=== PATIENT | male | born 1940 | race Caucasian/White ===

== ENCOUNTER → 2016-10-12 | Outpatient (REF) | payer MEDICARE | LOC: M LAB REF 12:15 | PROVIDERS: ATTEND Nurse Practitioner Family | DX: R50.9 Fever, unspecified (principal); B34.9 Viral infection, unspecified ==

== ENCOUNTER → 2016-10-19 | Outpatient (CLI) | payer MEDICARE ==
[~2016-10-19] MED LIST: METHACHOLINE KIT (J7674) INH ONE
--- NOTE | 2016-10-19 08:28 | PFTRPT ---
METHACHOLINE CHALLENGE REPORT: ORDERING PROVIDER: Ty Shearer D.O. DATE OF SERVICE: 10/19/16 INTERPRETATION: The study was of excellent technical quality. Under protocol, methacholine was administered. Even after a maximal dose of 25 mg (188.875 CDUs) of methacholine , no provocation dose was ever achieved. IMPRESSION: Negative methacholine challenge study. MTDD
== END ==
LOC: M CARPUL 07:30
PROVIDERS: ATTEND Internal Medicine Pulmonary Disease
DX: R06.02 Shortness of breath (principal)
CPT/HCPCS: 94070; 95070; J7674

== ENCOUNTER → 2017-08-17 | Outpatient (REF) | payer MEDICARE ==
[2017-08-17 19:56] LABS: INFLUENZA A AMPLIFICATION NEGATIVE (NEGATIVE); INFLUENZA B AMPLIFICATION NEGATIVE (NEGATIVE)
== END ==
LOC: M LAB REF 16:42
DX: B34.9 Viral infection, unspecified (principal)
CPT/HCPCS: 87502

== ENCOUNTER → 2017-10-02 | Outpatient (CLI) | payer MEDICARE | LOC: M RAD 08:15 | DX: J47.9 Bronchiectasis, uncomplicated (principal) | CPT/HCPCS: G0297 ==

== ENCOUNTER 2017-11-15 10:59 | Day surgery (SDC) | payer MEDICARE ==
[2017-11-15] MEDS: NS 1,000 ML IV (11:15)
[2017-11-15] MEDS ORDERED: PROPOFOL 200 MG/20 ML VIAL As Ordered (12:34)
== END 2017-11-15 13:47 | disposition home or self-care (01) ==
LOC: M OPP 10:59
DX: Z12.11 Encounter for screening for malignant neoplasm of colon (principal); Z86.010 Personal history of colon polyps; K64.0 First degree hemorrhoids; I10 Essential (primary) hypertension; E78.5 Hyperlipidemia, unspecified; E03.9 Hypothyroidism, unspecified; J44.9 Chronic obstructive pulmonary disease, unspecified; F17.210 Nicotine dependence, cigarettes, uncomplicated; Z91.041 Radiographic dye allergy status; Z79.82 Long term (current) use of aspirin; Z79.899 Other long term (current) drug therapy
CPT/HCPCS: G0105

== ENCOUNTER 2017-11-28 09:41 | Emergency (ER) | payer MEDICARE ==
[2017-11-28] MEDS: ALBUTEROL SULFATE 2.5 MG/0.5 ML INH NEB SOLN INH (09:56)
[2017-11-28] MEDS: IPRATROPIUM 0.5MG/ALBUTEROL 2.5MG INH SOL UD 3ML (DUONEB)(J7620) NEB (09:56)
[2017-11-28] MEDS: methylPREDNISolone INJ 125 MG/2 ML VIAL (J2930) IV (10:00)
[2017-11-28 10:15] LABS: BASO # 0.2 10^3/uL (0.0-0.2); EOS # 0.4 10^3/uL (0.0-0.50); HEMATOCRIT 40.8 % (42.0-52.0); HEMOGLOBIN 14.5 g/dl (13.5-17.5); IMMATURE GRANULOCYTE % 0.2 % (0-3.0); LYMPH # 1.3 10^3/uL (1.5-4.5); LYMPH % 21.6 % (24.0-44.0); MEAN CORPUSCULAR HEMOGLOBIN 32.9 pg (27.0-33.0); MEAN CORPUSCULAR HGB CONC 35.5 g/dl (32.0-36.5); MEAN CORPUSCULAR VOLUME 92.5 fl (80.0-96.0); MONO # 0.5 10^3/uL (0.0-0.8); MONO % 8.8 % (0.0-5.0); NEUTROPHILS # 3.7 10^3/uL (1.8-7.7); NEUTROPHILS % 59.3 % (36.0-66.0); PLATELET COUNT, AUTOMATED 223 10^3/uL (150-450); RED BLOOD COUNT 4.41 10^6/uL (4.30-6.10); RED CELL DISTRIBUTION WIDTH 12.6 % (11.5-14.5); WHITE BLOOD COUNT 6.2 10^3/uL (4.0-10.0)
[2017-11-28] MEDS: ASPIRIN 81 MG CHEW TABLET PO (10:18)
[2017-11-28 10:30] LABS: BASO % 3.1 % (0.0-1.0); POSITIVE DIFF POS FLAG
[2017-11-28 10:32] LABS: ALBUMIN/GLOBULIN RATIO 1.03 (1.00-1.93); ALKALINE PHOSPHATASE 65 U/L (45-117); ALT/SGPT 24 U/L (12-78); ANION GAP 9 MEQ/L (8-16); AST/SGOT 22 U/L (7-37); BILIRUBIN,DIRECT < 0.1 MG/DL (0.0-0.2); BILIRUBIN,TOTAL 0.4 MG/DL (0.2-1.0); BLOOD UREA NITROGEN 14 MG/DL (7-18); CALCIUM LEVEL 8.9 MG/DL (8.8-10.2); CARBON DIOXIDE LEVEL 24 MEQ/L (21-32); CHLORIDE LEVEL 107 MEQ/L (98-107); CPK CREATINE PHOSPHOKINASE 137 U/L (39-308); CREATININE FOR GFR 1.13 MG/DL (0.70-1.30); FREE T4 0.94 NG/DL (0.76-1.46); GLOMERULAR FILTRATION RATE > 60.0 (>42); GLUCOSE, FASTING 102 MG/DL (70-100); POTASSIUM SERUM 3.5 MEQ/L (3.5-5.1); SODIUM LEVEL 140 MEQ/L (136-145); TOTAL PROTEIN 7.9 GM/DL (6.4-8.2); TROPONIN I < 0.02 NG/ML (< 0.10)
[2017-11-28 10:37] LABS: CK-MB VALUE MASS 2.5 NG/ML (<3.6); MB/CK RELATIVE INDEX 1.82 (< OR =4); NT-PRO BNP 94 PG/ML (<450)
[2017-11-28 15:27] LABS: CK-MB VALUE MASS 1.9 NG/ML (<3.6); CPK CREATINE PHOSPHOKINASE 111 U/L (39-308); MB/CK RELATIVE INDEX 1.71 (< OR =4); TROPONIN I < 0.02 NG/ML (< 0.10)
== END 2017-11-28 16:57 | disposition home or self-care (01) ==
LOC: M ED 09:41
DX: J44.1 Chronic obstructive pulmonary disease with (acute) exacerbation (principal); R94.31 Abnormal electrocardiogram [ECG] [EKG]; I10 Essential (primary) hypertension; E78.5 Hyperlipidemia, unspecified; N40.0 Benign prostatic hyperplasia without lower urinary tract symptoms; Z98.890 Other specified postprocedural states; Z91.041 Radiographic dye allergy status; Z79.82 Long term (current) use of aspirin; Z79.899 Other long term (current) drug therapy; Z79.890 Hormone replacement therapy
CPT/HCPCS: J2930

== ENCOUNTER → 2018-02-27 | Outpatient (REF) | payer MEDICARE ==
[2018-02-27 16:08] LABS: PLATELET COUNT, AUTOMATED 236 10^3/uL (150-450)
[2018-02-27 16:33] LABS: INR 1.09; PARTIAL THROMBOPLASTIN TIME 27.4 SECONDS (25.4-37.6); PROTHROMBIN TIME 14.2 SECONDS (12.1-14.4)
== END ==
LOC: M LABDRAW1 15:53
DX: M47.897 Other spondylosis, lumbosacral region (principal); Z79.01 Long term (current) use of anticoagulants
CPT/HCPCS: 85049

== ENCOUNTER → 2018-08-26 | Outpatient (REF) | payer MEDICARE ==
[~2018-08-26] MED LIST changes: +ALBU83IN INH; +ASPI1TAB PO; +DOXA1TAB41 PO; +LEVO25TA5 PO; +LEVO500T3 PO; -METHACHOLINE KIT (J7674) INH ONE; +PRAV20TA2 PO; +PRED20TA PO; +VENTAER IN; +VITA100067 PO; +VITA500T3 PO
[2018-08-26 14:08] LABS: INFLUENZA A AMPLIFICATION NEGATIVE (NEGATIVE); INFLUENZA B AMPLIFICATION NEGATIVE (NEGATIVE)
== END ==
LOC: M LAB REF 13:21
PROVIDERS: ATTEND Physician Assistant
DX: J11.1 Influenza due to unidentified influenza virus with other respiratory manifestations (principal)

== ENCOUNTER 2018-09-22 08:55 | Emergency (ER) | payer MEDICARE ==
[~2018-09-22] VITALS: Ht 160 cm; Wt 60.5 kg
[2018-09-22] MEDS ORDERED: TREL1AER PO (09:01)
[2018-09-22] MEDS ORDERED: methylPREDNISolone INJ 125 MG/2 ML VIAL (J2930) IV ONE (09:30)
[2018-09-22] MEDS: IPRATROPIUM 0.5MG/ALBUTEROL 2.5MG INH SOL UD 3ML (DUONEB)(J7620) NEB PRN ×2 (09:40→09:50)
[2018-09-22 10:11] LABS: BASO # 0.1 10^3/uL (0.0-0.2); BASO % 1.3 % (0.0-1.0); EOS # 0.2 10^3/uL (0.0-0.50); EOS % 1.6 % (0.0-3.0); HEMATOCRIT 41.8 % (42.0-52.0); HEMOGLOBIN 14.3 g/dl (13.5-17.5); LYMPH # 0.7 10^3/uL (1.5-4.5); LYMPH % 7.7 % (24.0-44.0); MEAN CORPUSCULAR HEMOGLOBIN 32.8 pg (27.0-33.0); MEAN CORPUSCULAR HGB CONC 34.2 g/dl (32.0-36.5); MEAN CORPUSCULAR VOLUME 95.9 fl (80.0-96.0); MONO # 0.6 10^3/uL (0.0-0.8); NEUTROPHILS # 7.9 10^3/uL (1.8-7.7); NEUTROPHILS % 82.9 % (36.0-66.0); PLATELET COUNT, AUTOMATED 213 10^3/uL (150-450); RED BLOOD COUNT 4.36 10^6/uL (4.30-6.10); WHITE BLOOD COUNT 9.5 10^3/uL (4.0-10.0)
--- NOTE | 2018-09-22 10:14 | REP ---
PA and lateral chest: Comparison is 08/31/2018. The lung mccullough are clear. The cardiac size is normal. The jeanie, mediastinum, and skeletal structures are unremarkable. Impression: Negative PA and lateral chest. Electronically Signed by Jose Carlos Bailey MD 09/22/2018 10:06 A
[2018-09-22 10:48] LABS: INFLUENZA A AMPLIFICATION NEGATIVE (NEGATIVE); INFLUENZA B AMPLIFICATION NEGATIVE (NEGATIVE)
[2018-09-22 10:54] LABS: BLOOD UREA NITROGEN 18 MG/DL (7-18); CARBON DIOXIDE LEVEL 25 MEQ/L (21-32); CHLORIDE LEVEL 107 MEQ/L (98-107); CPK CREATINE PHOSPHOKINASE 101 U/L (39-308); CREATININE FOR GFR 1.16 MG/DL (0.70-1.30); GLOMERULAR FILTRATION RATE > 60.0 (>42); GLUCOSE, FASTING 109 MG/DL (70-100); MB/CK RELATIVE INDEX 1.88 (< OR =4); NT-PRO BNP 65 PG/ML (<450); POTASSIUM SERUM 3.7 MEQ/L (3.5-5.1); SODIUM LEVEL 142 MEQ/L (136-145); THYROID STIMULATING HORMONE 0.977 uIU/ML (0.358-3.740); TROPONIN I < 0.02 NG/ML (< 0.10)
[2018-09-22 12:06] VITALS: O2SAT 96
[2018-09-22 13:07] VITALS: BP 130/62
--- NOTE | 2018-09-23 20:49 | ECGEPIP ---
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
== END 2018-09-22 13:13 | disposition home or self-care (01) ==
LOC: M ED 08:55
DX: R06.00 Dyspnea, unspecified (principal); J44.9 Chronic obstructive pulmonary disease, unspecified; I10 Essential (primary) hypertension; Z79.52 Long term (current) use of systemic steroids; Z79.82 Long term (current) use of aspirin; Z79.899 Other long term (current) drug therapy; Z79.51 Long term (current) use of inhaled steroids; Z79.890 Hormone replacement therapy; Z87.891 Personal history of nicotine dependence; Z91.041 Radiographic dye allergy status
CPT/HCPCS: 71046; 80048; 82550; 82553; 83880; 84443; 84484; 85025; 85379; 87502; 93005; 93041; 94640; 94760; 96374; 99285; J2930

== ENCOUNTER → 2019-02-07 | Outpatient (REF) | payer OTHER ==
[~2019-02-07] MED LIST changes: -ASPI1TAB PO; +ASPI81TA26 PO; +CYAN500T8 PO; +TREL1AER PO; -VITA500T3 PO
[2019-02-07 13:33] LABS: INR 1.09; PROTHROMBIN TIME 13.8 SECONDS (11.8-14.0)
[2019-02-07 13:34] LABS: PARTIAL THROMBOPLASTIN TIME 27.3 SECONDS (25.0-38.4)
== END ==
LOC: M LABDRAW1 09:09
PROVIDERS: ATTEND Physical Medicine & Rehabilitation
DX: Z01.818 Encounter for other preprocedural examination (principal)

== ENCOUNTER → 2019-05-19 | Outpatient (REF) | payer MEDICARE, OTHER ==
[2019-05-19 14:35] LABS: INFLUENZA A AMPLIFICATION NEGATIVE (NEGATIVE); INFLUENZA B AMPLIFICATION NEGATIVE (NEGATIVE)
== END ==
LOC: M LAB REF 13:48
PROVIDERS: ATTEND Nurse Practitioner Family
DX: R50.9 Fever, unspecified (principal)

== ENCOUNTER 2019-10-28 13:36 | Emergency (ER) | payer MEDICARE ==
[~2019-10-28] VITALS: Ht 160 cm; Wt 61.6 kg
[2019-10-28 14:33] LABS: BASO # 0.1 10^3/uL (0.0-0.2); BASO % 1.5 % (0.0-1.0); EOS # 0.1 10^3/uL (0.0-0.5); EOS % 0.8 % (0.0-3.0); HEMATOCRIT 41.4 % (42.0-52.0); HEMOGLOBIN 14.2 g/dl (13.5-17.5); LYMPH # 0.5 10^3/uL (1.5-5.0); LYMPH % 6.7 % (24.0-44.0); MEAN CORPUSCULAR HGB CONC 34.3 g/dl (32.0-36.5); MEAN CORPUSCULAR VOLUME 96.3 fl (80.0-96.0); MONO # 0.3 10^3/uL (0.0-0.8); MONO % 4.2 % (0.0-5.0); NEUTROPHILS # 6.5 10^3/uL (1.5-8.5); NEUTROPHILS % 86.4 % (36.0-66.0); PLATELET COUNT, AUTOMATED 256 10^3/uL (150-450); WHITE BLOOD COUNT 7.6 10^3/uL (4.0-10.0)
--- NOTE | 2019-10-28 14:42 | REP ---
REASON: Cough and dyspnea. FINDINGS: The technique utilized in obtaining the radiograph has magnified the cardiac silhouette and accentuated the interstitial markings. The superior mediastinal structures are midline. The cardiac silhouette is unremarkable in size, shape, and position. The diaphragmatic surfaces of the lungs are regular, and the costophrenic angles are clear. The pulmonary mccullough are clear. The imaged osseous structures are intact. IMPRESSION: There is no acute cardiopulmonary disease. Electronically Signed by Samy Olvera DO 10/28/2019 03:00 P
[2019-10-28 14:58] LABS: ALBUMIN 3.7 GM/DL (3.2-5.2); ALT/SGPT 33 U/L (12-78); BILIRUBIN,DIRECT 0.1 MG/DL (0.0-0.2); BILIRUBIN,TOTAL 0.3 MG/DL (0.2-1.0); BLOOD UREA NITROGEN 22 MG/DL (7-18); CALCIUM LEVEL 9.1 MG/DL (8.8-10.2); CARBON DIOXIDE LEVEL 25 MEQ/L (21-32); CHLORIDE LEVEL 106 MEQ/L (98-107); CREATININE FOR GFR 1.22 MG/DL (0.70-1.30); GLOMERULAR FILTRATION RATE > 60.0 (>42); GLUCOSE, FASTING 198 MG/DL (70-100); POTASSIUM SERUM 3.8 MEQ/L (3.5-5.1); SODIUM LEVEL 138 MEQ/L (136-145); TOTAL PROTEIN 7.5 GM/DL (6.4-8.2)
[2019-10-28] MEDS ORDERED: NS 500 ML IV ONE (15:30)
[2019-10-28 16:52] VITALS: O2SAT 95
[2019-10-28 17:40] VITALS: BP 186/88
--- NOTE | 2019-10-29 09:11 | ECGEPIP ---
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
== END 2019-10-28 17:44 | disposition home or self-care (01) ==
LOC: M ED 13:36
DX: J44.1 Chronic obstructive pulmonary disease with (acute) exacerbation (principal); Z87.891 Personal history of nicotine dependence; Z79.82 Long term (current) use of aspirin; Z79.899 Other long term (current) drug therapy; Z91.041 Radiographic dye allergy status

== ENCOUNTER → 2019-12-11 | Outpatient (REF) | payer MEDICARE, OTHER | LOC: M LAB REF 12:10 | PROVIDERS: ATTEND Nurse Practitioner Adult Health | DX: R35.0 Frequency of micturition (principal) ==

== ENCOUNTER → 2020-01-15 | Outpatient (CLI) | payer OTHER ==
[2020-01-15 09:35] LABS: PLATELET COUNT, AUTOMATED 208 10^3/uL (150-450)
[2020-01-15 09:46] LABS: INR 1.04; PROTHROMBIN TIME 13.3 SECONDS (11.8-14.0)
[2020-01-15 09:47] LABS: PARTIAL THROMBOPLASTIN TIME 26.9 SECONDS (25.0-38.4)
== END ==
LOC: M LAB 08:49
PROVIDERS: ATTEND Physical Medicine & Rehabilitation
DX: M47.27 Other spondylosis with radiculopathy, lumbosacral region (principal)

== ENCOUNTER → 2020-04-02 | Outpatient (REF) | payer MEDICARE, OTHER | LOC: M LAB REF 16:23 | PROVIDERS: ATTEND Physician Assistant Medical | DX: D51.9 Vitamin B12 deficiency anemia, unspecified (principal) ==

== ENCOUNTER 2020-05-30 10:27 | Emergency (ER) | payer MEDICARE, OTHER ==
[~2020-05-30] VITALS: Ht 160 cm; Wt 61.4 kg
[2020-05-30 11:35] LABS: BASO # 0.2 10^3/uL (0.0-0.2); BASO % 2.2 % (0.0-1.0); EOS # 0.4 10^3/uL (0.0-0.5); HEMOGLOBIN 14.1 g/dl (13.5-17.5); LYMPH # 0.9 10^3/uL (1.5-5.0); MEAN CORPUSCULAR HGB CONC 33.6 g/dl (32.0-36.5); MEAN CORPUSCULAR VOLUME 95.5 fl (80.0-96.0); MONO # 0.5 10^3/uL (0.0-0.8); MONO % 6.8 % (0.0-5.0); NEUTROPHILS # 5.7 10^3/uL (1.5-8.5); NEUTROPHILS % 73.7 % (36.0-66.0); PLATELET COUNT, AUTOMATED 220 10^3/uL (150-450); WHITE BLOOD COUNT 7.8 10^3/uL (4.0-10.0)
[2020-05-30 12:05] LABS: ALBUMIN 3.6 GM/DL (3.2-5.2); ALT/SGPT 20 U/L (12-78); BILIRUBIN,DIRECT 0.1 MG/DL (0.0-0.2); BILIRUBIN,TOTAL 0.7 MG/DL (0.2-1.0); BLOOD UREA NITROGEN 20 MG/DL (7-18); CALCIUM LEVEL 8.9 MG/DL (8.8-10.2); CARBON DIOXIDE LEVEL 23 MEQ/L (21-32); CHLORIDE LEVEL 108 MEQ/L (98-107); CK-MB VALUE MASS 1.9 NG/ML (<3.6); CPK CREATINE PHOSPHOKINASE 77 U/L (39-308); CREATININE FOR GFR 1.18 MG/DL (0.70-1.30); GLOMERULAR FILTRATION RATE > 60.0 (>35); GLUCOSE, FASTING 160 MG/DL (70-100); MB/CK RELATIVE INDEX 2.47 (< OR =4); NT-PRO BNP 67 PG/ML (<450); POTASSIUM SERUM 3.6 MEQ/L (3.5-5.1); SODIUM LEVEL 140 MEQ/L (136-145); TOTAL PROTEIN 6.8 GM/DL (6.4-8.2); TROPONIN I < 0.02 NG/ML (< 0.10)
--- NOTE | 2020-05-30 12:24 | REP ---
INDICATION: DYSPNEA/COUGH. COMPARISON: 10/28/2019 FINDINGS: The technique utilized in obtaining the radiograph has magnified the cardiac silhouette and accentuated the interstitial markings. The superior mediastinal structures are midline. The cardiac silhouette is unremarkable in size, shape, and position. The diaphragmatic surfaces of the lungs are regular, and the costophrenic angles are clear. The pulmonary mccullough are clear. The imaged osseous structures are intact. IMPRESSION: There is no acute cardiopulmonary disease. <Electronically signed by Samy Olvera > 05/30/20 2318
[2020-05-30] MEDS ORDERED: NS 1,000 ML IV ONE (12:30)
[2020-05-30 15:13] VITALS: BP 150/82
[2020-05-31] MEDS ORDERED: XANA0.25 PO ×2 (13:43→13:46)
--- NOTE | 2020-06-01 09:57 | ECGEPIP ---
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
== END 2020-05-30 15:22 | disposition home or self-care (01) ==
LOC: M ED 10:27
DX: R06.00 Dyspnea, unspecified (principal); I10 Essential (primary) hypertension; J44.9 Chronic obstructive pulmonary disease, unspecified; Z79.82 Long term (current) use of aspirin; Z79.899 Other long term (current) drug therapy; Z91.041 Radiographic dye allergy status

== ENCOUNTER 2020-05-31 09:46 | Emergency (ER) | payer MEDICARE ==
[~2020-05-31] VITALS: Ht 160 cm; Wt 60.2 kg
[2020-05-31] MEDS ORDERED: ALPRAZolam 0.25 MG TAB PO ONE (10:30)
--- NOTE | 2020-05-31 11:20 | REP ---
INDICATION: sob. COMPARISON: Yesterday TECHNIQUE: . The technique utilized in obtaining the radiograph has magnified the cardiac silhouette and attenuated the interstitial markings. FINDINGS: The superior mediastinal structures are midline. The heart is not enlarged. The diaphragmatic surfaces of the lungs are regular and the costophrenic angles are clear. The pulmonary mccullough are clear. The visualized osseous structures are intact. IMPRESSION: There is no acute cardiopulmonary disease. <Electronically signed by Samy Olvera > 05/31/20 1118
[2020-05-31 13:29] VITALS: O2SAT 95
[2020-05-31 13:30] VITALS: BP 169/83
[2020-05-31] MEDS ORDERED: XANA0.25 PO ×2 (13:43→13:46)
--- NOTE | 2020-06-01 10:13 | ECGEPIP ---
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
== END 2020-05-31 14:12 | disposition home or self-care (01) ==
LOC: M ED 09:46
DX: F41.1 Generalized anxiety disorder (principal); J44.9 Chronic obstructive pulmonary disease, unspecified; I10 Essential (primary) hypertension; Z87.891 Personal history of nicotine dependence; Z79.82 Long term (current) use of aspirin; Z79.899 Other long term (current) drug therapy; Z91.041 Radiographic dye allergy status

== ENCOUNTER 2020-06-03 04:08 | Inpatient (IN) | payer MEDICARE ==
[~2020-06-03] VITALS: Ht 160 cm; Wt 54.5 kg
[2020-06-03] VITALS (31 sets, daily range): BP systolic 75–114; BP diastolic 43–59; O2SAT 97
[~2020-06-03 04:08] MED LIST changes: +CYAN500T14 PO; -CYAN500T8 PO; +XANA0.25 PO
[2020-06-03] MEDS ORDERED: ONDANSETRON 4MG/2ML VIAL IV ONE (04:30)
[2020-06-03] MEDS ORDERED: NS 1,000 ML IV ONE ×2 (04:30→06:15)
[2020-06-03 04:35] LABS: BASO # 0.2 10^3/uL (0.0-0.2); BASO % 1.7 % (0.0-1.0); EOS # 0.4 10^3/uL (0.0-0.5); EOS % 4.9 % (0.0-3.0); HEMATOCRIT 46.7 % (42.0-52.0); HEMOGLOBIN 15.5 g/dl (13.5-17.5); LYMPH # 0.9 10^3/uL (1.5-5.0); LYMPH % 10.1 % (24.0-44.0); MEAN CORPUSCULAR HEMOGLOBIN 31.3 pg (27.0-33.0); MEAN CORPUSCULAR HGB CONC 33.2 g/dl (32.0-36.5); MEAN CORPUSCULAR VOLUME 94.2 fl (80.0-96.0); MONO # 0.3 10^3/uL (0.0-0.8); MONO % 2.8 % (0.0-5.0); NEUTROPHILS # 7.2 10^3/uL (1.5-8.5); NEUTROPHILS % 79.8 % (36.0-66.0); PLATELET COUNT, AUTOMATED 231 10^3/uL (150-450); RED BLOOD COUNT 4.96 10^6/uL (4.30-6.10)
--- NOTE | 2020-06-03 04:58 | REPVR ---
PROCEDURE INFORMATION: Exam: XR Complete Acute Abdomen Series Exam date and time: 06/03/2020 4:51 AM Age: 80 years old Clinical indication: Abdominal pain TECHNIQUE: Imaging protocol: XR complete acute abdomen series, including 2 or more views of the abdomen and a single view chest. COMPARISON: CR Chest, 1 view 05/31/2020 10:37 AM FINDINGS: Lungs: Normal. No consolidation. Pleural space: Normal. No pneumothorax. Heart/Mediastinum: Normal. No cardiomegaly. Gastrointestinal tract: There is moderate gaseous distention of the transverse colon. There is suggestion of large colonic stool burden in the sigmoid colon. On the lateral decubitus views there are air-fluid levels with stepladder appearance. Intraperitoneal space: Normal. No free air. 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 No acute fracture. Soft tissues: Normal. IMPRESSION: 1. No obvious dilated small bowel loops on the frontal view however dilated loops with air-fluid level seen on the lateral decubitus view suggestive of either ileus or small-bowel obstruction. Additionally noted is significant gaseous distention of the transverse colon and large colonic stool burden in the sigmoid colon. If clinically indicated CT of the abdomen and pelvis may be obtained for further evaluation. 2. No focal lung consolidation seen Electronically signed by: Carl Sethi On 06/03/2020 04:58:55 AM
[2020-06-03 05:12] LABS: ALBUMIN 3.8 GM/DL (3.2-5.2); ALT/SGPT 23 U/L (12-78); BILIRUBIN,DIRECT 0.2 MG/DL (0.0-0.2); BILIRUBIN,TOTAL 0.7 MG/DL (0.2-1.0); BLOOD UREA NITROGEN 21 MG/DL (7-18); CARBON DIOXIDE LEVEL 25 MEQ/L (21-32); CHLORIDE LEVEL 108 MEQ/L (98-107); CREATININE FOR GFR 1.21 MG/DL (0.70-1.30); GLOMERULAR FILTRATION RATE > 60.0 (>35); GLUCOSE, FASTING 155 MG/DL (70-100); LIPASE 128 U/L (73-393); POTASSIUM SERUM 3.7 MEQ/L (3.5-5.1); SODIUM LEVEL 141 MEQ/L (136-145); TOTAL PROTEIN 7.2 GM/DL (6.4-8.2)
--- NOTE | 2020-06-03 06:05 | REPVR ---
PROCEDURE INFORMATION: Exam: CT Abdomen And Pelvis Without Contrast Exam date and time: 06/03/2020 5:17 AM Age: 80 years old Clinical indication: Abdominal pain; Generalized; Additional info: Rule out bowel obstruction TECHNIQUE: Imaging protocol: Computed tomography of the abdomen and pelvis without contrast. Radiation optimization: All CT scans at this facility use at least one of these dose optimization techniques: automated exposure control; mA and/or kV adjustment per patient size (includes targeted exams where dose is matched to clinical indication); or iterative reconstruction. COMPARISON: CT ABD PELVIS W/O CONTRAST 09/16/2014 12:29 AM FINDINGS: Lungs: There are bibasilar chronic lung changes. There is a partially imaged bleb or bullae with thick wall and eccentric nodule measuring 1.3 centimetres. There are nonspecific mild increased peripheral interstitial markings in the lower lung zones. Liver: Normal. No mass. Gallbladder and bile ducts: Normal. No calcified stones. No ductal dilation. Pancreas: Normal. No ductal dilation. Spleen: Normal. No splenomegaly. Adrenal glands: Normal. No mass. Kidneys and ureters: There is a 6.1 cm and 3.5 cm left renal simple appearing cysts. There are 2 small right renal cysts 1 measuring 1.3 cm in the 2nd 1.5 centimetres. There is no renal or ureteral stones nor hydronephrosis. Stomach and bowel: There is thickening of the descending and rectosigmoid colon with surrounding edema. There is a large focal area of stool like material measuring 8.9 x 8.4 cm abutting and inseparable from the sigmoid colon significant surrounding inflammation. There are some mildly dilated small bowel loops in the central abdomen measuring up to 3 cm with some wall thickening. Appendix: No evidence of appendicitis. Intraperitoneal space: Edema is seen in the pelvis with small amount of free pelvic fluid. There is small amount of perihepatic ascites. Vasculature: There is moderate to severe aortic and mild iliac mural calcifications. Lymph nodes: Unremarkable. No enlarged lymph nodes. Urinary bladder: Unremarkable as visualized. Reproductive: The prostate gland is significantly enlarged measuring 5.2 x 5.2 cm indenting the posterior wall of the urinary bladder. Bones/joints: There is diffuse bony osteopenia. Soft tissues: There is small left inguinal fat containing hernia. IMPRESSION: 1. Focal perforation of the sigmoid colon associated with a largely contained 8.9 x 8.4 cm stool collection inseparable from the sigmoid with significant surrounding inflammation and reactive fluid. Some extraluminal foci of air seen adjacent to the rectosigmoid colon. 2. Descending and sigmoid colon colitis with moderate fluid distention of the colon proximally. Findings could be secondary to some form of colonic ileus or partial colonic obstruction. 3. Mid abdominal distended small bowel loops with thickening and surrounding edema could be due to reactive ileus. 4. Simple appearing bilateral renal cysts. 5. Enlarged prostate gland . Correlate with clinical history, physical exam and PSA level. 6. Small left inguinal fat containing hernia. 7. Partially imaged 2.3 cm left lower lobe bullae with thickened wall and eccentric 1.3 cm nodule. Findings could be secondary to super infection however underlying neoplastic process cannot be excluded.For both low risk and high risk patients, consider CT Chest at 3 months, PET/CT, or biopsy. (Reference: Jonny) COMMENTS: Consistent with the [employer]'s Incidental Findings Committee white paper (J Am Armond Radiol 2018): Any incidental renal lesion less than 1 cm or classified as too small to characterize, or any incidental cystic renal lesion characterized as simple-appearing, is likely benign. No follow-up imaging is recommended for these lesions per consensus recommendations based on imaging criteria. REFERENCES: Jonny Veras, et al. Guidelines for Management of Incidental Pulmonary Nodules Detected on CT Images: From the Fleischner Society 2017. Radiology. 2017;284(1):228-243. Electronically signed by: Carl Sethi On 06/03/2020 06:04:52 AM
[2020-06-03] MEDS ORDERED: PIPERACILLIN/TAZOBACTAM SOD 4.5 GM in D5W MINI-BAG PLUS 50 ML IV ONE (06:15)
[2020-06-03] MEDS ORDERED: MORPHINE 4 MG/ML 1ML VIAL/SYRINGE (J2270) IV ONE (06:15)
[2020-06-03] MEDS ORDERED: D31000TA2 PO (06:54)
[2020-06-03] MEDS ORDERED: ACET-897 PO (06:54)
[2020-06-03] MEDS ORDERED: VENTAER INH (06:54)
[2020-06-03] MEDS ORDERED: ALPR0.25 PO (06:54)
[2020-06-03] MEDS ORDERED: ALBU83IN INH (06:54)
[2020-06-03] MEDS ORDERED: PATIENT COMMENT (06:56)
[2020-06-03] MEDS ORDERED: NS 1,000 ML IV SCH ×2 (08:15→11:43)
[2020-06-03] MEDS: NOREPINEPHRINE BITARTRATE 8 MG in D5W 492 ML IV SCH ×3 (09:15→15:08)
[2020-06-03] MEDS ORDERED: GLUCAGON INJ 1MG VIAL As Ordered ONE (09:28)
[2020-06-03] MEDS ORDERED: BUPIVACAINE HCL 0.25% 30ML VIAL As Ordered ONE (09:56)
[2020-06-03] MEDS ORDERED: LIDOCAINE W/EPINEPHRINE 1% 20ML VIAL As Ordered ONE (09:57)
[2020-06-03] MEDS ORDERED: SUGAMMADEX SODIUM 500 MG/5 ML VIAL (BRIDION) As Ordered ONE (10:58)
[2020-06-03] MEDS ORDERED: propofoL 200 MG/20 ML VIAL As Ordered ONE (10:58)
[2020-06-03] MEDS ORDERED: ROCURONIUM BROMIDE 50 MG/5 ML VIAL As Ordered ONE (10:58)
[2020-06-03] MEDS ORDERED: ACETAMINOPHEN 1000MG 100ML IV BTL (OFIRMEV) (J0131 PER 10MG) As Ordered ONE (10:58)
[2020-06-03] MEDS ORDERED: PHENYLEPHRINE 10MG/ML 1ML VIAL (J2370 PER 1) As Ordered ONE (10:58)
[2020-06-03] MEDS ORDERED: SUCCINYLCHOLINE 100 MG/5 ML SYRINGE (J0330) As Ordered ONE (10:58)
[2020-06-03] MEDS ORDERED: ONDANSETRON 4MG/2ML VIAL As Ordered ONE (10:58)
[2020-06-03] MEDS ORDERED: HYDROmorphone HCL 2 MG/ML 1ML VIAL (J1170) As Ordered ONE (10:58)
[2020-06-03] MEDS ORDERED: LIDOCAINE 2% 100MG/5ML SDV (FOR ANES.) As Ordered ONE (10:58)
[2020-06-03] MEDS ORDERED: fentaNYL 100 MCG/2 ML INJECTION (J3010) As Ordered ONE (10:58)
[2020-06-03] MEDS ORDERED: ETOMIDATE INJ 20MG/10ML VIAL As Ordered ONE (10:59)
--- NOTE | 2020-06-03 11:31 | HPE ---
DATE OF ADMISSION: 06/03/2020 BRIEF HISTORY OF PRESENT ILLNESS: The patient is an 80-year-old male who presents with abdominal distention, abdominal pain, nausea, vomiting and essentially developed abdominal pain significant enough with abdominal distention that he was brought to the Emergency Room and evaluated. Initial x- rays revealed no evidence of free perforation, but distended bowel. CT scan was performed and revealed a contained perforation in the sigmoid colon and I was asked to see the patient for further recommendations. PAST MEDICAL AND SURGICAL HISTORY: Significant for: 1. History of COPD. 2. History of right inguinal hernia. 3. History of right knee arthroscopy. 4. History of bilateral carpal tunnel surgery. 5. History of anxiety. 6. History of hypothyroidism. 7. History of hypercholesterolemia. 8. History of osteoporosis. MEDICATIONS: Include: * Aspirin. * Vitamin B12. * Doxazosin. * Mesylate. * Synthroid. * Pravastatin. * Calciferol. * Alprazolam. * Albuterol. * Tylenol. PHYSICAL EXAMINATION: Exam reveals a frail appearing 80-year-old male who looks stated age. HEENT: Unremarkable. Neck: Supple without adenopathy. Lungs: Diminished bilaterally. Heart: Regular, but tachycardic. Abdomen: Distended, tympanitic with guarding in the lower abdomen with localized peritoneal signs. Extremities: Cool, but adequately perfused at this time. IMPRESSION AND PLAN: Patient has evidence of probable large bowel obstruction with a perforation at the sigmoid colon and it may just be a fecal impaction that caused this perforation. It looks like it is perforated into the mesentery, we do not see a free perforation; however, it is a significant amount and I am not convinced that it is held in by much at this point and I anticipate it may turn into a free perforation relatively soon. At this point my recommendation is that we proceed with an exploratory laparotomy with a diverting colostomy. Risks as well as benefits have been discussed with the patient and I contacted the son and informed him of the need for operative intervention and colostomy. He agrees to proceed with operative intervention as soon as possible. Otherwise at this point I have asked, on my first visit to the ER to have an NG-tube placed, I.V. fluids run and we will see if that gets started as soon as possible. GORGE
[2020-06-03] MEDS ORDERED: IPRATROPIUM 0.5MG/ALBUTEROL 2.5MG INH SOL UD 3ML (DUONEB) NEB PRN (11:45)
[2020-06-03] MEDS ORDERED: CIPROFLOXACIN 400 MG in IV 1 EA IV SCH (11:45)
[2020-06-03] MEDS ORDERED: MORPHINE 2 MG/ML 1ML VIAL (J2270) IV PRN ×2 (11:45)
[2020-06-03 12:21] LABS: ABG BASE EXCESS -9.6 (-2.0-2.0); ABG HCO3 18.7 MEQ/L (22.0-26.0); ABG O2 SATURATION 93.1 % (95.0-99.0); ABG PARTIAL PRESSURE CO2 50.6 mmHg (35.0-45.0); ABG PARTIAL PRESSURE O2 78.7 mmHg (75.0-100.0); ABG STANDARD HCO3 16.8 MEQ/L (22.0-26.0); ABG TOTAL CO2 20.3 MEQ/L (23.0-31.0)
[2020-06-03 12:26] LABS: ABG pH (ARTERIAL) 7.186 UNITS (7.350-7.450)
[2020-06-03 12:27] LABS: BASO % 1.1 % (0.0-1.0); EOS % 2.3 % (0.0-3.0); HEMATOCRIT 38.5 % (42.0-52.0); HEMOGLOBIN 12.5 g/dl (13.5-17.5); LYMPH # 0.2 10^3/uL (1.5-5.0); MEAN CORPUSCULAR HEMOGLOBIN 31.4 pg (27.0-33.0); MEAN CORPUSCULAR HGB CONC 32.5 g/dl (32.0-36.5); MEAN CORPUSCULAR VOLUME 96.7 fl (80.0-96.0); MONO # 0.1 10^3/uL (0.0-0.8); MONO % 12.6 % (0.0-5.0); PLATELET COUNT, AUTOMATED 179 10^3/uL (150-450); RED BLOOD COUNT 3.98 10^6/uL (4.30-6.10)
[2020-06-03] MEDS ORDERED: SODIUM BICARBONATE 8.4% INJ 50 ML SYRINGE IV STA ×2 (12:28→12:33)
[2020-06-03] MEDS ORDERED: ONDANSETRON 4MG/2ML VIAL IV PRN (12:30)
[2020-06-03] MEDS ORDERED: fentaNYL 100 MCG/2 ML INJECTION (J3010) IV PRN (12:30)
[2020-06-03] MEDS ORDERED: HYDROMORPHONE HCL 0.5 MG/ 0.5 ML SYRINGE (J1170 PER 1) IV PRN (12:30)
[2020-06-03] MEDS ORDERED: oxyCODONE 5MG TAB PO PRN (12:30)
[2020-06-03] MEDS ORDERED: LR 1,000 ML IV SCH (12:30)
[2020-06-03 12:35] LABS: NEUTROPHILS # 0.5 10^3/uL (1.5-8.5); WHITE BLOOD COUNT 0.9 10^3/uL (4.0-10.0)
[2020-06-03] MEDS ORDERED: SODIUM BICARBONATE 8.4% INJ 50 ML SYRINGE As Ordered ONE (12:48)
[2020-06-03 13:05] LABS: ALBUMIN 1.9 GM/DL (3.2-5.2); BILIRUBIN,TOTAL 0.8 MG/DL (0.2-1.0); CALCIUM LEVEL 7.2 MG/DL (8.8-10.2); CREATININE FOR GFR 1.31 MG/DL (0.70-1.30); POTASSIUM SERUM 3.9 MEQ/L (3.5-5.1); TOTAL PROTEIN 3.6 GM/DL (6.4-8.2)
[2020-06-03] MEDS: IPRATROPIUM 0.5MG/ALBUTEROL 2.5MG INH SOL UD 3ML (DUONEB) NEB SCH ×2 (14:00→19:18)
[2020-06-03 14:35] LABS: ABG BASE EXCESS -5.1 (-2.0-2.0); ABG HCO3 19.8 MEQ/L (22.0-26.0); ABG O2 SATURATION 98.6 % (95.0-99.0); ABG PARTIAL PRESSURE CO2 36.8 mmHg (35.0-45.0); ABG PARTIAL PRESSURE O2 137.4 mmHg (75.0-100.0); ABG STANDARD HCO3 20.3 MEQ/L (22.0-26.0); ABG TOTAL CO2 20.9 MEQ/L (23.0-31.0); ABG pH (ARTERIAL) 7.349 UNITS (7.350-7.450)
[2020-06-03] MEDS ORDERED: NOREPINEPHRINE BITARTRATE 8 MG in D5W 492 ML IV SCH ×2 (15:00)
[2020-06-03] MEDS: D5W/LR 1,000 ML IV SCH (15:08)
[2020-06-03] MEDS: PIPERACILLIN/TAZOBACTAM SOD 3.375 GM in D5W MINI-BAG PLUS 50 ML IV SCH ×2 (15:08→18:02)
[2020-06-03] MEDS ORDERED: NOREPINEPHRINE 4 MG/4 ML AMP ONE (15:19)
[2020-06-03] MEDS: metroNIDAZOLE 500 MG in IV 1 EA IV SCH (16:06)
[2020-06-03] MEDS ORDERED: NS 500 ML IV ONE (16:30)
[2020-06-03 16:32] LABS: HEMATOCRIT 39.8 % (42.0-52.0); HEMOGLOBIN 12.7 g/dl (13.5-17.5); MEAN CORPUSCULAR HEMOGLOBIN 31.3 pg (27.0-33.0); MEAN CORPUSCULAR HGB CONC 31.9 g/dl (32.0-36.5); PLATELET COUNT, AUTOMATED 195 10^3/uL (150-450); RED BLOOD COUNT 4.06 10^6/uL (4.30-6.10); WHITE BLOOD COUNT 1.3 10^3/uL (4.0-10.0)
[2020-06-03 16:56] LABS: CREATININE FOR GFR 1.73 MG/DL (0.70-1.30); GLOMERULAR FILTRATION RATE 40.7 (>35); POTASSIUM SERUM 3.9 MEQ/L (3.5-5.1)
[2020-06-03] MEDS: MORPHINE 2 MG/ML 1ML VIAL (J2270) IV PRN (22:15)
[2020-06-04] VITALS (30 sets, daily range): BP systolic 91–130; BP diastolic 45–76; O2SAT 98
[2020-06-04] MEDS: metroNIDAZOLE 500 MG in IV 1 EA IV SCH ×4 (00:28→23:44)
[2020-06-04] MEDS: PIPERACILLIN/TAZOBACTAM SOD 3.375 GM in D5W MINI-BAG PLUS 50 ML IV SCH ×4 (01:33→18:44)
[2020-06-04] MEDS: IPRATROPIUM 0.5MG/ALBUTEROL 2.5MG INH SOL UD 3ML (DUONEB) NEB SCH ×4 (02:00→19:41)
[2020-06-04] MEDS: MORPHINE 2 MG/ML 1ML VIAL (J2270) IV PRN ×4 (02:44→18:44)
[2020-06-04] MEDS ORDERED: ALTEPLASE 2MG/2ML VIAL IV PRN (05:15)
[2020-06-04] MEDS: NOREPINEPHRINE BITARTRATE 8 MG in D5W 492 ML IV SCH ×3 (06:13→08:00)
[2020-06-04] MEDS: D5W/LR 1,000 ML IV SCH (08:02)
[2020-06-04] MEDS: LEVOTHYROXINE 100MCG (0.1MG) VIAL IV SCH (08:03)
[2020-06-04 08:05] LABS: HEMATOCRIT 36.2 % (42.0-52.0); HEMOGLOBIN 12.2 g/dl (13.5-17.5); MEAN CORPUSCULAR HEMOGLOBIN 32.4 pg (27.0-33.0); MEAN CORPUSCULAR HGB CONC 33.7 g/dl (32.0-36.5); PLATELET COUNT, AUTOMATED 145 10^3/uL (150-450); RED BLOOD COUNT 3.77 10^6/uL (4.30-6.10); WHITE BLOOD COUNT 4.3 10^3/uL (4.0-10.0)
[2020-06-04] MEDS ORDERED: CEPACOL LOZENGE PO PRN (08:30)
[2020-06-04 08:50] LABS: ALBUMIN 1.8 GM/DL (3.2-5.2); BILIRUBIN,TOTAL 0.7 MG/DL (0.2-1.0); CREATININE FOR GFR 1.76 MG/DL (0.70-1.30); GLOMERULAR FILTRATION RATE 39.9 (>35); POTASSIUM SERUM 3.9 MEQ/L (3.5-5.1); TOTAL PROTEIN 4.4 GM/DL (6.4-8.2)
--- NOTE | 2020-06-04 10:46 | REP ---
INDICATION: COPD, post op comparisson. COMPARISON: 06/03/2020. TECHNIQUE: SINGLE PORTABLE AP VIEW OF THE CHEST WAS PERFORMED. FINDINGS: There are new bibasilar infiltrates compared to the prior study. I also suspect small bilateral effusions. There is left ventricular prominence. There is calcification of the thoracic aorta. There is a nasogastric tube with side port in the stomach. IMPRESSION: New bibasilar infiltrates and small effusions. Nasogastric tube placed with side port in the stomach. <Electronically signed by Jose Carlos Shafer > 06/04/20 1040
[2020-06-04] MEDS ORDERED: NOREPINEPHRINE 4 MG/4 ML AMP ONE (10:51)
[2020-06-04] MEDS: D5W/0.45% SODIUM CHLORIDE 1,000 ML IV SCH (12:33)
[2020-06-04] MEDS ORDERED: ACETAMINOPHEN *IV* 650 MG in IV 1 EA IV ONE (13:00)
--- NOTE | 2020-06-04 14:04 | ECGEPIP ---
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
[2020-06-04 15:15] LABS: ALBUMIN 1.7 GM/DL (3.2-5.2); ALT/SGPT 27 U/L (12-78); BILIRUBIN,TOTAL 0.8 MG/DL (0.2-1.0); BLOOD UREA NITROGEN 35 MG/DL (7-18); CALCIUM LEVEL 6.9 MG/DL (8.8-10.2); CARBON DIOXIDE LEVEL 25 MEQ/L (21-32); CHLORIDE LEVEL 111 MEQ/L (98-107); CHOLESTEROL LEVEL < 50 MG/DL (< 200); CPK CREATINE PHOSPHOKINASE 583 U/L (39-308); CREATININE FOR GFR 1.65 MG/DL (0.70-1.30); GLOMERULAR FILTRATION RATE 42.9 (>35); GLUCOSE, FASTING 133 MG/DL (70-100); LDH LACTATE DEHYDROGENASE 189 U/L (87-241); PHOSPHORUS LEVEL 2.8 MG/DL (2.5-4.9); POTASSIUM SERUM 3.7 MEQ/L (3.5-5.1); SODIUM LEVEL 143 MEQ/L (136-145); TOTAL PROTEIN 4.4 GM/DL (6.4-8.2); TRIGLYCERIDES LEVEL 88 MG/DL (<150)
--- NOTE | 2020-06-04 15:47 | CR.PDOC ---
General Date of Consultation: Jun 04, 2020 Referring Provider: Caleb Jackson Jr Consultation REASON FOR CONSULTATION/CHIEF COMPLAINT: Management of medical comorbidities HISTORY OF PRESENT ILLNESS: The patient is an 80-year-old male who present ed to the ED on 06/03/20 with abdominal distention, abdominal pain, nausea, vomiting. Initial x-rays revealed no evidence of free perforation, but distended bowel. CT scan was performed and revealed a contained perforation in the sigmoid colon. Patient was admitted under Surgical service and underwent ex laparotomy with with resection of necrotic segment of colon and creation of diverting colostomy on 06/03/20. S/p Extubation he required BIPAP support. for several hours due to Acute hypercarbic respiratory failure from anaesthesia and pain meds. By evening last night he was off BIPAP. He also developed hypotension requiring levophed post operatively. He has been off levophed from this morning. Hospitalist has been consulted to manage the acute medical issues. Patient complains of appropriate sharp constant abdominal pain at the surgical site about 4/10 in intensity. Denies any SOB , denies any chest pain, no cough. Had a low grade fever this afternoon. Also complains of dull aching low back pain. No nausea or vomiting. Has NG tube in place. ALLERGIES: Please see below. HOME MEDICATIONS: Please see below. PAST MEDICAL HISTORY: Bronchiectasis COPD Anxiety Depression HTN Hypothyroid Vit d def Vit B12 def Adenomatous polyps BPH Vertigo. H/o vertebral compression fracture Chronic back pain PAST SURGICAL HISTORY: Bilateral Carpal Tunnel repair Inguinal hernia repair Right knee arthroscopy FAMILY HISTORY: Father: at 67 from cancer Mother: at 93 after CVA SOCIAL HISTORY: Former Smoker No drug or alcohol abuse. REVIEW OF SYSTEMS: All 11 point ROS are negative except those mentioned in HPI PHYSICAL EXAMINATION: VITAL SIGNS: Please see below. GENERAL APPEARANCE: Laying in bed in no acute distress. HEENT: NC/AT, moist mucous membranes, anicteric eyes. RESPIRATORY: CLear to auscultation, diminished at tammi bases. CARDIOVASCULAR: S1, S2 regular, mildly tachycardic, no rub/ murmur/ gallop ABDOMEN: soft, tender , surgical dressing in place, bowel sounds not appreciated. NG tube in place EXTREMITIES: No edema. LABORATORY DATA: Please see below. ASSESSMENT/PLAN: 80-year-old male who present ed to the ED on 06/03/20 with abdominal distention, abdominal pain, nausea, vomiting. Initial x-rays revealed no evidence of free perforation, but distended bowel. CT scan was performed and revealed a contained perforation in the sigmoid colon. Patient was admitted under Surgical service and underwent ex laparotomy with with resection of necrotic segment of colon and creation of diverting colostomy on 06/03/20. Acute respiratory failure with hypercarbia requiring BIPAP after extubation due to prolonged affect of anesthesia and pain meds Now resolved, Septic shock required levophed overnight . Now resolved and off levophed due to perforated, necrotic bowel. zosyn and metronidazole Metronidazole to be continued for 1 more day will continue IVF Necrotic and perforated sigmoid colon s/p Ex lap and diverting colostomy on 06/03/20 Pain control with morphine 1 mg as needed. Has NG tube in place. as per surgery. Lactic acidosis still persisting probably due to recent shock and and necrotic bowel with MAXWELL will continue with IVF and continue to monitor. MAXWELL prerenal, likely intravascular depletion with third spacing continue IVF, garcia I/O Hypothyroid synthroid DVT prophylaxis: TEDS/ SCD. Vital Signs/I&O Vital Signs Date Time Temp Pulse Resp B/P (MAP) Pulse Ox O2 Delivery O2 Flow Rate FiO2 06/04/20 10:00 100 22 102/58 (73) 94 Nasal Cannula 2.0 06/04/20 08:00 99.0 06/03/20 18:12 30 I&O- Last 24 Hours up to 6 AM 06/04/20 05:59 Intake Total 7731 ml Output Total 1955 ml Balance 5776 ml Laboratory Data Labs 24H Laboratory Tests 2 06/03/20 11:57: Blood Gas Bicarbonate Standard 16.8L, Arterial Blood pH 7.186*L, Arterial Blood Partial Pressure CO2 50.6H, Arterial Blood Partial Pressure O2 78.7, Arterial Blood Total CO2 20.3L, Arterial Blood HCO3 18.7L, Arterial Blood Base Excess - 9.6L, Arterial Blood Oxygen Saturation 93.1L 06/03/20 12:05: Immature Granulocyte % (Auto) 0.0, Neutrophils (%) (Auto) 61.0, Lymphocytes (%) (Auto) 23.0L, Monocytes (%) (Auto) 12.6H, Eosinophils (%) (Auto) 2.3, Basophils (%) (Auto) 1.1H, Neutrophils # (Auto) 0.5L, Lymphocytes # (Auto) 0.2L, Monocytes # (Auto) 0.1, Eosinophils # (Auto) 0.0, Basophils # (Auto) 0.0, Nucleated Red Blood Cells % (auto) 0.0, Anion Gap 8, Glomerular Filtration Rate 56.0, Lactic Acid Level 4.8*H, Calcium Level 7.2#L, Total Bilirubin 0.8, Aspartate Amino Transf (AST/SGOT) 18, Alanine Aminotransferase (ALT/SGPT) 12, Alkaline Phosphatase 56, Total Protein 3.6#L, Albumin 1.9#L, Albumin/Globulin Ratio 1.1 06/03/20 14:26: Blood Gas Bicarbonate Standard 20.3L, Arterial Blood pH 7.349L, Arterial Blood Partial Pressure CO2 36.8, Arterial Blood Partial Pressure O2 137.4H, Arterial Blood Total CO2 20.9L, Arterial Blood HCO3 19.8L, Arterial Blood Base Excess - 5.1L, Arterial Blood Oxygen Saturation 98.6 06/03/20 16:08: Nucleated Red Blood Cells % (auto) 0.0, Anion Gap 7L, Glomerular Filtration Rate 40.7, Calcium Level 7.0L 06/03/20 16:30: Lactic Acid Followup at 4 Hours 4.2*H 06/03/20 18:37: Bedside Glucose (Misc Panel) 145H 06/04/20 00:33: Bedside Glucose (Misc Panel) 136H 06/04/20 06:23: Bedside Glucose (Misc Panel) 118H 06/04/20 07:50: Nucleated Red Blood Cells % (auto) 0.0, Anion Gap 7L, Glomerular Filtration Rate 39.9, Calcium Level 7.0L, Total Bilirubin 0.7, Aspartate Amino Transf (AST/SGOT) 48H, Alanine Aminotransferase (ALT/SGPT) 28, Alkaline Phosphatase 58, Total Protein 4.4#L, Albumin 1.8L, Albumin/Globulin Ratio 0.7 06/04/20 08:24: Lactic Acid Level 4.1*H CBC/BMP Laboratory Tests 06/03/20 12:05 06/03/20 16:08 06/04/20 07:50 Allergies Coded Allergies: Contrast Media (Verified Allergy, Unknown, low BP red skin, 06/03/20) Home Medications Scheduled Aspirin (Aspirin EC) 81 Mg Tab, 81 MG PO DAILY, (Reported) Cholecalciferol (Vitamin D3) (Vitamin D3) 1,000 Unit Tablet, 1,000 UNITS PO DAILY, (Reported) Cyanocobalamin (Vitamin B-12) (Vitamin B-12) 500 Mcg Tab, 1,000 MCG PO DAILY, (Reported) Doxazosin Mesylate (Doxazosin Mesylate) 2 Mg Tab, 2 MG PO DAILY, (Reported) Levothyroxine Sodium (Levothyroxine Sodium) 25 Mcg Tab, 25 MCG PO DAILY, (Reported) Pravastatin Sodium (Pravastatin Sodium) 20 Mg Tab, 20 MG PO DAILY, (Reported) Scheduled PRN Acetaminophen (Tylenol Extra Strength) 500 Mg Tablet, 500 MG PO Q4H PRN for PAIN, (Reported) Albuterol Sulf (Albuterol Sulfate) 2.5 Mg/3 Ml Vial.neb, 2.5 MG INH QID PRN for SHORTNESS OF BREATH, (Reported) Albuterol Sulfate (Ventolin Hfa) 18 Gm Hfa.aer.ad, 2 PUFFS INH QID PRN for SHORTNESS OF BREATH, (Reported) Alprazolam (Alprazolam) 0.25 Mg Tablet, 0.25 MG PO BID PRN for ANXIETY, (Reported) Miscellaneous Medications [Patient Comment] , (Reported) PATIENT UNOBTAINABLE. MED REC COMPLETED VIA EXTERNAL MED HISTORY AND PHARMACY. HERMINIO BELTRAN MD Jun 04, 2020 11:41
[2020-06-05] VITALS (15 sets, daily range): BP systolic 131–158; BP diastolic 60–76
[2020-06-05] MEDS: PIPERACILLIN/TAZOBACTAM SOD 3.375 GM in D5W MINI-BAG PLUS 50 ML IV SCH ×5 (01:04→18:09)
[2020-06-05] MEDS: MORPHINE 2 MG/ML 1ML VIAL (J2270) IV PRN ×2 (01:09→21:52)
[2020-06-05] MEDS: IPRATROPIUM 0.5MG/ALBUTEROL 2.5MG INH SOL UD 3ML (DUONEB) NEB SCH ×4 (01:18→20:10)
[2020-06-05 05:01] LABS: HEMATOCRIT 31.6 % (42.0-52.0); MEAN CORPUSCULAR HEMOGLOBIN 32.8 pg (27.0-33.0); MEAN CORPUSCULAR HGB CONC 34.8 g/dl (32.0-36.5); MEAN CORPUSCULAR VOLUME 94.3 fl (80.0-96.0); PLATELET COUNT, AUTOMATED 129 10^3/uL (150-450); RED BLOOD COUNT 3.35 10^6/uL (4.30-6.10); WHITE BLOOD COUNT 6.6 10^3/uL (4.0-10.0)
[2020-06-05 05:27] LABS: ALBUMIN 1.7 GM/DL (3.2-5.2); BILIRUBIN,TOTAL 0.8 MG/DL (0.2-1.0); CALCIUM LEVEL 6.9 MG/DL (8.8-10.2); CREATININE FOR GFR 1.31 MG/DL (0.70-1.30); POTASSIUM SERUM 3.5 MEQ/L (3.5-5.1); TOTAL PROTEIN 4.1 GM/DL (6.4-8.2)
[2020-06-05] MEDS: D5W/0.45% SODIUM CHLORIDE 1,000 ML IV SCH (06:30)
--- NOTE | 2020-06-05 07:21 | CR ---
DATE OF CONSULTATION: 06/03/2020 HISTORY OF PRESENT ILLNESS: Mr. Singh is an 80-year-old male with a past medical history of chronic obstructive pulmonary disease (COPD), hypothyroidism, hyperlipidemia, and anxiety who presented with complaints of abdominal distention, abdominal pain, nausea, and vomiting. History is obtained from the chart and from other collateral information, as patient is somewhat drowsy postoperatively. Patient had reported worsening constipation as well as abdominal pain. He had been in the emergency department (ED) earlier in the week with complaints of anxiety as well as constipation. On one of his previous ED visits, he had also been reporting anxiety and some shortness of breath. He was given Xanax with improvement and did not have any further dyspnea with ambulation. On this current admission, patient was seen by surgery with complaints of abdominal distention and pain. He had a CT of the abdomen and pelvis with concern for possible bowel perforation. Patient was given intravenous (IV) fluids, what appears to be at least 3 liters fluid bolus, as well as a dose of Zosyn preoperatively. He had nasogastric (NG) tube placed as well to drainage, and he was taken to the operating room (OR), where he was noted to have large areas of necrotic, gangrenous sigmoid colon and mesentery, which was resected, and he had a colostomy placed. In the recovery area, patient is somnolent and drowsy postoperatively. He denies any pain currently and no dyspnea. He was requiring oxygen supplementation with a partial non-rebreather. Patient did have a left radial arterial line as well, which initially showed that he was normotensive. Preoperatively patient did have episode of hypotension and was started on Levophed, which was later weaned off and discontinued initially postoperatively. Patient was then noted to have lower blood pressures with his arterial line. His arterial blood gas (ABG) which was done postoperatively and after his extubation had shown metabolic and respiratory acidosis. He was given 1 amp of bicarbonate with some slight improvement in his blood pressure and was started on Levophed initially peripherally while we were placing his central line. Patient was also placed on bilevel positive airway pressure (BiPAP) as well with the settings titrated up to an inspiratory positive airway pressure (IPAP) of 14 and expiratory positive airway pressure (EPAP) of 6 with a respiratory rate of 18 and 60% FiO2. PAST MEDICAL AND SURGICAL HISTORY: 1. COPD. 2. Hypothyroidism. 3. Hyperlipidemia. 4. Anxiety. 5. Osteoporosis. 6. Right inguinal hernia surgery. 7. Right knee arthroscopy. 8. Bilateral carpal tunnel surgery. 9. Cataract surgery. 10. Lumbar disc disease with radiculopathy. 11. Vertigo. 12. Bronchiectasis. HOME MEDICATIONS: - albuterol nebulized as needed - pravastatin - Synthroid 25 mcg - vitamin B12 - vitamin D - doxazosin - Ventolin as needed - aspirin 81 mg - Trilogy - Zyrtec ALLERGIES: IV contrast. SOCIAL HISTORY: The patient is a former smoker with a 60 pack year. Quit in 2016. 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 FAMILY HISTORY: Father with a history of gastric malignancy. PHYSICAL EXAMINATION: VITAL SIGNS: Temperature 97.0, pulse 101, blood pressure 101/47, respiratory rate 18, oxygen saturation 96% on BiPAP. Input 5.8 liters, output 1.1 liters. GENERAL: Patient is an elderly male. Is lying in the bed and appears drowsy, although is arousable to voice and answers questions appropriately, although appears somewhat confused. HEENT: Normocephalic, atraumatic. There are slightly dry mucous membranes noted. NECK: Supple. Trachea is midline. No palpable cervical adenopathy. CARDIAC: Regular rate and rhythm. Tachycardic. Normal S1, S2. Unable to clearly appreciate any murmurs. PULMONARY: Diminished breath sounds bilaterally with a few coarse rhonchi noted and mild crackles at the bases. ABDOMEN: Appears mildly distended, although soft. There is a surgical dressing in place with Richard-Rocha (COMFORT) drain on the right side draining serosanguineous fluid. There is a left-sided colostomy as well. EXTREMITIES: There is no lower extremity edema bilaterally. There is some superficial varicosities noted. There is no clubbing. LABORATORY DATA: WBC repeat 0.9, hemoglobin 12.5, platelets are 179. Chemistry: Sodium is 144, potassium 3.9, chloride 114, bicarbonate 22, BUN 23, creatinine 1.31, glucose 130. Lactic acid initially 1.5, repeat 4.8 postoperatively. Calcium 7.2. Albumin 1.9. Lipase initially 128. ABG postoperatively: A pH 7.186, pCO2 of 50.6, pO2 of 78.7. IMAGING: CT abdomen and pelvis showed subpleural reticulation and fibrosis in the lower lobes as well as some linear atelectasis. There is an area of an eccentric nodule and bullae with a thick wall, measuring approximately 1.3 cm in the left lower lobe in the more superior segment. There is also a suggestion of some linear straining and nodules in the right middle lobe laterally. In the abdomen, there is a large stool collection separate from the sigmoid with significant surrounding inflammation and reactive fluid. There is also some extraluminal foci seen adjacent to the rectosigmoid colon with suggestion of a focal perforation of the sigmoid colon. There is evidence of descending and sigmoid colon colitis with areas of distention of the small bowel loops with thickening and edema. There are bilateral renal cysts. There is a large prostate gland. There is a small left inguinal fat-containing hernia. ASSESSMENT AND PLAN: Mr. Singh is an 80-year-old male with a past medical history of chronic obstructive pulmonary disease (COPD), bronchiectasis, hypothyroidism, hyperlipidemia, and anxiety, who presented with complaints of worsening abdominal pain and distention. Patient was admitted for a suspected bowel perforation in the sigmoid colon. He was noted to have worsening hypotension and suspicion of sepsis with possible septic shock. He was given Zosyn as well as started on Levophed peripherally and taken to the operating room (OR) for suspected bowel perforation. In the OR he was found to have significant area of necrotic and gangrenous sigmoid colon, which was resected, and he did have a colostomy placed. Patient was able to be extubated postoperatively and was off of Levophed initially postoperatively as well. In the recovery area, patient continued to be drowsy and somewhat lethargic, although was responsive to voice and answering some questions appropriately. He was noted to have worsening hypotension and was given an amp of bicarbonate as well as 500 normal saline fluid bolus before being started on peripheral Levophed while is central line was being placed. Patient was also placed on BiPAP, as his initial arterial blood gas (ABG) showed evidence of metabolic and respiratory acidosis. Sepsis with likely septic shock in the setting of intra-abdominal infection as well as possible perforation, status post sigmoid resection and colostomy. - Will continue patient with broad-spectrum antibiotics given his septic shock with IV Zosyn and continue Flagyl for now as well. - Patient had a femoral triple-lumen placed, and he was started on Levophed to maintain a mean arterial pressure (MAP) above 65. Patient has received aggressive fluid hydration but will continue to monitor and give fluid boluses as needed, as he does not appear to be clinically fluid overloaded currently, although he is requiring some oxygen supplementation now postoperatively. - Would follow blood cultures. - Will continue with maintenance fluids with D5 lactated Ringer's (LR), as patient is nothing by mouth with an orogastric (OG) tube to wall suction currently. - Patient has lactic acidosis in the setting of his sepsis with intra-abdominal infection and possible bowel perforation. Given the areas of necrosis, there is also possible ischemic bowel contributing. - Will continue to trend lactic acid. Metabolic and respiratory acidosis with acute kidney injury (MAXWELL), likely prerenal. - Patient has metabolic acidosis, likely lactic acidosis. He also has respiratory acidosis as well with poor respiratory compensation. He will be placed on BiPAP with current settings now of 14/6 with a respiratory of 1, and his FiO2 was weaned down to 50%. Will continue to wean down FiO2 as tolerated and will repeat an ABG after being on BiPAP for 1 hour. - Will be cautious of benzodiazepines and pain medications given his respiratory acidosis currently. He does not have any pain that he is complaining of as well. - Patient has a history of COPD and bronchiectasis. Has been following Dr. Shearer as an outpatient. Will continue with nebulized bronchodilators. Hypothyroidism - Will continue with Synthroid. Will give IV dose, as he is nothing by mouth for now. Deep venous thrombosis (DVT) prophylaxis. Heparin. CODE STATUS: Full code. Critical care time spent, not including procedures, approximately 1 hour and 40 minutes. MTDD
--- NOTE | 2020-06-05 07:24 | IPN ---
waDATE: 06/04/2020 ATTENDING: Dr. Hazel Marks SUBJECTIVE: Mr. Singh was seen and examined this morning. There have been no adverse events reported overnight. He has fairly stable, although requiring anywhere between 5-7 mcg of Levophed. He has remained afebrile overnight. The patient intermittently used bilevel which was felt to be secondary to receiving pain medications. He has otherwise remained fairly well. He currently complains of some pain, mainly in his abdomen along the right side. OBJECTIVE: VITAL SIGNS: Temperature 99.0, pulse 100, respiratory rate 30, blood pressure 112/56, pulse oximetry 96% on 1 liter nasal cannula. GENERAL: The patient is awake, alert, oriented. He does not appear in any acute distress. He is lying in bed. He appears to be in some pain. HEENT: Atraumatic, normocephalic. Eyes are anicteric. Trachea is midline. There is a nasogastric (NG) tube in place. CARDIOVASCULAR: Normal S1, S2. There is a regular rate and rhythm. No clicks, rubs, or murmurs. RESPIRATORY: There is some diminished breath sounds bilaterally, more so on the right base. There is some rhonchi bilaterally. There is no wheezing. There are no rales. There is symmetric chest expansion. ABDOMEN: Soft, nondistended. Patient has a colostomy bag in place. COMFORT drain in place. His stoma appears clear without any surrounding erythema. EXTREMITIES: Patient has full and equal pulse, bilateral lower extremities. There is no edema. He has a right femoral central venous catheter in place. The area appears clean. All ports are flushing properly. NEUROLOGIC: No focal neurologic deficits. PSYCHIATRIC: Mood and affect appear appropriate for situation. LABORATORY DATA: Hematology: White blood cells 4.3, hemoglobin 12.2, hematocrit 36.2, platelet count 145. Chemistries: Sodium 142, potassium 3.9, chloride 111, CO2 of 24, BUN 35, creatinine 1.76, glucose 137, calcium 7.0. Total bilirubin 0.7, AST 48, ALT 28, alkaline phosphatase 68. Lactic acid 4.1. Chest x-ray from 06/04/2020 demonstrating some bibasilar infiltrates and small effusions with a nasogastric tube in place in the stomach. ASSESSMENT AND PLAN: Mr. Singh is an 80-year-old male who had presented to the [facility] Emergency Department with a complaint of abdominal pain and distention. He had received imaging, which demonstrated a large bowel obstruction with possible perforation of the sigmoid colon. He was taken emergently to surgery, where he had received an exploratory laparotomy with diverting colostomy. The patient tolerated the surgery well and was transferred to the intensive care unit (ICU) for ongoing care. 1. Septic shock secondary to large bowel obstruction with perforation of the sigmoid colon. Patient is currently status post exploratory laparotomy with a diverting colostomy. He had received fluid resuscitation in the emergency room (ER), approximately 300 mL. The patient was taken to surgery. He did not have any hemodynamic compromise during surgery. After his surgery, he had received some morphine, which did lower his blood pressure. He had been started on Levophed. A femoral line was placed, and the patient was started on Levophed as of yesterday. This morning, he is currently requiring anywhere between 5-7 mcg/min. Plan is to continue to titrate him off. He is currently receiving both Zosyn and Flagyl for antibiotic coverage. 2. Large bowel obstruction with perforation of the sigmoid colon, status post exploratory laparotomy with diverting colostomy, postoperative day #1. Patient is currently postoperative day #1 for his exploratory laparotomy with diverting colostomy. He is being followed by surgery. No adverse events overnight, and patient still has a nasogastric tube in place. He remains nothing by mouth at this time. 3. Lactic acidosis. Patient has a persistent lactic acidosis. On presentation his lactic acid was 4.8. After volume resuscitation and surgery, he remains at 4.1. The lactic acidosis initially was in setting of septic shock and hypoperfusion, likely also has component of ischemic bowl. He had gotten lactated Ringer's as well as decreased renal function, which could have also contributed to iatrogenic lactic acidosis. At this time we will continue to monitor. Patient has received a good amount of fluids. We will try avoiding more fluids. Does not appear to have ongoing signs of hypoperfusion at this time. 4. Acute kidney injury. The patient has acute kidney injury. Baseline creatinine of 1.2, likely secondary to his septic shock from his large bowel obstruction. He has received intravenous (IV) fluid hydration. He is currently normotensive. We will continue to trend. We will avoid any nephrotoxic agents. 5. Leukopenia. Patient presented with a white blood cell count of 0.9. It is likely secondary to sepsis. His white blood cell count today is 4.3. We will continue his antibiotics and monitor. 6. History of chronic obstructive pulmonary disease (COPD). Patient has a documented history of COPD. He is currently stable. We will continue to monitor his DuoNebs every 6 hours and as needed. 7. Hypothyroidism. Patient is currently receiving Synthroid. Will continue. DISPOSITION: Patient clinically improving. Once off Levophed, will transition to hospitalist service for ongoing care. Total critical care time spent not including any procedures approx 35mins IHazel, conducted an independent history and examination of the patient and agree with the above plan as detailed by resident and discussed during rounds. GORGE
[2020-06-05] MEDS: LEVOTHYROXINE 100MCG (0.1MG) VIAL IV SCH (08:22)
[2020-06-05] MEDS: metroNIDAZOLE 500 MG in IV 1 EA IV SCH ×2 (08:22→15:08)
--- NOTE | 2020-06-05 11:01 | RO ---
DATE OF OPERATION: 06/03/2020 PREOPERATIVE DIAGNOSIS: Peritonitis with sigmoid colon perforation. POSTOPERATIVE DIAGNOSIS: Gangrenous sigmoid colon with feculent perforation. PROCEDURE: Open sigmoid colectomy with colostomy. SURGEON: Caleb Jackson MD SECURITY ASSURANCE SPECIALIST: Dr. Matthews (provided retraction exposure, assistance with abdominal wall closure and maturation of the ostomy). EBL: 100 mL. ANESTHESIA: General endotracheal anesthesia. DISPOSITION: The patient was taken to the recovery room extubated and hemodynamically stable but in critical condition. BRIEF OPERATIVE SUMMARY: The patient was taken to the operating room, was given general anesthesia. After adequate anesthesia and preoperative antibiotics were given, the patient was prepped and draped in usual sterile fashion. Midline incision was made with skin knife, blunt dissection was carried down to fascia and peritoneum was entered. There was bloody dark fluid throughout the abdomen although no free stool in this area. However, once the incision was created and opened widely enough, the Bookwalter was placed and the sigmoid colon evaluated and essentially the colon had perforated into the mesentery of the colon and given the gangrenous presentation of this colon it is hard to know whether this was initial ischemic presentation or the perforation causing blood compromise ending up with ischemic colon. In any case, the sigmoid colon, descending colon was mobilized along the white line of [place] in this area and then the proximal sigmoid colon was transected using JEANETTE stapler and once the mesentery of the sigmoid colon/rectum was incised with electrocautery, the vessels were taken with [place] 60 vascular load. This continued down to where there was still evidence of gangrenous changes in the mesentery and thus the peritoneal reflection was taken down and I felt that we were able to get past the area of necrosis. The concern at this point was the amount of necrotic tissue, etc; it looked very similar to someone with necrotizing fasciitis. In any case, once this colon was mobilized adequately and rectum mobilized nicely, the rectum was transected distally with JEANETTE stapler as well as the mesentery taken with the [place] 60 vascular loads. This area was packed away and then the abdomen was copiously irrigated. Once entering the mesentery of the colon the only thing that was holding the stool that was freely flowing into the mesentery itself was the peritoneum overlying this and thus free stool spillage occurred throughout the pelvis in this area and we cleaned it up as best we could going along but at this point we copiously irrigated the abdomen until clear. #19 Richard-Rocha was left in the bed of the dissection and the pelvis was reevaluated and indeed looked much service line bus cleaner at this time and the area of infection/inflammation seemed to be well controlled, excised. The descending colon was mobilized even further and I could feel a vessel coming off the sigmoid branch going proximally to the transected portion of the proximal sigmoid colon. This itself I felt should be preserved to allow for adequate blood supply; specifically the bowel in general had a little bit of mottled appearance, not truly ischemic but definitely consistent with his hypotension and sepsis appearance. In any case, a transabdominal incision was created for the ostomy placement through the lateral border of the rectus just lateral to the umbilicus. The ostomy was brought out through this defect. What was obvious was that creating a little bit more of a mobilized distal transected sigmoid colon compromised blood supply to the last centimeter or so and this needed to be resected when the ostomy was matured. In any case, the midline was closed with running looped #0 PDS and the skin loosely approximated with [place] after copiously irrigating the midline. The ostomy was fashioned using 3-0 Vicryl sutures to tack it to the fascia and then 3-0 Vicryl bringing the mucosa down to the skin level. The ostomy itself was nice and pink after transecting the portion of bowel that was necrotic appearing. Ostomy appliance was applied. The patient was awakened from his sedation and brought to the recovery room still sedated, still critical condition but his blood pressure was stable on Levophed and he was starting to make better urine output at this time. GORGE
--- NOTE | 2020-06-05 11:02 | RO ---
DATE OF OPERATION: 06/03/2020 PROCEDURE: Right femoral central line placement. INDICATION: Hypotension requiring vasopressors. LINE PROCEDURE: Dr. Irwin Wilde ATTENDING: Dr. Hazel Marks of pulmonary critical care medicine CONSENT: Consent was obtained prior to the procedure. Indications, risks, and benefits were explained. PROCEDURE SUMMARY: My hands were washed prior to starting the procedure. A time- out was performed. I wore a surgical cap, mask, sterile gown, and sterile gloves throughout the procedure. The right inguinal region was prepped using chlorhexidine scrub and draped in a sterile fashion using a full drape and sterile probe cover employed over the ultrasound. The femoral pulse was identified, and anesthesia was achieved using lidocaine. Palpating the femoral pulse throughout the procedure, the femoral vein was identified using ultrasound. An introducer needle was inserted medial to the femoral artery, inferior to the inguinal crease, and into the femoral vein. Venous blood was withdrawn. Syringe was removed, and a guidewire was advanced into the introducer needle. A small incision was made at the skin surface with a scalpel, and the introducer needle was exchanged for a dilator over the guidewire. After appropriate dilation was obtained, the dilator was exchanged over the wire for a central venous catheter. The wire was removed, and the catheter was sutured in place. A sterile Sorbaview shield was placed over the catheter at the insertion site. The patient tolerated the procedure well without any hemodynamic compromise. At the end of the procedure completion, all ports aspirated and flushed properly. I, Hazel Marks, was present and supervised the entirety of the procedure MTDD
--- NOTE | 2020-06-05 12:01 | IPNPDOC ---
Text Note Date of Service The patient was seen on 06/05/20. NOTE Subjective: No acute events overnight. Still has NG tube in place, complaining of some hiccoughs, No fever or chills, has colostomy bag , no output in it yet, has a abdominal drain Physical Exam: VITAL SIGNS: Please see below. GENERAL APPEARANCE: Laying in bed in no acute distress. HEENT: NC/AT, moist mucous membranes, anicteric eyes. RESPIRATORY: Clear to auscultation, diminished at the bases. CARDIOVASCULAR: S1, S2 regular, mildly tachycardic, no rub/ murmur/ gallop ABDOMEN: soft, tender , surgical dressing in place, bowel sounds not appreciated. NG tube in place, abdominal drain, colostomy EXTREMITIES: No edema. LABORATORY DATA: Please see below. ASSESSMENT/PLAN: 80-year-old male who present ed to the ED on 06/03/20 with abdominal distention, abdominal pain, nausea, vomiting. Initial x-rays revealed no evidence of free perforation, but distended bowel. CT scan was performed and revealed a contained perforation in the sigmoid colon. Patient was admitted under Surgical service and underwent ex laparotomy with with resection of necrotic segment of colon and creation of diverting colostomy on 06/03/20. Acute respiratory failure with hypercarbia requiring BIPAP after extubation due to prolonged affect of anesthesia and pain meds Now resolved, Septic shock due to perforated, necrotic bowel. Now resolved. zosyn and metronidazole will continue IVF Necrotic and perforated sigmoid colon s/p Ex lap and diverting colostomy on 06/03/20 Pain control with morphine 1 mg as needed. Has NG tube in place. as per surgery. Lactic acidosis still persisting probably due to recent shock and and necrotic bowel with MAXWELL, ringers lacte may have added to it. will continue with IVF and continue to monitor. Leucopenia due to severe sepsis and septic shock now improved. MAXWELL prerenal, likely intravascular depletion with third spacing continue IVF, garcia I/O Hypothyroid synthroid DVT prophylaxis: TEDS/ SCD. VS,Fishbone, I+O VS, Fishbone, I+O Laboratory Tests 06/04/20 14:25 06/05/20 04:50 Vital Signs Date Time Temp Pulse Resp B/P (MAP) Pulse Ox O2 Delivery O2 Flow Rate FiO2 06/05/20 10:45 1.0 06/05/20 10:38 99.2 117 22 150/62 (91) 92 Nasal Cannula 06/03/20 18:12 30 I&O- Last 24 Hours up to 6 AM 06/05/20 06:00 Intake Total 1450 ml Output Total 1965 ml Balance -515 ml HERMINIO BELTRAN MD Jun 05, 2020 12:01
[2020-06-05] MEDS ORDERED: ACETAMINOPHEN 650 MG SUPP PR PRN (15:00)
[2020-06-05 15:52] LABS: ABG BASE EXCESS -0.2 (-2.0-2.0); ABG HCO3 22.2 MEQ/L (22.0-26.0); ABG O2 SATURATION 96.7 % (95.0-99.0); ABG PARTIAL PRESSURE O2 82.6 mmHg (75.0-100.0); ABG STANDARD HCO3 24.3 MEQ/L (22.0-26.0); ABG pH (ARTERIAL) 7.501 UNITS (7.350-7.450)
[2020-06-06] VITALS: BP 141/79
[2020-06-06] MEDS: PIPERACILLIN/TAZOBACTAM SOD 3.375 GM in D5W MINI-BAG PLUS 50 ML IV SCH ×4 (00:38→18:22)
[2020-06-06] MEDS: IPRATROPIUM 0.5MG/ALBUTEROL 2.5MG INH SOL UD 3ML (DUONEB) NEB SCH ×4 (01:29→19:47)
[2020-06-06] MEDS ORDERED: POTASSIUM CHLORIDE 10 MEQ SR TABLET PO ONE (01:30)
[2020-06-06 02:30] LABS: BLOOD UREA NITROGEN 24 MG/DL (7-18); CALCIUM LEVEL 7.1 MG/DL (8.8-10.2); CARBON DIOXIDE LEVEL 25 MEQ/L (21-32); CHLORIDE LEVEL 110 MEQ/L (98-107); CREATININE FOR GFR 0.89 MG/DL (0.70-1.30); GLOMERULAR FILTRATION RATE > 60.0 (>35); GLUCOSE, FASTING 105 MG/DL (70-100); MAGNESIUM LEVEL 2.1 MG/DL (1.8-2.4); POTASSIUM SERUM 2.9 MEQ/L (3.5-5.1); SODIUM LEVEL 141 MEQ/L (136-145)
[2020-06-06] MEDS: KCL 10MEQ/100ML SWI (KRUN) 10 MEQ in IV 1 EA IV SCH ×4 (03:00→10:45)
[2020-06-06 04:00] VITALS: BP 159/85
[2020-06-06 05:46] LABS: HEMATOCRIT 30.9 % (42.0-52.0); HEMOGLOBIN 10.6 g/dl (13.5-17.5); MEAN CORPUSCULAR HEMOGLOBIN 31.4 pg (27.0-33.0); MEAN CORPUSCULAR HGB CONC 34.3 g/dl (32.0-36.5); MEAN CORPUSCULAR VOLUME 91.4 fl (80.0-96.0); PLATELET COUNT, AUTOMATED 134 10^3/uL (150-450); RED BLOOD COUNT 3.38 10^6/uL (4.30-6.10); WHITE BLOOD COUNT 9.8 10^3/uL (4.0-10.0)
[2020-06-06 06:20] LABS: ALBUMIN 1.8 GM/DL (3.2-5.2); ALT/SGPT 32 U/L (12-78); BILIRUBIN,TOTAL 1.1 MG/DL (0.2-1.0); BLOOD UREA NITROGEN 22 MG/DL (7-18); CALCIUM LEVEL 7.6 MG/DL (8.8-10.2); CARBON DIOXIDE LEVEL 26 MEQ/L (21-32); CHLORIDE LEVEL 110 MEQ/L (98-107); CREATININE FOR GFR 0.88 MG/DL (0.70-1.30); GLOMERULAR FILTRATION RATE > 60.0 (>35); GLUCOSE, FASTING 88 MG/DL (70-100); POTASSIUM SERUM 3.2 MEQ/L (3.5-5.1); SODIUM LEVEL 140 MEQ/L (136-145); TOTAL PROTEIN 5.5 GM/DL (6.4-8.2)
[2020-06-06 08:00] VITALS: BP 178/90
[2020-06-06] MEDS: KCL 40MEQ IN D5/0.45NS 1000ML 1,000 ML IV SCH (09:00)
[2020-06-06] MEDS: LEVOTHYROXINE 100MCG (0.1MG) VIAL IV SCH (09:05)
[2020-06-06 12:00] VITALS: BP 160/80
[2020-06-06 16:00] VITALS: BP 163/77
[2020-06-06] MEDS: MORPHINE 2 MG/ML 1ML VIAL (J2270) IV PRN (18:23)
--- NOTE | 2020-06-06 18:42 | IPNPDOC ---
Text Note Date of Service The patient was seen on 06/06/20. NOTE Subjective: No acute events overnight. Still has NG tube in place, complaining of some hiccoughs, No fever or chills, has colostomy bag , no output in it yet, has a abdominal drain Physical Exam: VITAL SIGNS: Please see below. GENERAL APPEARANCE: Laying in bed in no acute distress. HEENT: NC/AT, moist mucous membranes, anicteric eyes. RESPIRATORY: Clear to auscultation, diminished at the bases. CARDIOVASCULAR: S1, S2 regular, mildly tachycardic, no rub/ murmur/ gallop ABDOMEN: soft, tender , surgical dressing in place, bowel sounds not appreciated. NG tube in place, abdominal drain, colostomy EXTREMITIES: No edema. LABORATORY DATA: Please see below. ASSESSMENT/PLAN: 80-year-old male who present ed to the ED on 06/03/20 with abdominal distention, abdominal pain, nausea, vomiting. Initial x-rays revealed no evidence of free perforation, but distended bowel. CT scan was performed and revealed a contained perforation in the sigmoid colon. Patient was admitted under Surgical service and underwent ex laparotomy with with resection of necrotic segment of colon and creation of diverting colostomy on 06/03/20. Acute respiratory failure with hypercarbia requiring BIPAP after extubation due to prolonged affect of anesthesia and pain meds Now resolved, Septic shock due to perforated, necrotic bowel. Now resolved. zosyn and metronidazole will continue IVF Necrotic and perforated sigmoid colon s/p Ex lap and diverting colostomy on 06/03/20 Pain control with morphine 1 mg as needed. Has NG tube in place. as per surgery. Hypokalemia getting replacement. Lactic acidosis resolved now Leucopenia due to severe sepsis and septic shock now improved. MAXWELL prerenal, likely intravascular depletion with third spacing continue IVF, garcia I/O Hypothyroid synthroid DVT prophylaxis: TEDS/ SCD. VS,Fishbone, I+O VS, Fishbone, I+O Laboratory Tests 06/06/20 01:53 06/06/20 05:19 Vital Signs Date Time Temp Pulse Resp B/P (MAP) Pulse Ox O2 Delivery O2 Flow Rate FiO2 06/06/20 08:00 98.7 102 24 178/90 (119) 99 Nasal Cannula 1.0 06/03/20 18:12 30 I&O- Last 24 Hours up to 6 AM 06/06/20 06:00 Intake Total 1400 ml Output Total 3140 ml Balance -1740 ml HERMINIO BELTRAN MD Jun 06, 2020 11:25
[2020-06-06 20:00] VITALS: BP 145/70
[2020-06-07] VITALS: BP 152/86
[2020-06-07] MEDS: PIPERACILLIN/TAZOBACTAM SOD 3.375 GM in D5W MINI-BAG PLUS 50 ML IV SCH ×4 (00:47→19:54)
[2020-06-07] MEDS: KCL 40MEQ IN D5/0.45NS 1000ML 1,000 ML IV SCH (00:48)
[2020-06-07] MEDS: IPRATROPIUM 0.5MG/ALBUTEROL 2.5MG INH SOL UD 3ML (DUONEB) NEB SCH ×4 (01:32→20:36)
[2020-06-07 04:00] VITALS: BP 148/74
[2020-06-07] MEDS: ONDANSETRON 4MG/2ML VIAL IV PRN (04:17)
[2020-06-07] MEDS: MORPHINE 2 MG/ML 1ML VIAL (J2270) IV PRN ×2 (04:25→15:59)
[2020-06-07 05:39] LABS: HEMATOCRIT 31.5 % (42.0-52.0); HEMOGLOBIN 11.1 g/dl (13.5-17.5); MEAN CORPUSCULAR HEMOGLOBIN 32.4 pg (27.0-33.0); MEAN CORPUSCULAR HGB CONC 35.2 g/dl (32.0-36.5); MEAN CORPUSCULAR VOLUME 91.8 fl (80.0-96.0); PLATELET COUNT, AUTOMATED 169 10^3/uL (150-450); RED BLOOD COUNT 3.43 10^6/uL (4.30-6.10); WHITE BLOOD COUNT 12.5 10^3/uL (4.0-10.0)
[2020-06-07 06:04] LABS: ALBUMIN 1.8 GM/DL (3.2-5.2); ALT/SGPT 29 U/L (12-78); BASOPHILS 2 % (0-1); BILIRUBIN,TOTAL 1.1 MG/DL (0.2-1.0); BLOOD UREA NITROGEN 22 MG/DL (7-18); CALCIUM LEVEL 7.1 MG/DL (8.8-10.2); CARBON DIOXIDE LEVEL 24 MEQ/L (21-32); CHLORIDE LEVEL 109 MEQ/L (98-107); CREATININE FOR GFR 0.71 MG/DL (0.70-1.30); EOSINOPHILS 5 % (0-3); GLOMERULAR FILTRATION RATE > 60.0 (>35); GLUCOSE, FASTING 114 MG/DL (70-100); LYMPHOCYTES 11 % (16-44); MONOCYTES 4 % (0-5); NEUTROPHILS 78 % (28-66); POTASSIUM SERUM 3.2 MEQ/L (3.5-5.1); SODIUM LEVEL 140 MEQ/L (136-145); TOTAL PROTEIN 4.6 GM/DL (6.4-8.2)
[2020-06-07 06:05] LABS: PLATELET ESTIMATE NORMAL (NORMAL)
[2020-06-07 08:00] VITALS: BP 160/64
--- NOTE | 2020-06-07 08:35 | IPNPDOC ---
Text Note Date of Service The patient was seen on 06/07/20. NOTE Subjective: No acute events overnight. Still has NG tube in place, No output in the colostomy bag yet. No fever or chills, has a abdominal drain in place. Physical Exam: VITAL SIGNS: Please see below. GENERAL APPEARANCE: Laying in bed in no acute distress. HEENT: NC/AT, moist mucous membranes, anicteric eyes. RESPIRATORY: Clear to auscultation, diminished at the bases. Crackles at both bases. CARDIOVASCULAR: S1, S2 regular, mildly tachycardic, no rub/ murmur/ gallop ABDOMEN: soft, tender , surgical dressing in place, bowel sounds not appreciated. NG tube in place, abdominal drain, colostomy EXTREMITIES: No edema. LABORATORY DATA: Please see below. ASSESSMENT/PLAN: 80-year-old male who present ed to the ED on 06/03/20 with abdominal distention, abdominal pain, nausea, vomiting. Initial x-rays revealed no evidence of free perforation, but distended bowel. CT scan was performed and revealed a contained perforation in the sigmoid colon. Patient was admitted under Surgical service and underwent ex laparotomy with with resection of necrotic segment of colon and creation of diverting colostomy on 06/03/20. Necrotic and perforated sigmoid colon s/p Ex lap and diverting colostomy on 06/03/20 Pain control with morphine 1 mg as needed. Has NG tube in place. as per surgery. Acute respiratory failure with hypercarbia requiring BIPAP after extubation due to prolonged affect of anesthesia and pain meds Now resolved, Septic shock due to perforated, necrotic bowel. Now resolved. zosyn will continue IVF Hypokalemia getting replacement. Lactic acidosis resolved now Leucopenia due to severe sepsis and septic shock now improved. MAXWELL prerenal, likely intravascular depletion with third spacing continue IVF, garcia I/O Hypothyroid synthroid DVT prophylaxis: TEDS/ SCD. VS,Fishbone, I+O VS, Fishbone, I+O Laboratory Tests 06/07/20 05:18 Vital Signs Date Time Temp Pulse Resp B/P (MAP) Pulse Ox O2 Delivery O2 Flow Rate FiO2 06/07/20 08:00 97.8 87 22 160/64 (96) 100 Nasal Cannula 1.0 06/03/20 18:12 30 I&O- Last 24 Hours up to 6 AM 06/07/20 06:00 Intake Total 780 ml Output Total 2130 ml Balance -1350 ml HERMINIO BELTRAN MD Jun 07, 2020 08:35
[2020-06-07] MEDS: LEVOTHYROXINE 100MCG (0.1MG) VIAL IV SCH (09:08)
[2020-06-07] MEDS: KCL 10MEQ/100ML SWI (KRUN) 10 MEQ in IV 1 EA IV SCH ×2 (09:08→10:32)
--- NOTE | 2020-06-07 11:13 | REP ---
INDICATION: evaluate bowel gas. COMPARISON: None. TECHNIQUE: Supine view of the abdomen and pelvis. FINDINGS: Evidence for prior ostomy. Nasogastric tube extends into the left upper quadrant. Drainage tube overlies the lower abdomen. The bowel gas pattern is nonspecific. IMPRESSION: Bowel gas pattern is nonspecific. <Electronically signed by Efrem Bellamy > 06/07/20 1104
[2020-06-07 12:00] VITALS: BP 160/70
[2020-06-07 16:00] VITALS: BP 154/74
[2020-06-07 20:00] VITALS: BP 132/82
[2020-06-08] VITALS: BP 174/88
[2020-06-08] MEDS: IPRATROPIUM 0.5MG/ALBUTEROL 2.5MG INH SOL UD 3ML (DUONEB) NEB SCH ×4 (01:40→19:58)
[2020-06-08] MEDS: KCL 40MEQ IN D5/0.45NS 1000ML 1,000 ML IV SCH (01:59)
[2020-06-08] MEDS: PIPERACILLIN/TAZOBACTAM SOD 3.375 GM in D5W MINI-BAG PLUS 50 ML IV SCH ×4 (01:59→18:05)
[2020-06-08 02:05] VITALS: BP 167/77
[2020-06-08 04:00] VITALS: BP 182/90
[2020-06-08 05:24] LABS: HEMATOCRIT 34.4 % (42.0-52.0); HEMOGLOBIN 11.8 g/dl (13.5-17.5); MEAN CORPUSCULAR HEMOGLOBIN 32.2 pg (27.0-33.0); MEAN CORPUSCULAR HGB CONC 34.3 g/dl (32.0-36.5); MEAN CORPUSCULAR VOLUME 93.7 fl (80.0-96.0); PLATELET COUNT, AUTOMATED 232 10^3/uL (150-450); RED BLOOD COUNT 3.67 10^6/uL (4.30-6.10); WHITE BLOOD COUNT 15.6 10^3/uL (4.0-10.0)
[2020-06-08 05:51] LABS: ALBUMIN 1.8 GM/DL (3.2-5.2); ALT/SGPT 25 U/L (12-78); BILIRUBIN,TOTAL 0.8 MG/DL (0.2-1.0); BLOOD UREA NITROGEN 28 MG/DL (7-18); CALCIUM LEVEL 7.5 MG/DL (8.8-10.2); CARBON DIOXIDE LEVEL 24 MEQ/L (21-32); CHLORIDE LEVEL 110 MEQ/L (98-107); GLOMERULAR FILTRATION RATE > 60.0 (>35); GLUCOSE, FASTING 112 MG/DL (70-100); POTASSIUM SERUM 3.5 MEQ/L (3.5-5.1); SODIUM LEVEL 141 MEQ/L (136-145); TOTAL PROTEIN 5.2 GM/DL (6.4-8.2)
[2020-06-08 05:53] LABS: BASOPHILS 2 % (0-1); EOSINOPHILS 6 % (0-3); LYMPHOCYTES 18 % (16-44); MONOCYTES 7 % (0-5); NEUTROPHILS 67 % (28-66); PLATELET CLUMPS SMALL AMT; PLATELET ESTIMATE NORMAL (NORMAL)
[2020-06-08 08:00] VITALS: BP 142/78
[2020-06-08] MEDS: LEVOTHYROXINE 100MCG (0.1MG) VIAL IV SCH (09:39)
--- NOTE | 2020-06-08 09:52 | REP ---
INDICATION: increased wbc, prior bowel perf...IV CONTRAST ALLERGY COMPARISON: 06/03/2020. TECHNIQUE: CT Scan of the abdomen and pelvis was performed without intravenous contrast. Sagittal and coronal reconstruction images performed. FINDINGS: Lung bases: There are bibasilar effusions with adjacent patchy atelectasis/infiltrate, right greater than left. These findings are new compared to the prior study. A nasogastric tube is seen with distal portion in the stomach. Liver: Grossly unremarkable. Gallbladder: Moderately distended. Spleen: Grossly unremarkable.. Adrenals: Normal. Pancreas: Grossly unremarkable.. Kidneys: There are 2 small cysts in the lower pole the right kidney. There are 2 larger cysts in the upper left kidney, the largest 6.1 cm in diameter. There is no hydronephrosis bilaterally. Small and large bowel: Patient has had resection of sigmoid colon. Rectal stump is noted with suture line at its superior aspect. There is a small amount of adjacent extraluminal, non drainable air and fluid at the margin of the sutures, an expected postsurgical finding. Left colostomy is noted. Anterior midline open wound is present, an expected finding. Abdominal aorta: No aneurysm. Adenopathy: None. Appendix: Not inflamed. Osseous structures: There are degenerative changes of the spine. There is an old compression deformity of T9 vertebral body. Pelvis: No mass. No bladder calculus seen. Dawn catheter is seen in a collapsed urinary bladder. There is mild scattered postsurgical and inflammatory edema in the lower mesentery. IMPRESSION: Bibasilar effusions with adjacent patchy atelectasis/infiltrate, right greater than left. Postsurgical changes as above. Very small amount of extraluminal air and fluid near the rectal suture line, and expected postsurgical finding. No abscess is seen. <Electronically signed by Jose Carlos Shafer > 06/08/20 [id number]
--- NOTE | 2020-06-08 11:01 | IPN ---
DATE: 06/06/2020 SUBJECTIVE: This is postop day number three for Mr. Singh from an open sigmoid colectomy with end colostomy for a perforation. He has been moved to the Progressive Care Unit from the ICU previously. Vital signs show that he has been afebrile over the last 24 hours. His pulse remains slightly elevated in the low 100s to 1teens. His blood pressure is good or even slightly elevated this morning. Pulse oximetry is excellent on one liter of nasal cannula oxygen. Intake and output show that yesterday he had 1,400 in with 2,800 mL out. Most of that was urine output. He did have 500 mL of drainage from his NG yesterday and 30 mL from his abdominal drain. PHYSICAL EXAMINATION: GENERAL APPEARANCE: The patient is lying quietly in the hospital bed. He is alert and oriented. He appears comfortable. SKIN: Warm and dry. HEENT: Sclerae are anicteric. HEART: Regular rhythm. LUNGS: Good bilateral breath sounds. ABDOMEN: Colostomy in the left mid to lower abdomen which is pink and viable. There does not appear to be any stool in the ostomy bag. He has a midline incision which is closed with surgical salinas, and there is no significant drainage. There is a small drain in the left lower abdomen which has a minimal amount of bloody fluid in the container. His NG tube has a small amount of reddish brown fluid in the tubing and canister. GENITOURINARY: A Dawn catheter is in place and is draining clear, very light yellow urine. LABORATORY STUDIES: Today white count of 10, hemoglobin of 11, hematocrit of 31 and a platelet count of 134,000. Chemistry profile today shows a sodium of 140, potassium 3.2, chloride 110, CO2 of 26, BUN of 22, creatinine 0.88 and a glucose of 88. Total protein is 5.5 with an albumin of 1.8. IMPRESSION: The patient appears to be doing fairly well, now postop day three from his colectomy and colostomy for perforation. His NG tube remains in place as we are awaiting return of some bowel function with output from his colostomy. He had approximately 500 mL of fluid out in his NG yesterday and seems to be having less than that today. His urine output is fairly brisk. He remains on Piperacillin Tazobactam for antibiotic coverage. He has Morphine available for pain but has not been using this at all. PLAN: The patients NG tube will be continued for now. I will also continue his Dawn catheter. The drain has little output, but it will stay at least another day. I will continue his Zosyn for now. He does have a triple lumen in his groin and bilateral upper extremity IVs and I am sure he does not need all of these and I will have one or more of these removed if it seems that he will not need them any longer. GORGE
--- NOTE | 2020-06-08 11:03 | IPN ---
DATE: 06/07/2020 SUBJECTIVE: The patient is postop day number four from an emergency open sigmoid colectomy and colostomy for perforation with some necrosis of the sigmoid. He has been mobilizing a lot of third space fluid as urine over the last couple days. He is up in a chair today, looking fairly comfortable at rest. His NG tube remains in place. Vital signs show that he has been afebrile over the past 24 hours. His pulse is in the 80s and low 90s now which is down from the 100s over the last couple days. His blood pressure is improved and normal and his oxygen saturation is normal on a one liter nasal cannula flow of oxygen. Intake and output show that yesterday he had 830 in with 3,200 out. His NG tube was reported as having 400 with his drain having 25. This morning his drain had 2 mL and the NG is not recorded. PHYSICAL EXAMINATION: GENERAL APPEARANCE: The patient is alert and seems oriented. SKIN: Warm and dry. HEART: Regular rhythm. ABDOMEN: Flat. His incision is clean. The ostomy is pink and viable. He has some active bowel sounds. The drain has a minimal amount of old blood in the tubing and container. LABORATORY STUDIES: White count of 12, hemoglobin of 11, hematocrit 32, and a platelet count of 169,000. Differential shows 78% neutrophils, 11 lymphocytes and 4 monocytes. Chemistry profile shows a sodium of 140, potassium 3.2, chloride 109, CO2 of 24, BUN of 22, creatinine 0.7 and a glucose 114. His total protein is 4.6 with an albumin of 1.8. Liver function tests are normal. IMPRESSION: The patient seems to be doing fairly well now 4 days postop from his emergency colectomy and colostomy. His ostomy has only a minimal amount of watery light brown fluid in the bag. The ostomy itself looks pink and viable and the abdomen is soft with active bowel sounds. PLAN: I am going to try clamping his NG tube. I will obtain a KUB today as well to check his bowel gas pattern. I believe his Freeman drain can be removed today as well. We will see how he tolerates the NG clamping and discontinue this if he tolerates it well. He will remain on his antibiotics. GORGE
[2020-06-08 15:31] VITALS: BP 151/83
[2020-06-08 20:00] VITALS: BP 158/77
[2020-06-09] VITALS: BP 160/75
[2020-06-09] MEDS: IPRATROPIUM 0.5MG/ALBUTEROL 2.5MG INH SOL UD 3ML (DUONEB) NEB SCH ×4 (01:07→19:06)
[2020-06-09] MEDS: PIPERACILLIN/TAZOBACTAM SOD 3.375 GM in D5W MINI-BAG PLUS 50 ML IV SCH ×4 (01:55→18:06)
[2020-06-09 04:00] VITALS: BP 158/86
[2020-06-09 05:29] LABS: HEMOGLOBIN 11.1 g/dl (13.5-17.5); MEAN CORPUSCULAR HEMOGLOBIN 31.5 pg (27.0-33.0); MEAN CORPUSCULAR HGB CONC 33.6 g/dl (32.0-36.5); MEAN CORPUSCULAR VOLUME 93.8 fl (80.0-96.0); PLATELET COUNT, AUTOMATED 280 10^3/uL (150-450); RED BLOOD COUNT 3.52 10^6/uL (4.30-6.10); WHITE BLOOD COUNT 18.6 10^3/uL (4.0-10.0)
[2020-06-09] MEDS: MORPHINE 2 MG/ML 1ML VIAL (J2270) IV PRN ×3 (05:57→22:23)
[2020-06-09 06:00] LABS: ALBUMIN 1.8 GM/DL (3.2-5.2); ALT/SGPT 25 U/L (12-78); BILIRUBIN,TOTAL 0.6 MG/DL (0.2-1.0); BLOOD UREA NITROGEN 28 MG/DL (7-18); CALCIUM LEVEL 7.4 MG/DL (8.8-10.2); CARBON DIOXIDE LEVEL 24 MEQ/L (21-32); CHLORIDE LEVEL 111 MEQ/L (98-107); CREATININE FOR GFR 0.77 MG/DL (0.70-1.30); GLOMERULAR FILTRATION RATE > 60.0 (>35); GLUCOSE, FASTING 109 MG/DL (70-100); POTASSIUM SERUM 3.6 MEQ/L (3.5-5.1); SODIUM LEVEL 142 MEQ/L (136-145); TOTAL PROTEIN 5.3 GM/DL (6.4-8.2)
[2020-06-09 06:33] LABS: EOSINOPHILS 5 % (0-3); LYMPHOCYTES 7 % (16-44); MONOCYTES 6 % (0-5); NEUTROPHILS 78 % (28-66); PLATELET ESTIMATE NORMAL (NORMAL)
[2020-06-09 07:35] VITALS: BP 147/72
--- NOTE | 2020-06-09 07:41 | IPN ---
"DATE: 06/05/2020 SUBJECTIVE: Subjectively the patient seems much more awake. He is actually more comfortable than he was yesterday and fortunately, given his comfort, he has been able to move around a little bit more in bed. His respiratory status has improved as well and just is on a little bit of nasal cannula at this time. He has not needed any BIPAP. He is off of Levophed and is doing overall better at this time. The question yesterday was whether for a transfer out to the floor and discussed this with medicine and we kept him in overnight and he is doing much better, and we will see how he does and we will plan on discharge to the Floor today. But in any case, he has made some significant improvement. His ostomy is nice and pink. It has no air or drainage from this. However, his I.s and O.s still reveal that he has significant COMFORT drainage, 70 mL yesterday. It dropped down quite since the original drainage that he had. His urine output has picked up nicely and overall his hematocrit did drop although I do feel that may be partially dilutional given his platelet count, etc. and showing all a schmidt decrease of numbers. | PHYSICAL EXAMINATION: GENERAL APPEARANCE: In any case, at this point he is alert, awake. LUNGS: Clear anteriorly, diminished posteriorly bilaterally. HEART: Regular. ABDOMEN: Mildly distended. His dressing is clean and dry. His ostomy is pink. COMFORT drainage is serosanguinous. GENITOURINARY: Urine output looks good. IMPRESSION AND PLAN: The patient has made some good progress over the last 24- 48 hours, especially with the amount of infection present. I do feel that we will just see how he does with his NG tube in place, keep the COMFORT drain in place until it starts to dwindle down. He does have a significant risk for postoperative infection given the amount of stool present at the time of the operation as well as his sepsis. We will see how he does over the ensuing few days, but given his white count, seems to be responding nicely and coming back up appropriately after his sepsis. Otherwise supportive care is warranted with IV fluids, IV antibiotics, n.p.o. and we will transfer him out to the Floor, PCU. GORGE"
--- NOTE | 2020-06-09 07:43 | IPN ---
DATE: 06/08/2020 SUBJECTIVE: The patient overall has made some progress over the weekend. He has been more comfortable. He has been up out of bed. He still is doing well. He is off O2 and he is on room air. His blood pressure has been nice and stable. He has been afebrile although is white count has bumped up a little bit yesterday and even higher today. As I discussed earlier in my notes, the patient given his gangrenous sigmoid colon with stool spillage is at a high risk for intraabdominal abscess developed; and since he has had minimal ostomy output and still high NG output, I do feel that this is a high likelihood that he may actually have developed an abscess. Thus, I have ordered a CT scan of his abdomen and pelvis to rule out intraabdominal abscess, which may need percutaneous drainage if we see this. OBJECTIVE: From his standpoint otherwise, his lungs are clear anteriorly. Heart is regular. Abdomen is softly distended and it is nontender. He has a few salinas that are draining around the open areas and no adequately packed at this time. So, I have removed some salinas and packed the wound better and we will start some dressing changes for this. ASSESSMENT AND PLAN: In general, we will keep him n.p.o. with NG tube in place for right now, and we will see what the CT scan shows and where to progress from here. GORGE
[2020-06-09] MEDS: LEVOTHYROXINE 100MCG (0.1MG) VIAL IV SCH (09:14)
[2020-06-09] MEDS: KCL 40MEQ IN D5/0.45NS 1000ML 1,000 ML IV SCH ×2 (09:14→18:13)
[2020-06-09 12:00] VITALS: BP 162/72
--- NOTE | 2020-06-09 14:18 | IPN ---
DATE: 06/09/2020 Patient overall states that he is having a little bit of gas out of his bag. He still continues to be afebrile, and his blood pressure has been good; however, his white count did continue to bump. I did order a urinalysis this morning, and at this point I am not seeing any etiology for this. His midline salinas I removed to make sure that this was not an etiology for his possible infection. Otherwise, CT did not reveal any other significant abnormality. He continues to get his DuoNebs, and he states that his breathing is continuing to improve. He still feels very weak and unable to get out of bed without too much discomfort. He had some coughing and sneezing yesterday that caused some abdominal pain along his incision and states that this is slightly better than it was. His urine output still is great at this time. PHYSICAL EXAMINATION: His lungs are clear anteriorly. Abdomen is softly distended, nontender. His incision is clean. The packing that I put in yesterday was removed, and we will order some wet-to-dry today, but otherwise on cellulitis, no evidence of drainage. Ostomy is some pink. Some minimal air in the bag. IMPRESSION AND PLAN: Patient may be starting to resolve his ileus, but at this point, given his nasogastric (NG) tube output is still high, I would like to continue with his current nothing by mouth status, NG tube in place, and will see how he makes a difference over the next 24 hours. If he does not have some significant improvement by tomorrow, we will put a peripherally inserted central catheter (PICC) line in and possibly start him on some total parenteral nutrition (TPN) for the holiday weekend. GORGE
[2020-06-09 15:37] VITALS: BP 148/65
[2020-06-09 20:00] VITALS: BP 148/71
[2020-06-10] VITALS: BP 129/62
[2020-06-10] MEDS: IPRATROPIUM 0.5MG/ALBUTEROL 2.5MG INH SOL UD 3ML (DUONEB) NEB SCH ×4 (01:08→20:40)
[2020-06-10] MEDS: PIPERACILLIN/TAZOBACTAM SOD 3.375 GM in D5W MINI-BAG PLUS 50 ML IV SCH ×4 (02:38→18:33)
[2020-06-10 04:00] VITALS: BP 152/78
[2020-06-10 06:05] LABS: BASO # 0.1 10^3/uL (0.0-0.2); BASO % 0.7 % (0.0-1.0); EOS # 0.8 10^3/uL (0.0-0.5); EOS % 4.7 % (0.0-3.0); HEMATOCRIT 32.8 % (42.0-52.0); HEMOGLOBIN 10.8 g/dl (13.5-17.5); LYMPH # 1.3 10^3/uL (1.5-5.0); LYMPH % 7.4 % (24.0-44.0); MEAN CORPUSCULAR HEMOGLOBIN 32.1 pg (27.0-33.0); MEAN CORPUSCULAR HGB CONC 32.9 g/dl (32.0-36.5); MEAN CORPUSCULAR VOLUME 97.6 fl (80.0-96.0); MONO # 1.3 10^3/uL (0.0-0.8); MONO % 7.3 % (0.0-5.0); NEUTROPHILS % 78.4 % (36.0-66.0); PLATELET COUNT, AUTOMATED 362 10^3/uL (150-450); RED BLOOD COUNT 3.36 10^6/uL (4.30-6.10); WHITE BLOOD COUNT 17.8 10^3/uL (4.0-10.0)
[2020-06-10 06:28] LABS: ALBUMIN 1.8 GM/DL (3.2-5.2); ALT/SGPT 22 U/L (12-78); BILIRUBIN,TOTAL 0.7 MG/DL (0.2-1.0); BLOOD UREA NITROGEN 30 MG/DL (7-18); CALCIUM LEVEL 7.6 MG/DL (8.8-10.2); CARBON DIOXIDE LEVEL 24 MEQ/L (21-32); CHLORIDE LEVEL 111 MEQ/L (98-107); CREATININE FOR GFR 0.89 MG/DL (0.70-1.30); GLOMERULAR FILTRATION RATE > 60.0 (>35); GLUCOSE, FASTING 118 MG/DL (70-100); POTASSIUM SERUM 3.9 MEQ/L (3.5-5.1); SODIUM LEVEL 143 MEQ/L (136-145); TOTAL PROTEIN 5.5 GM/DL (6.4-8.2)
[2020-06-10 08:10] VITALS: BP 136/65
[2020-06-10] MEDS: LEVOTHYROXINE 100MCG (0.1MG) VIAL IV SCH (09:08)
[2020-06-10] MEDS: MORPHINE 2 MG/ML 1ML VIAL (J2270) IV PRN (10:47)
[2020-06-10 12:00] VITALS: BP 148/65
[2020-06-10] MEDS: KCL 40MEQ IN D5/0.45NS 1000ML 1,000 ML IV SCH (14:28)
[2020-06-10] MEDS ORDERED: MORPHINE 10 MG/ML 1ML VIAL (J2270) As Ordered ONE (16:28)
[2020-06-10] MEDS ORDERED: LIDOCAINE 1% MDV 20ML VIAL As Ordered ONE (16:41)
[2020-06-10] MEDS: MORPHINE 10 MG/ML 1ML VIAL (J2270) IV ONE ×2 (16:44→17:43)
[2020-06-10] MEDS ORDERED: FAT EMULSION IV 20% 500 ML IV SCH (18:00)
[2020-06-10] MEDS ORDERED: MULTIVITAMIN -ADULT INJECTION 10 ML, CR/CU/SE/MN/ZN INJ 1 ML in AMINO AC/ELECTROLYTE/DE... IV SCH (18:00)
[2020-06-10 18:30] VITALS: BP 141/66
[2020-06-10 20:00] VITALS: BP 156/67
[2020-06-10] MEDS: CIPROFLOXACIN 200 MG in IV 1 EA IV SCH (21:16)
[2020-06-10] MEDS: metroNIDAZOLE 500 MG in IV 1 EA IV SCH (22:52)
[2020-06-11] VITALS: BP 150/69
[2020-06-11] MEDS: MORPHINE 2 MG/ML 1ML VIAL (J2270) IV PRN ×4 (00:37→20:36)
[2020-06-11] MEDS: IPRATROPIUM 0.5MG/ALBUTEROL 2.5MG INH SOL UD 3ML (DUONEB) NEB SCH ×4 (01:52→19:38)
[2020-06-11 04:00] VITALS: BP 140/62
[2020-06-11 04:57] LABS: BASO # 0.1 10^3/uL (0.0-0.2); BASO % 0.5 % (0.0-1.0); EOS % 5.8 % (0.0-3.0); HEMATOCRIT 31.2 % (42.0-52.0); HEMOGLOBIN 10.1 g/dl (13.5-17.5); LYMPH # 0.9 10^3/uL (1.5-5.0); LYMPH % 5.6 % (24.0-44.0); MEAN CORPUSCULAR HEMOGLOBIN 31.4 pg (27.0-33.0); MEAN CORPUSCULAR HGB CONC 32.4 g/dl (32.0-36.5); MEAN CORPUSCULAR VOLUME 96.9 fl (80.0-96.0); MONO # 0.9 10^3/uL (0.0-0.8); MONO % 5.5 % (0.0-5.0); NEUTROPHILS # 13.6 10^3/uL (1.5-8.5); NEUTROPHILS % 81.3 % (36.0-66.0); PLATELET COUNT, AUTOMATED 437 10^3/uL (150-450); RED BLOOD COUNT 3.22 10^6/uL (4.30-6.10); WHITE BLOOD COUNT 16.7 10^3/uL (4.0-10.0)
[2020-06-11] MEDS: metroNIDAZOLE 500 MG in IV 1 EA IV SCH ×3 (05:40→21:56)
[2020-06-11] MEDS: SODIUM CHLORIDE 0.9% INJ 10 ML SYR IV SCH ×2 (05:40→17:40)
[2020-06-11 08:00] VITALS: BP 158/70
--- NOTE | 2020-06-11 08:36 | IPNPDOC ---
Text Note Date of Service The patient was seen on 06/11/20. NOTE Patient is now POD8 after Exploratory Laparotomy, Sigmoid Colectomy and [place] stomy for ischemic colitis/perforated colon Remaining issues include perisistent ileus, no significant output from colostomy has low grade temp yday 100.1 but normal afterwards, persistent leukocytosis malnutrition now on TPN day 2 antibiotics - cipro, flagyl, diflucan changed from zosyn On exam. looks comfortable, is having some on/off hiccups awake, alert, oriented has some whitish sputum. coarse cough no JVD lungs clear to auscultation bilaterally, no wheezing abdomen, round soft, relatively quiet, midline dressing clean, nontender on palpation, tympanitic to percussion, ostomy healthy, minimal air in the bag, no output no significant LE edema Plans: d/c garcia continue with PT continue with NGT continue with TPN, abx at some point this weekend ora if with rising wbc, intermittent fever, will need to redo CT abdomen and pelvis to look for abscess, r/o obstruction DVT prophylaxis VS,Fishbone, I+O VS, Fishbone, I+O Laboratory Tests 06/11/20 04:21 Vital Signs Date Time Temp Pulse Resp B/P (MAP) Pulse Ox O2 Delivery O2 Flow Rate FiO2 06/11/20 04:00 98.5 92 20 140/62 (88) 96 Room Air 06/07/20 12:00 I&O- Last 24 Hours up to 6 AM 06/11/20 06:00 Intake Total 1745 ml Output Total 3250 ml Balance -1505 ml GURINDER HSU MD Jun 11, 2020 08:11
[2020-06-11] MEDS: CIPROFLOXACIN 200 MG in IV 1 EA IV SCH ×2 (08:49→20:25)
[2020-06-11] MEDS: LEVOTHYROXINE 100MCG (0.1MG) VIAL IV SCH (08:50)
--- NOTE | 2020-06-11 10:51 | IPN ---
PROGRESS NOTE DATE: 06/10/2020 SUBJECTIVE: The patient overall seems to be making some slow, but progressive, improvement of his overall status. Although, he still is not putting out any significant ostomy output. He still has had a significant amount of NG tube output. He has been afebrile and his white count has still been elevated from an undetermined etiology as of yet. He has been on piperacillin/tazobactam, but at this point I feel that it is reasonable to discontinue that and change him over to some Cipro/Flagyl and possible Fluconazole. OBJECTIVE: Otherwise at this point, his abdomen is softly distended. His NG tube was not functioning well and had to adjust the NG tube and advance it, we adjusted the canister issues and once this was performed, approximately 200 mL of NG tube output was obtained. Otherwise, his dressing is clean, dry, intact, and his ostomy is pink. ASSESSMENT AND PLAN: The patient still has a postoperative ileus. His white count is still elevated. I do feel that we need to change him over to a different antibiotic at this time and keep him n.p.o. I will start a peripherally inserted central catheter (PICC) line and total parenteral nutrition (TPN) for him, and we will see how he does with the change in antibiotics overnight.
[2020-06-11 12:00] VITALS: BP 144/72
[2020-06-11] MEDS: ENOXAPARIN 40MG/0.4ML SYRINGE (J1650 PER 10MG) SC SCH (14:00)
--- NOTE | 2020-06-11 14:40 | IPNPDOC ---
Text Note Date of Service The patient was seen on 06/11/20. NOTE Subjective: No any acute events overnight. Yesterday evening patient had low grade fever Physical Exam: VITAL SIGNS: Please see below. GENERAL APPEARANCE: NAD HEENT: NC/AT, PERRLA, EOMI RESPIRATORY: Diminished lung sounds bilaterally CARDIOVASCULAR: S1, S2 ABDOMEN: soft, tender , surgical dressing in place, bowel sounds not appreciated. NG tube in place, abdominal drain, colostomy EXTREMITIES: No edema. ASSESSMENT/PLAN: 80-year-old male who present ed to the ED on 06/03/20 with abdominal distention, abdominal pain, nausea, vomiting. Initial x-rays revealed no evidence of free perforation, but distended bowel. CT scan was performed and revealed a contained perforation in the sigmoid colon. Patient was admitted under Surgical service and underwent ex laparotomy with with resection of necrotic segment of colon and creation of diverting colostomy on 06/03/20. Necrotic and perforated sigmoid colon s/p Ex lap and diverting colostomy on 06/03/[address] tube in place. as per surgery. Will check blood culture due to persistent leukocytosis and low-grade fever Continue antibiotic therapy Acute respiratory failure with hypercarbia requiring BIPAP after extubation due to prolonged affect of anesthesia and pain meds Now resolved Septic shock due to perforated, necrotic bowel. Now resolved. Hypokalemia getting replacement. Resolved Lactic acidosis resolved now Leucopenia due to severe sepsis and septic shock now improved. In fact he is now having leukocytosis Bilateral pleural effusion with infiltrates/ atelectasis No respiratory difficulty. Continue incentive spirometry MAXWELL Resolved prerenal, likely intravascular depletion with third spacing continue IVF, garcia I/O Hypothyroid synthroid VS,Fishbone, I+O VS, Fishbone, I+O Laboratory Tests 06/11/20 04:21 Vital Signs Date Time Temp Pulse Resp B/P (MAP) Pulse Ox O2 Delivery O2 Flow Rate FiO2 06/11/20 12:00 98.2 88 18 144/72 (96) 95 Room Air 06/07/20 12:00 I&O- Last 24 Hours up to 6 AM 06/11/20 06:00 Intake Total 1745 ml Output Total 3250 ml Balance -1505 ml MARY JAIN DO Jun 11, 2020 14:40
[2020-06-11 16:00] VITALS: BP 160/52
[2020-06-11] MEDS: HumaLOG INSULIN (NovoLOG) PER UNIT SC SCH (17:40)
[2020-06-11] MEDS ORDERED: AMINO AC/ELECTROLYTE/DEX/CALC 2,000 ML IV SCH (18:00)
[2020-06-11] MEDS ORDERED: FAT EMULSION IV 20% 500 ML IV SCH (18:00)
[2020-06-11 20:00] VITALS: BP 138/48
[2020-06-11] MEDS: FLUCONAZOLE 200 MG in IV 1 EA IV SCH ×3 (23:06)
[2020-06-12] VITALS: BP 142/82
[2020-06-12] MEDS: IPRATROPIUM 0.5MG/ALBUTEROL 2.5MG INH SOL UD 3ML (DUONEB) NEB SCH ×2 (01:46→07:36)
[2020-06-12 04:00] VITALS: BP 146/65
[2020-06-12] MEDS: metroNIDAZOLE 500 MG in IV 1 EA IV SCH ×3 (05:35→22:34)
[2020-06-12] MEDS: SODIUM CHLORIDE 0.9% INJ 10 ML SYR IV SCH ×2 (05:35→17:43)
[2020-06-12] MEDS: HumaLOG INSULIN (NovoLOG) PER UNIT SC SCH ×4 (05:36→18:00)
[2020-06-12 05:56] LABS: BASO # 0.1 10^3/uL (0.0-0.2); BASO % 0.5 % (0.0-1.0); EOS # 0.4 10^3/uL (0.0-0.5); EOS % 2.9 % (0.0-3.0); HEMATOCRIT 29.6 % (42.0-52.0); HEMOGLOBIN 9.8 g/dl (13.5-17.5); LYMPH # 0.9 10^3/uL (1.5-5.0); LYMPH % 6.5 % (24.0-44.0); MEAN CORPUSCULAR HEMOGLOBIN 32.1 pg (27.0-33.0); MEAN CORPUSCULAR HGB CONC 33.1 g/dl (32.0-36.5); MONO # 0.8 10^3/uL (0.0-0.8); MONO % 5.5 % (0.0-5.0); NEUTROPHILS # 11.4 10^3/uL (1.5-8.5); NEUTROPHILS % 83.6 % (36.0-66.0); PLATELET COUNT, AUTOMATED 479 10^3/uL (150-450); RED BLOOD COUNT 3.05 10^6/uL (4.30-6.10); WHITE BLOOD COUNT 13.6 10^3/uL (4.0-10.0)
[2020-06-12 06:14] LABS: BLOOD UREA NITROGEN 27 MG/DL (7-18); CALCIUM LEVEL 7.5 MG/DL (8.8-10.2); CARBON DIOXIDE LEVEL 23 MEQ/L (21-32); CHLORIDE LEVEL 110 MEQ/L (98-107); CREATININE FOR GFR 0.75 MG/DL (0.70-1.30); GLOMERULAR FILTRATION RATE > 60.0 (>35); GLUCOSE, FASTING 139 MG/DL (70-100); POTASSIUM SERUM 3.2 MEQ/L (3.5-5.1); SODIUM LEVEL 140 MEQ/L (136-145)
[2020-06-12 08:00] VITALS: BP 160/70
--- NOTE | 2020-06-12 08:31 | REP ---
INDICATION: ileus, high ngt drainage COMPARISON: 06/07/2020 TECHNIQUE: Supine view of the abdomen and pelvis. FINDINGS: Bowel gas pattern is nonspecific and without obstruction or perforation. Colostomy overlies the left lower abdomen. No organomegaly. No abnormal calcifications. Skeletal structures intact. IMPRESSION: Stable nonspecific bowel gas pattern. <Electronically signed by Efrem Bellamy > 06/12/20 0827
[2020-06-12] MEDS ORDERED: POTASSIUM CHLORIDE 10 MEQ SR TABLET PO SCH (09:00)
[2020-06-12] MEDS: LEVOTHYROXINE 100MCG (0.1MG) VIAL IV SCH (09:08)
[2020-06-12] MEDS: ENOXAPARIN 40MG/0.4ML SYRINGE (J1650 PER 10MG) SC SCH (09:08)
[2020-06-12] MEDS: CIPROFLOXACIN 200 MG in IV 1 EA IV SCH ×2 (09:08→21:16)
[2020-06-12 12:00] VITALS: BP 160/68
[2020-06-12] MEDS: MORPHINE 2 MG/ML 1ML VIAL (J2270) IV PRN ×2 (12:34→23:09)
[2020-06-12 16:00] VITALS: BP 142/55
[2020-06-12] MEDS ORDERED: FAT EMULSION IV 20% 500 ML IV SCH (18:00)
[2020-06-12] MEDS ORDERED: AMINO AC/ELECTROLYTE/DEX/CALC 2,000 ML IV SCH (18:00)
[2020-06-12 20:00] VITALS: BP 157/72
[2020-06-13] VITALS (7 sets, daily range): BP systolic 144–161; BP diastolic 50–72
[2020-06-13] MEDS: FLUCONAZOLE 200 MG in IV 1 EA IV SCH (00:01)
[2020-06-13 04:31] LABS: BASO # 0.1 10^3/uL (0.0-0.2); BASO % 0.6 % (0.0-1.0); EOS # 0.5 10^3/uL (0.0-0.5); EOS % 4.4 % (0.0-3.0); HEMATOCRIT 29.4 % (42.0-52.0); HEMOGLOBIN 9.7 g/dl (13.5-17.5); LYMPH % 8.7 % (24.0-44.0); MEAN CORPUSCULAR HEMOGLOBIN 31.9 pg (27.0-33.0); MEAN CORPUSCULAR VOLUME 96.7 fl (80.0-96.0); MONO # 1.1 10^3/uL (0.0-0.8); MONO % 9.5 % (0.0-5.0); NEUTROPHILS # 8.7 10^3/uL (1.5-8.5); NEUTROPHILS % 75.9 % (36.0-66.0); PLATELET COUNT, AUTOMATED 543 10^3/uL (150-450); RED BLOOD COUNT 3.04 10^6/uL (4.30-6.10); WHITE BLOOD COUNT 11.5 10^3/uL (4.0-10.0)
[2020-06-13 04:53] LABS: BLOOD UREA NITROGEN 30 MG/DL (7-18); CALCIUM LEVEL 7.3 MG/DL (8.8-10.2); CARBON DIOXIDE LEVEL 22 MEQ/L (21-32); CHLORIDE LEVEL 112 MEQ/L (98-107); CREATININE FOR GFR 0.65 MG/DL (0.70-1.30); GLOMERULAR FILTRATION RATE > 60.0 (>35); GLUCOSE, FASTING 110 MG/DL (70-100); POTASSIUM SERUM 3.5 MEQ/L (3.5-5.1); SODIUM LEVEL 142 MEQ/L (136-145)
[2020-06-13] MEDS: HumaLOG INSULIN (NovoLOG) PER UNIT SC SCH ×4 (06:00→18:00)
[2020-06-13] MEDS: MORPHINE 2 MG/ML 1ML VIAL (J2270) IV PRN (06:17)
[2020-06-13] MEDS: metroNIDAZOLE 500 MG in IV 1 EA IV SCH ×3 (06:40→23:10)
[2020-06-13] MEDS: SODIUM CHLORIDE 0.9% INJ 10 ML SYR IV SCH ×2 (06:40→18:16)
[2020-06-13] MEDS: ENOXAPARIN 40MG/0.4ML SYRINGE (J1650 PER 10MG) SC SCH (08:58)
[2020-06-13] MEDS: CIPROFLOXACIN 200 MG in IV 1 EA IV SCH ×2 (08:58→21:57)
[2020-06-13] MEDS: MIRALAX *UNIT DOSE* 17GM PACKET NG SCH (08:58)
[2020-06-13] MEDS: LEVOTHYROXINE 100MCG (0.1MG) VIAL IV SCH (08:58)
[2020-06-13] MEDS: POTASSIUM CHLORIDE 10% LIQ 20 MEQ/15 ML UDC NG SCH (08:59)
[2020-06-13] MEDS ORDERED: MIRALAX *UNIT DOSE* 17GM PACKET PO SCH (09:00)
[2020-06-13] MEDS ORDERED: BISACODYL 10 MG SUPP PR ONE (09:30)
--- NOTE | 2020-06-13 09:30 | IPNPDOC ---
Text Note Date of Service The patient was seen on 06/13/20. NOTE He did not tolerate temporarily clamping the NGT, still have high output from NGT and no output from Ostomy, hiccuping when awake. He denies any abdominal discomfort, voiding freely. He also has been passing a small amount of stool in his anus when he pees. VS stable afebrile On exam mildly uncomfortable from the hiccups, otherwise not in distress NGT in place working - broswnish drainage no JVD regular heart rate and rhythm relatively clear, no wheezes round, mild distended abdomen, soft, midline dressing dry. ostomy mildly swollen, no output no significant extremity edema Impression/Plan perforated sigmoid colon s/p ex lap sigmoid colectomy, colostomy POD10 persistent ileus/poss sbo with continued high ngt output, no output from colostomy Over all, his SIRS is improving, leukocytosis is improving but his bowel function has not returned. I checked a KUB yday and no real small bowel distention I could see. Most of the air is in the transverse colon. NGT seemed to be in the mid stomach and stomach not very distended. Unfortunately we are not able to move him forward with his high ngt output. Will try reglan which should help his hiccups and get his stomach to empty forward. continue tpn, abx. He is working with PT for strengthening. DVT prophylaxis with lovenox. I will increase the fluid in his tpn as his bun is creeping up and he has been fluid negative d/t the high ngt ouput. VS,Fishbone, I+O VS, Fishbone, I+O Laboratory Tests 06/13/20 04:21 Vital Signs Date Time Temp Pulse Resp B/P (MAP) Pulse Ox O2 Delivery O2 Flow Rate FiO2 06/13/20 07:36 98.2 93 18 144/67 (92) 96 Room Air 06/07/20 12:00 I&O- Last 24 Hours up to 6 AM 06/13/20 06:00 Intake Total 255 ml Output Total 2810 ml Balance -2555 ml GURINDER HSU MD Jun 13, 2020 09:30
[2020-06-13] MEDS: METOCLOPRAMIDE INJ 10MG/2ML VIAL (J2765 PER 1) IV SCH ×2 (09:42→18:17)
[2020-06-13 15:12] LABS: ALBUMIN 1.7 GM/DL (3.2-5.2); ALT/SGPT 25 U/L (12-78); BILIRUBIN,TOTAL 0.3 MG/DL (0.2-1.0); BLOOD UREA NITROGEN 34 MG/DL (7-18); CALCIUM LEVEL 7.3 MG/DL (8.8-10.2); CARBON DIOXIDE LEVEL 24 MEQ/L (21-32); CHLORIDE LEVEL 111 MEQ/L (98-107); CREATININE FOR GFR 0.77 MG/DL (0.70-1.30); GLOMERULAR FILTRATION RATE > 60.0 (>35); GLUCOSE, FASTING 90 MG/DL (70-100); POTASSIUM SERUM 3.3 MEQ/L (3.5-5.1); SODIUM LEVEL 141 MEQ/L (136-145); TOTAL PROTEIN 5.8 GM/DL (6.4-8.2)
[2020-06-13] MEDS ORDERED: FAT EMULSION IV 20% 500 ML IV SCH (18:00)
[2020-06-13] MEDS ORDERED: POTASSIUM CHLORIDE INJ 40 MEQ in AMINO AC/ELECTROLYTE/DEX/CALC 2,000 ML IV SCH (18:00)
[2020-06-13] MEDS ORDERED: ANALGESIC BALM CRM 120 GM TOP PRN (18:15)
[2020-06-13] MEDS: SODIUM CHLORIDE 0.9% INJ 10 ML SYR IV PRN (23:11)
[2020-06-14] MEDS: HumaLOG INSULIN (NovoLOG) PER UNIT SC SCH ×4 (00:34→17:53)
[2020-06-14] MEDS: SODIUM CHLORIDE 0.9% INJ 10 ML SYR IV PRN ×3 (00:34→02:13)
[2020-06-14] MEDS: FLUCONAZOLE 200 MG in IV 1 EA IV SCH (00:34)
[2020-06-14 02:00] VITALS: BP 157/68
[2020-06-14] MEDS: METOCLOPRAMIDE INJ 10MG/2ML VIAL (J2765 PER 1) IV SCH ×3 (02:13→17:51)
[2020-06-14] MEDS: metroNIDAZOLE 500 MG in IV 1 EA IV SCH ×3 (05:37→22:27)
[2020-06-14] MEDS: SODIUM CHLORIDE 0.9% INJ 10 ML SYR IV SCH ×2 (05:37→17:52)
[2020-06-14 06:00] VITALS: BP 156/68
[2020-06-14 06:25] LABS: BASO # 0.1 10^3/uL (0.0-0.2); BASO % 0.9 % (0.0-1.0); EOS # 0.4 10^3/uL (0.0-0.5); EOS % 3.5 % (0.0-3.0); HEMATOCRIT 29.7 % (42.0-52.0); HEMOGLOBIN 9.7 g/dl (13.5-17.5); LYMPH # 0.9 10^3/uL (1.5-5.0); LYMPH % 7.7 % (24.0-44.0); MEAN CORPUSCULAR HEMOGLOBIN 31.3 pg (27.0-33.0); MEAN CORPUSCULAR HGB CONC 32.7 g/dl (32.0-36.5); MEAN CORPUSCULAR VOLUME 95.8 fl (80.0-96.0); MONO # 1.2 10^3/uL (0.0-0.8); MONO % 10.2 % (0.0-5.0); NEUTROPHILS # 8.8 10^3/uL (1.5-8.5); NEUTROPHILS % 76.6 % (36.0-66.0); PLATELET COUNT, AUTOMATED 615 10^3/uL (150-450); WHITE BLOOD COUNT 11.4 10^3/uL (4.0-10.0)
[2020-06-14 06:54] LABS: BLOOD UREA NITROGEN 28 MG/DL (7-18); CALCIUM LEVEL 7.2 MG/DL (8.8-10.2); CARBON DIOXIDE LEVEL 23 MEQ/L (21-32); CHLORIDE LEVEL 112 MEQ/L (98-107); CREATININE FOR GFR 0.71 MG/DL (0.70-1.30); GLOMERULAR FILTRATION RATE > 60.0 (>35); GLUCOSE, FASTING 147 MG/DL (70-100); POTASSIUM SERUM 3.6 MEQ/L (3.5-5.1); SODIUM LEVEL 141 MEQ/L (136-145)
--- NOTE | 2020-06-14 08:45 | IPNPDOC ---
Text Note Date of Service The patient was seen on 06/14/20. NOTE POD 11 sigmoid colectomy, colostomy for perforation ischemic colitis/diverti culitis His hiccups have resolved with the reglan but still with significant ngt output and no ostomy output. He has been afebrile. He looks more hydrated now and he has increased his urine output. He is complaining of pain (pins and needles) at both anterolateral thigh areas helped with the bengay cream given by the hospitalists and is asking for more frequent application. VS stable Comfortable appearance lungs clear abdomen seems more protuberant the past two days, softly distended, ostomy healthy. I probed the ostomy to the fascial level, no stool came out, slight tortuous course, tight which may just be a reflection of the abdominal distention. Midline wound with packing, appears healthy Plan: will continue the reglan I am suspicious that this would be more bowel obstruction than a persistent ileus. would get a CT with IV contrast. He could not tolerate clamping of the NGT so will hold PO contrast. VS,Fishbone, I+O VS, Fishbone, I+O Laboratory Tests 06/13/20 14:25 06/14/20 06:13 Vital Signs Date Time Temp Pulse Resp B/P (MAP) Pulse Ox O2 Delivery O2 Flow Rate FiO2 06/14/20 06:00 98.2 97 18 156/68 (97) 95 Room Air I&O- Last 24 Hours up to 6 AM 06/14/20 06:00 Intake Total 670 ml Output Total 3050 ml Balance -2380 ml GURINDER HSU MD Jun 14, 2020 08:45
--- NOTE | 2020-06-14 09:27 | REP ---
INDICATION: r/o obstruction COMPARISON: 06/08/2020 TECHNIQUE: Axial noncontrast images from the lung bases to the pubic symphysis with coronal and sagittal reformations. This CT examination was performed using the following dose reduction techniques: Automated exposure control, adjustment of mA and/or kv according to the patient's size, and use of iterative reconstruction technique. FINDINGS: Lung bases demonstrate small right pleural effusion and bibasilar atelectasis slightly improved from prior examination. Liver, spleen, pancreas, gallbladder, and bilateral adrenal glands are normal. Kidneys demonstrate stable bilateral renal cysts (left greater than right) and minimal chronic perinephric stranding without hydronephrosis or nephroureterolithiasis. A nasogastric tube is identified within the stomach. The patient appears to be status post partial sigmoid resection with colostomy via the left anterior abdominal wall and oversewn Darby's pouch within the pelvis. Stranding in the deep pelvis and perirectal space similar to prior examination likely representing postsurgical changes and less likely infection. There is no evidence for bowel obstruction. Normal terminal ileum, cecum and appendix identified in the right lower quadrant. Open anterior midline surgical incision wound with surgical packing material noted and no associated abnormal fluid collection or fat stranding. Pelvis demonstrates normal bladder and enlarged prostate gland measuring 4.7 cm diameter No ascites. No free air. No significant adenopathy. Atherosclerotic changes to the aorta and vasculature noted without aneurysm. Osseous structures demonstrate age-related changes. IMPRESSION: 1. Postsurgical changes as described above. No evidence for bowel obstruction. No ascites or drainable collection/abscess. Stranding in the lower pelvis and perirectal fat likely postsurgical and less likely infectious. 2. Chronic nonacute findings including bilateral renal hypodensities suggesting cysts and prostatomegaly. 3. Small right pleural effusion and bibasilar atelectasis (right greater than left) minimally improved. <Electronically signed by Efrem Bellamy > 06/14/20 0970
[2020-06-14] MEDS: ENOXAPARIN 40MG/0.4ML SYRINGE (J1650 PER 10MG) SC SCH (10:05)
[2020-06-14] MEDS: LEVOTHYROXINE 100MCG (0.1MG) VIAL IV SCH (10:06)
[2020-06-14] MEDS: MIRALAX *UNIT DOSE* 17GM PACKET NG SCH (10:06)
[2020-06-14] MEDS: POTASSIUM CHLORIDE 10% LIQ 20 MEQ/15 ML UDC NG SCH (10:06)
[2020-06-14] MEDS: lisinopriL 20 MG TAB PO SCH (10:11)
[2020-06-14] MEDS: CIPROFLOXACIN 200 MG in IV 1 EA IV SCH ×2 (10:11→21:34)
[2020-06-14] MEDS ORDERED: BISACODYL 10 MG SUPP XX ONE (11:00)
[2020-06-14] MEDS: ANALGESIC BALM CRM 120 GM TOP PRN (13:52)
[2020-06-14 14:00] VITALS: BP 162/66
[2020-06-14 18:00] VITALS: BP 161/69
[2020-06-14] MEDS ORDERED: FAT EMULSION IV 20% 500 ML IV SCH (18:00)
[2020-06-14] MEDS ORDERED: POTASSIUM CHLORIDE INJ 20 MEQ in AMINO AC/ELECTROLYTE/DEX/CALC 2,000 ML IV SCH (18:00)
[2020-06-14] MEDS: ONDANSETRON 4MG/2ML VIAL IV PRN (21:34)
[2020-06-14 22:00] VITALS: BP 148/72
[2020-06-15] MEDS: FLUCONAZOLE 200 MG in IV 1 EA IV SCH ×2 (00:11→23:24)
[2020-06-15] MEDS ORDERED: GLUCAGON INJ 1MG VIAL SC PRN (01:00)
[2020-06-15] MEDS ORDERED: DEXTROSE 50% 50 ML SYRINGE IV PRN (01:00)
[2020-06-15] MEDS ORDERED: GLUCOSE 4GM CHEW TABLET PO PRN (01:00)
[2020-06-15 02:00] VITALS: BP 144/75
[2020-06-15] MEDS: METOCLOPRAMIDE INJ 10MG/2ML VIAL (J2765 PER 1) IV SCH ×3 (02:20→17:09)
[2020-06-15] MEDS: HumaLOG INSULIN (NovoLOG) PER UNIT SC SCH ×3 (05:40→12:00)
[2020-06-15] MEDS: metroNIDAZOLE 500 MG in IV 1 EA IV SCH ×3 (05:53→22:03)
[2020-06-15 06:00] VITALS: BP 151/77
[2020-06-15 06:37] LABS: BLOOD UREA NITROGEN 26 MG/DL (7-18); CALCIUM LEVEL 7.4 MG/DL (8.8-10.2); CARBON DIOXIDE LEVEL 25 MEQ/L (21-32); CHLORIDE LEVEL 109 MEQ/L (98-107); CREATININE FOR GFR 0.69 MG/DL (0.70-1.30); GLOMERULAR FILTRATION RATE > 60.0 (>35); GLUCOSE, FASTING 157 MG/DL (70-100); POTASSIUM SERUM 3.1 MEQ/L (3.5-5.1); SODIUM LEVEL 139 MEQ/L (136-145)
[2020-06-15] MEDS: SODIUM CHLORIDE 0.9% INJ 10 ML SYR IV SCH ×2 (07:11→17:09)
[2020-06-15 10:00] VITALS: BP 155/72
[2020-06-15] MEDS: ENOXAPARIN 40MG/0.4ML SYRINGE (J1650 PER 10MG) SC SCH (10:05)
[2020-06-15] MEDS: lisinopriL 20 MG TAB PO SCH (10:05)
[2020-06-15] MEDS: MIRALAX *UNIT DOSE* 17GM PACKET NG SCH (10:05)
[2020-06-15] MEDS: LEVOTHYROXINE 100MCG (0.1MG) VIAL IV SCH (10:06)
[2020-06-15] MEDS: POTASSIUM CHLORIDE 10% LIQ 20 MEQ/15 ML UDC NG SCH (10:06)
[2020-06-15] MEDS: CIPROFLOXACIN 200 MG in IV 1 EA IV SCH ×2 (10:07→20:21)
[2020-06-15] MEDS ORDERED: ISOVUE-300 61% 50ML VIAL As Ordered ONE ×2 (11:58→12:25)
[2020-06-15 14:00] VITALS: BP 158/69
[2020-06-15] MEDS ORDERED: MULTIVITAMIN -ADULT INJECTION 10 ML, CR/CU/SE/MN/ZN INJ 1 ML, POTASSIUM CHLORIDE INJ 44... IV SCH ×4 (18:00)
[2020-06-15] MEDS ORDERED: FAT EMULSION IV 20% 500 ML IV SCH (18:00)
[2020-06-15 22:00] VITALS: BP 157/76
[2020-06-16 02:00] VITALS: BP 157/67
[2020-06-16] MEDS: METOCLOPRAMIDE INJ 10MG/2ML VIAL (J2765 PER 1) IV SCH ×3 (02:19→18:12)
[2020-06-16] MEDS: SODIUM CHLORIDE 0.9% INJ 10 ML SYR IV PRN ×3 (02:20→16:01)
[2020-06-16] MEDS: metroNIDAZOLE 500 MG in IV 1 EA IV SCH ×3 (05:19→22:14)
[2020-06-16 06:00] VITALS: BP 155/65
[2020-06-16 06:27] LABS: BLOOD UREA NITROGEN 25 MG/DL (7-18); CALCIUM LEVEL 7.9 MG/DL (8.8-10.2); CARBON DIOXIDE LEVEL 26 MEQ/L (21-32); CHLORIDE LEVEL 109 MEQ/L (98-107); CREATININE FOR GFR 0.78 MG/DL (0.70-1.30); GLOMERULAR FILTRATION RATE > 60.0 (>35); GLUCOSE, FASTING 153 MG/DL (70-100); POTASSIUM SERUM 3.7 MEQ/L (3.5-5.1); SODIUM LEVEL 138 MEQ/L (136-145)
[2020-06-16] MEDS: SODIUM CHLORIDE 0.9% INJ 10 ML SYR IV SCH ×2 (06:38→18:12)
--- NOTE | 2020-06-16 08:12 | REP ---
INDICATION: ? proximal sbo. COMPARISON: None TECHNIQUE: This procedure was performed by Colleen Starks, [facility], under the direct supervision of Dr. Vega. Images were reviewed with Dr. Vega prior to dictation. This is a limited exam only to evaluate for obstruction and perforation. 200 mL of Isovue was given via NG tube in order to perform a water-soluble small bowel follow-through. FINDINGS: The bench manager film shows no organomegaly or pathological masses. The intestinal gas pattern is unremarkable. There are surgical salinas noted midline. There is a colostomy in the left quadrant. Isovue freely flows through the small intestine to the colon. There is no evidence of obstruction. No evidence of extravasation. Small bowel transit time was approximately 40 minutes. IMPRESSION: Free flow of isotope view the stomach into the colon. No evidence of obstruction or extravasation. 0 minutes of fluoroscopy time was utilized for this procedure, as all images were spot films. <Electronically signed by Colleen Starks > 06/15/20 1714 <Electronically signed by Jose Vega > 06/16/20 0842
[2020-06-16 10:00] VITALS: BP 153/67
[2020-06-16] MEDS: LEVOTHYROXINE 100MCG (0.1MG) VIAL IV SCH (10:04)
[2020-06-16] MEDS: ENOXAPARIN 40MG/0.4ML SYRINGE (J1650 PER 10MG) SC SCH (10:05)
[2020-06-16] MEDS: CIPROFLOXACIN 200 MG in IV 1 EA IV SCH ×2 (10:05→20:33)
[2020-06-16] MEDS: lisinopriL 20 MG TAB PO SCH (10:06)
[2020-06-16] MEDS: MIRALAX *UNIT DOSE* 17GM PACKET NG SCH (10:07)
[2020-06-16] MEDS: POTASSIUM CHLORIDE 10% LIQ 20 MEQ/15 ML UDC NG SCH (10:07)
[2020-06-16 14:00] VITALS: BP 145/73
[2020-06-16 18:00] VITALS: BP 145/71
[2020-06-16] MEDS ORDERED: FAT EMULSION IV 20% 500 ML IV SCH (18:00)
[2020-06-16] MEDS ORDERED: DEX IV SCH (18:00)
[2020-06-16] MEDS ORDERED: ELECTROLYTE IV SCH (18:00)
[2020-06-16] MEDS ORDERED: POTASSIUM CHLORIDE IV SCH (18:00)
[2020-06-16] MEDS ORDERED: CALC IV SCH (18:00)
[2020-06-16] MEDS ORDERED: AMINO AC IV SCH (18:00)
[2020-06-16 22:00] VITALS: BP 151/83
[2020-06-16] MEDS: ANALGESIC BALM CRM 120 GM TOP PRN (22:17)
[2020-06-16] MEDS: FLUCONAZOLE 200 MG in IV 1 EA IV SCH (23:39)
[2020-06-17] MEDS: METOCLOPRAMIDE INJ 10MG/2ML VIAL (J2765 PER 1) IV SCH ×3 (01:41→18:06)
[2020-06-17] MEDS: SODIUM CHLORIDE 0.9% INJ 10 ML SYR IV PRN ×2 (01:42→11:14)
[2020-06-17 02:00] VITALS: BP 165/82
[2020-06-17] MEDS: metroNIDAZOLE 500 MG in IV 1 EA IV SCH ×3 (05:52→21:52)
[2020-06-17] MEDS: SODIUM CHLORIDE 0.9% INJ 10 ML SYR IV SCH ×2 (05:52→18:07)
[2020-06-17 06:00] VITALS: BP 152/76
--- NOTE | 2020-06-17 06:35 | IPN ---
PROGRESS NOTE DATE: 06/16/2020 SUBJECTIVE: The patient had no evidence of obstruction of his small bowel and more importantly his ostomy is putting out some stool today. He still has a fair bit of NG-tube output. His abdomen is soft and nondistended. His Wound-Vac is in and well-placed at this time. IMPRESSION/PLAN: Patient is starting to resolve his ileus, we will see how things go over the ensuing few days, keep him NPO for right now, keep the TPN going and keep the Wound-Vac in place.
[2020-06-17] MEDS: CIPROFLOXACIN 200 MG in IV 1 EA IV SCH ×2 (09:37→20:35)
[2020-06-17] MEDS: LEVOTHYROXINE 100MCG (0.1MG) VIAL IV SCH (09:37)
[2020-06-17] MEDS: MIRALAX *UNIT DOSE* 17GM PACKET NG SCH (09:38)
[2020-06-17] MEDS: POTASSIUM CHLORIDE 10% LIQ 20 MEQ/15 ML UDC NG SCH (09:39)
[2020-06-17] MEDS: ENOXAPARIN 40MG/0.4ML SYRINGE (J1650 PER 10MG) SC SCH (09:39)
[2020-06-17] MEDS: lisinopriL 20 MG TAB PO SCH (09:40)
[2020-06-17 10:00] VITALS: BP 157/70
--- NOTE | 2020-06-17 14:32 | IPN ---
PROGRESS NOTE DATE: 06/15/2020 SUBJECTIVE: The patient overall had been doing well over the weekend. However he still has high NG output and really has not had anything out of his ostomy. He has had a white count that has been slowly coming down but otherwise he has been relatively stable. He has not had any fevers. No nausea, no vomiting. However when they clamp his tube, he gets a full feeling. He had a little bit of air out of his ostomy. PHYSICAL EXAMINATION: ABDOMEN: Soft, mildly distended. Ostomy is pink. I placed my finger through the ostomy and subfascial and there is nothing obstructing it. There is not a significant amount of edema either. His wound however is definitely spreading apart more and has some element of further dehiscence. IMPRESSION PLAN: 1. Ileus - The patient still is n.p.o. at this time with an NG tube. We will get a small bowel follow through to make sure we do not have any obstruction, although CAT scans do not reveal this. 2. Wound we will place a wound VAC to see if we cannot get this to close in a little bit quicker at this time. 3. We will continue him on TPN for now.
[2020-06-17 15:02] VITALS: BP_SYST 134; BP_SYST 170; BP_DIAS 75; BP_DIAS 82
[2020-06-17 17:53] VITALS: BP 130/80
[2020-06-17] MEDS ORDERED: FAT EMULSION IV 20% 500 ML IV SCH (18:00)
[2020-06-17] MEDS ORDERED: MULTIVITAMIN -ADULT INJECTION 10 ML, CR/CU/SE/MN/ZN INJ 1 ML, POTASSIUM CHLORIDE INJ 44... IV SCH ×4 (18:00)
--- NOTE | 2020-06-17 20:49 | IPN ---
PROGRESS NOTE DATE: 06/17/2020 SUBJECTIVE: Patient overall has been doing well overnight, still continues to make some ostomy output, but really not as much as he had previously. Yesterday he had a lot more output. He has not had any nausea. No vomiting, but he has had still a high NG tube output. He has been continued on his TPN and overall his abdomen is soft, nontender, non-distended. His ostomy is pink, functioning well and his midline wound VAC is intact and in place. IMPRESSION/PLAN: Patient is stable at this time and overall seems to be making some slow but progressive improvement. I discussed with the nurses to see if we can't clamp his NG tube for very short durations to see if we can't promote some mobilization of fluid into his small intestine and see if we do not have a progressive resolution of his ileus, but otherwise will have to keep his NG tube in place at this time. Continue with his TPN and continue with support care. Given his overall presentation that he is a relatively frail individual, I anticipate that even once we start advancing his diet and giving him a regular diet, once we get through this ileus issue, that he will probably need extended rehab, but this will probably be somewhere down the road before we even address this issue.
[2020-06-17 22:00] VITALS: BP 139/75
[2020-06-17] MEDS: FLUCONAZOLE 200 MG in IV 1 EA IV SCH (23:18)
[2020-06-18] MEDS: METOCLOPRAMIDE INJ 10MG/2ML VIAL (J2765 PER 1) IV SCH ×3 (02:12→18:10)
[2020-06-18] MEDS: metroNIDAZOLE 500 MG in IV 1 EA IV SCH ×3 (05:13→21:56)
[2020-06-18] MEDS: SODIUM CHLORIDE 0.9% INJ 10 ML SYR IV SCH ×2 (05:14→18:11)
[2020-06-18 06:00] VITALS: BP 141/68
[2020-06-18 06:29] LABS: HEMATOCRIT 28.2 % (42.0-52.0); MEAN CORPUSCULAR HEMOGLOBIN 30.6 pg (27.0-33.0); MEAN CORPUSCULAR HGB CONC 31.9 g/dl (32.0-36.5); MEAN CORPUSCULAR VOLUME 95.9 fl (80.0-96.0); PLATELET COUNT, AUTOMATED 632 10^3/uL (150-450); RED BLOOD COUNT 2.94 10^6/uL (4.30-6.10); WHITE BLOOD COUNT 14.4 10^3/uL (4.0-10.0)
[2020-06-18 06:52] LABS: BLOOD UREA NITROGEN 22 MG/DL (7-18); CALCIUM LEVEL 7.7 MG/DL (8.8-10.2); CARBON DIOXIDE LEVEL 23 MEQ/L (21-32); CHLORIDE LEVEL 104 MEQ/L (98-107); CREATININE FOR GFR 0.79 MG/DL (0.70-1.30); GLOMERULAR FILTRATION RATE > 60.0 (>35); GLUCOSE, FASTING 156 MG/DL (70-100); POTASSIUM SERUM 3.9 MEQ/L (3.5-5.1); SODIUM LEVEL 133 MEQ/L (136-145)
[2020-06-18] MEDS: CIPROFLOXACIN 200 MG in IV 1 EA IV SCH ×2 (09:15→20:44)
[2020-06-18] MEDS: POTASSIUM CHLORIDE 10% LIQ 20 MEQ/15 ML UDC NG SCH (09:15)
[2020-06-18] MEDS: MIRALAX *UNIT DOSE* 17GM PACKET NG SCH (09:15)
[2020-06-18] MEDS: LEVOTHYROXINE 100MCG (0.1MG) VIAL IV SCH (09:16)
[2020-06-18] MEDS: SODIUM CHLORIDE 0.9% INJ 10 ML SYR IV PRN (09:17)
[2020-06-18] MEDS: ENOXAPARIN 40MG/0.4ML SYRINGE (J1650 PER 10MG) SC SCH (09:18)
[2020-06-18] MEDS: lisinopriL 20 MG TAB PO SCH (09:19)
[2020-06-18 10:00] VITALS: BP 146/72
[2020-06-18 13:33] VITALS: BP 145/68
[2020-06-18 17:37] VITALS: BP 144/68
[2020-06-18] MEDS ORDERED: DEX IV SCH (18:00)
[2020-06-18] MEDS ORDERED: ELECTROLYTE IV SCH (18:00)
[2020-06-18] MEDS ORDERED: CALC IV SCH (18:00)
[2020-06-18] MEDS ORDERED: POTASSIUM CHLORIDE IV SCH (18:00)
[2020-06-18] MEDS ORDERED: FAT EMULSION IV 20% 500 ML IV SCH (18:00)
[2020-06-18] MEDS ORDERED: AMINO AC IV SCH (18:00)
--- NOTE | 2020-06-18 19:25 | IPN ---
PROGRESS NOTE DATE: 06/18/2020 SUBJECTIVE: Patient continues to have more colostomy output and overall, he states he is feeling slowly better. However, his white count did bump today and I am not sure of the etiology of this right now. His BUN has been relatively stable, and he does not look anymore dehydrated than he was previously. He has been afebrile, and he is not having any hypotensive episodes. He is not complaining of any increasing pain or discomforts. OBJECTIVE: On his physical exam, his lungs are clear anteriorly. Abdomen is softly distended and nontender. His midline incision has a wound VAC in place and it is clean, not erythematous, and no active bleeding is appreciated. No other significant abnormalities in this area. His ostomy is pink and functioning well with air, as well as a great deal of liquid stool in the ostomy bag. ASSESSMENT AND PLAN: The patient has starting resolution of his ileus. Still he has a high nasogastric (NG) output, so we are going to have to hold off on clamping or discontinuing his NG tube. He understands our current plan. We will continue with the total parenteral nutrition (TPN) and we will get some follow-up labs tomorrow. Obviously with this elevated white count, if it continues to go up, we may have to repeat his CT scan and also possible get an infectious disease (ID) consult if we are unsure of the etiology at this time.
[2020-06-18 22:00] VITALS: BP 145/67
[2020-06-18] MEDS: FLUCONAZOLE 200 MG in IV 1 EA IV SCH (23:13)
[2020-06-19] VITALS (28 sets, daily range): BP systolic 68–167; BP diastolic 42–95
[2020-06-19] MEDS: METOCLOPRAMIDE INJ 10MG/2ML VIAL (J2765 PER 1) IV SCH ×3 (01:18→17:24)
[2020-06-19 01:59] LABS: HEMATOCRIT 24.4 % (42.0-52.0); HEMOGLOBIN 7.8 g/dl (13.5-17.5)
[2020-06-19] MEDS ORDERED: NS 500 ML IV ONE (02:15)
[2020-06-19 02:26] LABS: BASO # 0.2 10^3/uL (0.0-0.2); BASO % 0.8 % (0.0-1.0); EOS # 0.7 10^3/uL (0.0-0.5); HEMATOCRIT 24.1 % (42.0-52.0); HEMOGLOBIN 7.6 g/dl (13.5-17.5); LYMPH # 2.2 10^3/uL (1.5-5.0); MEAN CORPUSCULAR HEMOGLOBIN 31.3 pg (27.0-33.0); MEAN CORPUSCULAR HGB CONC 31.5 g/dl (32.0-36.5); MEAN CORPUSCULAR VOLUME 99.2 fl (80.0-96.0); MONO # 2.1 10^3/uL (0.0-0.8); MONO % 9.5 % (0.0-5.0); NEUTROPHILS # 16.1 10^3/uL (1.5-8.5); NEUTROPHILS % 72.6 % (36.0-66.0); PLATELET COUNT, AUTOMATED 715 10^3/uL (150-450); RED BLOOD COUNT 2.43 10^6/uL (4.30-6.10); WHITE BLOOD COUNT 22.2 10^3/uL (4.0-10.0)
[2020-06-19] MEDS: PANTOPRAZOLE 40MG VIAL (C9113 PER 1) IV SCH ×2 (02:43→15:08)
[2020-06-19] MEDS: SUCRALFATE SUSP 1GM/10ML UD NG SCH ×4 (02:43→20:09)
[2020-06-19] MEDS: PIPERACILLIN/TAZOBACTAM SOD 3.375 GM in D5W MINI-BAG PLUS 50 ML IV SCH ×4 (02:43→20:09)
[2020-06-19 02:44] LABS: ALT/SGPT 11 U/L (12-78); BLOOD UREA NITROGEN 29 MG/DL (7-18); CALCIUM LEVEL 7.2 MG/DL (8.8-10.2); CARBON DIOXIDE LEVEL 21 MEQ/L (21-32); CHLORIDE LEVEL 107 MEQ/L (98-107); CK-MB VALUE MASS < 1.0 NG/ML (<3.6); CPK CREATINE PHOSPHOKINASE 61 U/L (39-308); CREATININE FOR GFR 0.97 MG/DL (0.70-1.30); GLOMERULAR FILTRATION RATE > 60.0 (>35); GLUCOSE, FASTING 170 MG/DL (70-100); MB/CK RELATIVE INDEX 1.64 (< OR =4); POTASSIUM SERUM 4.7 MEQ/L (3.5-5.1); SODIUM LEVEL 135 MEQ/L (136-145)
[2020-06-19] MEDS: NS 1,000 ML IV SCH ×3 (02:44→19:00)
[2020-06-19 02:45] LABS: ALBUMIN 1.4 GM/DL (3.2-5.2); BILIRUBIN,TOTAL 0.2 MG/DL (0.2-1.0); LIPASE 1456 U/L (73-393); TOTAL PROTEIN 5.1 GM/DL (6.4-8.2); TROPONIN I 0.02 NG/ML (< 0.10)
--- NOTE | 2020-06-19 02:54 | IPNPDOC ---
Date Seen The patient was seen on 06/19/20. Progress Note INTERIM PROGRESS NOTE: A rapid assessment was called on the patient around 0220. Nursing noted hypotension and patient had been complaining of dizziness and nausea. He vomited almost 20cc blood. Blood pressure at that time was noted as 80/50, HR in 120s. He was started on 1000cc NS bolus. Earlier in the evening, nursing noted blood clot in the NGT. At this time, NGT was able to be flushed without issue. On my assessment, the patient was awake, alert and oriented only complaining of some nausea and pain with palpation in the epigastrum and LLQ. He appears very pale and dry. No JVD or peripheral edema noted. He is tachycardic and lung sounds are clear. Abdomen is soft and tender to light palpation in aforementioned locations. Wound vac is in place in midline abdominal incision with no surrounding erythema. Ostomy is present in left lower quadrant draining liquid brownish stool. There are no neurologic deficits. H/H found to be 7.6/24.1 , down from 7.8/24.4 one hour prior. Earlier in the day, H/H 9.0/28.2 Lactic acid 2.7 Lipase >1400 BMP WNL, normal renal function Patient was promptly transferred to the ICU where his blood pressure was found to be 120/55 and HR was tachycardic in 120s. Dr. Jackson was called and given an update on the patient. He recommended CT chest, Abd/pelvis to rule out abscess/bleed in setting of rising WBC over the past few days. Antibiotic regimen was broadened to Vancomycin and Zosyn for empiric coverage. Dawn catheter was inserted. His maintenance fluids were increased to 150cc/hr and he will be transfused 2U pRBCs. The patient's daughter Selene Singh ([phone]) was called and updated. An attempt to call his son Brayden ([phone]) was made but no answer. VS, I&O, 24H, Fishbone Vital Signs/I&O Vital Signs Date Time Temp Pulse Resp B/P (MAP) Pulse Ox O2 Delivery O2 Flow Rate FiO2 06/18/20 22:00 97.6 104 18 145/67 (93) 95 06/18/20 17:37 Room Air I&O- Last 24 Hours up to 6 AM 06/19/20 06:00 Intake Total 650 ml Output Total 1965 ml Balance -1315 ml Laboratory Data 24H LABS Laboratory Tests 2 06/18/20 05:54: Nucleated Red Blood Cells % (auto) 0.0, Anion Gap 6L, Glomerular Filtration Rate > 60.0, Calcium Level 7.7L 06/19/20 01:59: Bedside Glucose (Misc Panel) 167H 06/19/20 02:13: Nucleated Red Blood Cells % (auto) 0.0, Immature Granulocyte % (Auto) 4.1H, Neutrophils (%) (Auto) 72.6H, Lymphocytes (%) (Auto) 10.0L, Monocytes (%) (Auto) 9.5H, Eosinophils (%) (Auto) 3.0, Basophils (%) (Auto) 0.8, Neutrophils # (Auto) 16.1H, Lymphocytes # (Auto) 2.2, Monocytes # (Auto) 2.1H, Eosinophils # (Auto) 0.7H, Basophils # (Auto) 0.2 CBC/BMP Laboratory Tests 06/18/20 05:54 06/19/20 01:53 06/19/20 02:13 Microbiology Microbiology 06/11/20 Blood Culture - Final, Complete NO GROWTH AFTER 5 DAYS 06/11/20 Blood Culture - Final, Complete NO GROWTH AFTER 5 DAYS GME ATTESTATION GME ATTESTATION My faculty preceptor for this patient encounter was physically present during the encounter and was fully available. All aspects of the patient interview, examination, medical decision making process, and medical care plan development were reviewed and approved by the faculty preceptor. The faculty preceptor is aware and concurs with the plan as stated in the body of this note and will attest to such by his/her cosignature. ATTENDING NOTE I, Bob Minor, have independently examined this patient and performed my own physical exam, as well as reviewed the documentation and edited where necessary. I have discussed in detail with the resident / student the findings and plan of treatment as documented by the resident / student and edited their note. I agree with their findings and treatment plan and have edited their documentation. I will continue to follow the patient during this hospital stay. LANIE SEVERINO MD Jun 19, 2020 02:54 BOB MINOR MD Jun 19, 2020 04:13
[2020-06-19] MEDS ORDERED: NS 1,000 ML IV ONE (03:00)
--- NOTE | 2020-06-19 03:32 | REPVR ---
PROCEDURE INFORMATION: Exam: XR Chest, 1 View Exam date and time: 06/19/20 (2:35am) Age: 80 years old Clinical indication: Chest and abdominal pain TECHNIQUE: Imaging protocol: Portable CXR Views: 1 view COMPARISON: Portable CXR of 06/04/20 FINDINGS: Comparison is made with a portable CXR done on 06/04/20. Stable heart size. Enteric tube in place, with its tip in the fundal region of the stomach. Elevation of the right hemidiaphragm again seen. No focal infiltrates. Minimal blunting at the right costophrenic angle -- a minimal right pleural effusion may be present. No pneumothorax. IMPRESSION: No definite acute pathology. Perhaps a minimal right pleural effusion. No focal infiltrates. Normal heart size. Enteric tube, with its tip in the gastric fundus. The distal side hole projects at the expected E-G junction level. Electronically signed by: Elham Shields On 06/19/2020 03:32:38 AM
--- NOTE | 2020-06-19 03:46 | REPVR ---
PROCEDURE INFORMATION: Exam: XR Abdomen, 1 View Exam date and time: 06/19/20 (2:30am) Age: 80 years old Clinical indication: Abdominal pain TECHNIQUE: Imaging protocol: XR of the abdomen. Views: Frontal supine view of the abdomen. 1 View. COMPARISON: CT ABDOMEN PELVIS of 06/14/20 FINDINGS: Two (2) portable views of the abdomen are provided. Residual bowel contrast in the colon, most notably in the ascending colon and left colon. An LLQ ostomy is seen. Rectal tube in place. The bowel gas pattern is nonspecific and non-obstructed. An enteric tube is present, with its tip in the proximal 1/3 of the stomach. No obvious free air. IMPRESSION: No acute pathology. Nonspecific and non-obstructed bowel gas pattern. Residual bowel contrast in the colon. LLQ ostomy is seen. Enteric tube and rectal tube in place Electronically signed by: Elham Shields On 06/19/2020 03:46:46 AM
[2020-06-19] MEDS ORDERED: VANCOMYCIN HCL 1,000 MG, VIAL MATE ADAPTER 1 EACH in D5W 250 ML IV ONE (04:00)
--- NOTE | 2020-06-19 04:06 | REPVR ---
PROCEDURE INFORMATION: Exam: CT Chest without Contrast; Diagnostic Exam date and time: 06/19/20 (3:13am) Age: 80 years old Clinical indication: Hypotension TECHNIQUE: Imaging protocol: Diagnostic computed tomography of the chest without contrast. Radiation optimization: All CT scans at this facility use at least one of these dose optimization techniques: automated exposure control; mA and/or kV adjustment per patient size (includes targeted exams where dose is matched to clinical indication); or iterative reconstruction. COMPARISON: Portable CXR of 06/19/20 FINDINGS: Lungs: No masses. Scattered bilateral streaky and patchy parenchymal changes, seen peripherally (posterolateral to the right hilum; posterior right lung base; posterior and inferior to the left hilum). Mild bronchiectasis. Probably some mucus in the right mainstem bronchus. Peripheral bulla posterior and inferior to the left hilum. Pleural space: No pneumothorax. Minimal right pleural effusion. Heart: Unremarkable. No cardiomegaly. No pericardial effusion. Aorta: Unremarka Liliana ble. No aortic aneurysm. Lymph nodes: Unremarkable. No enlarged lymph nodes. Bones/joints: Unremarkable. No acute fracture. Soft tissues: Unremarkable. Upper abdomen: Residual contrast in colonic loops. Enteric tube, with its tip in the proximal stomach. Distended stomach, filled with food debris. IMPRESSION: Scattered bilateral streaky and patchy parenchymal changes. No dense consolidation. Cannot exclude mild basilar pneumonitis, eg. Minimal right pleural effusion. Bronchiectatic changes are noted. Electronically signed by: Elham Shields On 06/19/2020 04:06:10 AM
--- NOTE | 2020-06-19 04:13 | REPVR ---
PROCEDURE INFORMATION: Exam: CT Abdomen and Pelvis without Contrast Exam date and time: 06/19/20 (3:13am) Age: 80 years old Clinical indication: Hypotension TECHNIQUE: Imaging protocol: Computed tomography of the abdomen and pelvis without contrast. Radiation optimization: All CT scans at this facility use at least one of these dose optimization techniques: automated exposure control; mA and/or kV adjustment per patient size (includes targeted exams where dose is matched to clinical indication); or iterative reconstruction. COMPARISON: CT ABDOMEN PELVIS of 06/14/20 FINDINGS: Comparison is made with a CT scan done on 06/14/20 (done 5 days ago). Streaky parenchymal changes remain posteriorly at each lung base. A posterior LLL bulla is seen. Minimal right pleural effusion (less pleural fluid at this time). Distended stomach, filled with food debris. Enteric tube in place, with its tip in the proximal 1/3 of the stomach. Possible mild gallbladder wall thickening. Mildly hazy pericholecystic fat (probably also present 5 days ago). No hydronephrosis. Renal cysts again seen. Nonspecific bilateral perinephric stranding. Anterior LLQ ostomy again seen. Previous distal colonic surgery. Enlarged prostate gland again seen. Dawn catheter in place. Partial resolution of hazy perirectal and lower pelvic fat changes. No abscess. No drainable collections. No free air. Atherosclerotic aortic calcifications. No acute aortic pathology noted. IMPRESSION: Partial resolution of right pleural effusion and hazy pelvic fat changes, compared to CT scan done 5 days ago. S/P distal colonic surgery. Enlarged prostate gland again seen. Enteric tube and Dawn catheter in place. LLQ ostomy again seen. Residual contrast in colonic loops. No bowel obstruction. No abscess. No free air. Cannot exclude gallbladder pathology. The gallbladder wall may be mildly thickened. Mild pericholecystic hazy fat changes also noted (probably present 5 days ago, also). If there is concern for possible gallbladder pathology, an ultrasound can be obtained for further evaluation, eg. Electronically signed by: Elham Shields On 06/19/2020 04:13:30 AM
[2020-06-19] MEDS: SODIUM CHLORIDE 0.9% INJ 10 ML SYR IV SCH ×2 (05:27→17:23)
[2020-06-19 06:29] LABS: HEMATOCRIT 23.2 % (42.0-52.0); HEMOGLOBIN 7.4 g/dl (13.5-17.5); MEAN CORPUSCULAR HEMOGLOBIN 31.8 pg (27.0-33.0); MEAN CORPUSCULAR HGB CONC 31.9 g/dl (32.0-36.5); MEAN CORPUSCULAR VOLUME 99.6 fl (80.0-96.0); PLATELET COUNT, AUTOMATED 657 10^3/uL (150-450); RED BLOOD COUNT 2.33 10^6/uL (4.30-6.10); WHITE BLOOD COUNT 22.2 10^3/uL (4.0-10.0)
[2020-06-19 06:54] LABS: BLOOD UREA NITROGEN 32 MG/DL (7-18); CALCIUM LEVEL 7.2 MG/DL (8.8-10.2); CARBON DIOXIDE LEVEL 17 MEQ/L (21-32); CHLORIDE LEVEL 110 MEQ/L (98-107); CREATININE FOR GFR 1.11 MG/DL (0.70-1.30); GLOMERULAR FILTRATION RATE > 60.0 (>35); GLUCOSE, FASTING 76 MG/DL (70-100); POTASSIUM SERUM 5.1 MEQ/L (3.5-5.1); SODIUM LEVEL 137 MEQ/L (136-145)
[2020-06-19] MEDS: lisinopriL 20 MG TAB PO SCH (09:00)
[2020-06-19] MEDS: MIRALAX *UNIT DOSE* 17GM PACKET NG SCH (09:00)
[2020-06-19] MEDS: LEVOTHYROXINE 100MCG (0.1MG) VIAL IV SCH (09:04)
[2020-06-19 12:03] LABS: HEMATOCRIT 31.1 % (42.0-52.0)
[2020-06-19 12:15] LABS: HEMOGLOBIN 10.4 g/dl (13.5-17.5)
--- NOTE | 2020-06-19 14:04 | REP ---
INDICATION: r/o gallbladder pathology. COMPARISON: 09/15/2014 FINDINGS: Multiple ultrasonographic images of the liver show a coarsened echotexture without evidence of ductal dilatation. The appearance of this has not changed significantly compared to the prior exam. Seen in the right lobe of the liver there is a 1 cm sized hyperechoic focus which is seen with increased through transmission. The common bile duct measures 4 mm. Multiple ultrasonographic images of the gallbladder show gallbladder wall thickening and pericholecystic edema. Tiny specular reflections are seen within the gallbladder lumen which do not cast acoustic shadows. The imaged portion of the pancreas is within normal limits. The imaged portion of the right kidney shows a 1.4 cm sized hypoechoic structure which represents a change from the prior exam. IMPRESSION: 1. The gallbladder wall is abnormal. It is thickened and there is evidence of pericholecystic edema. Finding suggests acute cholecystitis but this needs to be correlated clinically. 2. There is debris within the gallbladder lumen likely sludge, however, tiny developing gravel-like choleliths cannot be ruled out. 3. There is a hypoechoic lesion seen in the right kidney, as described above, and represents a change from the prior exam. All prior CT examinations of the abdomen and pelvis dating as far back as 09/16/2014 were performed without intravenous contrast which markedly limits evaluation of the kidneys. I cannot say with certainty that the finding seen today was indeed present on the prior CT scans due to that limitation. I would recommend a contrast-enhanced CT examination of the kidneys for further evaluation. 4. There is a small hepatic hemangioma as described above. Accredited by the [employer] in General Ultrasound. <Electronically signed by Samy Olvera > 06/19/20 [id number]
--- NOTE | 2020-06-19 14:08 | IPNPDOC ---
Text Note Date of Service The patient was seen on 06/19/20. NOTE Subjective: Overnight patient developed hypotension with tachycardia, NG tube had blood clots and patient vomited 20 mL of blood. Patient was transferred to the ICU. Patient received 2 units of blood Physical Exam: VITAL SIGNS: Please see below. GENERAL APPEARANCE: NAD HEENT: NC/AT, PERRLA, EOMI RESPIRATORY: Diminished lung sounds bilaterally CARDIOVASCULAR: S1, S2 ABDOMEN: soft, moderately tender , surgical dressing in place, bowel sounds appreciated. NG tube in place drainage with serosanguineous discharge, via rectal tube sanguinous discharge EXTREMITIES: No edema. ASSESSMENT/PLAN: 80-year-old male who present ed to the ED on 06/03/20 with abdominal distention, abdominal pain, nausea, vomiting. Initial x-rays revealed no evidence of free perforation, but distended bowel. CT scan was performed and revealed a contained perforation in the sigmoid colon. Patient was admitted under Surgical service and underwent ex laparotomy with with resection of necrotic segment of colon and creation of diverting colostomy on 06/03/20. Sepsis Patient developed leukocytosis with hypotension and tachycardia I talked to Dr Jackson, he thinks be source of infection could be rectum stump, rectal tube was placed Await blood culture, urine culture Started broad-spectrum antibiotics CT abdomen/pelvis showed Partial resolution of right pleural effusion and hazy pelvic fat changes, compared to CT scan done 5 days ago. S/P distal colonic surgery. No bowel obstruction. No abscess. No free air. Cannot exclude gallbladder pathology. The gallbladder wall may be mildly thickened. Mild pericholecystic hazy fat changes also noted (probably present 5 days ago, also). Will proceed with right upper quadrant ultrasound Appreciate/agree with ID consult Necrotic and perforated sigmoid colon s/p Ex lap and diverting colostomy on 06/03/[address] NG tube in place. as per surgery. Anemia Combined anemia of chronic diseases with acute blood loss anemia secondary to GI bleed Patient received 2 units of blood H&H every 6 hours Acute respiratory failure with hypercarbia requiring BIPAP after extubation due to prolonged affect of anesthesia and pain meds Now resolved Septic shock due to perforated, necrotic bowel. See above Hypokalemia getting replacement. Resolved Lactic acidosis resolved now Leucopenia Resolved Bilateral pleural effusion with infiltrates/ atelectasis No respiratory difficulty. Continue incentive spirometry MAXWELL Resolved prerenal, likely intravascular depletion with third spacing continue IVF, garcia I/O Hypothyroid synthroid VS,Fishbone, I+O VS, Fishbone, I+O Laboratory Tests 06/19/20 01:53 06/19/20 02:13 06/19/20 04:20 06/19/20 10:06 Vital Signs Date Time Temp Pulse Resp B/P (MAP) Pulse Ox O2 Delivery O2 Flow Rate FiO2 06/19/20 12:00 99.0 94 20 136/60 (85) 99 Room Air I&O- Last 24 Hours up to 6 AM 06/19/20 06:00 Intake Total 3890 ml Output Total 2110 ml Balance 1780 ml MARY JAIN DO Jun 19, 2020 14:08
[2020-06-19 14:37] LABS: HEMATOCRIT 30.6 % (42.0-52.0); HEMOGLOBIN 10.3 g/dl (13.5-17.5)
[2020-06-19] MEDS: ANALGESIC BALM CRM 120 GM TOP PRN (15:30)
[2020-06-19] MEDS: VANCOMYCIN HCL 750 MG, VIAL MATE ADAPTER 1 EACH in D5W 250 ML IV SCH (16:52)
[2020-06-19 16:53] LABS: C REACTIVE PROTEIN QUANTITATIV 8.08 MG/DL (0.00-0.30)
[2020-06-19] MEDS ORDERED: FAT EMULSION IV 20% 500 ML IV SCH (18:00)
[2020-06-19] MEDS ORDERED: MULTIVITAMIN -ADULT INJECTION 10 ML, CR/CU/SE/MN/ZN INJ 1 ML in AMINO AC/ELECTROLYTE/DE... IV SCH (18:00)
[2020-06-19 19:51] LABS: HEMATOCRIT 27.4 % (42.0-52.0); HEMOGLOBIN 9.1 g/dl (13.5-17.5)
[2020-06-19] MEDS: ONDANSETRON 4MG/2ML VIAL IV PRN (20:09)
[2020-06-19 23:15] LABS: CLOSTRIDIUM DIFFICILE PCR NEGATIVE (NEGATIVE)
[2020-06-20] VITALS (8 sets, daily range): BP systolic 40–167; BP diastolic 58–72
[2020-06-20] MEDS: METOCLOPRAMIDE INJ 10MG/2ML VIAL (J2765 PER 1) IV SCH ×3 (02:00→17:45)
[2020-06-20] MEDS: SUCRALFATE SUSP 1GM/10ML UD NG SCH ×4 (02:44→20:26)
[2020-06-20] MEDS: PIPERACILLIN/TAZOBACTAM SOD 3.375 GM in D5W MINI-BAG PLUS 50 ML IV SCH ×4 (02:45→22:22)
[2020-06-20] MEDS: NS 1,000 ML IV SCH (02:45)
[2020-06-20] MEDS: PANTOPRAZOLE 40MG VIAL (C9113 PER 1) IV SCH ×2 (02:45→15:03)
[2020-06-20] MEDS: VANCOMYCIN HCL 750 MG, VIAL MATE ADAPTER 1 EACH in D5W 250 ML IV SCH (04:11)
[2020-06-20 05:22] LABS: HEMATOCRIT 28.3 % (42.0-52.0); HEMOGLOBIN 9.1 g/dl (13.5-17.5); MEAN CORPUSCULAR HEMOGLOBIN 30.7 pg (27.0-33.0); MEAN CORPUSCULAR HGB CONC 32.2 g/dl (32.0-36.5); MEAN CORPUSCULAR VOLUME 95.6 fl (80.0-96.0); PLATELET COUNT, AUTOMATED 409 10^3/uL (150-450); RED BLOOD COUNT 2.96 10^6/uL (4.30-6.10); WHITE BLOOD COUNT 13.9 10^3/uL (4.0-10.0)
[2020-06-20 05:36] LABS: BLOOD UREA NITROGEN 26 MG/DL (7-18); CALCIUM LEVEL 6.8 MG/DL (8.8-10.2); CARBON DIOXIDE LEVEL 21 MEQ/L (21-32); CHLORIDE LEVEL 111 MEQ/L (98-107); CREATININE FOR GFR 0.83 MG/DL (0.70-1.30); GLOMERULAR FILTRATION RATE > 60.0 (>35); GLUCOSE, FASTING 157 MG/DL (70-100); POTASSIUM SERUM 3.6 MEQ/L (3.5-5.1); SODIUM LEVEL 138 MEQ/L (136-145); VANCOMYCIN LEVEL TROUGH 9.8 UG/ML (10.0-20.0)
[2020-06-20] MEDS: VANCOMYCIN HCL 1,000 MG, VIAL MATE ADAPTER 1 EACH in D5W 250 ML IV SCH ×2 (05:51→17:45)
[2020-06-20] MEDS: SODIUM CHLORIDE 0.9% INJ 10 ML SYR IV SCH ×2 (05:51→17:46)
[2020-06-20] MEDS: LEVOTHYROXINE 100MCG (0.1MG) VIAL IV SCH (08:54)
[2020-06-20] MEDS: lisinopriL 20 MG TAB PO SCH (08:55)
--- NOTE | 2020-06-20 08:56 | CR ---
CONSULTATION REASON FOR CONSULTATION: Asked to consult for evaluation of hypotension and recurrent fever in a patient who had a perforated sigmoid colon status post colectomy. HISTORY OF PRESENT ILLNESS: Mr. Singh is a pleasant, 80-year-old gentleman who was seen in the intensive care unit (ICU). Patient was admitted on 06/03/2020 under the care of Dr. Jackson for perforated sigmoid colon. The patient was taken to the operating room, had a sigmoid colectomy and colostomy done. He was initially in septic shock. He had a perforated bowel with a white count of 0.9. He was on Levophed from 06/03/2020 to 06/05/2020. He was on broad-spectrum antibiotics with IV Zosyn from 06/03/2020 to 06/10/2020 along with IV Flagyl. The patient was then switched on 06/10/2020 to IV fluconazole and ciprofloxacin which were discontinued until yesterday. Yesterday, the patient was hypotensive, he had an episode of upper gastrointestinal (GI) bleeding, bloody stool per rectum. He had a rectal tube placed by Dr. Jackson and a large amount of mucoid bloody drainage was drained. The patient now has a nasogastric (NG) tube with black secretions. He denies any abdominal pain. His last fever was on 06/17/2020 at 100.8. He had a femoral line initially that was removed. He currently has a peripherally inserted central catheter (PICC) line. On 06/11/2020, he had two sets of blood cultures that were negative. CT chest showed mild bibasilar atelectasis. CT abdomen and pelvis did not show any evidence of abscess. There is mild bibasilar atelectasis. Blood cultures from 06/27/2020 are pending. He received two units of packed red blood cells today in the ICU for hypotension. PAST MEDICAL HISTORY: Significant for chronic obstructive pulmonary disease (COPD), anxiety, hypothyroidism, hypercholesterolemia, osteoporosis. PAST SURGICAL HISTORY: Right inguinal hernia repair, bilateral carpal tunnel surgery, and sigmoid colectomy with colostomy done by Dr. Jackson on 06/03/2020. MEDICATIONS: - pantoprazole 40 mg IV every 12 hours - Zosyn 3.375 grams IV every 6 hours - Carafate 1 gram per NG every 6 hours - total parenteral nutrition (TPN) - lisinopril 20 mg by mouth daily - Bengay cream as needed - [id number] mg IV every 8 hours - MiraLax one packet NG daily - vancomycin 750 mg IV every 12 hours - levothyroxine 12.5 mg IV daily ALLERGIES: CONTRAST MEDIA. LABORATORY DATA: White count 22.2, hemoglobin 7.4, hematocrit 23.2, platelets 657, after two units of blood patient's hemoglobin was 9.1 and hematocrit 27.4. Sodium 137, potassium 5.1, chloride 110, bicarbonate 17, BUN 32, creatinine 1.11, glucose 76, lactic acid 1.4 down from 2.7 earlier today, calcium 7.2, CRP 8.08, down from 13.3. Blood cultures two sets done on 06/11/2020 were no growth after 5 days. Blood cultures from 06/19/2020 are pending. Urine culture is pending. Urinalysis had 5 white cells, [address] abdomen and pelvis done on 06/19/2020 shows mild bibasilar atelectasis, mild gallbladder wall thickening with partial resolution of right pleural effusion, status post colectomy, large prostate is seen, enteric tube and Dawn catheter in place, left lower quadrant ostomy, no bowel obstruction. Gallbladder ultrasound shows gallbladder is normal thickened and evidence of pericholecystic fluid, hypoechoic lesion in the right kidney, recommend contrast CT to evaluate the kidney. Small hepatic hemangioma. Chest CT showed bilateral patchy parenchymal changes with no dense consolidation. PHYSICAL EXAMINATION: He is a pleasant, elderly gentleman, no acute distress. Temperature is 99.1, pulse 99, respirations 18, blood pressure 162/95, oxygen saturation 98% on room air. Heart: Normal S1, S2, tachycardic, no murmurs appreciated. Lungs: Clear, no wheezes, rales, or rhonchi. Abdomen: Soft, mildly tender. He has a wound vacuum assisted closure (VAC) with two openings where there was dehiscence at the midline operative incision. There is two salinas in the middle of the wound and then two open lesions. According to his nurse, who changed the wound VAC twice today, the wound is clean with no purulence. He has a rectal tube with some bloody discharge. He has an NG tube with black tarry secretions. PICC line in his left upper arm with no redness or tenderness. Extremities: No clubbing, cyanosis, or edema. No calf tenderness. Thickened toenails. Oropharynx is clear with no lesions, no thrush. Neck is supple, no jugular venous distension (JVD), no bruit. IMPRESSION: This is an 80-year-old gentleman who was admitted with a perforated sigmoid status post sigmoid colectomy and colostomy, who had done well up until a couple of days ago, he had been on broad-spectrum antibiotics with a combination of Zosyn with Flagyl and switched to ciprofloxacin with fluconazole and currently on Zosyn and vancomycin. The patient has leukocytosis and hypotension that could be related to his gastrointestinal (GI) bleeding but also could be combination of infection, Clostridium (C) difficile as he had mucoid secretion from his rectal area plus a GI bleed. He has received 10 days of fluconazole so I doubt the patient has a fungal infection. His blood cultures are pending. If he has Candidemia, then micafungin would be a better twice, but my suspicion is very unlikely. I am concerned about C. difficile colitis more than anything else. PLAN: Discontinue IV fluconazole. Blood cultures are pending. Urine culture is pending. His urinalysis (UA) is benign, I would suggest removing his Dawn catheter. Send his stool for C. difficile and if positive use fidaxomicin first line, as he is elderly, high risk of recurrence, and still on broad-spectrum antibiotics. If he is C. difficile positive, I would suggest discontinuing all antibiotics. Otherwise, continue with broad-spectrum until results of cultures are available.
[2020-06-20] MEDS: MORPHINE 2 MG/ML 1ML VIAL (J2270) IV PRN (11:11)
[2020-06-20] MEDS ORDERED: ALBUTEROL 90 MCG/ACT 8GM HFA INHALER INH PRN (11:45)
[2020-06-20] MEDS ORDERED: ALBUTEROL SULFATE 2.5 MG/0.5 ML INH NEB SOLN INH PRN (11:45)
[2020-06-20] MEDS ORDERED: ALPRAZolam 0.25 MG TAB PO PRN (11:45)
--- NOTE | 2020-06-20 11:57 | IPNPDOC ---
Text Note Date of Service The patient was seen on 06/20/20. NOTE Subjective: No any acute events overnight. Patient alert, awake in the morning Physical Exam: VITAL SIGNS: Please see below. GENERAL APPEARANCE: NAD HEENT: NC/AT, PERRLA, EOMI RESPIRATORY: Diminished lung sounds bilaterally CARDIOVASCULAR: S1, S2 ABDOMEN: soft, moderately tender , surgical dressing in place, bowel sounds appreciated. NG tube in place drainage with serosanguineous discharge, via rectal tube sanguinous discharge EXTREMITIES: No edema. ASSESSMENT/PLAN: 80-year-old male who present ed to the ED on 06/03/20 with abdominal distention, abdominal pain, nausea, vomiting. Initial x-rays revealed no evidence of free perforation, but distended bowel. CT scan was performed and revealed a contained perforation in the sigmoid colon. Patient was admitted unde r Surgical service and underwent ex laparotomy with with resection of necrotic segment of colon and creation of diverting colostomy on 06/03/20. Sepsis Resolved Patient developed leukocytosis with hypotension and tachycardia on 06/19/[address] Jackson, he thinks be source of infection could be rectum stump, rectal tube was placed blood culture negative, urine culture pending Continue with broad-spectrum antibiotics C. difficile negative Dr. Patiño recommended to DC fluconazole and continue broad-spectrum antibiotics Acute cholecystitis right upper quadrant ultrasound showed: The gallbladder wall is abnormal. It is thickened and there is evidence of pericholecystic edema. Finding suggests acute cholecystitis . Patient is on appropriate antibiotics Necrotic and perforated sigmoid colon s/p Ex lap and diverting colostomy on 06/03/[address] tube in place. as per surgery. Anemia Combined anemia of chronic diseases with acute blood loss anemia secondary to GI bleed Department in stable Acute respiratory failure with hypercarbia requiring BIPAP after extubation due to prolonged affect of anesthesia and pain meds Now resolved Septic shock due to perforated, necrotic bowel. See above Hypokalemia getting replacement. Resolved Lactic acidosis resolved now Leucopenia Resolved Bilateral pleural effusion with infiltrates/ atelectasis No respiratory difficulty. Continue incentive spirometry MAXWELL Resolved prerenal, likely intravascular depletion with third spacing continue IVF, garcia I/O Hypothyroid synthroid VS,Fishbone, I+O VS, Fishbone, I+O Laboratory Tests 06/19/20 14:17 06/19/20 19:40 06/20/20 04:43 Vital Signs Date Time Temp Pulse Resp B/P (MAP) Pulse Ox O2 Delivery O2 Flow Rate FiO2 06/20/20 11:11 17 06/20/20 08:55 126/59 06/20/20 04:00 99.8 87 97 Room Air I&O- Last 24 Hours up to 6 AM 06/20/20 06:00 Intake Total 5655 ml Output Total 4145 ml Balance 1510 ml MARY JAIN DO Jun 20, 2020 11:57
[2020-06-20] MEDS: VITAMIN D 1,000 INTERNATIONAL UNITS TABLET PO SCH (15:03)
[2020-06-20] MEDS: ASPIRIN 81 MG ENTERIC TAB PO SCH (15:04)
[2020-06-20] MEDS: PRAVASTATIN 20 MG TAB PO SCH (15:04)
[2020-06-20] MEDS: DOXAZOSIN MESYLATE 1 MG TAB PO SCH (15:04)
[2020-06-20] MEDS: CYANOCOBALAMIN 500 MCG TAB PO SCH (15:04)
[2020-06-20 16:47] LABS: HEMATOCRIT 28.8 % (42.0-52.0); HEMOGLOBIN 9.5 g/dl (13.5-17.5)
[2020-06-20] MEDS ORDERED: AMINO AC/ELECTROLYTE/DEX/CALC 2,000 ML IV SCH (18:00)
[2020-06-20] MEDS ORDERED: FAT EMULSION IV 20% 500 ML IV SCH (18:00)
[2020-06-20] MEDS ORDERED: VANCOMYCIN HCL 750 MG, VIAL MATE ADAPTER 1 EACH in D5W 250 ML IV ONE (20:00)
[2020-06-20] MEDS: SODIUM CHLORIDE 0.9% INJ 10 ML SYR IV PRN (23:45)
[2020-06-21] VITALS: BP 158/72
[2020-06-21] MEDS: METOCLOPRAMIDE INJ 10MG/2ML VIAL (J2765 PER 1) IV SCH ×3 (01:27→17:04)
[2020-06-21] MEDS: SUCRALFATE SUSP 1GM/10ML UD NG SCH ×3 (01:28→16:00)
[2020-06-21] MEDS: PIPERACILLIN/TAZOBACTAM SOD 3.375 GM in D5W MINI-BAG PLUS 50 ML IV SCH ×4 (03:30→21:16)
[2020-06-21] MEDS: PANTOPRAZOLE 40MG VIAL (C9113 PER 1) IV SCH ×2 (03:30→16:00)
[2020-06-21 04:00] VITALS: BP 162/74
[2020-06-21] MEDS: LEVOTHYROXINE 25MCG TABLET (0.025MG) PO SCH (06:05)
[2020-06-21] MEDS: SODIUM CHLORIDE 0.9% INJ 10 ML SYR IV SCH ×2 (06:07→17:04)
[2020-06-21] MEDS: VANCOMYCIN HCL 1,000 MG, VIAL MATE ADAPTER 1 EACH in D5W 250 ML IV SCH ×2 (06:08→17:05)
[2020-06-21 06:16] LABS: HEMATOCRIT 27.4 % (42.0-52.0); HEMOGLOBIN 9.2 g/dl (13.5-17.5); MEAN CORPUSCULAR HEMOGLOBIN 31.5 pg (27.0-33.0); MEAN CORPUSCULAR HGB CONC 33.6 g/dl (32.0-36.5); MEAN CORPUSCULAR VOLUME 93.8 fl (80.0-96.0); PLATELET COUNT, AUTOMATED 457 10^3/uL (150-450); RED BLOOD COUNT 2.92 10^6/uL (4.30-6.10); WHITE BLOOD COUNT 14.1 10^3/uL (4.0-10.0)
[2020-06-21 06:29] LABS: BLOOD UREA NITROGEN 17 MG/DL (7-18); CALCIUM LEVEL 7.3 MG/DL (8.8-10.2); CARBON DIOXIDE LEVEL 23 MEQ/L (21-32); CHLORIDE LEVEL 109 MEQ/L (98-107); CREATININE FOR GFR 0.79 MG/DL (0.70-1.30); GLOMERULAR FILTRATION RATE > 60.0 (>35); GLUCOSE, FASTING 131 MG/DL (70-100); POTASSIUM SERUM 3.1 MEQ/L (3.5-5.1); SODIUM LEVEL 139 MEQ/L (136-145)
[2020-06-21 08:00] VITALS: BP 138/52
[2020-06-21] MEDS: ASPIRIN 81 MG ENTERIC TAB PO SCH (08:54)
[2020-06-21] MEDS: DOXAZOSIN MESYLATE 1 MG TAB PO SCH (08:54)
[2020-06-21] MEDS: VITAMIN D 1,000 INTERNATIONAL UNITS TABLET PO SCH (08:54)
[2020-06-21] MEDS: lisinopriL 20 MG TAB PO SCH (08:54)
[2020-06-21] MEDS: PRAVASTATIN 20 MG TAB PO SCH (08:54)
[2020-06-21] MEDS: CYANOCOBALAMIN 500 MCG TAB PO SCH (08:54)
[2020-06-21] MEDS ORDERED: KCL 10MEQ/100ML SWI (KRUN) 10 MEQ in IV 1 EA IV ONE ×2 (09:00→11:00)
--- NOTE | 2020-06-21 11:12 | IPNPDOC ---
Text Note Date of Service The patient was seen on 06/21/20. NOTE Subjective: Patient stated that his abdominal pain subsided. No any acute events overnight Physical Exam: VITAL SIGNS: Please see below. GENERAL APPEARANCE: NAD HEENT: NC/AT, PERRLA, EOMI RESPIRATORY: Diminished lung sounds bilaterally CARDIOVASCULAR: S1, S2 ABDOMEN: soft, moderately tender , surgical dressing in place, bowel sounds appreciated. NG tube in place drainage with serosanguineous discharge, via rectal tube serosanguineous discharge EXTREMITIES: No edema. ASSESSMENT/PLAN: 80-year-old male who present ed to the ED on 06/03/20 with abdominal distention, abdominal pain, nausea, vomiting. Initial x-rays revealed no evidence of free perforation, but distended bowel. CT scan was performed and revealed a contained perforation in the sigmoid colon. Patient was admitted under Surgical service and underwent ex laparotomy with with resection of necrotic segment of colon and creation of diverting colostomy on 06/03/20. Sepsis Resolved Patient developed leukocytosis with hypotension and tachycardia on 06/19/[address] Jackson, he thinks be source of infection could be rectum stump, rectal tube was placed blood culture negative, urine culture pending Continue with broad-spectrum antibiotics C. difficile negative Dr. Patiño recommended to DC fluconazole and continue broad-spectrum antibiotics Acute cholecystitis right upper quadrant ultrasound showed: The gallbladder wall is abnormal. It is thickened and there is evidence of pericholecystic edema. Finding suggests acute cholecystitis . Patient is on appropriate antibiotics Necrotic and perforated sigmoid colon s/p Ex lap and diverting colostomy on 06/03/[address] tube in place. as per surgery. Continuance TPN Anemia Combined anemia of chronic diseases with acute blood loss anemia secondary to GI bleed Department in stable Acute respiratory failure with hypercarbia requiring BIPAP after extubation due to prolonged affect of anesthesia and pain meds Now resolved Septic shock due to perforated, necrotic bowel. See above Hypokalemia getting replacement. Resolved Lactic acidosis resolved now Leucopenia Resolved Bilateral pleural effusion with infiltrates/ atelectasis No respiratory difficulty. Continue incentive spirometry MAXWELL Resolved prerenal, likely intravascular depletion with third spacing continue IVF, garcia I/O Hypothyroid synthroid VS,Fishbone, I+O VS, Fishbone, I+O Laboratory Tests 06/20/20 16:36 06/21/20 05:25 Vital Signs Date Time Temp Pulse Resp B/P (MAP) Pulse Ox O2 Delivery O2 Flow Rate FiO2 06/21/20 08:54 162/74 06/21/20 08:00 98.3 98 20 98 Room Air I&O- Last 24 Hours up to 6 AM 06/21/20 06:00 Intake Total 380 ml Output Total 2775 ml Balance -2395 ml MARY JAIN DO Jun 21, 2020 11:11
[2020-06-21 12:00] VITALS: BP 130/50
--- NOTE | 2020-06-21 14:01 | IPN ---
PROGRESS NOTE DATE: 06/19/2020 SUBJECTIVE: Events of the night have been noted. The patient had an episode of hypotension overnight. At that point Dr. Minor and I discussed his current issues and underwent imaging studies. Imaging studies revealed no significant abnormalities. The gallbladder wall was slightly thickened but he has not been complaining of any right upper quadrant pain. On his CAT scan however, when I look at the CAT scan and I review this, although it was not mentioned on the CAT scan itself, the rectum is full of fluid and he has had a few bowel movements, suggesting that this is not adequately draining and more importantly, I do feel that I see some air bubbles next to the tip of the rectal stump in the retroperitoneum, consistent with possibly some ongoing inflammatory or infectious process. Although I did feel that the rectum that I transected at the pelvic brim was viable. The mesentery in that area definitely had some stool within that area and may have contributed to a small pelvic abscess that we did not appreciate previously that may have drained into the rectum itself. After being transferred, he has gotten some fluids and blood and he is looking much better. He feels better, not complaining of any specific pain or discomfort and I discussed with him specifically that I have concerns that we need to better evacuate his rectum, thus we placed a large diameter Dawn catheter and drained some foul smelling stool out this area. It may be proctitis as another possibility, contributing to this issue. Otherwise his abdomen is soft. His wound VAC is in place. There is no evidence of cellulitis. His ostomy is pink, functioning well. IMPRESSION AND PLAN: The patient had an episode of hypotension and obviously the etiology is still yet to be determined. However with his elevating white count, the concern is infectious/sepsis and indeed I do feel that it is reasonable to see how he does with this rectal tube in place and see if that makes a difference with his white count over the ensuing day. We will irrigate this tube and see how he does. He may need a better rectal tube in place, although given that this is relatively small, I feel this is less traumatic at this time. Otherwise from the standpoint of the gallbladder, it is mildly thickened but has been that way for a little while, and I feel that is mostly consistent with all the inflammatory process within his abdomen, and seems less likely that it would be an acalculous cholecystitis or an infectious process at this time. Gallbladder ultrasound has been ordered by Medicine Service and ultrasound is pending.
[2020-06-21 16:00] VITALS: BP 130/68
[2020-06-21] MEDS ORDERED: AMINO AC/ELECTROLYTE/DEX/CALC 2,000 ML IV SCH (18:00)
[2020-06-21] MEDS ORDERED: FAT EMULSION IV 20% 500 ML IV SCH (18:00)
[2020-06-21] MEDS: ANALGESIC BALM CRM 120 GM TOP PRN (19:23)
[2020-06-21 20:00] VITALS: BP 138/63
[2020-06-21] MEDS: SUCRALFATE SUSP 1GM/10ML UD PO SCH (21:20)
[2020-06-22] VITALS: BP 156/70
[2020-06-22] MEDS: MORPHINE 2 MG/ML 1ML VIAL (J2270) IV PRN ×2 (00:35→14:52)
[2020-06-22] MEDS: METOCLOPRAMIDE INJ 10MG/2ML VIAL (J2765 PER 1) IV SCH ×3 (01:18→17:30)
[2020-06-22] MEDS: ACETAMINOPHEN 500 MG TAB PO PRN (01:19)
[2020-06-22] MEDS: PIPERACILLIN/TAZOBACTAM SOD 3.375 GM in D5W MINI-BAG PLUS 50 ML IV SCH ×4 (03:54→20:28)
[2020-06-22] MEDS: PANTOPRAZOLE 40MG VIAL (C9113 PER 1) IV SCH ×2 (03:54→15:56)
[2020-06-22 04:00] VITALS: BP 130/61
[2020-06-22 04:34] LABS: HEMATOCRIT 25.3 % (42.0-52.0); HEMOGLOBIN 8.2 g/dl (13.5-17.5); MEAN CORPUSCULAR HEMOGLOBIN 30.6 pg (27.0-33.0); MEAN CORPUSCULAR HGB CONC 32.4 g/dl (32.0-36.5); MEAN CORPUSCULAR VOLUME 94.4 fl (80.0-96.0); PLATELET COUNT, AUTOMATED 425 10^3/uL (150-450); RED BLOOD COUNT 2.68 10^6/uL (4.30-6.10)
[2020-06-22 04:54] LABS: BLOOD UREA NITROGEN 17 MG/DL (7-18); CARBON DIOXIDE LEVEL 26 MEQ/L (21-32); CHLORIDE LEVEL 111 MEQ/L (98-107); CREATININE FOR GFR 0.78 MG/DL (0.70-1.30); GLOMERULAR FILTRATION RATE > 60.0 (>35); GLUCOSE, FASTING 123 MG/DL (70-100); POTASSIUM SERUM 3.7 MEQ/L (3.5-5.1); SODIUM LEVEL 141 MEQ/L (136-145); VANCOMYCIN LEVEL TROUGH 16.9 UG/ML (10.0-20.0)
[2020-06-22] MEDS: VANCOMYCIN HCL 1,000 MG, VIAL MATE ADAPTER 1 EACH in D5W 250 ML IV SCH ×2 (06:15→17:30)
[2020-06-22] MEDS: LEVOTHYROXINE 25MCG TABLET (0.025MG) PO SCH (06:16)
[2020-06-22] MEDS: SODIUM CHLORIDE 0.9% INJ 10 ML SYR IV SCH ×2 (06:16→17:31)
[2020-06-22] MEDS: SUCRALFATE SUSP 1GM/10ML UD PO SCH ×4 (06:16→23:48)
[2020-06-22 07:54] VITALS: BP 145/68
[2020-06-22] MEDS: lisinopriL 20 MG TAB PO SCH (09:02)
[2020-06-22] MEDS: DOXAZOSIN MESYLATE 1 MG TAB PO SCH (09:03)
[2020-06-22] MEDS: PRAVASTATIN 20 MG TAB PO SCH (09:03)
[2020-06-22] MEDS: VITAMIN D 1,000 INTERNATIONAL UNITS TABLET PO SCH (09:03)
[2020-06-22] MEDS: ASPIRIN 81 MG ENTERIC TAB PO SCH (09:03)
[2020-06-22] MEDS: CYANOCOBALAMIN 500 MCG TAB PO SCH (09:03)
--- NOTE | 2020-06-22 09:54 | REP ---
PROCEDURE NAME: PICC LINE INSERTION W/SITERITE CLINICAL INFORMATION: TPN. COMPARISON: None. PROCEDURE DESCRIPTION: The procedure was performed by GAIL Olivia, under the direct supervision of Dr. Shafer. The risks and benefits of the procedure were explained to the patient and an informed consent was obtained both verbally and written. Directly prior to the start of the procedure a formal time-out was completed in the procedure room. The left basilic vein was localized using ultrasound guidance. The skin was prepped and draped in sterile fashion. One mL of 1% lidocaine 10 mg/mL was used as a local anesthetic. Using ultrasound guidance the left basilic vein was cannulated, and a 0.018 guidewire was inserted and advanced to the level of SVC using fluoroscopic guidance. The needle was removed and a 5.5 Trinidadian dilator and peel-away sheath was inserted over the guidewire. A 5.5 Trinidadian dual lumen catheter was cut to a length of 35 cm. The dilator was removed and the catheter was inserted over the guidewire with the tip ending at the level of the SVC. The peel-away sheath was removed and the catheter was flushed with heparinized saline as per hospital protocol. The catheter was affixed to the skin and a sterile dressing was applied. The patient tolerated the procedure well and there were no immediate complications. CONCLUSION: PICC line insertion into the left basilic vein. 1.2 minutes of fluoroscopy time was utilized for this procedure. Some fluoroscopic images are performed with last image hold technology. These images require no additional radiation. <Electronically signed by Colleen Starks > 06/10/20 1826 <Electronically signed by Jose Carlos Shafer > 06/22/20 0912
[2020-06-22 11:42] VITALS: BP 143/68
[2020-06-22] MEDS ORDERED: KCL 10MEQ/100ML SWI (KRUN) 10 MEQ in IV 1 EA IV ONE (14:00)
--- NOTE | 2020-06-22 14:05 | IPNPDOC ---
Text Note Date of Service The patient was seen on 06/22/20. NOTE Subjective: . No any acute events overnight. Patient denied fever, chills, n ausea, vomiting, chest pain or palpitations Physical Exam: VITAL SIGNS: Please see below. GENERAL APPEARANCE: NAD HEENT: NC/AT, PERRLA, EOMI RESPIRATORY: Diminished lung sounds bilaterally CARDIOVASCULAR: S1, S2 ABDOMEN: soft, moderately tender , surgical dressing in place, bowel sounds appreciated. NG tube in place drainage with serosanguineous discharge, via rectal tube serosanguineous discharge EXTREMITIES: No edema. ASSESSMENT/PLAN: 80-year-old male who present ed to the ED on 06/03/20 with abdominal distention, abdominal pain, nausea, vomiting. Initial x-rays revealed no evidence of free perforation, but distended bowel. CT scan was performed and revealed a contained perforation in the sigmoid colon. Patient was admitted under Surgical service and underwent ex laparotomy with with resection of necrotic segment of colon and creation of diverting colostomy on 06/03/20. Sepsis Resolved Patient developed leukocytosis with hypotension and tachycardia on 06/19/[address] Jackson, he thinks be source of infection could be rectum stump, rectal tube was placed blood culture negative, urine culture negative Patient received treatment with vancomycin and Zosyn I will discuss continuation of antibiotics with Dr. Patiño. Procalcitonin within normal limit Acute cholecystitis right upper quadrant ultrasound showed: The gallbladder wall is abnormal. It is thickened and there is evidence of pericholecystic edema. Finding suggests acute cholecystitis . Patient is on appropriate antibiotics Necrotic and perforated sigmoid colon s/p Ex lap and diverting colostomy on 06/03/20 [address] tube in place. as per surgery. Continuance TPN Anemia Combined anemia of chronic diseases with acute blood loss anemia secondary to GI bleed Hemoglobin stable Acute respiratory failure with hypercarbia requiring BIPAP after extubation due to prolonged affect of anesthesia and pain meds Now resolved Septic shock due to perforated, necrotic bowel. See above Hypokalemia getting replacement. Resolved Lactic acidosis resolved now Leucopenia Resolved Bilateral pleural effusion with infiltrates/ atelectasis No respiratory difficulty. Continue incentive spirometry MAXWELL Resolved prerenal, likely intravascular depletion with third spacing continue IVF, Dawn I/O Hypothyroid Synthroid VS,Fishbone, I+O VS, Fishbone, I+O Laboratory Tests 06/22/20 04:11 Vital Signs Date Time Temp Pulse Resp B/P (MAP) Pulse Ox O2 Delivery O2 Flow Rate FiO2 06/22/20 11:42 97.3 102 18 143/68 (93) 97 Room Air I&O- Last 24 Hours up to 6 AM 06/22/20 06:00 Intake Total 340 ml Output Total 3785 ml Balance -3445 ml MARY JAIN DO Jun 22, 2020 14:05
[2020-06-22 14:57] LABS: HEMATOCRIT 27.7 % (42.0-52.0)
[2020-06-22 16:00] VITALS: BP 149/67
[2020-06-22] MEDS ORDERED: FAT EMULSION IV 20% 500 ML IV SCH (18:00)
[2020-06-22] MEDS ORDERED: AMINO AC/ELECTROLYTE/DEX/CALC 2,000 ML IV SCH (18:00)
--- NOTE | 2020-06-22 18:03 | IPN ---
INFECTIOUS DISEASE PROGRESS NOTE DATE: 06/22/2020 SUBJECTIVE: Mr. Singh is feeling better. He denies any nausea, vomiting or diarrhea. He still has a rectal tube in place and has purulent drainage, about 10 mL in that tube. No fever or chills. No abdominal pain. He was going to try some clear liquid diet today. PHYSICAL EXAMINATION: VITAL SIGNS: Temperature is 98.2, pulse 103, respirations 20, blood pressure 149/67, O2 sat 97% on room air. HEART: Normal S1, S2. Mildly tachycardic, no murmurs. LUNGS: Clear. No rales, rhonchi or wheezes. Mildly diminished at the right base. ABDOMEN: Soft, mildly tender in the left lower quadrant. Wound VAC in place. EXTREMITIES: No clubbing, cyanosis, or edema. No calf tenderness. LABORATORY STUDIES: White count is 12, hemoglobin 8.2, hematocrit 25.3, platelet count 425. His white count is down from 22.2. Sodium 141, potassium 3.7, chloride 111, bicarbonate 26, BUN 17, creatinine 0.78, glucose 123, calcium 7, CRP is pending. D-diff is negative. Blood cultures two sets were negative on 06/20. Urine culture was negative. IMPRESSION: 1. Perirectal abscess at the area of the stump, status post drainage procedure with a rectal tube. Doing better with IV Vancomycin and Zosyn. C-diff was negative. White count improving. Rectal tube is still in place. The case was discussed with Dr. Jackson. 2. Ischemic bowel, status post resection and colostomy with good output. PLAN: 1. Discontinue Dawn catheter. 2. The patient will advance diet to clear liquids and hopefully tomorrow he will be eating. The patient remains on TPN. 3. Discontinue IV Vancomycin. 4. Continue Zosyn for another 5 days and monitor stool and clinical signs and symptoms.
[2020-06-22 19:34] LABS: C REACTIVE PROTEIN QUANTITATIV 5.82 MG/DL (0.00-0.30)
[2020-06-22 20:00] VITALS: BP 150/67
[2020-06-23] VITALS (17 sets, daily range): BP systolic 77–156; BP diastolic 46–80
[2020-06-23] MEDS: PIPERACILLIN/TAZOBACTAM SOD 3.375 GM in D5W MINI-BAG PLUS 50 ML IV SCH ×4 (03:33→21:24)
[2020-06-23] MEDS: PANTOPRAZOLE 40MG VIAL (C9113 PER 1) IV SCH ×2 (03:33→15:48)
[2020-06-23] MEDS: ANALGESIC BALM CRM 120 GM TOP PRN ×2 (03:34→15:48)
[2020-06-23] MEDS: METOCLOPRAMIDE INJ 10MG/2ML VIAL (J2765 PER 1) IV SCH ×3 (03:34→17:46)
[2020-06-23 06:00] LABS: HEMATOCRIT 26.2 % (42.0-52.0); HEMOGLOBIN 8.7 g/dl (13.5-17.5); MEAN CORPUSCULAR HEMOGLOBIN 31.9 pg (27.0-33.0); MEAN CORPUSCULAR HGB CONC 33.2 g/dl (32.0-36.5); PLATELET COUNT, AUTOMATED 427 10^3/uL (150-450); RED BLOOD COUNT 2.73 10^6/uL (4.30-6.10); WHITE BLOOD COUNT 11.6 10^3/uL (4.0-10.0)
[2020-06-23] MEDS: SODIUM CHLORIDE 0.9% INJ 10 ML SYR IV SCH ×2 (06:00→17:46)
[2020-06-23 06:20] LABS: BLOOD UREA NITROGEN 14 MG/DL (7-18); CALCIUM LEVEL 7.8 MG/DL (8.8-10.2); CARBON DIOXIDE LEVEL 25 MEQ/L (21-32); CHLORIDE LEVEL 109 MEQ/L (98-107); CREATININE FOR GFR 0.88 MG/DL (0.70-1.30); GLOMERULAR FILTRATION RATE > 60.0 (>35); GLUCOSE, FASTING 128 MG/DL (70-100); POTASSIUM SERUM 3.3 MEQ/L (3.5-5.1); SODIUM LEVEL 138 MEQ/L (136-145)
[2020-06-23] MEDS: VANCOMYCIN HCL 1,000 MG, VIAL MATE ADAPTER 1 EACH in D5W 250 ML IV SCH (07:03)
[2020-06-23] MEDS: SUCRALFATE SUSP 1GM/10ML UD PO SCH ×3 (07:04→17:46)
[2020-06-23] MEDS: LEVOTHYROXINE 25MCG TABLET (0.025MG) PO SCH (07:04)
[2020-06-23] MEDS ORDERED: POTASSIUM CHLORIDE 10 MEQ SR TABLET PO ONE (09:00)
[2020-06-23] MEDS: ASPIRIN 81 MG ENTERIC TAB PO SCH (09:38)
[2020-06-23] MEDS: lisinopriL 20 MG TAB PO SCH (09:39)
[2020-06-23] MEDS: CYANOCOBALAMIN 500 MCG TAB PO SCH (09:39)
[2020-06-23] MEDS: PRAVASTATIN 20 MG TAB PO SCH (09:39)
[2020-06-23] MEDS: VITAMIN D 1,000 INTERNATIONAL UNITS TABLET PO SCH (09:39)
[2020-06-23] MEDS: DOXAZOSIN MESYLATE 1 MG TAB PO SCH (09:40)
[2020-06-23] MEDS ORDERED: NS 1,000 ML IV ONE (13:30)
[2020-06-23 13:40] LABS: HEMATOCRIT 24.7 % (42.0-52.0); MEAN CORPUSCULAR HEMOGLOBIN 31.1 pg (27.0-33.0); MEAN CORPUSCULAR HGB CONC 32.4 g/dl (32.0-36.5); MEAN CORPUSCULAR VOLUME 96.1 fl (80.0-96.0); PLATELET COUNT, AUTOMATED 426 10^3/uL (150-450); RED BLOOD COUNT 2.57 10^6/uL (4.30-6.10); WHITE BLOOD COUNT 13.1 10^3/uL (4.0-10.0)
--- NOTE | 2020-06-23 13:49 | REP ---
INDICATION: abdominal pain. COMPARISON: June 19, 2020.. TECHNIQUE: Portable supine AP radiograph. FINDINGS: Left lower quadrant enterostomy is seen. There are skin salinas to the right of midline. There is evidence of a surgical drain over the right lower abdomen. Air and some stool is seen in the colon. There are 1 or 2 loops of air-filled nondilated small bowel in the central abdomen. The contrast visible in the colon on the 19 June 2020 has been passed. Psoas margins are symmetric and flank stripes are intact. No mass or organomegaly is seen. IMPRESSION: Bowel-gas pattern is unchanged. Previously noted colonic contrast has been past. No evidence of obstruction. Left lower quadrant enterostomy. <Electronically signed by Jose Vega > 06/23/20 0041
[2020-06-23 14:02] LABS: BLOOD UREA NITROGEN 19 MG/DL (7-18); CALCIUM LEVEL 7.6 MG/DL (8.8-10.2); CARBON DIOXIDE LEVEL 23 MEQ/L (21-32); CHLORIDE LEVEL 111 MEQ/L (98-107); CREATININE FOR GFR 0.81 MG/DL (0.70-1.30); GLOMERULAR FILTRATION RATE > 60.0 (>35); GLUCOSE, FASTING 143 MG/DL (70-100); POTASSIUM SERUM 3.8 MEQ/L (3.5-5.1); SODIUM LEVEL 140 MEQ/L (136-145)
[2020-06-23] MEDS ORDERED: AMINO AC IV SCH (18:00)
[2020-06-23] MEDS ORDERED: ELECTROLYTE IV SCH (18:00)
[2020-06-23] MEDS ORDERED: FAT EMULSION IV 20% 500 ML IV SCH (18:00)
[2020-06-23] MEDS ORDERED: POTASSIUM CHLORIDE IV SCH (18:00)
[2020-06-23] MEDS ORDERED: DEX IV SCH (18:00)
[2020-06-23] MEDS ORDERED: CALC IV SCH (18:00)
--- NOTE | 2020-06-23 18:45 | IPN ---
PROGRESS NOTE DATE: 06/23/2020 SUBJECTIVE: Mr. Singh is feeling okay. He had an episode of vomiting after he had Cheerios and milk for breakfast. He was changed back to a clear liquid diet and he tolerated his liquids at lunch. He will only have eggs and liquids for dinner. His rectal tube fall off when he went to the bathroom. He does complain of some distention, but no fever or chills. MEDICATIONS: 1. Zosyn 3.375 grams IV q. 6 hours. 2. He still is needing TPN. LABORATORY STUDIES: White count 17.1, hemoglobin 8, hematocrit 24.7, platelets 426. Sodium 140, potassium 3.8, chloride 111, bicarbonate 23, BUN 19, creatinine 0.81, glucose 143, lactic acid 1.6, calcium 7.6, CRP 5.82 and on 06/22 were 0.18. Blood cultures on 06/19 negative. Urine culture was negative. IMAGING: Abdominal x-ray done on 06/23 showed bowel gas pattern, unchanged from previously. Noted colonic contrast, no evidence of obstruction and left lower quadrant enterostomy. There is a surgical drain over the right lower abdomen and errant some stool is seen in the colon. PHYSICAL EXAMINATION: GENERAL APPEARANCE: A pleasant elderly gentleman in no acute distress. VITAL SIGNS: Temperature is 97.3, pulse 117, respirations 20, blood pressure 113/56, O2 sat 96% on room air. HEART: Normal S1, S2, tachycardic. No murmurs. LUNGS: Decreased breath sounds with crackles at both bases. ABDOMEN: Soft, mildly distended, mildly tender in the lower quadrant, left lower quadrant colostomy with large amount of bilious fluid with no formed stools. EXTREMITIES: No clubbing, cyanosis, or edema. No calf tenderness. IMPRESSION: 1. Perforated sigmoid colon with ischemic colitis. 2. Postoperative hypertension felt to be related to stump area perforation on IV Zosyn. Vancomycin was discontinued yesterday. Cultures have all remained negative. Patient on IV Zosyn. 3. Nausea and vomiting this morning - The patient will remain on a clear liquid diet. PLAN: 1. Continue with IV Zosyn. 2. Monitor CBC, CRP. 3. If the patient has recurrent vomiting, please repeat CT abdomen and pelvis with contrast especially if his white count continues to elevate. 4. We will continue to follow. MTDD
--- NOTE | 2020-06-23 21:55 | IPNPDOC ---
Date Seen The patient was seen on 06/23/20. Progress Note SUBJECTIVE: patient was seen and examined at bedside. Doing well this morning, no acute events overnight. VSS. Rectal tube in place (garcia cath), producing mucoid contents. Had episode of bloody vomiting ~50 CC, no repeat episodes since. Afebrile. Wound vac in place. OBJECTIVE PHYSICAL EXAMINATION: VITAL SIGNS: Please see below. GENERAL: not in acute distress, pleasant, comfortable in bed HEENT: PERRLA CARDIOVASCULAR: RRR normal, S1, S2 RESPIRATORY: decreased breath sounds at bases, crackles ABDOMINAL: soft, slight tenderness in LLQ. LLQ colostomy, liquid bilious stool EXTREMITIES: no cyanosis, no edema Neuro: no focal deficits, moving all 4 extremities LABORATORY DATA, IMAGING STUDIES, MICROBIOLOGY: Please see below. DVT prophylaxis ordered?: Y ASSESSMENT AND PLAN: 80 yo M, presented to ER on 06/03/20 with abdominal pain, distension, with nausea and vomiting. No free seen initially on xray imaging, but contained perforation see on CT abdo. Surgery was consulted and patient was taken to OR for ex lap and resection of necrotic tissue with a diverting colostomy on 06/03/20. PROBLEMS: #sepsis: now resolved. Source likely rectal stump. Blood cultures negative. Per Dr. Patiño, continue IV zosyn. Vanc DC #hematemesisL [address] Jackson possibly related to recent NGT placement. Antiemetic. If vomiting recurs, or leukocytosis worsens, repeat CT abo. #lactic acidosis: resolved #Acute cholecystitis: seen on US. Zosyn. #Bowel necrosis with perforation: s/p ex lap with bowel resection and diverting colostomy. NGT removed. Wound vac in place. Rectal output, rectal tube in place. Per Dr. Jackson, plan to remove on 06/24/20 #Anemia: hgb stable. 2/2 AOCD, acute blood loss anemia from recent surgery #Acute hypercarbic respiratory failureL resolved. require bipap after extubation. #Hypokalemia: replace. #MAXWELL: resolved. #Hypothyroidism: synthroid PLAN: 1. Continue with IV Zosyn. 2. Monitor CBC, CRP. 3. If the patient has recurrent vomiting, please repeat CT abdomen and pelvis with contrast especially if his white count continues to elevate. 4. We will continue to follow. VS, I&O, 24H, Fishbone Vital Signs/I&O Vital Signs Date Time Temp Pulse Resp B/P (MAP) Pulse Ox O2 Delivery O2 Flow Rate FiO2 06/23/20 16:00 97.3 117 20 113/56 (75) 96 06/23/20 11:42 Room Air I&O- Last 24 Hours up to 6 AM 06/23/20 06:00 Intake Total 120 ml Output Total 2820 ml Balance -2700 ml Laboratory Data 24H LABS Laboratory Tests 2 06/22/20 23:47: Bedside Glucose (Misc Panel) 114H 06/23/20 05:22: Nucleated Red Blood Cells % (auto) 0.0, Anion Gap 4L, Glomerular Filtration Rate > 60.0, Calcium Level 7.8L 06/23/20 13:20: Nucleated Red Blood Cells % (auto) 0.0, Anion Gap 6L, Glomerular Filtration Rate > 60.0, Calcium Level 7.6L, Lactic Acid Level 1.6 CBC/BMP Laboratory Tests 06/23/20 05:22 06/23/20 13:20 Microbiology Microbiology 06/19/20 Urine Culture - Final, Complete 06/19/20 Blood Culture - Preliminary, Resulted No Growth after 72 hours. All specime... 06/19/20 Blood Culture - Preliminary, Resulted No Growth after 72 hours. All specime... MANJULA WRAY MD Jun 23, 2020 21:54
[2020-06-24] VITALS (33 sets, daily range): BP systolic 99–158; BP diastolic 48–70
[2020-06-24] MEDS: SUCRALFATE SUSP 1GM/10ML UD PO SCH ×5 (00:11→23:31)
[2020-06-24] MEDS: METOCLOPRAMIDE INJ 10MG/2ML VIAL (J2765 PER 1) IV SCH ×3 (02:06→20:17)
[2020-06-24] MEDS: PANTOPRAZOLE 40MG VIAL (C9113 PER 1) IV SCH ×2 (03:17→20:17)
[2020-06-24] MEDS: PIPERACILLIN/TAZOBACTAM SOD 3.375 GM in D5W MINI-BAG PLUS 50 ML IV SCH ×4 (03:18→20:17)
[2020-06-24] MEDS: ANALGESIC BALM CRM 120 GM TOP PRN (03:56)
[2020-06-24] MEDS: LEVOTHYROXINE 25MCG TABLET (0.025MG) PO SCH (05:27)
[2020-06-24] MEDS: SODIUM CHLORIDE 0.9% INJ 10 ML SYR IV SCH ×2 (05:27→20:17)
[2020-06-24 05:42] LABS: MEAN CORPUSCULAR HEMOGLOBIN 31.8 pg (27.0-33.0); MEAN CORPUSCULAR VOLUME 99.4 fl (80.0-96.0); PLATELET COUNT, AUTOMATED 390 10^3/uL (150-450); RED BLOOD COUNT 1.79 10^6/uL (4.30-6.10); WHITE BLOOD COUNT 19.6 10^3/uL (4.0-10.0)
[2020-06-24 05:57] LABS: HEMATOCRIT 17.8 % (42.0-52.0); HEMOGLOBIN 5.7 g/dl (13.5-17.5)
[2020-06-24 06:19] LABS: CALCIUM LEVEL 7.2 MG/DL (8.8-10.2); CREATININE FOR GFR 1.31 MG/DL (0.70-1.30); POTASSIUM SERUM 3.9 MEQ/L (3.5-5.1)
--- NOTE | 2020-06-24 08:46 | REP ---
INDICATION: ACUTE BLOOD LOSS ANEMIA. COMPARISON: CT of the abdomen and pelvis without IV or bowel contrast dated 06/19/2020. TECHNIQUE: The study is performed without IV or bowel contrast. FINDINGS: There is dependent atelectasis in the posterior visualized lung mccullough. There is a small right pleural effusion, unchanged. There is a left lower lobe bulla, unchanged. The previous nasogastric tube has been removed. A large volume of ingested material was identified distending the stomach calf, similar to the prior study. The duodenum is not distended. There is no bowel distention. There are similar findings regarding the gallbladder. The gallbladder wall appears diffusely mildly thickened in the para cholecystic fat is again hazy. This is nonspecific but may represent acalculous cholecystitis. The gallbladder is not significantly distended. The pancreas and spleen are unremarkable and unchanged. The adrenals are unremarkable and unchanged. Bilateral renal cortical cysts are again identified. In the absence of IV contrast study is insensitive for evaluation of renal solid masses up. Of the abdominal aorta is unremarkable. There is no periaortic adenopathy or mass. There is a colon ostomy in the anterior abdominal wall on the left, unchanged. There is no bowel distention or obstruction. There is no free intraperitoneal fluid. There is no pneumoperitoneum. There are no inflammatory changes in the mesentery. Pelvis: There is no free fluid. Prostate is enlarged, unchanged. The previous Dawn catheter has been removed. There is a small air bubble anteriorly in the bladder. The there is no pelvic adenopathy. There are no lytic, blastic or destructive skeletal changes. The bladder is otherwise unremarkable. IMPRESSION: The endotracheal tube and Dawn catheter have been removed. There is a large volume of ingested material distending the stomach, unchanged. There is a small air bubble anteriorly in the bladder. There is an anterior abdominal colostomy on the left, unchanged. There is no bowel distention or obstruction. There is no free intraperitoneal fluid or pneumoperitoneum. Next number findings regarding the gallbladder, similar to the prior study, questionably representing a calculus cholecystitis. There are renal cysts, unchanged. The study is insensitive for renal solid masses in the absence of IV contrast. Abdominal aorta is unremarkable. There is no periaortic adenopathy, mass or hematoma. Prostate is enlarged, unchanged. Tiny right pleural effusion, not significantly changed. <Electronically signed by Jose Carlos Bailey > 06/24/20 [id number]
[2020-06-24] MEDS: PRAVASTATIN 20 MG TAB PO SCH (09:00)
[2020-06-24] MEDS: lisinopriL 20 MG TAB PO SCH (09:00)
[2020-06-24] MEDS: CYANOCOBALAMIN 500 MCG TAB PO SCH (09:00)
[2020-06-24] MEDS: VITAMIN D 1,000 INTERNATIONAL UNITS TABLET PO SCH (09:00)
[2020-06-24] MEDS: OCTREOTIDE ACETATE 100MCG/ML VIAL (J2354 PER 25MCG) IV SCH ×3 (09:00→21:43)
[2020-06-24] MEDS: ASPIRIN 81 MG ENTERIC TAB PO SCH (09:00)
[2020-06-24] MEDS: DOXAZOSIN MESYLATE 1 MG TAB PO SCH (09:00)
--- NOTE | 2020-06-24 11:27 | IPN ---
PROGRESS NOTE DATE: 06/22/2020 SUBJECTIVE: The patient is doing well over the weekend, his white count has bumped down this morning, however his hematocrit is a little bit lower. He is starting to diurese a little bit more and I am wondering if part of this is dilutional. He has had no nausea or vomiting and we have had no acute events overnight. I truly thought that over the weekend given his improvement and overall improvement of his sepsis that he probably had an infection that was draining out the rectal stump and since he had blood cultures were negative and urine cultures were negative, and his drainage from his rectal tube is much less, at this point most appropriately at this time I feel the likely etiology is either bacterial overgrowth, or proctitis, as the more likely etiology than cholecystitis. He is really no complaining of any right upper quadrant. Will recheck his H and H this afternoon and will get him started on a clear liquid diet and see how he does with this. Otherwise, will keep him on his current medications. PHYSICAL EXAMINATION: His ostomy is looking good. His Wound-Vac is in place. No evidence of cellulitis, no evidence of inflammatory changes. Otherwise, looking slowly but surely a little bit better.
--- NOTE | 2020-06-24 11:27 | IPN ---
PROGRESS NOTE DATE: 06/23/2020 SUBJECTIVE: The patient is slowly making some progress and his white count has come down a little bit more, hematocrit was up yesterday afternoon and I do feel this is partially dilutional. He overall states that he tolerated his clears quite well without nausea and without vomiting. His ostomy is picking up and putting out more fluids and his rectal tube, the stuff coming out now is mostly mucous and normal appearing rectal discharge. No stool is appreciated and overall is much better. PHYSICAL EXAMINATION: His abdomen is soft, nontender. His ostomy is functioning nicely, pink, and typical stool output. His midline wound dressing is in place. IMPRESSION/PLAN: Patient has slowly been making some progress. At this time, will get him on a regular diet. We will see how he does with this and will continue TPN just given that he really is not taking much for fluids in. I anticipate we will need to supplement him with some TPN for the next few days until he gets strong enough. He may need a transfusion if he continues to dwindle down, but at this point we will see how he is doing over the ensuing 12 to 24 hours.
--- NOTE | 2020-06-24 11:31 | IPN ---
PROGRESS NOTE DATE: 06/24/2020 SUBJECTIVE: The patient had some hematemesis this morning and his hematocrit dropped significantly overnight suggesting an upper GI bleed. The most likely etiology is obviously ulcers or gastritis from his NG-tube. Other possibilities could include Zoila-Darby tear from vomiting. Once again, he is not complaining of any abdominal pain. Currently, when I am talking to him he is not having any nausea. He had a CT scan this morning that showed no evidence of abscess although his white count did bump this morning. IMPRESSION/PLAN: The patient has a GI bleed. I feel that this is a separate issue, unlikely unrelated to the elevated white count issue. The elevated white count may be secondary to infectious etiology, could be demargination. I do feel that the most pressing issue at this time, however is the GI bleeding issue. We will start him on Octreotide. He has been started on increased PPIs and Carafate. Otherwise, we will keep him NPO for right now. Whether to proceed with endoscopy, I will discuss with GI and Dr. Perera is on the consult list for today.
[2020-06-24] MEDS ORDERED: ERYTHROMYCIN LACTOBIONATE INJ 250 MG in NS 250 ML IV ONE (14:00)
--- NOTE | 2020-06-24 14:44 | CR.PDOC ---
General Date of Consultation: Jun 24, 2020 Referring Provider: Caleb Jackson Jr Attending Physician: AUBREY FRANCOIS MD Consultation Referring Physician / PCP: Reason for consult: HPI: 80-year-old male patient with HTN, hypothyroidism, Anxiety/ depression, COPD, BPH, chronic back pain, presented to ED on 06/03/20 with abdominal distention, abdominal pain, nausea, and vomiting. Diagnosed with perforated sigmoid colon with peritonitis and septic shock, treated s/p sugery with abdominal drain and colostomy, and was started on advancing the diet yesterday after removing the OG/NG tube and he had couple episodes of hematemesis with bright red blood and coffee ground material over night. He had dark melanotic stools from the colostomy bag. Patient hemoglobin levels dropped in labs today. Patient upon examination at bedside, he is AAO x 3, denies any abdominal pain but reports having nausea. He denies taking NSAIDs at home except for ASA 81mg and no blood thinners in past. Examination of colostomy bag output showed melanotic stools. Pertinent Negative GI symptoms: Patient denies any abdominal pain, fever, chills. Review of systems: Head and neck: No swelling, lymph nodes. Chest: No shortness of breath, no chest pain, no palpitation. Abdomen: As above. Genitourinary: no burning micturition. COP BREAKER: No loss of consciousness, no focal weakness. Extremities: No leg swelling. Skin: No rash. PMH: as above. PSH: As above. Recent bowel surgery. Home medications: reviewed. On ASA 81mg Allergies: As below. Reviewed. Social h/o: Denies alcohol or IVDA. Prior h/o smoking. Prior Endoscopic work up: Reviewed. Patient reports having Colonoscopy in past- normal as per patient. Exam: Vitals: Reviewed. Afebrile. HEENT: NC/ AT, pupil equal and reactive, no cervical lymphadenopathy, Respiratory: bilateral air entry. CVS: Heart sounds heard, no Murmurs, No pedal edema. Abdomen: Soft, non-distended, Non-tender, no rigidity, no guarding, left lower quadrant Colostomy noted and lower midline wound vac noted. No abdominal masses, normal bowel sounds, No visible hernias. COP BREAKER; No focal neurological deficits, moving all extremities. Labs: Reviewed. Radiology tests: Reviewed. Impression: -- Acute onset hematemesis with melena, drop in hemoglobin levels Likely PUD vs AVM bleeding vs less likely lower GI bleeding. -- Gastric contents in Stomach on CT scan - could be blood clots / food ( patient reports having something to eat in morning. Recommendations: -- NPO for now. -- IV pantoprazole 40 mg twice daily -- Monitor hemoglobin, hematocrit and transfuse as needed to hemoglobin level of 8. -- Repeat the CBC prior to procedure. Obtain PTT/ INR. -- Will schedule for urgent EGD today. -- Please give IV erythromycin 250 mg prior 30 minutes prior to procedure EGD. -- Patient and his son are educated about the procedure, indications, risks (bleeding, infection, perforation, anesthesia risks, including ), benefits and all alternatives including conservative measures without any procedure. Patient verbalized understanding and consented for the procedure. -- Follow operative note for post procedure recommendations. Plan of care discussed with patient and primary team. Patient and his son both verbalized understanding and agreed with the plan or care. Vital Signs/I&O Vital Signs Date Time Temp Pulse Resp B/P (MAP) Pulse Ox O2 Delivery O2 Flow Rate FiO2 06/24/20 14:15 97.4 115 22 122/68 97 Room Air 06/24/20 10:58 0.0 I&O- Last 24 Hours up to 6 AM 06/24/20 06:00 Intake Total 540 ml Output Total 1825 ml Balance -1285 ml Laboratory Data Labs 24H Laboratory Tests 2 06/24/20 01:53: Bedside Glucose (Misc Panel) 155H 06/24/20 05:23: Nucleated Red Blood Cells % (auto) 0.0, Anion Gap 6L, Glomerular Filtration Rate 56.0, Calcium Level 7.2L, Magnesium Level 2.2 CBC/BMP Laboratory Tests 06/24/20 05:23 Microbiology Microbiology 06/19/20 Urine Culture - Final, Complete 06/19/20 Blood Culture - Final, Complete NO GROWTH AFTER 5 DAYS 06/19/20 Blood Culture - Final, Complete NO GROWTH AFTER 5 DAYS Allergies Coded Allergies: Contrast Media (Verified Allergy, Unknown, low BP red skin, 06/03/20) Home Medications Scheduled Aspirin (Aspirin EC) 81 Mg Tab, 81 MG PO DAILY, (Reported) Cholecalciferol (Vitamin D3) (Vitamin D3) 1,000 Unit Tablet, 1,000 UNITS PO DAILY, (Reported) Cyanocobalamin (Vitamin B-12) (Vitamin B-12) 500 Mcg Tab, 1,000 MCG PO DAILY, (Reported) Doxazosin Mesylate (Doxazosin Mesylate) 2 Mg Tab, 2 MG PO DAILY, (Reported) Levothyroxine Sodium (Levothyroxine Sodium) 25 Mcg Tab, 25 MCG PO DAILY, (Reported) Pravastatin Sodium (Pravastatin Sodium) 20 Mg Tab, 20 MG PO DAILY, (Reported) Scheduled PRN Acetaminophen (Tylenol Extra Strength) 500 Mg Tablet, 500 MG PO Q4H PRN for PAIN, (Reported) Albuterol Sulf (Albuterol Sulfate) 2.5 Mg/3 Ml Vial.neb, 2.5 MG INH QID PRN for SHORTNESS OF BREATH, (Reported) Albuterol Sulfate (Ventolin Hfa) 18 Gm Hfa.aer.ad, 2 PUFFS INH QID PRN for SHORTNESS OF BREATH, (Reported) Alprazolam (Alprazolam) 0.25 Mg Tablet, 0.25 MG PO BID PRN for ANXIETY, (Reported) Miscellaneous Medications [Patient Comment] , (Reported) PATIENT UNOBTAINABLE. MED REC COMPLETED VIA EXTERNAL MED HISTORY AND PHARMACY. AUBREY FRANCOIS MD Jun 24, 2020 14:44
[2020-06-24] MEDS: ONDANSETRON 4MG/2ML VIAL IV PRN (15:26)
[2020-06-24 15:35] LABS: BASO # 0.2 10^3/uL (0.0-0.2); BASO % 0.9 % (0.0-1.0); EOS # 0.3 10^3/uL (0.0-0.5); EOS % 1.8 % (0.0-3.0); HEMATOCRIT 22.9 % (42.0-52.0); HEMOGLOBIN 7.3 g/dl (13.5-17.5); LYMPH # 1.6 10^3/uL (1.5-5.0); LYMPH % 8.5 % (24.0-44.0); MEAN CORPUSCULAR HEMOGLOBIN 29.6 pg (27.0-33.0); MEAN CORPUSCULAR HGB CONC 31.9 g/dl (32.0-36.5); MEAN CORPUSCULAR VOLUME 92.7 fl (80.0-96.0); MONO # 1.5 10^3/uL (0.0-0.8); MONO % 7.6 % (0.0-5.0); NEUTROPHILS # 14.6 10^3/uL (1.5-8.5); NEUTROPHILS % 77.2 % (36.0-66.0); PLATELET COUNT, AUTOMATED 331 10^3/uL (150-450); RED BLOOD COUNT 2.47 10^6/uL (4.30-6.10)
[2020-06-24 15:47] LABS: INR 1.14; PROTHROMBIN TIME 14.9 SECONDS (12.5-14.3)
[2020-06-24 16:08] LABS: ALBUMIN 1.3 GM/DL (3.2-5.2); ALT/SGPT 13 U/L (12-78); BILIRUBIN,TOTAL 0.3 MG/DL (0.2-1.0); BLOOD UREA NITROGEN 40 MG/DL (7-18); CALCIUM LEVEL 7.1 MG/DL (8.8-10.2); CARBON DIOXIDE LEVEL 22 MEQ/L (21-32); CHLORIDE LEVEL 116 MEQ/L (98-107); CREATININE FOR GFR 0.99 MG/DL (0.70-1.30); GLOMERULAR FILTRATION RATE > 60.0 (>35); GLUCOSE, FASTING 167 MG/DL (70-100); POTASSIUM SERUM 4.5 MEQ/L (3.5-5.1); SODIUM LEVEL 142 MEQ/L (136-145); TOTAL PROTEIN 4.2 GM/DL (6.4-8.2)
--- NOTE | 2020-06-24 16:10 | IPNPDOC ---
Date Seen The patient was seen on 06/24/20. Progress Note SUBJECTIVE: patient was seen and examined at bedside. Appears pale and lethargic this morning. Hemoglobin found to be 5.7, critical value. Patient states that he has been having hematemesis, coffee grounds twice overnight. Vitals are stable. Patient is alert and oriented. Denies chest pain. Denies worsening abdominal pain. No seizures of breath or palpitations. He did fevers and chills Ordered a CT scan of the abdomen and pelvis without contrast this morning. OBJECTIVE PHYSICAL EXAMINATION: VITAL SIGNS: Please see below. GENERAL: not in acute distress, pleasant, comfortable in bed HEENT: PERRLA CARDIOVASCULAR: RRR normal, S1, S2 RESPIRATORY: decreased breath sounds at bases, crackles ABDOMINAL: soft, slight tenderness in LLQ. LLQ colostomy, liquid dark stool EXTREMITIES: no cyanosis, no edema Neuro: no focal deficits, moving all 4 extremities LABORATORY DATA, IMAGING STUDIES, MICROBIOLOGY: Please see below. DVT prophylaxis ordered?: Y ASSESSMENT AND PLAN: 80 yo M, presented to ER on 06/03/20 with abdominal pain, distension, with nausea and vomiting. No free seen initially on xray imaging, but contained perforation see on CT abdo. Surgery was consulted and patient was taken to OR for ex lap and resection of necrotic tissue with a diverting colostomy on 06/03/20. PROBLEMS: #sepsis: Source likely rectal stump. Blood cultures negative. Per Dr. Patiño, continue IV zosyn. [facility]. New leukocytosis on 06/24. Afebrile. repeat blood and urine culture. #hematemesis: persists overnight. Hemoglobin dropped to 5.7. Blood transfusion ordered, 2 units pRBC, improved to 7.3. CT abdomen and pelvis performed. No bowel obstruction or distension, large volume of ingested material in stomach. Acute cholecystitis seen. Dr. Jackson informed. Dr. Perera consulted. 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 Plan for EGD today. #lactic acidosis: resolved #Acute cholecystitis: seen on US. Zosyn. #Bowel necrosis with perforation: s/p ex lap with bowel resection and diverting colostomy. NGT removed. Wound vac in place. Rectal output, rectal tube in place. Per Dr. Jackson, plan to remove on 06/24/20 #Anemia: hgb stable. 2/2 AOCD, acute blood loss anemia from recent surgery #Acute hypercarbic respiratory failureL resolved. require bipap after extubation. #Hypokalemia: replace. #MAXWELL: resolved. #Hypothyroidism: synthroid VS, I&O, 24H, Fishbone Vital Signs/I&O Vital Signs Date Time Temp Pulse Resp B/P (MAP) Pulse Ox O2 Delivery O2 Flow Rate FiO2 06/24/20 15:18 97.2 119 24 104/55 97 Room Air 06/24/20 10:58 0.0 I&O- Last 24 Hours up to 6 AM 06/24/20 06:00 Intake Total 540 ml Output Total 1825 ml Balance -1285 ml Laboratory Data 24H LABS Laboratory Tests 2 06/24/20 01:53: Bedside Glucose (Misc Panel) 155H 06/24/20 05:23: Nucleated Red Blood Cells % (auto) 0.0, Anion Gap 6L, Glomerular Filtration Rate 56.0, Calcium Level 7.2L, Magnesium Level 2.2 06/24/20 15:24: Nucleated Red Blood Cells % (auto) 0.0, Immature Granulocyte % (Auto) 4.0H, Neutrophils (%) (Auto) 77.2H, Lymphocytes (%) (Auto) 8.5L, Monocytes (%) (Auto) 7.6H, Eosinophils (%) (Auto) 1.8, Basophils (%) (Auto) 0.9, Neutrophils # (Auto) 14.6H, Lymphocytes # (Auto) 1.6, Monocytes # (Auto) 1.5H, Eosinophils # (Auto) 0.3, Basophils # (Auto) 0.2, Prothrombin Time 14.9H, Prothromb Time Interna tional Ratio 1.14 06/24/20 15:46: Bedside Glucose (Misc Panel) 163H CBC/BMP Laboratory Tests 06/24/20 05:23 06/24/20 15:24 Microbiology Microbiology 06/19/20 Urine Culture - Final, Complete 06/19/20 Blood Culture - Final, Complete NO GROWTH AFTER 5 DAYS 06/19/20 Blood Culture - Final, Complete NO GROWTH AFTER 5 DAYS MANJULA WRAY MD Jun 24, 2020 16:10
[2020-06-24] MEDS ORDERED: fentaNYL 100 MCG/2 ML INJECTION (J3010) As Ordered ONE (17:55)
[2020-06-24] MEDS ORDERED: propofoL 200 MG/20 ML VIAL As Ordered ONE (17:55)
[2020-06-24] MEDS ORDERED: METOCLOPRAMIDE INJ 10MG/2ML VIAL (J2765 PER 1) As Ordered ONE (17:55)
[2020-06-24] MEDS ORDERED: dexameTHASONE 4 MG/ML 1ML VIAL (J1100 PER 1MG) As Ordered ONE (17:55)
[2020-06-24] MEDS ORDERED: ROCURONIUM BROMIDE 50 MG/5 ML VIAL As Ordered ONE (17:55)
[2020-06-24] MEDS ORDERED: ONDANSETRON 4MG/2ML VIAL As Ordered ONE (17:55)
[2020-06-24] MEDS ORDERED: LIDOCAINE 2% 100MG/5ML SDV (FOR ANES.) As Ordered ONE (17:55)
[2020-06-24] MEDS ORDERED: VASOPRESSIN INJ 20 UNITS/ML VIAL As Ordered ONE (17:56)
[2020-06-24] MEDS ORDERED: PHENYLephrine HCL 500 MCG/5 ML (100MCG/ML) SYRINGE (J2370) As Ordered ONE (17:56)
[2020-06-24] MEDS ORDERED: FAT EMULSION IV 20% 500 ML IV SCH (18:00)
[2020-06-24] MEDS ORDERED: AMINO AC/ELECTROLYTE/DEX/CALC 2,000 ML IV SCH (18:00)
[2020-06-24] MEDS ORDERED: SUGAMMADEX SODIUM 500 MG/5 ML VIAL (BRIDION) As Ordered ONE (18:19)
--- NOTE | 2020-06-24 18:51 | ROOR ---
Patient Name: Brayden Singh Procedure Date: 06/24/2020 5:28 PM Date of : 1940 Age: 80 Room: Main OR Gender: Male Note Status: Finalized Procedure: Upper GI endoscopy Indications: Hematemesis, Melena Providers: Juancho Perera MD Referring MD: 2. Inpatient 2. Inpatient, Caleb Jackson Jr, MD Requesting Provider: Medicines: Monitored Anesthesia Care Complications: No immediate complications. Procedure: Pre-Anesthesia Assessment: - Prior to the procedure, a History and Physical was performed, and patient medications and allergies were reviewed. The patient is competent. The risks and benefits of the procedure and the sedation options and risks were discussed with the patient. All questions were answered and informed consent was obtained. Patient identification and proposed procedure were verified by the physician, the nurse and the anesthesiologist in the procedure room. Mental Status Examination: alert and oriented. Airway Examination: normal oropharyngeal airway and neck mobility. Respiratory Examination: clear to auscultation. CV Examination: normal. Prophylactic Antibiotics: The patient does not require prophylactic antibiotics. Prior Anticoagulants: The patient has taken no previous anticoagulant or antiplatelet agents. ASA Grade Assessment: II - A patient with mild systemic disease. After reviewing the risks and benefits, the patient was deemed in satisfactory condition to undergo the procedure. The anesthesia plan was to use monitored anesthesia care (MAC). Immediately prior to administration of medications, the patient was re-assessed for adequacy to receive sedatives. The heart rate, respiratory rate, oxygen saturations, blood pressure, adequacy of pulmonary ventilation, and response to care were monitored throughout the procedure. The physical status of the patient was re-assessed after the procedure. The Endoscope was introduced through the mouth, and advanced to the second part of duodenum. The upper GI endoscopy was accomplished without difficulty. The patient tolerated the procedure well. Findings: No gross lesions were noted in the entire esophagus. There is no endoscopic evidence of varices in the entire esophagus. Clotted blood was found in the gastric fundus. One non-obstructing oozing linear gastric ulcer of moderate to significant severity with oozing hemorrhage (Devin Class Ib) was found in the cardia. The lesion was 21 mm in largest dimension. To stop active bleeding, four hemostatic clips were successfully placed. There was no bleeding at the end of the procedure. A healed ulcer was found in the gastric body. The duodenal bulb and second portion of the duodenum were normal. Impression: - No gross lesions in esophagus. - Clotted blood in the gastric fundus. - Non-obstructing oozing gastric ulcer with oozing hemorrhage (Devin Class Ib). Clips were placed. - Scar in the gastric body. - Normal duodenal bulb and second portion of the duodenum. - No specimens collected. Recommendation: - Patient has a contact number available for emergencies. The signs and symptoms of potential delayed complications were discussed with the patient. Return to normal activities tomorrow. Written discharge instructions were provided to the patient. - NPO for 1 day, then advance as tolerated to clear liquid diet. - Continue present medications. - Use Protonix (pantoprazole) 40 mg IV BID for 2 days. - After 48 hours, depending on clinical course, use Protonix (pantoprazole) 40 mg PO twice daily - to be taken in morning (1/2 hour before breakfast) and at bedtime ( atleast 3 hours after last meal) for 3 months. - Repeat upper endoscopy tomorrow depending on the symptoms and clinical response. - Check hemoglobin and hematocrit q 6 hours for two days. Procedure Code(s): --- Professional --- 29237, Esophagogastroduodenoscopy, flexible, transoral; with control of bleeding, any method Diagnosis Code(s): --- Professional --- K92.2, Gastrointestinal hemorrhage, unspecified K25.4, Chronic or unspecified gastric ulcer with hemorrhage K31.89, Other diseases of stomach and duodenum K92.0, Hematemesis K92.1, Melena (includes Hematochezia) CPT copyright 2019 [employer]. All rights reserved. The codes documented in this report are preliminary and upon label coder review may be revised to meet current compliance requirements. Juancho Perera MD Juancho Perera MD 06/24/2020 6:51:08 PM Electronically signed by Juancho Perera MD Number of Addenda: 0 Note Initiated On: 06/24/2020 5:28 PM Estimated Blood Loss: Estimated blood loss was minimal.
[2020-06-24] MEDS ORDERED: ONDANSETRON 4MG/2ML VIAL IV PRN (19:00)
[2020-06-24] MEDS ORDERED: NS 1,000 ML IV SCH (19:00)
[2020-06-24 20:36] LABS: HEMATOCRIT 31.4 % (42.0-52.0); MEAN CORPUSCULAR HEMOGLOBIN 27.6 pg (27.0-33.0); MEAN CORPUSCULAR HGB CONC 31.8 g/dl (32.0-36.5); MEAN CORPUSCULAR VOLUME 86.7 fl (80.0-96.0); PLATELET COUNT, AUTOMATED 257 10^3/uL (150-450); RED BLOOD COUNT 3.62 10^6/uL (4.30-6.10); WHITE BLOOD COUNT 26.1 10^3/uL (4.0-10.0)
[2020-06-24 20:48] LABS: INR 1.13; PROTHROMBIN TIME 14.8 SECONDS (12.5-14.3)
[2020-06-24 20:49] LABS: PARTIAL THROMBOPLASTIN TIME 26.3 SECONDS (24.2-38.5)
[2020-06-24 20:51] LABS: D-DIMER QUANT 2371.78 ng/ml (<500)
[2020-06-24 20:57] LABS: ANISOCYTOSIS 2+; ATYPICAL LYMPH 1 % (0-5); HYPOCHROMASIA 1+; LYMPHOCYTES 8 % (16-44); METAMYELOCYTES 1 % (0-0); MONOCYTES 4 % (0-5); NEUTROPHILS 79 % (28-66)
[2020-06-24 20:58] LABS: PLATELET CLUMPS SMALL AMT; PLATELET ESTIMATE NORMAL (NORMAL)
[2020-06-25] VITALS (12 sets, daily range): BP systolic 97–156; BP diastolic 50–79
[2020-06-25 02:02] LABS: HEMOGLOBIN 9.1 g/dl (13.5-17.5)
[2020-06-25] MEDS: PANTOPRAZOLE 40MG VIAL (C9113 PER 1) IV SCH ×2 (02:34→14:32)
[2020-06-25] MEDS: METOCLOPRAMIDE INJ 10MG/2ML VIAL (J2765 PER 1) IV SCH ×3 (02:34→17:54)
[2020-06-25] MEDS: PIPERACILLIN/TAZOBACTAM SOD 3.375 GM in D5W MINI-BAG PLUS 50 ML IV SCH ×4 (02:35→21:58)
[2020-06-25] MEDS: SODIUM CHLORIDE 0.9% INJ 10 ML SYR IV SCH ×2 (05:00→17:55)
[2020-06-25] MEDS: SUCRALFATE SUSP 1GM/10ML UD PO SCH ×4 (05:41→23:25)
[2020-06-25] MEDS: OCTREOTIDE ACETATE 100MCG/ML VIAL (J2354 PER 25MCG) IV SCH ×3 (05:42→23:26)
[2020-06-25] MEDS: LEVOTHYROXINE 25MCG TABLET (0.025MG) PO SCH (05:42)
[2020-06-25 06:28] LABS: HEMATOCRIT 26.5 % (42.0-52.0); HEMOGLOBIN 8.7 g/dl (13.5-17.5); MEAN CORPUSCULAR HEMOGLOBIN 28.2 pg (27.0-33.0); MEAN CORPUSCULAR HGB CONC 32.8 g/dl (32.0-36.5); MEAN CORPUSCULAR VOLUME 85.8 fl (80.0-96.0); PLATELET COUNT, AUTOMATED 255 10^3/uL (150-450); RED BLOOD COUNT 3.09 10^6/uL (4.30-6.10); WHITE BLOOD COUNT 25.2 10^3/uL (4.0-10.0)
[2020-06-25 06:57] LABS: BLOOD UREA NITROGEN 39 MG/DL (7-18); CALCIUM LEVEL 7.4 MG/DL (8.8-10.2); CARBON DIOXIDE LEVEL 19 MEQ/L (21-32); CHLORIDE LEVEL 116 MEQ/L (98-107); CREATININE FOR GFR 1.02 MG/DL (0.70-1.30); GLOMERULAR FILTRATION RATE > 60.0 (>35); GLUCOSE, FASTING 173 MG/DL (70-100); POTASSIUM SERUM 4.7 MEQ/L (3.5-5.1); SODIUM LEVEL 141 MEQ/L (136-145)
[2020-06-25] MEDS: CYANOCOBALAMIN 500 MCG TAB PO SCH (08:26)
[2020-06-25] MEDS: PRAVASTATIN 20 MG TAB PO SCH (08:26)
[2020-06-25] MEDS: ASPIRIN 81 MG ENTERIC TAB PO SCH (08:26)
[2020-06-25] MEDS: VITAMIN D 1,000 INTERNATIONAL UNITS TABLET PO SCH (08:27)
[2020-06-25] MEDS: lisinopriL 20 MG TAB PO SCH (08:27)
[2020-06-25] MEDS: DOXAZOSIN MESYLATE 1 MG TAB PO SCH (08:27)
[2020-06-25 12:11] LABS: HEMATOCRIT 27.3 % (42.0-52.0); HEMOGLOBIN 9.1 g/dl (13.5-17.5)
--- NOTE | 2020-06-25 16:22 | IPNPDOC ---
Date Seen The patient was seen on 06/25/20. Progress Note SUBJECTIVE: patient was seen and examined at bedside. Vitals are stable. Patient is alert and oriented. Denies chest pain. Denies worsening abdominal pain. No seizures of breath or palpitations. Hgb stable this morning. No further hematemesis. OBJECTIVE PHYSICAL EXAMINATION: VITAL SIGNS: Please see below. GENERAL: not in acute distress, pleasant, comfortable in bed HEENT: PERRLA CARDIOVASCULAR: RRR normal, S1, S2 RESPIRATORY: decreased breath sounds at bases, crackles ABDOMINAL: soft, slight tenderness in LLQ. LLQ colostomy,dark bloody contents in colostomy. EXTREMITIES: no cyanosis, no edema Neuro: no focal deficits, moving all 4 extremities LABORATORY DATA, IMAGING STUDIES, MICROBIOLOGY: Please see below. DVT prophylaxis ordered?: Y ASSESSMENT AND PLAN: 80 yo M, presented to ER on 06/03/20 with abdominal pain, distension, with nausea and vomiting. No free seen initially on xray imaging, but contained perforation see on CT abdo. Surgery was consulted and patient was taken to OR for ex lap and resection of necrotic tissue with a diverting colostomy on 06/03/20. PROBLEMS: #sepsis: Source likely rectal stump. Blood cultures negative. Per Dr. Patiño, continue IV zosyn. [facility] DC. New leukocytosis on 06/24. Afebrile. repeat blood and urine culture. #hematemesis: persists overnight. Hemoglobin dropped to 5.7. Blood transfusion ordered, 2 units pRBC, improved to 7.3. CT abdomen and pelvis performed. No bowel obstruction or distension, large volume of ingested material in stomach. Acute cholecystitis seen. Dr. Jackson informed. Dr. Perera consulted. S/p EGD. Large oozing gastic ulcer. Clipped. C/w IV protonix 40 mg BID. NPO for 24 hrs, transiition to CLD. Give one dose of miralax to clear gastric contents. Monitor HH q6h. Possible repeat EGD 06/26/20. #lactic acidosis: resolved #Acute cholecystitis: seen on US. Zosyn. #Bowel necrosis with perforation: s/p ex lap with bowel resection and diverting colostomy. NGT removed. Wound vac in place. Rectal output, rectal tube in place. Per Dr. Jackson, plan to remove on 06/24/20 #Anemia: hgb stable. 2/2 AOCD, acute blood loss anemia from recent surgery #Acute hypercarbic respiratory failureL resolved. require bipap after extubation. #Hypokalemia: replace. #MAXWELL: resolved. #Hypothyroidism: synthroid VS, I&O, 24H, Fishbone Vital Signs/I&O Vital Signs Date Time Temp Pulse Resp B/P (MAP) Pulse Ox O2 Delivery O2 Flow Rate FiO2 06/25/20 12:00 98.7 109 16 116/70 (85) 95 Nasal Cannula 2.0 I&O- Last 24 Hours up to 6 AM 06/25/20 06:00 Intake Total 6090 ml Output Total 2700 ml Balance 3390 ml Laboratory Data 24H LABS Laboratory Tests 2 06/24/20 20:19: Immature Granulocyte % (Auto) , Neutrophils (%) (Auto) , Nucleated Red Blood Cells % (auto) 0.0, Neutrophils 79H, Band Neutrophils 7, Lymphocytes (Manual) 8L, Monocytes (Manual) 4, Metamyelocytes 1H, Atypical Lymphocytes 1, Hypochromasia 1+, Anisocytosis 2+, Macrocytosis 2+, Platelet Estimate NORMAL, Clumped Platelets SMALL AMT, Prothrombin Time 14.8H, Prothromb Time International Ratio 1.13, Activated Partial Thromboplast Time 26.3, Fibrinogen 410, D-Dimer, Quantitative 2371.78H, Lactic Acid Level 1.5 06/24/20 23:33: Bedside Glucose (Misc Panel) 244H 06/25/20 06:13: Nucleated Red Blood Cells % (auto) 0.0, Anion Gap 6L, Glomerular Filtration Rate > 60.0, Calcium Level 7.4L, Magnesium Level 2.0 06/25/20 07:56: Coronavirus (COVID-19)(PCR) NEGATIVE CBC/BMP Laboratory Tests 06/24/20 20:19 06/25/20 01:51 06/25/20 06:13 06/25/20 11:55 Microbiology Microbiology 06/24/20 Blood Culture, Received Pending 06/19/20 Urine Culture - Final, Complete 06/19/20 Blood Culture - Final, Complete NO GROWTH AFTER 5 DAYS 06/19/20 Blood Culture - Final, Complete NO GROWTH AFTER 5 DAYS MANJULA WRAY MD Jun 25, 2020 16:22
[2020-06-25] MEDS ORDERED: MIRALAX *UNIT DOSE* 17GM PACKET PO ONE (17:00)
[2020-06-25 17:58] LABS: HEMOGLOBIN 8.8 g/dl (13.5-17.5)
[2020-06-25] MEDS ORDERED: AMINO AC/ELECTROLYTE/DEX/CALC 2,000 ML IV SCH (18:00)
[2020-06-25] MEDS ORDERED: FAT EMULSION IV 20% 500 ML IV SCH (18:00)
--- NOTE | 2020-06-25 19:43 | IPN ---
INFECTIOUS DISEASE PROGRESS NOTE DATE: 06/25/2020 SUBJECTIVE: The patient is in the ICU after he had endoscopy done yesterday for a bleeding ulcer. He had some hypotension. An endoscopy was done by Dr. Perera. It showed no gross lesions in the esophagus. There was clotted blood in the gastric fundus with non-obstructing oozing gastric ulcer with hemorrhage. Clips were placed. The patient is having bleeding through the ostomy but has no complaints except for mild abdominal discomfort. No nausea or vomiting. He has been able to tolerate a clear liquid diet. He is drinking mostly jason yudith. He remains on TPN and IV Zosyn. He has been afebrile. PHYSICAL EXAMINATION: VITAL SIGNS: Temperature is 98.9, pulse 104, respirations 18, blood pressure 141/69. O2 sat is 95% on room air. He has been afebrile since 06/22. Blood pressure was down to 96/50 last night but has recovered, currently 141/69. HEART: Normal S1, S2, no murmurs, rubs or gallops. LUNGS: Clear. No rales, rhonchi or wheezes. ABDOMEN: Mildly tender around the epigastric, left lower quadrant area. Bowel sounds are present. Colostomy with blood drainage. There is no stool. EXTREMITIES: No clubbing, cyanosis, or edema. No calf tenderness. LABORATORY STUDIES: White count 25.2, hemoglobin 8.7, hematocrit 26.5, platelets 255. His hemoglobin yesterday dropped down to 5.7. Sodium 141, potassium 4.7, chloride 116, bicarbonate 19, BUN 39, creatinine 1, glucose 173, calcium 7.4, magnesium 2. Blood cultures one set was done yesterday. It was pending. Urine culture on 06/19 negative. Blood culture from 06/19 2 sets were negative. IMPRESSION: 1. Ischemic bowel with perforation, status post colostomy - rectal stump site infection, status post placement of rectal tube, currently on IV Zosyn. 2. GI bleed with hematemesis - endoscopy was done by Dr. Perera and he was found to have a gastric ulcer. He is on PPIs and Carafate. 3. Leukocytosis without a fever I suppose this is reactive and not infectious probably related to bleeding ulcer as well. PLAN: 1. Continue to monitor CBC. 2. Continue IV Zosyn. 3. I would not broaden his antibiotic coverage unless he has a fever or any localizing symptoms other than his GI bleed. GORGE
[2020-06-25] MEDS: VANICREAM MOISTURIZING SKIN CREAM 113GM TUBE TOP SCH (21:59)
[2020-06-26 00:29] LABS: HEMATOCRIT 26.3 % (42.0-52.0); HEMOGLOBIN 8.7 g/dl (13.5-17.5)
[2020-06-26 02:00] VITALS: BP 156/75
[2020-06-26] MEDS: SODIUM CHLORIDE 0.9% INJ 10 ML SYR IV PRN ×2 (02:22→11:22)
[2020-06-26] MEDS: METOCLOPRAMIDE INJ 10MG/2ML VIAL (J2765 PER 1) IV SCH ×3 (02:22→18:11)
[2020-06-26] MEDS: PIPERACILLIN/TAZOBACTAM SOD 3.375 GM in D5W MINI-BAG PLUS 50 ML IV SCH ×4 (03:45→22:34)
[2020-06-26] MEDS: PANTOPRAZOLE 40MG VIAL (C9113 PER 1) IV SCH ×2 (03:45→14:19)
[2020-06-26] MEDS: LEVOTHYROXINE 25MCG TABLET (0.025MG) PO SCH (05:40)
[2020-06-26] MEDS: SUCRALFATE SUSP 1GM/10ML UD PO SCH ×3 (05:40→18:11)
[2020-06-26] MEDS: SODIUM CHLORIDE 0.9% INJ 10 ML SYR IV SCH ×2 (05:41→16:26)
[2020-06-26] MEDS: OCTREOTIDE ACETATE 100MCG/ML VIAL (J2354 PER 25MCG) IV SCH ×3 (05:41→22:33)
[2020-06-26 06:00] VITALS: BP 154/75
[2020-06-26] MEDS: ANALGESIC BALM CRM 120 GM TOP PRN (07:40)
[2020-06-26] MEDS: ASPIRIN 81 MG ENTERIC TAB PO SCH (09:39)
[2020-06-26] MEDS: CYANOCOBALAMIN 500 MCG TAB PO SCH (09:39)
[2020-06-26] MEDS: VITAMIN D 1,000 INTERNATIONAL UNITS TABLET PO SCH (09:40)
[2020-06-26] MEDS: DOXAZOSIN MESYLATE 1 MG TAB PO SCH (09:40)
[2020-06-26] MEDS: PRAVASTATIN 20 MG TAB PO SCH (09:40)
[2020-06-26] MEDS: VANICREAM MOISTURIZING SKIN CREAM 113GM TUBE TOP SCH ×2 (09:41→22:35)
[2020-06-26] MEDS: lisinopriL 20 MG TAB PO SCH (09:41)
[2020-06-26 10:00] VITALS: BP 149/74
[2020-06-26 11:18] LABS: HEMATOCRIT 26.4 % (42.0-52.0); HEMOGLOBIN 8.7 g/dl (13.5-17.5); MEAN CORPUSCULAR HEMOGLOBIN 28.7 pg (27.0-33.0); MEAN CORPUSCULAR VOLUME 87.1 fl (80.0-96.0); PLATELET COUNT, AUTOMATED 279 10^3/uL (150-450); RED BLOOD COUNT 3.03 10^6/uL (4.30-6.10); WHITE BLOOD COUNT 17.7 10^3/uL (4.0-10.0)
[2020-06-26 11:46] LABS: BLOOD UREA NITROGEN 28 MG/DL (7-18); CALCIUM LEVEL 7.4 MG/DL (8.8-10.2); CARBON DIOXIDE LEVEL 27 MEQ/L (21-32); CHLORIDE LEVEL 108 MEQ/L (98-107); CREATININE FOR GFR 0.96 MG/DL (0.70-1.30); GLOMERULAR FILTRATION RATE > 60.0 (>35); GLUCOSE, FASTING 131 MG/DL (70-100); POTASSIUM SERUM 3.7 MEQ/L (3.5-5.1); SODIUM LEVEL 140 MEQ/L (136-145)
--- NOTE | 2020-06-26 11:57 | IPN ---
PROGRESS NOTE DATE: 06/25/2020 SUBJECTIVE: Patient overall seems a lot better this morning, looks a lot better. Had an endoscopy, found a bleeding ulcer, had some hypotension issues, but overall that has resolved. The problem is that he did have a lot of blood clots within his stomach and thus the entire stomach was not seen. At this time he has been afebrile. His ostomy still is putting out, but it is still melanotic stool and overall his hematocrit is stable. He looks better today, feels a little bit better. I spoke with the son, gave him an update on findings. PHYSICAL EXAMINATION: Abdominal exam is rather benign still. His ostomy is functioning well. His abdomen is soft. His wound-VAC is in place. IMPRESSION AND PLAN: Patient has a GI bleed secondary to a bleeding ulcer. At this point it is hard to know if he has stopped bleeding or whether there is some possible ooze going on, but we will continue with the PPIs, Carafate for now. I spoke with Dr. Perera and pending is whether he will do another endoscopy or not and at this point it seems as though we will start him on some clears given that we do not have that planned for today and see how he does with follow up serial hematocrits.
[2020-06-26 14:00] VITALS: BP 146/74
--- NOTE | 2020-06-26 14:28 | IPN ---
PROGRESS NOTE SUBJECTIVE: Patient's hematocrit looks stable overnight although it did drop a little bit since yesterday mid-morning, but it has been stable since 24 hours ago although he still has a fair bit of melanotic stool within his ostomy bag. Looks a little bit paler as well and GI has plans for endoscopy later on today. Overall his abdomen is soft, nontender. He is not having any nausea, no vomiting. He has been afebrile. His white count is still elevated; however, and otherwise we are not seeing any new findings. PHYSICAL EXAMINATION: On his physical exam his abdomen is otherwise soft. His wound-VAC is in place and it is obvious that this is coming together. Each time the wound-VAC gets changed it seems as though there is a little bit smaller area to close in and his ostomy is pink and functioning well. IMPRESSION/PLAN: GI bleeding is undetermined whether it has stopped, but at this point his hematocrit has been stable for 24 hours, I anticipate this is less likely that he has significant oozing and the question is whether to transfuse him or not. He has not been tachycardic and not having any shortness of breath. I will defer that to medicine to ask their opinion concerning transfusion, but at this time we will continue with supportive care. I appreciate the infectious disease as well as medicine's assistance with this complicated individual.
--- NOTE | 2020-06-26 15:30 | IPN ---
PROGRESS NOTE DATE: 06/26/2020 Mr. Singh is doing good. He was anxious during his wound vacuum-assisted closure (VAC) change but otherwise had no complaints. He was on the schedule to get an endoscopy, but since his hemoglobin was stable this was canceled, and the patient will be given back clear liquids. LABORATORY DATA: White count 17.7, hemoglobin 8.7, hematocrit 26.4, platelets 279. Hemoglobin is stable from yesterday. Sodium 140, potassium 4.7, chloride 108, bicarbonate 27, BUN 28, creatinine 0.96, glucose 131, calcium 7.4. MEDICATIONS: - intravenous (IV) Zosyn 3.375 grams every 6 hours - total parenteral nutrition (TPN) - octreotide 100 mcg IV ever 8 hours PHYSICAL EXAMINATION: A frail, elderly gentleman in no acute distress. Temperature is 97.8, pulse 95, respirations 18, blood pressure 149/74, oxygen saturation 95% on room air. HEART: Normal S1, S2. No murmurs, rubs, or gallops. LUNGS: Crackles at left base. No wheezes, rales, or rhonchi. ABDOMEN: Soft, mildly tender in the right lower quadrant. Wound VAC was removed today. He has two salinas around his belly button, and his has wound dehiscence superiorly measured about 2 x 2 cm, inferiorly about 4 x 4 cm, both clean with granulation tissue. On the inferior portion there is a small area of yellow fibrinous tissue. No cellulitis. No purulence. EXTREMITIES: No clubbing, cyanosis, or edema. IMPRESSION: 1. Ischemic colitis, status post laparotomy with rectal stump infection, day #8 of IV Zosyn. Probably patient could be discontinued on antibiotics after 10 days. 2. Gastrointestinal (GI) bleed, on proton pump inhibitors (PPIs), Carafate and Sandostatin. 3. Anemia due to GI bleed, stable. PLAN: Vancomycin has been discontinued. Last dose was on June 20. Would suggest discontinuing IV Zosyn after a total of [address] Jackson agreeable.
[2020-06-26 18:00] VITALS: BP 143/74
[2020-06-26] MEDS ORDERED: MULTIVITAMIN -ADULT INJECTION 10 ML, CR/CU/SE/MN/ZN INJ 1 ML in AMINO AC/ELECTROLYTE/DE... IV SCH (18:00)
[2020-06-26] MEDS ORDERED: FAT EMULSION IV 20% 500 ML IV SCH (18:00)
[2020-06-26 22:00] VITALS: BP 153/74
--- NOTE | 2020-06-26 22:44 | IPNPDOC ---
Date Seen The patient was seen on 06/26/20. Progress Note SUBJECTIVE: patient was seen and examined at bedside. Vitals are stable. Patient is alert and oriented. Denies chest pain. Denies worsening abdominal pain. No seizures of breath or palpitations. Hgb stable this morning. No further hematemesis. Ostomy bag still has dark stool. OBJECTIVE PHYSICAL EXAMINATION: VITAL SIGNS: Please see below. GENERAL: not in acute distress, pleasant, comfortable in bed HEENT: PERRLA CARDIOVASCULAR: RRR normal, S1, S2 RESPIRATORY: decreased breath sounds at bases, crackles ABDOMINAL: soft, slight tenderness in LLQ. LLQ colostomy,dark bloody contents in colostomy. EXTREMITIES: no cyanosis, no edema Neuro: no focal deficits, moving all 4 extremities LABORATORY DATA, IMAGING STUDIES, MICROBIOLOGY: Please see below. DVT prophylaxis ordered?: Y ASSESSMENT AND PLAN: 80 yo M, presented to ER on 06/03/20 with abdominal pain, distension, with nausea and vomiting. No free seen initially on xray imaging, but contained perforation see on CT abdo. Surgery was consulted and patient was taken to OR for ex lap and resection of necrotic tissue with a diverting colostomy on 06/03/20. Developed UGIB, s/p EGD by Dr. Meng which revealed a bleeding gastric ulcer. Hemoglobin remains stable, diet advanced to CLD. PROBLEMS: #sepsis: Source likely rectal stump. Blood cultures negative. Per Dr. Patiño, continue IV zosyn for a total of 10 days (ETO 06/29/20) Vanc DC. New leukocytosis on 06/24. Afebrile. Repeat blood culture from 06/24 prelim negative. #hematemesis: Hgb dropped to 5.7, transfused. CT abdomen and pelvis performed. No bowel obstruction or distension, large volume of ingested material in stomach. Acute cholecystitis seen. Dr. Jackson informed. Dr. Perera consulted. S/p EGD. Large oozing gastic ulcer. Clipped. IV protonix 40 mg BID. Transitioned diet, now CLD. Hgb remains stable. Repeat EGD deferred for now.. #lactic acidosis: resolved #Acute cholecystitis: seen on US. Zosyn. #Bowel necrosis with perforation: s/p ex lap with bowel resection and diverting colostomy. NGT removed. Wound vac in place. Rectal output, rectal tube in place. Per Dr. Jackson, plan to remove on 06/24/20 #Anemia: hgb stable. 2/2 AOCD, acute blood loss anemia from recent surgery #Acute hypercarbic respiratory failure resolved. required bipap after extub ation. #Hypokalemia: replace. #MAXWELL: resolved. #Hypothyroidism: synthroid VS, I&O, 24H, Fishbone Vital Signs/I&O Vital Signs Date Time Temp Pulse Resp B/P (MAP) Pulse Ox O2 Delivery O2 Flow Rate FiO2 06/26/20 18:00 98.3 108 18 143/74 (97) 96 Room Air 06/25/20 16:00 2.0 I&O- Last 24 Hours up to 6 AM 06/26/20 06:00 Intake Total 3275 ml Output Total 3050 ml Balance 225 ml Laboratory Data 24H LABS Laboratory Tests 2 06/25/20 20:49: Bedside Glucose (Misc Panel) 133H 06/26/20 03:46: Coronavirus (COVID-19)(PCR) NEGATIVE 06/26/20 10:48: Nucleated Red Blood Cells % (auto) 0.0, Anion Gap 5L, Glomerular Filtration Rate > 60.0, Calcium Level 7.4L 06/26/20 11:16: Bedside Glucose (Misc Panel) 127H 06/26/20 17:21: Bedside Glucose (Misc Panel) 126H CBC/BMP Laboratory Tests 06/25/20 23:48 06/26/20 10:48 Microbiology Microbiology 06/24/20 Blood Culture - Preliminary, Resulted No Growth after 48 hours. All Specime... 06/19/20 Urine Culture - Final, Complete 06/19/20 Blood Culture - Final, Complete NO GROWTH AFTER 5 DAYS 06/19/20 Blood Culture - Final, Complete NO GROWTH AFTER 5 DAYS MANJULA WRAY MD Jun 26, 2020 22:44
[2020-06-27] MEDS: METOCLOPRAMIDE INJ 10MG/2ML VIAL (J2765 PER 1) IV SCH ×3 (01:46→18:29)
[2020-06-27] MEDS: SUCRALFATE SUSP 1GM/10ML UD PO SCH ×5 (01:46→23:56)
[2020-06-27 02:00] VITALS: BP 154/75
[2020-06-27] MEDS: PANTOPRAZOLE 40MG VIAL (C9113 PER 1) IV SCH ×2 (04:08→15:24)
[2020-06-27] MEDS: PIPERACILLIN/TAZOBACTAM SOD 3.375 GM in D5W MINI-BAG PLUS 50 ML IV SCH ×4 (04:09→22:49)
[2020-06-27] MEDS: ANALGESIC BALM CRM 120 GM TOP PRN ×2 (04:25→23:54)
[2020-06-27 06:00] VITALS: BP 121/53
[2020-06-27] MEDS: OCTREOTIDE ACETATE 100MCG/ML VIAL (J2354 PER 25MCG) IV SCH (06:18)
[2020-06-27] MEDS: LEVOTHYROXINE 25MCG TABLET (0.025MG) PO SCH (06:19)
[2020-06-27] MEDS: SODIUM CHLORIDE 0.9% INJ 10 ML SYR IV SCH ×2 (06:19→18:29)
[2020-06-27 07:35] LABS: ALBUMIN 1.7 GM/DL (3.2-5.2); ALT/SGPT 27 U/L (12-78); BILIRUBIN,TOTAL 0.3 MG/DL (0.2-1.0); BLOOD UREA NITROGEN 23 MG/DL (7-18); CALCIUM LEVEL 7.9 MG/DL (8.8-10.2); CARBON DIOXIDE LEVEL 29 MEQ/L (21-32); CHLORIDE LEVEL 106 MEQ/L (98-107); CREATININE FOR GFR 1.08 MG/DL (0.70-1.30); GLOMERULAR FILTRATION RATE > 60.0 (>35); GLUCOSE, FASTING 122 MG/DL (70-100); MAGNESIUM LEVEL 2.3 MG/DL (1.8-2.4); POTASSIUM SERUM 3.9 MEQ/L (3.5-5.1); SODIUM LEVEL 139 MEQ/L (136-145)
[2020-06-27] MEDS: PRAVASTATIN 20 MG TAB PO SCH (08:34)
[2020-06-27] MEDS: lisinopriL 20 MG TAB PO SCH (08:34)
[2020-06-27] MEDS: DOXAZOSIN MESYLATE 1 MG TAB PO SCH (08:34)
[2020-06-27] MEDS: ASPIRIN 81 MG ENTERIC TAB PO SCH (08:34)
[2020-06-27] MEDS: VITAMIN D 1,000 INTERNATIONAL UNITS TABLET PO SCH (08:34)
[2020-06-27] MEDS: CYANOCOBALAMIN 500 MCG TAB PO SCH (08:34)
[2020-06-27 09:08] LABS: BASO # 0.2 10^3/uL (0.0-0.2); BASO % 1.5 % (0.0-1.0); EOS # 1.1 10^3/uL (0.0-0.5); EOS % 7.3 % (0.0-3.0); HEMATOCRIT 25.8 % (42.0-52.0); HEMOGLOBIN 8.1 g/dl (13.5-17.5); LYMPH # 1.2 10^3/uL (1.5-5.0); LYMPH % 8.3 % (24.0-44.0); MEAN CORPUSCULAR HGB CONC 31.4 g/dl (32.0-36.5); MEAN CORPUSCULAR VOLUME 89.3 fl (80.0-96.0); MONO # 1.1 10^3/uL (0.0-0.8); MONO % 7.4 % (0.0-5.0); NEUTROPHILS # 10.4 10^3/uL (1.5-8.5); NEUTROPHILS % 71.4 % (36.0-66.0); PLATELET COUNT, AUTOMATED 290 10^3/uL (150-450); RED BLOOD COUNT 2.89 10^6/uL (4.30-6.10); WHITE BLOOD COUNT 14.5 10^3/uL (4.0-10.0)
[2020-06-27] MEDS: VANICREAM MOISTURIZING SKIN CREAM 113GM TUBE TOP SCH ×2 (09:20→22:50)
[2020-06-27 10:00] VITALS: BP 120/60
--- NOTE | 2020-06-27 10:35 | IPNPDOC ---
Date Seen The patient was seen on 06/27/20. Progress Note SUBJECTIVE: patient was seen and examined at bedside. Vitals are stable. Patient is alert and oriented. Denies chest pain. Denies worsening abdominal pain. No seizures of breath or palpitations. Hgb 8.1 this morning. No further hematemesis. Ostomy bag still has dark stool. OBJECTIVE PHYSICAL EXAMINATION: VITAL SIGNS: Please see below. GENERAL: not in acute distress, pleasant, comfortable in bed HEENT: PERRLA CARDIOVASCULAR: RRR normal, S1, S2 RESPIRATORY: decreased breath sounds at bases, crackles ABDOMINAL: soft, slight tenderness in LLQ. LLQ colostomy,dark bloody contents in colostomy. EXTREMITIES: no cyanosis, no edema Neuro: no focal deficits, moving all 4 extremities LABORATORY DATA, IMAGING STUDIES, MICROBIOLOGY: Please see below. DVT prophylaxis ordered?: Y ASSESSMENT AND PLAN: 80 yo M, presented to ER on 06/03/20 with abdominal pain, distension, with nausea and vomiting. No free seen initially on xray imaging, but contained perforation see on CT abdo. Surgery was consulted and patient was taken to OR for ex lap and resection of necrotic tissue with a diverting co lostomy on 06/03/20. Developed UGIB, s/p EGD by Dr. Perera which revealed a bleeding gastric ulcer. Hemoglobin remains stable, diet advanced to CLD. PROBLEMS: #sepsis: Source likely rectal stump. Blood cultures negative. WBC improving, 14.5. Per Dr. Patiño, continue IV zosyn for a total of 10 days (ETO 06/29/20) Vanc CT. Afebrile. #hematemesis: CT abdomen and pelvis performed. No bowel obstruction or distension, large volume of ingested material in stomach. Acute cholecystitis seen. Dr. Jackson informed. Dr. Perera consulted. S/p EGD. Large oozing gastic ulcer. Clipped. IV protonix 40 mg BID. Transitioned diet, now CLD. Hgb remains stable. Hgb 8.1 this morning. Will inform GI if drops below 8. #lactic acidosis: resolved #Acute cholecystitis: seen on US. Zosyn. #Bowel necrosis with perforation: s/p ex lap with bowel resection and diverting colostomy. NGT removed. Wound vac in place. #Anemia: hgb stable. 2/2 AOCD, acute blood loss anemia from recent surgery #Acute hypercarbic respiratory failure resolved. required bipap after extubation. #Hypokalemia: replace. #MAXWELL: resolved. #Hypothyroidism: synthroid VS, I&O, 24H, Fishbone Vital Signs/I&O Vital Signs Date Time Temp Pulse Resp B/P (MAP) Pulse Ox O2 Delivery O2 Flow Rate FiO2 06/27/20 10:00 97.9 107 19 120/60 (80) 95 Room Air 06/25/20 16:00 2.0 I&O- Last 24 Hours up to 6 AM 06/27/20 06:00 Intake Total 1680 ml Output Total 3030 ml Balance -1350 ml Laboratory Data 24H LABS Laboratory Tests 2 06/26/20 10:48: Nucleated Red Blood Cells % (auto) 0.0, Anion Gap 5L, Glomerular Filtration Rate > 60.0, Calcium Level 7.4L 06/26/20 11:16: Bedside Glucose (Misc Panel) 127H 06/26/20 17:21: Bedside Glucose (Misc Panel) 126H 06/27/20 00:12: Bedside Glucose (Misc Panel) 107 06/27/20 05:56: Bedside Glucose (Misc Panel) 89 06/27/20 06:40: Immature Granulocyte % (Auto) 4.1H, Neutrophils (%) (Auto) 71.4H, Lymphocytes (%) (Auto) 8.3L, Monocytes (%) (Auto) 7.4H, Eosinophils (%) (Auto) 7.3H, Basophils (%) (Auto) 1.5H, Neutrophils # (Auto) 10.4H, Lymphocytes # (Auto) 1.2L, Monocytes # (Auto) 1.1H, Eosinophils # (Auto) 1.1H, Basophils # (Auto) 0.2, Nucleated Red Blood Cells % (auto) 0.1H 06/27/20 06:43: Anion Gap 4L, Glomerular Filtration Rate > 60.0, Calcium Level 7.9L, Magnesium Level 2.3, Total Bilirubin 0.3, Aspartate Amino Transf (AST/SGOT) 19, Alanine Aminotransferase (ALT/SGPT) 27, Alkaline Phosphatase 70, Total Protein 5.0L, Albumin 1.7#L, Albumin/Globulin Ratio 0.5 CBC/BMP Laboratory Tests 06/26/20 10:48 06/27/20 06:40 06/27/20 06:43 Microbiology Microbiology 06/24/20 Blood Culture - Preliminary, Resulted No Growth after 48 hours. All Specime... 06/19/20 Urine Culture - Final, Complete 06/19/20 Blood Culture - Final, Complete NO GROWTH AFTER 5 DAYS 06/19/20 Blood Culture - Final, Complete NO GROWTH AFTER 5 DAYS MANJULA WRAY MD Jun 27, 2020 10:35
[2020-06-27] MEDS ORDERED: guaiFENesin SYRUP 200 MG/10 ML UDC PO PRN (12:15)
[2020-06-27 14:00] VITALS: BP 142/80
--- NOTE | 2020-06-27 14:20 | IPN ---
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 Recently, he has had a gastrointestinal bleed apparently arising from an upper gastric source. He had received a blood transfusion of 4 units of blood on the 24 of June. An endoscopy was performed by Dr. Perera with clipping of a gastric source. His bleeding seems to have abated. VITAL SIGNS: The patient has been afebrile over the past 24 hours. His pulse remains in the mid 90s to as high as a 110, which appears quite stable from the last few days. His blood pressure is good and his room air oxygen saturation is normal. Intake and output shows that yesterday he had 2400 in with 4000 out. He had a 150 cc of stool recorded out. PHYSICAL EXAMINATION: The patient is awake and appears alert and oriented. He appears somewhat pale and quite frail, lying quietly in the hospital bed. Heart examination shows a regular rhythm. Lungs show good bilateral breath sounds. Abdominal examination shows a wound V.A.C dressing in the low mid portion of the abdomen. This has minimal output. He has a colostomy in the left side of the abdomen with a small amount of dark old blood in the bag. The stoma is flat, but appears viable. He has bowel sounds present and the abdomen is soft without any significant tenderness. Lower extremities show no edema and he has palpable radial and pedal pulses. LABORATORY STUDIES: Show a white count of 14,000 with hemoglobin of 8, hematocrit 26 and platelet count of 290,000. Differential count shows 71% neutrophils, 8% lymphocytes, 7% monocytes and 7% eosinophils. Chemistry profile shows normal electrolytes with a BUN of 23, creatinine 1 and a glucose of 122. Protein is 5.0 with an albumin of 1.7, which is improved from three days ago. Fingerstick blood sugars have ranged from 89 to 127 over the last 24 hours. IMPRESSION: The patient appears to be doing well with no evidence of any active bleeding at this point. His colostomy seems to be functioning. He has remained for the last day on some clear liquids. PLAN: I am going to discontinue several medications that he has not used including rectal Tylenol, throat lozenges, small dose morphine and I am going to go ahead and stop his octreotide at this point. He appears on several other medications that I think are probably nonessential, but I will leave these for now. I will advance him to a full liquid diet. We will continue to monitor him for any signs of bleeding. BRAXTOND
--- NOTE | 2020-06-27 15:30 | REP ---
INDICATION: Cough- Under Covid Precautions. COMPARISON: 06/19/2020. TECHNIQUE: Single frontal portable view of the chest is performed. FINDINGS: There is no acute infiltrate. Blunting of the right costophrenic angle is unchanged. The heart appears upper limits of normal in size. The mediastinal silhouette is unremarkable. There is a left arm PICC line. The tip appears to be in the very central aspect of the left brachiocephalic vein. The previously noted nasogastric tube has been removed. IMPRESSION: No acute infiltrate. <Electronically signed by Jose Carlos Shafer > 06/27/20 1524
[2020-06-27 18:00] VITALS: BP 138/74
[2020-06-27] MEDS ORDERED: AMINO AC/ELECTROLYTE/DEX/CALC 2,000 ML IV SCH (18:00)
[2020-06-27] MEDS ORDERED: FAT EMULSION IV 20% 500 ML IV SCH (18:00)
[2020-06-27] MEDS: HumaLOG INSULIN (NovoLOG) PER UNIT SC SCH ×2 (18:30→23:56)
[2020-06-27 18:33] LABS: BASO # 0.2 10^3/uL (0.0-0.2); BASO % 1.1 % (0.0-1.0); HEMATOCRIT 26.2 % (42.0-52.0); HEMOGLOBIN 8.4 g/dl (13.5-17.5); LYMPH # 1.2 10^3/uL (1.5-5.0); LYMPH % 8.4 % (24.0-44.0); MEAN CORPUSCULAR HEMOGLOBIN 28.6 pg (27.0-33.0); MEAN CORPUSCULAR HGB CONC 32.1 g/dl (32.0-36.5); MEAN CORPUSCULAR VOLUME 89.1 fl (80.0-96.0); MONO % 6.5 % (0.0-5.0); NEUTROPHILS # 10.8 10^3/uL (1.5-8.5); NEUTROPHILS % 72.9 % (36.0-66.0); PLATELET COUNT, AUTOMATED 294 10^3/uL (150-450); RED BLOOD COUNT 2.94 10^6/uL (4.30-6.10); WHITE BLOOD COUNT 14.8 10^3/uL (4.0-10.0)
[2020-06-27 20:35] VITALS: BP 129/69
[2020-06-28] MEDS: PIPERACILLIN/TAZOBACTAM SOD 3.375 GM in D5W MINI-BAG PLUS 50 ML IV SCH ×4 (02:56→20:56)
[2020-06-28] MEDS: PANTOPRAZOLE 40MG VIAL (C9113 PER 1) IV SCH ×2 (02:56→15:44)
[2020-06-28] MEDS: METOCLOPRAMIDE INJ 10MG/2ML VIAL (J2765 PER 1) IV SCH ×3 (02:56→17:00)
[2020-06-28 06:00] VITALS: BP 137/59
[2020-06-28] MEDS: LEVOTHYROXINE 25MCG TABLET (0.025MG) PO SCH (06:43)
[2020-06-28] MEDS: SODIUM CHLORIDE 0.9% INJ 10 ML SYR IV SCH ×2 (06:43→17:00)
[2020-06-28] MEDS: SUCRALFATE SUSP 1GM/10ML UD PO SCH ×4 (06:43→23:53)
[2020-06-28] MEDS: HumaLOG INSULIN (NovoLOG) PER UNIT SC SCH ×2 (06:53→12:00)
[2020-06-28 06:54] LABS: BASO # 0.2 10^3/uL (0.0-0.2); BASO % 1.3 % (0.0-1.0); EOS # 0.9 10^3/uL (0.0-0.5); HEMATOCRIT 24.9 % (42.0-52.0); HEMOGLOBIN 8.1 g/dl (13.5-17.5); LYMPH # 1.2 10^3/uL (1.5-5.0); LYMPH % 8.6 % (24.0-44.0); MEAN CORPUSCULAR HEMOGLOBIN 29.2 pg (27.0-33.0); MEAN CORPUSCULAR HGB CONC 32.5 g/dl (32.0-36.5); MEAN CORPUSCULAR VOLUME 89.9 fl (80.0-96.0); MONO % 7.3 % (0.0-5.0); NEUTROPHILS # 9.7 10^3/uL (1.5-8.5); NEUTROPHILS % 72.2 % (36.0-66.0); PLATELET COUNT, AUTOMATED 299 10^3/uL (150-450); RED BLOOD COUNT 2.77 10^6/uL (4.30-6.10); WHITE BLOOD COUNT 13.5 10^3/uL (4.0-10.0)
[2020-06-28 07:25] LABS: BLOOD UREA NITROGEN 19 MG/DL (7-18); CREATININE FOR GFR 0.94 MG/DL (0.70-1.30); GLUCOSE, FASTING 122 MG/DL (70-100)
[2020-06-28 07:26] LABS: ALBUMIN 1.7 GM/DL (3.2-5.2); ALT/SGPT 24 U/L (12-78); BILIRUBIN,TOTAL 0.2 MG/DL (0.2-1.0); CALCIUM LEVEL 7.5 MG/DL (8.8-10.2); CARBON DIOXIDE LEVEL 28 MEQ/L (21-32); CHLORIDE LEVEL 109 MEQ/L (98-107); GLOMERULAR FILTRATION RATE > 60.0 (>35); MAGNESIUM LEVEL 2.2 MG/DL (1.8-2.4); POTASSIUM SERUM 3.7 MEQ/L (3.5-5.1); SODIUM LEVEL 141 MEQ/L (136-145); TOTAL PROTEIN 5.1 GM/DL (6.4-8.2)
[2020-06-28] MEDS: ASPIRIN 81 MG ENTERIC TAB PO SCH (08:28)
[2020-06-28] MEDS: CYANOCOBALAMIN 500 MCG TAB PO SCH (08:28)
[2020-06-28] MEDS: PRAVASTATIN 20 MG TAB PO SCH (08:28)
[2020-06-28] MEDS: DOXAZOSIN MESYLATE 1 MG TAB PO SCH (08:28)
[2020-06-28] MEDS: VITAMIN D 1,000 INTERNATIONAL UNITS TABLET PO SCH (08:28)
[2020-06-28] MEDS: lisinopriL 20 MG TAB PO SCH (08:28)
[2020-06-28] MEDS: VANICREAM MOISTURIZING SKIN CREAM 113GM TUBE TOP SCH ×2 (08:29→20:57)
[2020-06-28 10:00] VITALS: BP 121/58
--- NOTE | 2020-06-28 13:21 | IPNPDOC ---
Date Seen The patient was seen on 06/28/20. Progress Note SUBJECTIVE: patient was seen and examined at bedside. Vitals are stable. Patient is alert and oriented. Denies chest pain. Denies worsening abdominal pain. No seizures of breath or palpitations. Hgb 8.1 this morning. No further hematemesis. Ostomy bag still has dark stool. Patient asking for solid food OBJECTIVE PHYSICAL EXAMINATION: VITAL SIGNS: Please see below. GENERAL: not in acute distress, pleasant, comfortable in bed HEENT: PERRLA CARDIOVASCULAR: RRR normal, S1, S2 RESPIRATORY: decreased breath sounds at bases, crackles ABDOMINAL: soft, slight tenderness in LLQ. LLQ colostomy,dark bloody contents in colostomy. EXTREMITIES: no cyanosis, no edema Neuro: no focal deficits, moving all 4 extremities LABORATORY DATA, IMAGING STUDIES, MICROBIOLOGY: Please see below. DVT prophylaxis ordered?: Y ASSESSMENT AND PLAN: 80 yo M, presented to ER on 06/03/20 with abdominal pain, distension, with nausea and vomiting. No free seen initially on xray imaging, but contained perforation see on CT abdo. Surgery was consulted and patient was taken to OR for ex lap and resection of necrotic tissue with a diverting colostomy on 06/03/20. Developed UGIB, s/p EGD by Dr. Perera which revealed a bleeding gastric ulcer. Hemoglobin remains stable, diet advanced to CLD. PROBLEMS: #sepsis: Source likely rectal stump. Blood cultures negative. WBC improving, 14.5. Per Dr. Patiño, continue IV zosyn for a total of 10 days (ETO 06/29/20) Vanc DC. Afebrile. #hematemesis: CT abdomen and pelvis performed. No bowel obstruction or distension, large volume of ingested material in stomach. Acute cholecystitis seen. Dr. Jackson informed. Dr. Perera consulted. S/p EGD. Large oozing gastic ulcer. Clipped. IV protonix 40 mg BID. Sucralfate. Hgb remains stable. Hgb 8.1 this morning. Will inform GI if drops below 8. Advance diet to regular, tolerated full liquid diet well #lactic acidosis: resolved #Acute cholecystitis: seen on US. Zosyn. #Bowel necrosis with perforation: s/p ex lap with bowel resection and diverting colostomy. NGT removed. Wound vac in place. #Anemia: hgb stable. 2/2 AOCD, acute blood loss anemia from recent surgery #Acute hypercarbic respiratory failure resolved. required bipap after extubation. #Hypokalemia: replace. #MAXWELL: resolved. #Hypothyroidism: synthroid Dispo: will require rehab after dc per PT recs. VS, I&O, 24H, Fishbone Vital Signs/I&O Vital Signs Date Time Temp Pulse Resp B/P (MAP) Pulse Ox O2 Delivery O2 Flow Rate FiO2 06/28/20 10:00 98.3 102 18 121/58 (79) 95 Room Air 06/25/20 16:00 2.0 I&O- Last 24 Hours up to 6 AM 06/28/20 06:00 Intake Total 1230 ml Output Total 1300 ml Balance -70 ml Laboratory Data 24H LABS Laboratory Tests 2 06/27/20 18:04: Immature Granulocyte % (Auto) 4.1H, Neutrophils (%) (Auto) 72.9H, Lymphocytes (%) (Auto) 8.4L, Monocytes (%) (Auto) 6.5H, Eosinophils (%) (Auto) 7.0H, Basophils (%) (Auto) 1.1H, Neutrophils # (Auto) 10.8H, Lymphocytes # (Auto) 1.2L, Monocytes # (Auto) 1.0H, Eosinophils # (Auto) 1.0H, Basophils # (Auto) 0.2, Nucleated Red Blood Cells % (auto) 0.0 06/27/20 18:15: Bedside Glucose (Misc Panel) 121H 06/27/20 23:51: Bedside Glucose (Misc Panel) 120H 06/28/20 06:41: Immature Granulocyte % (Auto) 3.6H, Neutrophils (%) (Auto) 72.2H, Lymphocytes (%) (Auto) 8.6L, Monocytes (%) (Auto) 7.3H, Eosinophils (%) (Auto) 7.0H, Basophils (%) (Auto) 1.3H, Neutrophils # (Auto) 9.7H, Lymphocytes # (Auto) 1.2L, Monocytes # (Auto) 1.0H, Eosinophils # (Auto) 0.9H, Basophils # (Auto) 0.2, Nucleated Red Blood Cells % (auto) 0.0, Bedside Glucose (Misc Panel) 117H, Anion Gap 4L, Glomerular Filtration Rate > 60.0, Calcium Level 7.5L, Magnesium Level 2.2, Total Bilirubin 0.2, Aspartate Amino Transf (AST/SGOT) 13, Alanine Aminotransferase (ALT/SGPT) 24, Alkaline Phosphatase 69, Total Protein 5.1L, Albumin 1.7L, Albumin/Globulin Ratio 0.5 06/28/20 11:18: Bedside Glucose (Misc Panel) 99 CBC/BMP Laboratory Tests 06/27/20 18:04 06/28/20 06:41 Microbiology Microbiology 06/24/20 Blood Culture - Preliminary, Resulted No Growth after 72 hours. All specime... 06/19/20 Urine Culture - Final, Complete 06/19/20 Blood Culture - Final, Complete NO GROWTH AFTER 5 DAYS 06/19/20 Blood Culture - Final, Complete NO GROWTH AFTER 5 DAYS MANJULA WRAY MD Jun 28, 2020 13:21
[2020-06-28 14:00] VITALS: BP 126/64
[2020-06-28 18:00] VITALS: BP 124/61
[2020-06-28] MEDS: ACETAMINOPHEN 500 MG TAB PO PRN (18:57)
--- NOTE | 2020-06-28 20:45 | IPN ---
PROGRESS NOTE DATE: 06/28/2020 HISTORY: Patient is approximately postoperative day #25 from exploratory laparotomy and sigmoid colectomy with colostomy for ischemia with perforation. He had a recent episode of gastrointestinal (GI) bleeding apparently from a gastric source and this was clipped at endoscopy several days ago. He has not shown any signs of continued bleeding. I had advanced him to a full liquid diet yesterday and Dr. Caceres advanced him to a regular diet today. Patient is not complaining of significant abdominal pain. Vital signs show that he has been afebrile over the past 24 hours. His pulse is in the low 100s, ranging between 99-110 over the last 24 hours. His blood pressure is excellent and his room air oxygenation is fine. Intake and output shows that yesterday he had 970 reported in orally with 1275 of urine output. He is on total parenteral nutrition and this was not recorded over the last 24 hours. PHYSICAL EXAMINATION: Patient is lying quietly on the hospital bed. He appears a little bit more awake and alert today. He is looking at a menu and reports that he is quite picky about what foods he eats. Skin is warm and dry. His vacuum assisted closure (VAC) dressing is still in good condition on the mid abdomen. The abdomen is flat and without significant tenderness. His ostomy appliance is loose and the bag is largely full of some dark brownish-blackish material but there is no sign of any definite blood. LABORATORY STUDIES: Today, show a white count of 14, hemoglobin of 8, hematocrit 25, and a platelet count of 299,000. Differential count shows 72% neutrophils, 9% lymphocytes, and 7% monocytes. Chemistry profile shows a sodium of 141, potassium 3.7, chloride 109, CO2 of 28, BUN of 19, creatinine 0.9, and a glucose of 122. Total protein is 5.1 with an albumin of 1.7 which is stable. Liver function tests are normal. Finger stick blood sugars are all 121 or less. IMPRESSION: Patient is seemingly doing better. He does not have any evidence for active bleeding. He appears a little bit more awake and interactive today. PLAN: I agree with advancing him to a regular diet. If he seems to tolerate this well, then backing off his total parenteral nutrition (TPN) and discontinuing this would be appropriate. I believe it would be reasonable to discontinue his Zosyn as recommended by Dr. Patiño, which I believe would be tomorrow. Dr. Jackson should be back tomorrow to check on the patient again. MTDD
[2020-06-28 22:00] VITALS: BP 128/62
[2020-06-29 02:00] VITALS: BP 126/60
[2020-06-29] MEDS: METOCLOPRAMIDE INJ 10MG/2ML VIAL (J2765 PER 1) IV SCH ×3 (02:22→16:45)
[2020-06-29] MEDS: PANTOPRAZOLE 40MG VIAL (C9113 PER 1) IV SCH ×2 (02:22→15:12)
[2020-06-29] MEDS: PIPERACILLIN/TAZOBACTAM SOD 3.375 GM in D5W MINI-BAG PLUS 50 ML IV SCH ×4 (02:23→21:33)
[2020-06-29] MEDS: SUCRALFATE SUSP 1GM/10ML UD PO SCH ×3 (05:48→16:44)
[2020-06-29] MEDS: LEVOTHYROXINE 25MCG TABLET (0.025MG) PO SCH (05:48)
[2020-06-29] MEDS: SODIUM CHLORIDE 0.9% INJ 10 ML SYR IV SCH ×2 (05:48→16:45)
[2020-06-29 06:00] VITALS: BP 128/70
[2020-06-29 06:28] LABS: BASO # 0.2 10^3/uL (0.0-0.2); BASO % 1.6 % (0.0-1.0); EOS # 0.9 10^3/uL (0.0-0.5); HEMATOCRIT 26.5 % (42.0-52.0); HEMOGLOBIN 8.4 g/dl (13.5-17.5); LYMPH # 1.3 10^3/uL (1.5-5.0); LYMPH % 10.2 % (24.0-44.0); MEAN CORPUSCULAR HEMOGLOBIN 28.8 pg (27.0-33.0); MEAN CORPUSCULAR HGB CONC 31.7 g/dl (32.0-36.5); MEAN CORPUSCULAR VOLUME 90.8 fl (80.0-96.0); MONO # 0.9 10^3/uL (0.0-0.8); NEUTROPHILS # 8.8 10^3/uL (1.5-8.5); NEUTROPHILS % 71.9 % (36.0-66.0); PLATELET COUNT, AUTOMATED 298 10^3/uL (150-450); RED BLOOD COUNT 2.92 10^6/uL (4.30-6.10); WHITE BLOOD COUNT 12.2 10^3/uL (4.0-10.0)
[2020-06-29 06:52] LABS: ALBUMIN 1.8 GM/DL (3.2-5.2); ALT/SGPT 28 U/L (12-78); BILIRUBIN,TOTAL 0.4 MG/DL (0.2-1.0); BLOOD UREA NITROGEN 17 MG/DL (7-18); CALCIUM LEVEL 7.5 MG/DL (8.8-10.2); CARBON DIOXIDE LEVEL 25 MEQ/L (21-32); CHLORIDE LEVEL 109 MEQ/L (98-107); CREATININE FOR GFR 1.05 MG/DL (0.70-1.30); GLOMERULAR FILTRATION RATE > 60.0 (>35); GLUCOSE, FASTING 80 MG/DL (70-100); MAGNESIUM LEVEL 2.2 MG/DL (1.8-2.4); SODIUM LEVEL 139 MEQ/L (136-145); TOTAL PROTEIN 5.4 GM/DL (6.4-8.2)
[2020-06-29 10:00] VITALS: BP 136/89
[2020-06-29] MEDS: VITAMIN D 1,000 INTERNATIONAL UNITS TABLET PO SCH (10:17)
[2020-06-29] MEDS: CYANOCOBALAMIN 500 MCG TAB PO SCH (10:17)
[2020-06-29] MEDS: PRAVASTATIN 20 MG TAB PO SCH (10:17)
[2020-06-29] MEDS: lisinopriL 20 MG TAB PO SCH (10:18)
[2020-06-29] MEDS: ASPIRIN 81 MG ENTERIC TAB PO SCH (10:18)
[2020-06-29] MEDS: DOXAZOSIN MESYLATE 1 MG TAB PO SCH (10:18)
[2020-06-29] MEDS: VANICREAM MOISTURIZING SKIN CREAM 113GM TUBE TOP SCH ×2 (10:19→21:33)
[2020-06-29] MEDS: SODIUM CHLORIDE 0.9% INJ 10 ML SYR IV PRN (11:55)
[2020-06-29 14:00] VITALS: BP 127/59
[2020-06-29] MEDS: ANALGESIC BALM CRM 120 GM TOP PRN (15:12)
[2020-06-29 18:00] VITALS: BP 130/65
--- NOTE | 2020-06-29 20:34 | ECGEPIP ---
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 Increased heart rate and no PVCs compared with 06/03/2020. Electronically Signed on 06-29-2020 20:34:36 EST by Ty Hamilton
--- NOTE | 2020-06-29 20:38 | IPNPDOC ---
Date Seen The patient was seen on 06/29/20. Progress Note SUBJECTIVE: patient was seen and examined at bedside. Vitals are stable. Patient is alert and oriented. Denies chest pain. Denies worsening abdominal pain. No seizures of breath or palpitations. Hgb stable . No further hematemesis. Ostomy bag still has dark stool. Advanced to regular diet, tolerated well. OBJECTIVE PHYSICAL EXAMINATION: VITAL SIGNS: Please see below. GENERAL: not in acute distress, pleasant, comfortable in bed HEENT: PERRLA CARDIOVASCULAR: RRR normal, S1, S2 RESPIRATORY: decreased breath sounds at bases, crackles ABDOMINAL: soft, slight tenderness in LLQ. LLQ colostomy,dark bloody contents in colostomy. EXTREMITIES: no cyanosis, no edema Neuro: no focal deficits, moving all 4 extremities LABORATORY DATA, IMAGING STUDIES, MICROBIOLOGY: Please see below. DVT prophylaxis ordered?: Y ASSESSMENT AND PLAN: 80 yo M, presented to ER on 06/03/20 with abdominal pain, distension, with nausea and vomiting. No free seen initially on xray imaging, but contained perforation see on CT abdo. Surgery was consulted and patient was taken to OR for ex lap and resection of necrotic tissue with a diverting colostomy on 06/03/20. Developed UGIB, s/p EGD by Dr. Perera which revealed a bleeding gastric ulcer. Hemoglobin remains stable, diet advanced to regular, and has tolerated well. PROBLEMS: #sepsis: Source likely rectal stump. Blood cultures negative. WBC improving, 14.5. Per Dr. Patiño, continue IV zosyn for a total of 10 days (ETO 06/29/20) Vanc DC. Afebrile. #hematemesis: CT abdomen and pelvis performed. No bowel obstruction or distension, large volume of ingested material in stomach. Acute cholecystitis seen. Dr. Jackson informed. Dr. Perera consulted. S/p EGD. Large oozing gastic ulcer. Clipped. IV protonix 40 mg BID. Sucralfate. Hgb remains stable. Hgb 8.1 this morning. Will inform GI if drops below 8. Advances diet to regular and tolerated well. #lactic acidosis: resolved #Acute cholecystitis: seen on US. Zosyn. #Bowel necrosis with perforation: s/p ex lap with bowel resection and diverting colostomy. NGT removed. Wound vac in place. #Anemia: hgb stable. 2/2 AOCD, acute blood loss anemia from recent surgery #Acute hypercarbic respiratory failure resolved. required bipap after extubation. #Hypokalemia: replace. #MAXWELL: resolved. #Hypothyroidism: synthroid Dispo: will require rehab after dc per PT recs. ARU screen placed. VS, I&O, 24H, Fishbone Vital Signs/I&O Vital Signs Date Time Temp Pulse Resp B/P (MAP) Pulse Ox O2 Delivery O2 Flow Rate FiO2 06/29/20 18:00 98.7 102 15 130/65 (86) 96 Room Air 06/25/20 16:00 2.0 I&O- Last 24 Hours up to 6 AM 06/29/20 06:00 Intake Total 3100 ml Output Total 3350 ml Balance -250 ml Laboratory Data 24H LABS Laboratory Tests 2 06/29/20 05:34: Immature Granulocyte % (Auto) 2.3, Neutrophils (%) (Auto) 71.9H, Lymphocytes (%) (Auto) 10.2L, Monocytes (%) (Auto) 7.0H, Eosinophils (%) (Auto) 7.0H, Basophils (%) (Auto) 1.6H, Neutrophils # (Auto) 8.8H, Lymphocytes # (Auto) 1.3L, Monocytes # (Auto) 0.9H, Eosinophils # (Auto) 0.9H, Basophils # (Auto) 0.2, Nucleated Red Blood Cells % (auto) 0.0, Anion Gap 5L, Glomerular Filtration Rate > 60.0, Calcium Level 7.5L, Magnesium Level 2.2, Total Bilirubin 0.4#, Aspartate Amino Transf (AST/SGOT) 17, Alanine Aminotransferase (ALT/SGPT) 28, Alkaline Phosphatase 73, Total Protein 5.4L, Albumin 1.8L, Albumin/Globulin Ratio 0.5 CBC/BMP Laboratory Tests 06/29/20 05:34 Microbiology Microbiology 06/24/20 Blood Culture - Final, Complete NO GROWTH AFTER 5 DAYS 06/19/20 Urine Culture - Final, Complete 06/19/20 Blood Culture - Final, Complete NO GROWTH AFTER 5 DAYS 06/19/20 Blood Culture - Final, Complete NO GROWTH AFTER 5 DAYS MANJULA WRAY MD Jun 29, 2020 20:38
[2020-06-29 22:00] VITALS: BP 129/94
[2020-06-30] MEDS: SUCRALFATE SUSP 1GM/10ML UD PO SCH ×4 (00:15→18:16)
[2020-06-30 02:00] VITALS: BP 135/64
[2020-06-30] MEDS: PANTOPRAZOLE 40MG VIAL (C9113 PER 1) IV SCH ×2 (02:37→15:36)
[2020-06-30] MEDS: METOCLOPRAMIDE INJ 10MG/2ML VIAL (J2765 PER 1) IV SCH ×3 (02:37→18:16)
[2020-06-30] MEDS: PIPERACILLIN/TAZOBACTAM SOD 3.375 GM in D5W MINI-BAG PLUS 50 ML IV SCH (02:37)
[2020-06-30] MEDS: LEVOTHYROXINE 25MCG TABLET (0.025MG) PO SCH (05:59)
[2020-06-30 06:00] VITALS: BP 143/72
[2020-06-30] MEDS: SODIUM CHLORIDE 0.9% INJ 10 ML SYR IV SCH ×2 (06:00→18:17)
[2020-06-30] MEDS: SODIUM CHLORIDE NASAL 0.65% SPRAY BTL (OCEAN) PRN ×2 (06:01→10:19)
[2020-06-30 06:56] LABS: BASO # 0.2 10^3/uL (0.0-0.2); BASO % 1.8 % (0.0-1.0); EOS # 0.7 10^3/uL (0.0-0.5); EOS % 5.8 % (0.0-3.0); HEMATOCRIT 26.5 % (42.0-52.0); HEMOGLOBIN 8.2 g/dl (13.5-17.5); LYMPH # 1.1 10^3/uL (1.5-5.0); LYMPH % 9.1 % (24.0-44.0); MEAN CORPUSCULAR HEMOGLOBIN 28.3 pg (27.0-33.0); MEAN CORPUSCULAR HGB CONC 30.9 g/dl (32.0-36.5); MEAN CORPUSCULAR VOLUME 91.4 fl (80.0-96.0); MONO # 0.9 10^3/uL (0.0-0.8); MONO % 7.7 % (0.0-5.0); NEUTROPHILS % 74.4 % (36.0-66.0); PLATELET COUNT, AUTOMATED 323 10^3/uL (150-450); WHITE BLOOD COUNT 12.2 10^3/uL (4.0-10.0)
[2020-06-30 07:21] LABS: ALBUMIN 1.9 GM/DL (3.2-5.2); ALT/SGPT 32 U/L (12-78); BILIRUBIN,TOTAL 0.4 MG/DL (0.2-1.0); BLOOD UREA NITROGEN 14 MG/DL (7-18); CALCIUM LEVEL 7.6 MG/DL (8.8-10.2); CARBON DIOXIDE LEVEL 23 MEQ/L (21-32); CHLORIDE LEVEL 109 MEQ/L (98-107); CREATININE FOR GFR 1.17 MG/DL (0.70-1.30); GLOMERULAR FILTRATION RATE > 60.0 (>35); GLUCOSE, FASTING 87 MG/DL (70-100); MAGNESIUM LEVEL 2.2 MG/DL (1.8-2.4); POTASSIUM SERUM 3.7 MEQ/L (3.5-5.1); SODIUM LEVEL 140 MEQ/L (136-145); TOTAL PROTEIN 5.4 GM/DL (6.4-8.2)
--- NOTE | 2020-06-30 08:06 | IPNPDOC ---
Text Note Date of Service The patient was seen on 06/30/20. NOTE Subjective: Patient was seen and examined at bedside. Patient is pleasant, alert and oriented answering all questions appropriately. Doesn't endorse abdominal pain. No CP/SOB.Denies hematemesis. Ostomy bag with sold formed stool. tolerating diet well. Nurse reports no overnight events. Objective: GENERAL: not in acute distress, pleasant, comfortable in bed HEENT: PERRLA CARDIOVASCULAR: RRR normal, S1, S2 RESPIRATORY: Lungs are CTA b/l ABDOMINAL: soft, no abdominal tenderness. LLQ colostomy, stool in colostomy. EXTREMITIES: no cyanosis, no edema Neuro: no focal deficits, moving all 4 extremities Assessment/Plan 80 yo M, presented to ER on 06/03/20 with abdominal pain, distension, with nausea and vomiting. No free seen initially on xray imaging, but contained perforation see on CT abdo. Surgery was consulted and patient was taken to OR for ex lap and resection of necrotic tissue with a diverting colostomy on 06/03/20. Developed UGIB, s/p EGD by Dr. Perera which revealed a bleeding gastric ulcer. Hemoglobin remains stable, diet advanced to regular, and has tolerated well. #sepsis: resolved. Source likely rectal stump. Blood cultures negative. WBC r esolved. Per Dr. Patiño, IV zosyn total 10 days completed 06/29/20. [facility]. Afebrile. #hematemesis: CT abdomen and pelvis performed. No bowel obstruction or distension, large volume of ingested material in stomach. Acute cholecystitis seen. Dr. Jackson informed. Dr. Perera consulted. S/p EGD. Large oozing gastic ulcer. Clipped. IV protonix 40 mg BID. Sucralfate. Hgb stable. Diet advanced to regular and tolerated well. #lactic acidosis: resolved #Acute cholecystitis: seen on US. Completed 10 day course of Zosyn. #Bowel necrosis with perforation: s/p ex lap with bowel resection and diverting colostomy. NGT removed. Wound vac in place. #Anemia: hgb stable. 2/2 AOCD, acute blood loss anemia from recent surgery #Acute hypercarbic respiratory failure resolved. required bipap after extubati on. #Hypokalemia: replace. #MAXWELL: resolved. #Hypothyroidism: synthroid Thank you for the opportunity to consult on this patient. I will follow the patient with you intermittently as needed, appears to have no active medical problem at this time, now off of Abx. At this time disposition is per primary team, appears as thought there's plans for rehab next per PT recommendations. Nima Peter Hospitalist Ethan PITTMAN, I+O VSEthan I+O Laboratory Tests 06/30/20 05:30 Vital Signs Date Time Temp Pulse Resp B/P (MAP) Pulse Ox O2 Delivery O2 Flow Rate FiO2 06/30/20 06:00 98.7 97 18 143/72 (95) 93 Room Air 06/25/20 16:00 2.0 I&O- Last 24 Hours up to 6 AM 06/30/20 06:00 Intake Total 900 ml Output Total 1400 ml Balance -500 ml NIMA PETER MD Jun 30, 2020 08:06
[2020-06-30 10:00] VITALS: BP 138/76
[2020-06-30] MEDS: PRAVASTATIN 20 MG TAB PO SCH (10:16)
[2020-06-30] MEDS: ASPIRIN 81 MG ENTERIC TAB PO SCH (10:17)
[2020-06-30] MEDS: CYANOCOBALAMIN 500 MCG TAB PO SCH (10:17)
[2020-06-30] MEDS: VITAMIN D 1,000 INTERNATIONAL UNITS TABLET PO SCH (10:17)
[2020-06-30] MEDS: DOXAZOSIN MESYLATE 1 MG TAB PO SCH (10:20)
[2020-06-30] MEDS: lisinopriL 20 MG TAB PO SCH (10:20)
[2020-06-30] MEDS: VANICREAM MOISTURIZING SKIN CREAM 113GM TUBE TOP SCH ×2 (10:20→21:32)
[2020-06-30] MEDS: SODIUM CHLORIDE 0.9% INJ 10 ML SYR IV PRN ×2 (10:21→15:36)
[2020-06-30 14:00] VITALS: BP 140/78
[2020-06-30 18:00] VITALS: BP 138/76
[2020-06-30 21:00] VITALS: BP 120/60
[2020-07-01] MEDS: SUCRALFATE SUSP 1GM/10ML UD PO SCH ×4 (00:40→18:40)
[2020-07-01] MEDS: PANTOPRAZOLE 40MG VIAL (C9113 PER 1) IV SCH ×2 (03:02→15:39)
[2020-07-01] MEDS: METOCLOPRAMIDE INJ 10MG/2ML VIAL (J2765 PER 1) IV SCH ×3 (03:02→18:40)
[2020-07-01] MEDS: LEVOTHYROXINE 25MCG TABLET (0.025MG) PO SCH (05:34)
[2020-07-01] MEDS: SODIUM CHLORIDE 0.9% INJ 10 ML SYR IV SCH ×2 (05:35→18:40)
[2020-07-01 06:00] VITALS: BP 125/65
[2020-07-01 06:55] LABS: BASO # 0.2 10^3/uL (0.0-0.2); BASO % 1.8 % (0.0-1.0); EOS # 0.6 10^3/uL (0.0-0.5); EOS % 6.3 % (0.0-3.0); HEMATOCRIT 27.1 % (42.0-52.0); HEMOGLOBIN 8.3 g/dl (13.5-17.5); LYMPH # 1.1 10^3/uL (1.5-5.0); LYMPH % 11.3 % (24.0-44.0); MEAN CORPUSCULAR HEMOGLOBIN 27.9 pg (27.0-33.0); MEAN CORPUSCULAR HGB CONC 30.6 g/dl (32.0-36.5); MEAN CORPUSCULAR VOLUME 91.2 fl (80.0-96.0); MONO # 0.9 10^3/uL (0.0-0.8); NEUTROPHILS % 70.9 % (36.0-66.0); PLATELET COUNT, AUTOMATED 335 10^3/uL (150-450); RED BLOOD COUNT 2.97 10^6/uL (4.30-6.10); WHITE BLOOD COUNT 9.8 10^3/uL (4.0-10.0)
[2020-07-01 07:14] LABS: ALBUMIN 1.9 GM/DL (3.2-5.2); ALT/SGPT 31 U/L (12-78); BILIRUBIN,TOTAL 0.3 MG/DL (0.2-1.0); BLOOD UREA NITROGEN 13 MG/DL (7-18); CALCIUM LEVEL 7.6 MG/DL (8.8-10.2); CARBON DIOXIDE LEVEL 23 MEQ/L (21-32); CHLORIDE LEVEL 110 MEQ/L (98-107); CREATININE FOR GFR 0.91 MG/DL (0.70-1.30); GLOMERULAR FILTRATION RATE > 60.0 (>35); GLUCOSE, FASTING 85 MG/DL (70-100); MAGNESIUM LEVEL 2.2 MG/DL (1.8-2.4); POTASSIUM SERUM 3.7 MEQ/L (3.5-5.1); SODIUM LEVEL 141 MEQ/L (136-145); TOTAL PROTEIN 5.6 GM/DL (6.4-8.2)
[2020-07-01 10:00] VITALS: BP 130/68
[2020-07-01] MEDS: ASPIRIN 81 MG ENTERIC TAB PO SCH (10:03)
[2020-07-01] MEDS: PRAVASTATIN 20 MG TAB PO SCH (10:03)
[2020-07-01] MEDS: VITAMIN D 1,000 INTERNATIONAL UNITS TABLET PO SCH (10:03)
[2020-07-01] MEDS: CYANOCOBALAMIN 500 MCG TAB PO SCH (10:04)
[2020-07-01] MEDS: lisinopriL 20 MG TAB PO SCH (10:04)
[2020-07-01] MEDS: DOXAZOSIN MESYLATE 1 MG TAB PO SCH (10:05)
[2020-07-01] MEDS: VANICREAM MOISTURIZING SKIN CREAM 113GM TUBE TOP SCH ×2 (10:05→22:18)
[2020-07-01] MEDS: SODIUM CHLORIDE 0.9% INJ 10 ML SYR IV PRN ×2 (10:05→15:39)
[2020-07-01 14:00] VITALS: BP 107/55
[2020-07-01 18:00] VITALS: BP 115/62
[2020-07-01 22:00] VITALS: BP 127/70
[2020-07-02] MEDS: SUCRALFATE SUSP 1GM/10ML UD PO SCH ×4 (00:45→18:47)
[2020-07-02 02:00] VITALS: BP 126/61
[2020-07-02] MEDS: METOCLOPRAMIDE INJ 10MG/2ML VIAL (J2765 PER 1) IV SCH ×3 (02:53→18:47)
[2020-07-02] MEDS: PANTOPRAZOLE 40MG VIAL (C9113 PER 1) IV SCH ×2 (02:53→16:14)
[2020-07-02] MEDS: SODIUM CHLORIDE 0.9% INJ 10 ML SYR IV PRN ×2 (02:53→18:54)
[2020-07-02 06:00] VITALS: BP 126/63
[2020-07-02] MEDS: LEVOTHYROXINE 25MCG TABLET (0.025MG) PO SCH (06:00)
[2020-07-02] MEDS: SODIUM CHLORIDE 0.9% INJ 10 ML SYR IV SCH ×2 (06:01→18:53)
[2020-07-02 07:48] LABS: BASO # 0.2 10^3/uL (0.0-0.2); BASO % 2.1 % (0.0-1.0); EOS # 0.6 10^3/uL (0.0-0.5); EOS % 6.7 % (0.0-3.0); HEMATOCRIT 27.4 % (42.0-52.0); HEMOGLOBIN 8.6 g/dl (13.5-17.5); LYMPH # 1.1 10^3/uL (1.5-5.0); LYMPH % 12.9 % (24.0-44.0); MEAN CORPUSCULAR HEMOGLOBIN 28.9 pg (27.0-33.0); MEAN CORPUSCULAR HGB CONC 31.4 g/dl (32.0-36.5); MEAN CORPUSCULAR VOLUME 91.9 fl (80.0-96.0); MONO # 0.9 10^3/uL (0.0-0.8); MONO % 9.9 % (0.0-5.0); NEUTROPHILS # 5.9 10^3/uL (1.5-8.5); NEUTROPHILS % 67.7 % (36.0-66.0); PLATELET COUNT, AUTOMATED 337 10^3/uL (150-450); RED BLOOD COUNT 2.98 10^6/uL (4.30-6.10); WHITE BLOOD COUNT 8.8 10^3/uL (4.0-10.0)
[2020-07-02 08:11] LABS: ALT/SGPT 27 U/L (12-78); BILIRUBIN,TOTAL 0.5 MG/DL (0.2-1.0); BLOOD UREA NITROGEN 12 MG/DL (7-18); CARBON DIOXIDE LEVEL 23 MEQ/L (21-32); CHLORIDE LEVEL 112 MEQ/L (98-107); CREATININE FOR GFR 0.93 MG/DL (0.70-1.30); GLOMERULAR FILTRATION RATE > 60.0 (>35); GLUCOSE, FASTING 77 MG/DL (70-100); MAGNESIUM LEVEL 2.1 MG/DL (1.8-2.4); POTASSIUM SERUM 3.6 MEQ/L (3.5-5.1); SODIUM LEVEL 140 MEQ/L (136-145); TOTAL PROTEIN 5.7 GM/DL (6.4-8.2)
[2020-07-02 10:00] VITALS: BP 132/66
[2020-07-02] MEDS: ASPIRIN 81 MG ENTERIC TAB PO SCH (10:22)
[2020-07-02] MEDS: lisinopriL 20 MG TAB PO SCH (10:23)
[2020-07-02] MEDS: DOXAZOSIN MESYLATE 1 MG TAB PO SCH (10:23)
[2020-07-02] MEDS: PRAVASTATIN 20 MG TAB PO SCH (10:24)
[2020-07-02] MEDS: CYANOCOBALAMIN 500 MCG TAB PO SCH (10:24)
[2020-07-02] MEDS: VITAMIN D 1,000 INTERNATIONAL UNITS TABLET PO SCH (10:24)
[2020-07-02] MEDS: VANICREAM MOISTURIZING SKIN CREAM 113GM TUBE TOP SCH ×2 (10:26→19:57)
[2020-07-02] MEDS: ANALGESIC BALM CRM 120 GM TOP PRN (12:51)
[2020-07-02 14:00] VITALS: BP 102/58
[2020-07-02 18:00] VITALS: BP 157/73
[2020-07-02] MEDS: ACETAMINOPHEN 500 MG TAB PO PRN (18:47)
[2020-07-02] MEDS: ONDANSETRON 4MG/2ML VIAL IV PRN (19:56)
[2020-07-02 22:00] VITALS: BP 134/66
[2020-07-03] VITALS (7 sets, daily range): BP systolic 116–151; BP diastolic 64–70
[2020-07-03] MEDS: SUCRALFATE SUSP 1GM/10ML UD PO SCH ×4 (00:18→17:03)
[2020-07-03] MEDS: METOCLOPRAMIDE INJ 10MG/2ML VIAL (J2765 PER 1) IV SCH ×2 (03:02→10:31)
[2020-07-03] MEDS: PANTOPRAZOLE 40MG VIAL (C9113 PER 1) IV SCH (03:02)
[2020-07-03 06:09] LABS: BASO # 0.2 10^3/uL (0.0-0.2); BASO % 2.1 % (0.0-1.0); EOS # 0.6 10^3/uL (0.0-0.5); HEMATOCRIT 26.1 % (42.0-52.0); LYMPH # 1.2 10^3/uL (1.5-5.0); LYMPH % 15.2 % (24.0-44.0); MEAN CORPUSCULAR HEMOGLOBIN 28.3 pg (27.0-33.0); MEAN CORPUSCULAR HGB CONC 30.7 g/dl (32.0-36.5); MEAN CORPUSCULAR VOLUME 92.2 fl (80.0-96.0); MONO # 0.8 10^3/uL (0.0-0.8); NEUTROPHILS # 5.2 10^3/uL (1.5-8.5); NEUTROPHILS % 64.2 % (36.0-66.0); PLATELET COUNT, AUTOMATED 328 10^3/uL (150-450); RED BLOOD COUNT 2.83 10^6/uL (4.30-6.10)
[2020-07-03] MEDS: LEVOTHYROXINE 25MCG TABLET (0.025MG) PO SCH (06:13)
[2020-07-03] MEDS: SODIUM CHLORIDE 0.9% INJ 10 ML SYR IV SCH (06:14)
[2020-07-03 06:26] LABS: ALBUMIN 1.9 GM/DL (3.2-5.2); ALT/SGPT 29 U/L (12-78); BILIRUBIN,TOTAL 0.3 MG/DL (0.2-1.0); BLOOD UREA NITROGEN 15 MG/DL (7-18); CARBON DIOXIDE LEVEL 25 MEQ/L (21-32); CHLORIDE LEVEL 112 MEQ/L (98-107); CREATININE FOR GFR 0.95 MG/DL (0.70-1.30); GLOMERULAR FILTRATION RATE > 60.0 (>35); GLUCOSE, FASTING 84 MG/DL (70-100); MAGNESIUM LEVEL 1.9 MG/DL (1.8-2.4); POTASSIUM SERUM 3.6 MEQ/L (3.5-5.1); SODIUM LEVEL 141 MEQ/L (136-145); TOTAL PROTEIN 5.4 GM/DL (6.4-8.2)
[2020-07-03] MEDS: CYANOCOBALAMIN 500 MCG TAB PO SCH ×2 (10:32→10:38)
[2020-07-03] MEDS: VITAMIN D 1,000 INTERNATIONAL UNITS TABLET PO SCH ×2 (10:32→10:38)
[2020-07-03] MEDS: ASPIRIN 81 MG ENTERIC TAB PO SCH (10:32)
[2020-07-03] MEDS: DOXAZOSIN MESYLATE 1 MG TAB PO SCH (10:34)
[2020-07-03] MEDS: PRAVASTATIN 20 MG TAB PO SCH (10:34)
[2020-07-03] MEDS: VANICREAM MOISTURIZING SKIN CREAM 113GM TUBE TOP SCH ×2 (10:35→21:56)
[2020-07-03] MEDS: lisinopriL 20 MG TAB PO SCH (10:35)
[2020-07-03] MEDS: METOCLOPRAMIDE 10 MG TAB PO SCH ×2 (15:56→21:55)
--- NOTE | 2020-07-03 18:54 | IPN ---
PROGRESS NOTE DATE: 07/03/2020 Mr. Singh seems to be doing much better. He denies any nausea, vomiting, or abdominal pain. He states that he thinks he should be going home on Monday or Monday next week. He seems very excited about that. He lives in a bottom apartment, and his son lives in the top apartment of their house. His about 3 years ago. MEDICATIONS: Intravenous (IV) Protonix 40 mg twice a day and IV Reglan were the only medications he was getting through his peripherally inserted central catheter (PICC) line, and these were changed to oral medication to discontinue the PICC lines. LABORATORY DATA: White count is 8, hemoglobin 8, hematocrit 26.1, platelets 328, 64% neutrophils, 15% lymphocytes, 10% monocytes. Sodium 141, potassium 3.6, chloride 112, bicarbonate 25, BUN 15, creatinine 0.95, glucose 84, calcium 8, AST 14, ALT 29, alkaline phosphatase 73, total protein 5.4, albumin 1.9. Blood culture on June 24 was no growth. Urine culture was negative. PHYSICAL EXAMINATION: Temperature is 98, pulse 111, respirations 16, blood pressure 151/70, oxygen saturation 96% on room air. HEART: Normal S1, S2. Normal. No murmurs. LUNGS: Few crackles at both bases. No wheezes or rhonchi. ABDOMEN: Soft, nontender. He has a wound vacuum-assisted closure (VAC) in place. I did not remove the dressing today. A left lower colostomy with a soft stool. No evidence of bleeding. EXTREMITIES: No clubbing, cyanosis, or edema. IMPRESSION: 1. Ischemic colitis status post bowel resection with diverticulostomy, doing much better. Patient has been off IV Zosyn since July 01 and has been afebrile. White count is normal. 2. Anemia, stable. 3. Gastrointestinal (GI) bleeding, stable. Will switch to oral pantoprazole 40 mg twice a day and Reglan by mouth to be able to discontinue PICC line. PLAN Discontinue PICC line today. Switch all IV medications to oral. Encourage drinking Ensure three times a day. MTDD
[2020-07-03] MEDS: PANTOPRAZOLE 40MG TAB (PROTONIX) PO SCH (21:55)
[2020-07-04] MEDS: SUCRALFATE SUSP 1GM/10ML UD PO SCH ×4 (00:16→18:04)
[2020-07-04 02:00] VITALS: BP 140/62
[2020-07-04 06:00] VITALS: BP 136/67
[2020-07-04] MEDS: METOCLOPRAMIDE 10 MG TAB PO SCH ×3 (06:12→22:12)
[2020-07-04] MEDS: LEVOTHYROXINE 25MCG TABLET (0.025MG) PO SCH (06:12)
[2020-07-04 06:23] LABS: BASO # 0.1 10^3/uL (0.0-0.2); BASO % 1.7 % (0.0-1.0); EOS # 0.6 10^3/uL (0.0-0.5); EOS % 7.5 % (0.0-3.0); HEMATOCRIT 26.9 % (42.0-52.0); HEMOGLOBIN 8.2 g/dl (13.5-17.5); LYMPH # 1.1 10^3/uL (1.5-5.0); LYMPH % 13.8 % (24.0-44.0); MEAN CORPUSCULAR HEMOGLOBIN 28.2 pg (27.0-33.0); MEAN CORPUSCULAR HGB CONC 30.5 g/dl (32.0-36.5); MEAN CORPUSCULAR VOLUME 92.4 fl (80.0-96.0); MONO # 0.8 10^3/uL (0.0-0.8); MONO % 10.2 % (0.0-5.0); NEUTROPHILS # 5.5 10^3/uL (1.5-8.5); NEUTROPHILS % 66.6 % (36.0-66.0); PLATELET COUNT, AUTOMATED 337 10^3/uL (150-450); RED BLOOD COUNT 2.91 10^6/uL (4.30-6.10); WHITE BLOOD COUNT 8.3 10^3/uL (4.0-10.0)
[2020-07-04] MEDS: CYANOCOBALAMIN 500 MCG TAB PO SCH (09:00)
[2020-07-04] MEDS: VITAMIN D 1,000 INTERNATIONAL UNITS TABLET PO SCH (09:00)
[2020-07-04] MEDS: DOXAZOSIN MESYLATE 1 MG TAB PO SCH (09:00)
[2020-07-04 10:00] VITALS: BP 109/56
[2020-07-04] MEDS: PRAVASTATIN 20 MG TAB PO SCH (12:28)
[2020-07-04] MEDS: ASPIRIN 81 MG ENTERIC TAB PO SCH (12:28)
[2020-07-04] MEDS: PANTOPRAZOLE 40MG TAB (PROTONIX) PO SCH ×2 (12:28→22:12)
[2020-07-04] MEDS: lisinopriL 20 MG TAB PO SCH (12:30)
[2020-07-04] MEDS: VANICREAM MOISTURIZING SKIN CREAM 113GM TUBE TOP SCH ×2 (12:32→22:13)
[2020-07-04 14:00] VITALS: BP 127/60
[2020-07-04 18:06] VITALS: BP 137/71
[2020-07-04 22:00] VITALS: BP 152/75
[2020-07-05] MEDS: SUCRALFATE SUSP 1GM/10ML UD PO SCH ×5 (00:23→23:27)
[2020-07-05 02:00] VITALS: BP 153/80
[2020-07-05] MEDS: ACETAMINOPHEN 500 MG TAB PO PRN ×2 (02:49→23:27)
[2020-07-05 06:00] VITALS: BP 155/91
[2020-07-05] MEDS: LEVOTHYROXINE 25MCG TABLET (0.025MG) PO SCH (06:12)
[2020-07-05] MEDS: METOCLOPRAMIDE 10 MG TAB PO SCH ×3 (06:12→23:26)
[2020-07-05] MEDS: VITAMIN D 1,000 INTERNATIONAL UNITS TABLET PO SCH (09:00)
[2020-07-05] MEDS: CYANOCOBALAMIN 500 MCG TAB PO SCH (09:00)
[2020-07-05 10:00] VITALS: BP 131/84
[2020-07-05] MEDS: PANTOPRAZOLE 40MG TAB (PROTONIX) PO SCH ×2 (11:23→23:30)
[2020-07-05] MEDS: PRAVASTATIN 20 MG TAB PO SCH (11:23)
[2020-07-05] MEDS: DOXAZOSIN MESYLATE 1 MG TAB PO SCH (11:24)
[2020-07-05] MEDS: ASPIRIN 81 MG ENTERIC TAB PO SCH (11:25)
[2020-07-05] MEDS: lisinopriL 20 MG TAB PO SCH (11:25)
[2020-07-05] MEDS: VANICREAM MOISTURIZING SKIN CREAM 113GM TUBE TOP SCH ×2 (11:25→23:28)
--- NOTE | 2020-07-05 11:48 | IPN ---
PROGRESS NOTE DATE: 07/04/2020 SUBJECTIVE: Patient seems to be making some good progress at this time. He has been afebrile, feeling well overall. He did have a little bit of rectal drainage yesterday, but otherwise not any other complaints. His white count is stable and he seems to be making some good progress at this time. He has been taking his Ensure 2-3 times a day plus eating some food in addition getting some more strength and moving himself around the room a little bit better. PHYSICAL EXAMINATION: On exam ostomy is functioning fine. His wound-VAC is getting smaller in the coverage area each time he has a dressing change. IMPRESSIONS AND PLANS: 1. GI: Patient is tolerating diet, should be able to be discharged to terminal carman care/home with services, etc. when all that is arranged. 2. Wound-VAC: I would recommend that he continue with the wound-VAC as an outpatient and re-assess this in a week or 2. I anticipate that the wound-VAC probably will not need to be in place more than another 3-4 weeks at most.
[2020-07-05 14:00] VITALS: BP 146/65
[2020-07-05 17:33] VITALS: BP 142/66
--- NOTE | 2020-07-05 20:57 | IPN ---
PROGRESS NOTE DATE: 07/05/2020 Patient seems to be making some slow progress. Overall, no nausea, no vomiting, tolerating his diet, has slowly been eating a little bit more. His ostomy has been functioning well, not having any problems with that per se. He has not had any fevers or chills. His temperature was maximum temperature (T-max) of 99.5, otherwise it is 98.4 with a normal white count at this time. PHYSICAL EXAMINATION: His ostomy is functioning fine. His wound vacuum assisted closure (VAC) is in place and otherwise benign appearing exam. IMPRESSION/PLAN: 1. Patient seems to be making some good progress. From a gastrointestinal (GI) standpoint, we will continue to encourage him to eat and increase his activity. 2. His wound seems to be healing nicely by secondary intention/with the wound vacuum assisted closure (VAC) in place. 3. Disposition. At this point, I anticipate he will be discharged to either subacute rehabilitation or I understand the current discussion is that he can be discharged to home with additional support/visiting nurses, etc, and thus we will see if we cannot do that over the next few days.
[2020-07-05 22:00] VITALS: BP 158/74
[2020-07-06 02:00] VITALS: BP 146/84
[2020-07-06] MEDS: METOCLOPRAMIDE 10 MG TAB PO SCH ×3 (05:46→21:12)
[2020-07-06] MEDS: LEVOTHYROXINE 25MCG TABLET (0.025MG) PO SCH (05:46)
[2020-07-06] MEDS: SUCRALFATE SUSP 1GM/10ML UD PO SCH ×4 (05:46→23:13)
[2020-07-06 06:00] VITALS: BP 146/69
[2020-07-06] MEDS: VITAMIN D 1,000 INTERNATIONAL UNITS TABLET PO SCH (09:00)
[2020-07-06] MEDS: CYANOCOBALAMIN 500 MCG TAB PO SCH (09:00)
[2020-07-06] MEDS: ASPIRIN 81 MG ENTERIC TAB PO SCH (09:08)
[2020-07-06] MEDS: PANTOPRAZOLE 40MG TAB (PROTONIX) PO SCH ×2 (09:08→21:10)
[2020-07-06] MEDS: PRAVASTATIN 20 MG TAB PO SCH (09:11)
[2020-07-06] MEDS: lisinopriL 20 MG TAB PO SCH (09:11)
[2020-07-06] MEDS: DOXAZOSIN MESYLATE 1 MG TAB PO SCH (09:12)
[2020-07-06] MEDS: VANICREAM MOISTURIZING SKIN CREAM 113GM TUBE TOP SCH ×2 (09:13→21:12)
[2020-07-06 14:00] VITALS: BP 118/58
[2020-07-06 18:00] VITALS: BP 131/57
[2020-07-06] MEDS: ACETAMINOPHEN 500 MG TAB PO PRN (21:13)
[2020-07-06 22:00] VITALS: BP 138/63
[2020-07-07 02:00] VITALS: BP 119/68
[2020-07-07 06:00] VITALS: BP 143/72
[2020-07-07] MEDS: SUCRALFATE SUSP 1GM/10ML UD PO SCH ×4 (06:00→23:03)
[2020-07-07] MEDS: METOCLOPRAMIDE 10 MG TAB PO SCH ×3 (06:00→23:03)
[2020-07-07] MEDS: LEVOTHYROXINE 25MCG TABLET (0.025MG) PO SCH (06:00)
[2020-07-07] MEDS: VITAMIN D 1,000 INTERNATIONAL UNITS TABLET PO SCH (09:00)
[2020-07-07] MEDS: CYANOCOBALAMIN 500 MCG TAB PO SCH (09:00)
[2020-07-07] MEDS: PRAVASTATIN 20 MG TAB PO SCH (10:13)
[2020-07-07] MEDS: ASPIRIN 81 MG ENTERIC TAB PO SCH (10:13)
[2020-07-07] MEDS: VANICREAM MOISTURIZING SKIN CREAM 113GM TUBE TOP SCH ×2 (10:14→20:30)
[2020-07-07] MEDS: PANTOPRAZOLE 40MG TAB (PROTONIX) PO SCH ×2 (10:14→20:29)
[2020-07-07 10:17] LABS: HEMATOCRIT 27.3 % (42.0-52.0); HEMOGLOBIN 8.4 g/dl (13.5-17.5); MEAN CORPUSCULAR HEMOGLOBIN 28.4 pg (27.0-33.0); MEAN CORPUSCULAR HGB CONC 30.8 g/dl (32.0-36.5); MEAN CORPUSCULAR VOLUME 92.2 fl (80.0-96.0); PLATELET COUNT, AUTOMATED 327 10^3/uL (150-450); RED BLOOD COUNT 2.96 10^6/uL (4.30-6.10)
[2020-07-07] MEDS: lisinopriL 20 MG TAB PO SCH (10:22)
[2020-07-07] MEDS: DOXAZOSIN MESYLATE 1 MG TAB PO SCH (10:22)
[2020-07-07] MEDS ORDERED: ESOM40CA35 PO (11:05)
[2020-07-07] MEDS ORDERED: LISI-538 PO (11:05)
[2020-07-07] MEDS ORDERED: CARA1TAB6 PO (11:05)
[2020-07-07 14:03] VITALS: BP 119/60
[2020-07-07 18:26] VITALS: BP 123/60
--- NOTE | 2020-07-07 19:21 | IPN ---
INFECTIOUS DISEASE PROGRESS NOTE DATE: 07/07/2020 SUBJECTIVE: Mr. Singh is doing well. He is having his dinner. He was going to be discharged home today but his wound VAC was not approved and therefore his discharge was held. Yesterday night he had a low grade fever with no associated symptoms. No nausea, vomiting or diarrhea. The patient has a minimal cough. He has no shortness of breath, no chest pain. The patient was exposed to COVID in the ICU and his end of quarantine would have been July 09. LABORATORY STUDIES: White count was 8, hemoglobin 8.4, hematocrit 27.3, platelets 327. No cultures were done. IMAGING STUDIES: No recent imaging studies since 06/27. PHYSICAL EXAMINATION: VITAL SIGNS: Temperature is 97.5, last night was 101.3, pulse 115, respirations 16, blood pressure 119/60. O2 sat 98% on room air. HEART: Normal, S1, S2. No murmurs appreciated. LUNGS: Few crackles at the bases. No wheezes or rhonchi. ABDOMEN: Soft, nontender, wound VAC in place. I did not open the wound. Left lower quadrant colostomy nontender with soft stools in the bag. EXTREMITIES: No clubbing, cyanosis, or edema. NEUROLOGICAL: Normal. IMPRESSION: 1. Ischemic colitis - The patient has been off antibiotics since 06/30. Wound is healing well. 2. COVID exposure with fever last night - The patient will have a COVID PCR done tonight. PLAN: COVID PCR tonight hopefully the patient could be discharged home tomorrow with his wound VAC to follow up with surgery.
[2020-07-07 22:00] VITALS: BP 153/80
[2020-07-08 02:00] VITALS: BP 149/76
[2020-07-08 06:00] VITALS: BP 126/69
[2020-07-08] MEDS: METOCLOPRAMIDE 10 MG TAB PO SCH (06:02)
[2020-07-08] MEDS: SUCRALFATE SUSP 1GM/10ML UD PO SCH ×2 (06:02→12:04)
[2020-07-08] MEDS: LEVOTHYROXINE 25MCG TABLET (0.025MG) PO SCH (06:02)
[2020-07-08 07:56] VITALS: BP 126/69
[2020-07-08] MEDS: DOXAZOSIN MESYLATE 1 MG TAB PO SCH (07:56)
[2020-07-08] MEDS: PANTOPRAZOLE 40MG TAB (PROTONIX) PO SCH (07:56)
[2020-07-08] MEDS: PRAVASTATIN 20 MG TAB PO SCH (07:56)
[2020-07-08] MEDS: ASPIRIN 81 MG ENTERIC TAB PO SCH (07:56)
[2020-07-08] MEDS: lisinopriL 20 MG TAB PO SCH (07:57)
[2020-07-08] MEDS: ANALGESIC BALM CRM 120 GM TOP PRN (07:58)
[2020-07-08] MEDS: VANICREAM MOISTURIZING SKIN CREAM 113GM TUBE TOP SCH (07:58)
[2020-07-08] MEDS: SODIUM CHLORIDE NASAL 0.65% SPRAY BTL (OCEAN) PRN (07:59)
[2020-07-08] MEDS: VITAMIN D 1,000 INTERNATIONAL UNITS TABLET PO SCH (08:12)
[2020-07-08] MEDS: CYANOCOBALAMIN 500 MCG TAB PO SCH (08:12)
== END 2020-07-08 15:02 | disposition home or self-care (01) | DRG 853 ==
LOC: M ED 04:08 → M ED INP 08:00 → M ICU 09:56 → M PCU 06-05 10:38 → M MSPAV 06-13 15:55 → M ICU 06-19 02:19 → M PCU 06-20 16:05 → M ICU 06-24 19:40 → M MSPAV 06-25 18:40
PROVIDERS: ADMIT Surgery; ATTEND Surgery
PROC: 0D1N0Z4 Bypass Sigmoid Colon to Cutaneous, Open Approach (ICD-10-PCS; 2020-06-03)
PROC: 06HM3DZ Insertion of Intraluminal Device into Right Femoral Vein, Percutaneous Approach (ICD-10-PCS; 2020-06-03)
PROC: 0DTN0ZZ Resection of Sigmoid Colon, Open Approach (ICD-10-PCS; principal; 2020-06-03 07:55)
PROC: 30233N1 Transfusion of Nonautologous Red Blood Cells into Peripheral Vein, Percutaneous Approach (ICD-10-PCS; 2020-06-19)
PROC: 0W3P8ZZ Control Bleeding in Gastrointestinal Tract, Via Natural or Artificial Opening Endoscopic (ICD-10-PCS; 2020-06-24)
DX: A41.9 Sepsis, unspecified organism (principal); R65.21 Severe sepsis with septic shock; K55.049 Acute infarction of large intestine, extent unspecified; K63.1 Perforation of intestine (nontraumatic); J96.02 Acute respiratory failure with hypercapnia; K25.4 Chronic or unspecified gastric ulcer with hemorrhage; N17.9 Acute kidney failure, unspecified; E87.4 Mixed disorder of acid-base balance; K91.89 Other postprocedural complications and disorders of digestive system; E46 Unspecified protein-calorie malnutrition; T81.30XA Disruption of wound, unspecified, initial encounter; D62 Acute posthemorrhagic anemia; K81.0 Acute cholecystitis; T81.40XA Infection following a procedure, unspecified, initial encounter; E87.6 Hypokalemia

== ENCOUNTER → 2020-10-07 | Outpatient (CLI) | payer MEDICARE ==
[~2020-10-07] MED LIST changes: +ACET-897 PO; +ALPR0.25 PO; +CARA1TAB6 PO; +D31000TA2 PO; +ESOM40CA35 PO; +LISI20TA33 PO; +PATIENT COMMENT; +VENTAER INH
[2020-10-07 11:16] LABS: BLOOD UREA NITROGEN 17 MG/DL (7-18); CREATININE FOR GFR 0.91 MG/DL (0.70-1.30); GLOMERULAR FILTRATION RATE > 60.0 (>35)
== END ==
LOC: M LAB 09:55
PROVIDERS: ATTEND Surgery
DX: Z01.818 Encounter for other preprocedural examination (principal)

== ENCOUNTER → 2020-10-09 | Outpatient (CLI) | payer MEDICARE ==
[~2020-10-09] MED LIST changes: +READI-CAT 2 As Ordered ONE
--- NOTE | 2020-10-09 15:41 | REP ---
INDICATION: ABD PAIN. Open wound in the anterior abdominal wall. Attention to colostomy. COMPARISON: Comparison CT study June 24, 2020.. TECHNIQUE: Oral contrast is administered. IV contrast was not utilized. FINDINGS: Digital preliminary shear tender radiograph demonstrates a normal bowel gas pattern. Enterostomy ring is noted in the left mid abdomen. On axial CT images, there is no evidence of infiltrate in the lung mccullough. There is however a nodular soft tissue density adjacent to an air cyst at the top of the imaging field of view in the left lower lobe. This is incompletely included in the imaging field of view. the nodular soft tissue component is 12 mm in size. this appears to be unchanged from the comparison CT study June 24 2020. The liver and spleen remain normal in size homogeneous in texture. There is a tiny accessory splenule. No adrenal mass is observed. No abnormality is noted in the pancreas. Gallbladder is unremarkable. No retroperitoneal mass is seen. There are left renal cysts again noted the largest of which measures rrrrr 6.1 cm in greatest diameter. Prostate is enlarged as before. Urinary bladder is unremarkable. No hydronephrosis is seen. No abnormal fluid collection is seen. Small bowel loops are opacified with orally administered contrast and appear unremarkable. There is diastasis of the rectus abdominus muscles with unobstructed loops of small bowel protruding somewhat through a broad defect which appears to have been repaired. The left lower quadrant colostomy is unremarkable. No parastomal hernia is seen. No abnormal fluid collection is noted. There is no evidence of bowel obstruction or mass lesion. A normal appendix is seen at the cecal tip. There is soft tissue fullness at the ileocecal valve today, previously more lipomatous in character. This is probably formed fecal material but it is difficult to exclude a mass at the ileocecal valve. The area in question measures 3 cm in diameter. Study is otherwise unremarkable. IMPRESSION: Unremarkable left lower quadrant colostomy area. Status post ventral hernia repair. Enlarged prostate and left renal cyst again noted. There is 3 cm soft tissue D density in the region of the ileocecal valve most likely formed stool as it was not visible on recent prior study of June 24, 2020. <Electronically signed by Jose Vega > 10/09/20 [id number]
== END ==
LOC: M RAD 09:23
PROVIDERS: ATTEND Surgery
DX: N28.1 Cyst of kidney, acquired (principal); S31.105D Unspecified open wound of abdominal wall, periumbilic region without penetration into peritoneal cavity, subsequent encounter; K43.2 Incisional hernia without obstruction or gangrene; R10.84 Generalized abdominal pain; Z93.3 Colostomy status

== ENCOUNTER 2020-11-07 06:35 | Emergency (ER) | payer MEDICARE ==
[~2020-11-07] VITALS: Ht 160 cm; Wt 58.6 kg
[~2020-11-07 06:35] MED LIST changes: -READI-CAT 2 As Ordered ONE
[2020-11-07] MEDS ORDERED: diazePAM 5MG TABLET PO ONE (07:15)
[2020-11-07] MEDS ORDERED: LIDOCAINE 5% (LIDODERM) PATCH TD ONE (07:15)
--- NOTE | 2020-11-07 07:37 | REP ---
INDICATION: severe hip pain, NKI states feels broken COMPARISON: Abdominal x-ray dated 06/12/2020 TECHNIQUE: AP and frog-lateral views of the right hip FINDINGS: Age-related changes are appreciated including increased sclerosis along the acetabular roof with medial joint space narrowing and chronic osteophyte. Findings are stable as compared with right hip from abdominal x-ray dated 06/12/2020. Overlying soft tissues are within normal limits. There is no evidence for acute fracture or dislocation. IMPRESSION: Moderate degenerative changes relatively stable compared to prior images. No acute fracture or dislocation appreciated. <Electronically signed by Efrem Bellamy > 11/07/20 0714
--- NOTE | 2020-11-07 07:49 | REP ---
INDICATION: severe low back pain, down to R foot. COMPARISON: 10/09/2020, 06/19/2020 TECHNIQUE: Axial noncontrast images of the lumbosacral spine from mid T10 through mid sacrum with coronal and sagittal reformations. This CT examination was performed using the following dose reduction techniques: Automated exposure control, adjustment of mA and/or kv according to the patient's size, and use of iterative reconstruction technique. FINDINGS: Alignment and lordosis maintained. Vertebral bodies are intact and there is no evidence for acute fracture/compression injury or subluxation. There is a considerable posterior disc protrusion at the L4-5 level as well as at the L3-4 level which appear to extend into the lateral recesses/neural foramen and impingement on the exiting nerve roots cannot definitively be excluded. Associated ligamentous hypertrophy and facet arthropathy also causes associated moderate/significant canal stenosis. There is a moderate generalized disc bulge at the L5-S1 level which appears to extend towards the left lateral recess and subtle impingement on the exiting left nerve root cannot be excluded. Associated ligamentous hypertrophy and facet arthropathy also causes associated moderate/significant canal stenosis. There is a mild/moderate disc bulge at the L2-3 level along with ligamentous hypertrophy and facet arthropathy causes element of canal stenosis. IMPRESSION: Significant degenerative changes as noted above. Clinical correlation is recommended and MRI should be considered for further investigation. <Electronically signed by Efrem Bellamy > 11/07/20 0774
[2020-11-07] MEDS ORDERED: ONDANSETRON 4 MG TAB PO ONE (08:45)
[2020-11-07] MEDS ORDERED: MORPHINE 10 MG/ML 1ML VIAL (J2270) IM ONE (08:45)
--- NOTE | 2020-11-07 09:53 | REPVR ---
PROCEDURE INFORMATION: Exam: MR Lumbar Spine Without Contrast. Exam date and time: 11/07/2020 9:30 AM Age: 80 years old Clinical indication: Other: Severe pain into rle; Additional info: Severe deg changes on CT, pain into rle TECHNIQUE: Imaging protocol: Multiplanar magnetic resonance images of the lumbar spine without contrast. COMPARISON: CT Spine, lumbar w/o contrast 11/07/2020 7:21 AM FINDINGS: Partially imaged large left renal cyst. There is straightening of the normal lumbar lordosis. Minimal anterolisthesis at L3-L4. No compression fractures. Mild degenerative disc disease from L2 through S1. The distal spinal cord appears normal. At L1-L2, there is no significant spinal canal or neural foraminal narrowing. At L2-L3, there is a minimal circumferential disc bulge. No significant spinal canal or neural foraminal narrowing. At L3-L4, mild circumferential disc bulge and ligamentum flavum hypertrophy are present. Mild spinal canal narrowing. Mild left neural foraminal narrowing. Mild bilateral facet arthrosis. At L4-L5, circumferential disc bulge and a right foraminal zone disc extrusion with mild superior migration is present. Ligamentum flavum hypertrophy. Moderate spinal canal narrowing. The right eccentric disc disease effaces the lateral recess with compression of the traversing L5 nerve roots. Moderate right neural foraminal narrowing with superior displacement of the exiting L4 nerve root. Mild left neural foraminal narrowing. Moderate left and mild right facet arthrosis. At L5-S1, and mild circumferential disc bulge and discogenic osteophytes are present. Mild spinal canal narrowing. Moderate left and mild right neural foraminal narrowing. Moderate bilateral facet arthrosis. IMPRESSION: Multilevel lumbar spine degenerative change most pronounced at L4-L5 with moderate spinal canal narrowing and a right foraminal zone disc extrusion contributing to compression of the traversing cauda equina nerve roots and of the exiting L4 nerve root. Electronically signed by: Lonnie Mclaughlin On 11/07/2020 09:52:08 AM
[2020-11-07 10:50] LABS: BASO # 0.3 10^3/uL (0.0-0.2); BASO % 2.2 % (0.0-1.0); EOS # 1.9 10^3/uL (0.0-0.5); EOS % 15.7 % (0.0-3.0); HEMOGLOBIN 14.3 g/dl (13.5-17.5); LYMPH # 1.7 10^3/uL (1.5-5.0); LYMPH % 14.5 % (24.0-44.0); MEAN CORPUSCULAR HEMOGLOBIN 31.2 pg (27.0-33.0); MEAN CORPUSCULAR VOLUME 91.5 fl (80.0-96.0); MONO # 0.9 10^3/uL (0.0-0.8); MONO % 7.7 % (2.0-8.0); NEUTROPHILS # 7.1 10^3/uL (1.5-8.5); NEUTROPHILS % 59.6 % (36.0-66.0); PLATELET COUNT, AUTOMATED 299 10^3/uL (150-450); RED BLOOD COUNT 4.59 10^6/uL (4.30-6.10)
[2020-11-07 11:07] LABS: ERYTHROCYTE SEDIMENTATION RATE 6 mm/hr (0-20)
[2020-11-07 11:22] LABS: ALBUMIN 3.3 GM/DL (3.2-5.2); ALT/SGPT 24 U/L (12-78); BILIRUBIN,DIRECT < 0.1 MG/DL (0.0-0.2); BILIRUBIN,TOTAL 0.4 MG/DL (0.2-1.0); BLOOD UREA NITROGEN 22 MG/DL (7-18); C REACTIVE PROTEIN QUANTITATIV 0.32 MG/DL (0.00-0.30); CALCIUM LEVEL 8.7 MG/DL (8.8-10.2); CARBON DIOXIDE LEVEL 27 MEQ/L (21-32); CHLORIDE LEVEL 107 MEQ/L (98-107); CREATININE FOR GFR 0.84 MG/DL (0.70-1.30); GLOMERULAR FILTRATION RATE > 60.0 (>35); GLUCOSE, FASTING 85 MG/DL (70-100); LIPASE 66 U/L (73-393); POTASSIUM SERUM 4.5 MEQ/L (3.5-5.1); SODIUM LEVEL 138 MEQ/L (136-145); TOTAL PROTEIN 6.8 GM/DL (6.4-8.2)
[2020-11-07 11:33] VITALS: BP 129/66
[2020-11-07] MEDS ORDERED: **NOTE PATIENT COMMENT** MISC XX SCH (21:00)
== END 2020-11-07 11:40 | disposition short-term general hospital (02) ==
LOC: M ED 06:35
DX: M54.9 Dorsalgia, unspecified (principal); G83.4 Cauda equina syndrome; I10 Essential (primary) hypertension; N40.0 Benign prostatic hyperplasia without lower urinary tract symptoms; E03.9 Hypothyroidism, unspecified; J44.9 Chronic obstructive pulmonary disease, unspecified; Z87.19 Personal history of other diseases of the digestive system; M51.36 Other intervertebral disc degeneration, lumbar region; M16.11 Unilateral primary osteoarthritis, right hip; Z79.82 Long term (current) use of aspirin; Z79.899 Other long term (current) drug therapy; Z91.041 Radiographic dye allergy status
CPT/HCPCS: 36415; 72131; 72148; 73502; 80048; 80076; 83690; 85025; 85652; 86140; 96372; 99284; J2270; U0002

== ENCOUNTER → 2020-11-18 | Outpatient (CLI) | payer OTHER, MEDICARE | LOC: M LAB 10:50 | PROVIDERS: ATTEND Physical Medicine & Rehabilitation | DX: M51.26 Other intervertebral disc displacement, lumbar region (principal) ==

== ENCOUNTER → 2020-12-03 | Outpatient (REF) | payer MEDICARE, OTHER | LOC: M LAB REF 12:12 | PROVIDERS: ATTEND Physician Assistant Medical | DX: R79.82 Elevated C-reactive protein (CRP) (principal) ==

== ENCOUNTER → 2020-12-08 | Outpatient (CLI) | payer OTHER, MEDICARE ==
[2020-12-08 08:37] LABS: PLATELET COUNT, AUTOMATED 338 10^3/uL (150-450)
[2020-12-08 08:47] LABS: INR 1.01; PARTIAL THROMBOPLASTIN TIME 25.9 SECONDS (24.2-38.5); PROTHROMBIN TIME 13.5 SECONDS (12.5-14.3)
== END ==
LOC: M LAB 07:38
PROVIDERS: ATTEND Physical Medicine & Rehabilitation
DX: M51.26 Other intervertebral disc displacement, lumbar region (principal)

== ENCOUNTER → 2021-02-01 | Outpatient (CLI) | payer MEDICARE, OTHER ==
[2021-02-01 11:12] LABS: BLOOD UREA NITROGEN 20 MG/DL (7-18); CREATININE FOR GFR 0.97 MG/DL (0.70-1.30); GLOMERULAR FILTRATION RATE > 60.0 (>35)
== END ==
LOC: M LAB 09:58
PROVIDERS: ATTEND Physical Medicine & Rehabilitation
DX: M48.07 Spinal stenosis, lumbosacral region (principal); M47.897 Other spondylosis, lumbosacral region

== ENCOUNTER → 2021-02-17 | Outpatient (CLI) | payer OTHER ==
[~2021-02-17] MED LIST changes: +CVS5000S2 PO; +FAMO20TA5
== END ==
LOC: M LABSMTC 11:42
PROVIDERS: ATTEND Anesthesiology
DX: Z01.812 Encounter for preprocedural laboratory examination (principal); Z20.822 Contact with and (suspected) exposure to COVID-19

== ENCOUNTER 2021-02-22 09:29 | Day surgery (SDC) | payer MEDICARE ==
[~2021-02-22] VITALS: Ht 160 cm; Wt 58.1 kg
[~2021-02-22 09:29] MED LIST changes: +NS 1,000 ML IV ONE
[2021-02-22] MEDS ORDERED: propofoL 200 MG/20 ML VIAL As Ordered ONE (10:32)
[2021-02-22] MEDS ORDERED: LIDOCAINE 2% 100MG/5ML SDV (FOR ANES.) As Ordered ONE (10:32)
--- NOTE | 2021-02-22 11:06 | ROOR ---
Patient Name: Brayden Singh Procedure Date: 02/22/2021 10:40 AM Date of : 1940 Age: 80 Room: [facility] Gender: Male Note Status: Finalized Procedure: Colonoscopy Indications: Follow-up of diverticulitis Providers: Caleb Jackson Jr, MD Referring MD: Yanelis Salmeron NP Requesting Provider: Medicines: Propofol per Anesthesia Complications: No immediate complications. Procedure: Pre-Anesthesia Assessment: - Prior to the procedure, a History and Physical was performed, and patient medications and allergies were reviewed. The patient is competent. The risks and benefits of the procedure and the sedation options and risks were discussed with the patient. All questions were answered and informed consent was obtained. Patient identification and proposed procedure were verified by the physician and the nurse in the pre-procedure area and in the procedure room. Mental Status Examination: alert and oriented. Airway Examination: normal oropharyngeal airway and neck mobility. Respiratory Examination: clear to auscultation. CV Examination: normal. ASA Grade Assessment: II - A patient with mild systemic disease. After reviewing the risks and benefits, the patient was deemed in satisfactory condition to undergo the procedure. The anesthesia plan was to use moderate sedation / analgesia (conscious sedation). Immediately prior to administration of medications, the patient was re-assessed for adequacy to receive sedatives. The heart rate, respiratory rate, oxygen saturations, blood pressure, adequacy of pulmonary ventilation, and response to care were monitored throughout the procedure. The physical status of the patient was re-assessed after the procedure. The Colonoscope was introduced through the sigmoid colostomy and advanced to the cecum, identified by appendiceal orifice and ileocecal valve. The colonoscopy was performed without difficulty. The patient tolerated the procedure well. Findings: The descending colon, transverse colon, ascending colon, cecum, appendiceal orifice and ileocecal valve appeared normal. A small polyp was found in the rectum. The polyp was removed with a jumbo cold forceps. Resection and retrieval were complete. A medium polyp was found in the rectum. Biopsies were taken with a cold forceps for histology. Impression: - The descending colon, transverse colon, ascending colon, cecum, appendiceal orifice and ileocecal valve are normal. - One small polyp in the rectum, removed with a jumbo cold forceps. Resected and retrieved. - One medium polyp in the rectum. Biopsied. Recommendation: - Discharge patient to home (ambulatory). - Return to my office as previously scheduled. Procedure Code(s): --- Professional --- 12223, Colonoscopy through stoma; with biopsy, single or multiple Diagnosis Code(s): --- Professional --- K62.1, Rectal polyp K57.32, Diverticulitis of large intestine without perforation or abscess without bleeding CPT copyright 2019 [employer]. All rights reserved. The codes documented in this report are preliminary and upon weather forecaster review may be revised to meet current compliance requirements. Caleb Jackson MD Caleb Jackson Jr, MD 02/22/2021 11:06:12 AM Electronically signed by Caleb Jackson Jr, MD Number of Addenda: 0 Note Initiated On: 02/22/2021 10:40 AM Estimated Blood Loss: Estimated blood loss: none.
[2021-02-22 11:26] VITALS: BP 156/72
== END 2021-02-22 11:29 | disposition home or self-care (01) ==
LOC: M OPP 09:29
PROVIDERS: ATTEND Surgery
DX: K62.1 Rectal polyp (principal); K57.32 Diverticulitis of large intestine without perforation or abscess without bleeding; Z87.19 Personal history of other diseases of the digestive system; Z93.3 Colostomy status; Z09 Encounter for follow-up examination after completed treatment for conditions other than malignant neoplasm; Z79.82 Long term (current) use of aspirin; Z79.899 Other long term (current) drug therapy; Z91.041 Radiographic dye allergy status; Z87.891 Personal history of nicotine dependence

== ENCOUNTER 2021-07-13 09:39 | Emergency (ER) | payer MEDICARE ==
[~2021-07-13] VITALS: Ht 160 cm; Wt 62.7 kg
[~2021-07-13 09:39] MED LIST changes: -NS 1,000 ML IV ONE
[2021-07-13 11:39] LABS: BASO # 0.1 10^3/uL (0.0-0.2); BASO % 1.8 % (0.0-1.0); EOS # 0.6 10^3/uL (0.0-0.5); EOS % 8.1 % (0.0-3.0); HEMATOCRIT 41.2 % (42.0-52.0); HEMOGLOBIN 13.8 g/dl (13.5-17.5); LYMPH # 0.8 10^3/uL (1.5-5.0); LYMPH % 10.6 % (24.0-44.0); MEAN CORPUSCULAR HEMOGLOBIN 32.5 pg (27.0-33.0); MEAN CORPUSCULAR HGB CONC 33.5 g/dl (32.0-36.5); MEAN CORPUSCULAR VOLUME 96.9 fl (80.0-96.0); MONO # 0.9 10^3/uL (0.0-0.8); MONO % 11.8 % (2.0-8.0); NEUTROPHILS # 5.2 10^3/uL (1.5-8.5); NEUTROPHILS % 66.9 % (36.0-66.0); PLATELET COUNT, AUTOMATED 275 10^3/uL (150-450); RED BLOOD COUNT 4.25 10^6/uL (4.30-6.10); WHITE BLOOD COUNT 7.7 10^3/uL (4.0-10.0)
--- NOTE | 2021-07-13 11:44 | REP ---
INDICATION: sob COMPARISON: 06/27/2020 TECHNIQUE: PA and lateral. FINDINGS: The mediastinum and cardiac silhouette are normal. Lung mccullough suggest very subtle linear atelectasis in the left mid lung zone and possible trace right basilar airspace disease. No focal consolidation or effusion. No pneumothorax. Mediastinum and cardiac silhouette are normal. IMPRESSION: Minimal acute versus chronic changes. No focal consolidation or effusion. <Electronically signed by Efrem Bellamy > 07/13/21 [id number]
[2021-07-13 11:49] LABS: INR 1.15; PROTHROMBIN TIME 15.2 SECONDS (12.7-14.5)
[2021-07-13 11:50] LABS: PARTIAL THROMBOPLASTIN TIME 26.3 SECONDS (25.9-37.0)
[2021-07-13 12:12] LABS: ALBUMIN 2.8 GM/DL (3.2-5.2); ALT/SGPT 24 U/L (12-78); BILIRUBIN,TOTAL 0.3 MG/DL (0.2-1.0); BLOOD UREA NITROGEN 29 MG/DL (7-18); CALCIUM LEVEL 8.3 MG/DL (8.8-10.2); CARBON DIOXIDE LEVEL 25 MEQ/L (21-32); CHLORIDE LEVEL 109 MEQ/L (98-107); CREATININE FOR GFR 1.17 MG/DL (0.70-1.30); GLOMERULAR FILTRATION RATE > 60.0 (>35); GLUCOSE, FASTING 108 MG/DL (70-100); LIPASE 87 U/L (73-393); POTASSIUM SERUM 4.1 MEQ/L (3.5-5.1); SODIUM LEVEL 140 MEQ/L (136-145); TOTAL PROTEIN 6.1 GM/DL (6.4-8.2)
[2021-07-13 12:19] LABS: RSV AMPLIFICATION NEGATIVE (NEGATIVE)
[2021-07-13] MEDS ORDERED: ISOVUE-370 76% 100ML VIAL As Ordered ONE (13:46)
[2021-07-13 13:47] LABS: ABG BASE EXCESS -2.3 (-2.0-2.0); ABG O2 SATURATION 95.2 % (95.0-99.0); ABG PARTIAL PRESSURE O2 70.9 mmHg (75.0-100.0); ABG STANDARD HCO3 22.5 MEQ/L (22.0-26.0); ABG TOTAL CO2 20.9 MEQ/L (23.0-31.0); ABG pH (ARTERIAL) 7.472 UNITS (7.350-7.450)
--- NOTE | 2021-07-13 14:09 | REP ---
INDICATION: sob/crackles /recent COPD exasperation COMPARISON: None TECHNIQUE: Axial contrast enhanced images from the thoracic inlet to the upper abdomen with coronal and sagittal reformations using 75 ml Isovue 370 intravenous contrast material. This CT examination was performed using the following dose reduction techniques: Automated exposure control, adjustment of mA and/or kv according to the patient's size, and use of iterative reconstruction technique. FINDINGS: Bilateral lung mccullough demonstrate chronic interstitial and emphysematous changes along with bronchiectasis and scattered scarring. There is a small subpleural cyst along the posterior left lower lobe with an adjacent soft tissue nodule measuring 17 mm increased from 06/19/2020 examination (previously measuring 11 mm). No further acute process is appreciated. No effusion. No pneumothorax. Tracheobronchial tree is patent. Mediastinum demonstrates nonspecific mediastinal and hilar adenopathy. Atherosclerotic changes to the thoracic aorta and coronary arteries noted without aortic aneurysm or cardiomegaly. No pericardial effusion. Musculoskeletal structures demonstrate degenerative changes. IMPRESSION: 1. 17 mm nodule in the left lung base adjacent to a small cyst has increased in size from prior examination of 2019. Mild nonspecific mediastinal and hilar adenopathy is also appreciated. Findings may be considered neoplastic unless proven otherwise. Consider PET-CT and biopsy for further investigation. 2. Remainder of the examination demonstrates chronic changes without further acute consolidation, or effusion. <Electronically signed by Efrem Bellamy > 07/13/21 [id number]
[2021-07-13] MEDS ORDERED: PRED20TA PO ×3 (15:03→15:07)
[2021-07-13] MEDS ORDERED: NS 1,000 ML IV ONE (15:15)
[2021-07-13 16:30] VITALS: BP 164/72
--- NOTE | 2021-07-14 11:09 | ED PDOC ---
Post-Departure Follow-Up ct chest faxed to dr david for fu Chris Nye MD Jul 14, 2021 11:09
--- NOTE | 2021-07-14 19:32 | ECGEPIP ---
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
== END 2021-07-13 16:47 | disposition home or self-care (01) ==
LOC: M ED 09:39
DX: J44.1 Chronic obstructive pulmonary disease with (acute) exacerbation (principal); J02.9 Acute pharyngitis, unspecified; R91.1 Solitary pulmonary nodule; J98.4 Other disorders of lung; R94.4 Abnormal results of kidney function studies; I10 Essential (primary) hypertension; N40.0 Benign prostatic hyperplasia without lower urinary tract symptoms; M54.9 Dorsalgia, unspecified; E03.9 Hypothyroidism, unspecified; G62.9 Polyneuropathy, unspecified; K57.92 Diverticulitis of intestine, part unspecified, without perforation or abscess without bleeding; Z87.891 Personal history of nicotine dependence; Z79.82 Long term (current) use of aspirin; Z79.899 Other long term (current) drug therapy; Z91.041 Radiographic dye allergy status
CPT/HCPCS: 36600; 71046; 71260; 80053; 82803; 83690; 85025; 85610; 85730; 87430; 87631; 93005; 96360; 99285; Q9967

== ENCOUNTER → 2021-11-17 | Outpatient (CLI) | payer MEDICARE ==
[~2021-11-17] MED LIST changes: -D31000TA2 PO; -LEVO500T3 PO; +LEVO500T4 PO; +VITA100093 PO
== END ==
LOC: M RAD 09:50
PROVIDERS: ATTEND Internal Medicine Pulmonary Disease
DX: J47.9 Bronchiectasis, uncomplicated (principal); R91.1 Solitary pulmonary nodule; J84.10 Pulmonary fibrosis, unspecified

== ENCOUNTER → 2021-12-21 | Outpatient (CLI) | payer MEDICARE ==
[~2021-12-21] MED LIST changes: +ALBU2.5V10 INH; -ALBU83IN INH
== END ==
LOC: M PLARAD 08:22
PROVIDERS: ATTEND Internal Medicine Pulmonary Disease
DX: R91.8 Other nonspecific abnormal finding of lung field (principal); J98.11 Atelectasis
CPT/HCPCS: 78815; A9552

== ENCOUNTER → 2022-02-03 | Outpatient (CLI) | payer MEDICARE ==
[2022-02-03 10:55] LABS: PLATELET COUNT, AUTOMATED 202 10^3/uL (150-450)
[2022-02-03 11:18] LABS: INR 0.99; PROTHROMBIN TIME 13.5 SECONDS (12.7-14.5)
[2022-02-03 11:19] LABS: PARTIAL THROMBOPLASTIN TIME 26.1 SECONDS (25.9-37.0)
== END ==
LOC: M LAB 08:25
PROVIDERS: ATTEND Internal Medicine Pulmonary Disease
DX: R91.8 Other nonspecific abnormal finding of lung field (principal)

== ENCOUNTER 2022-02-08 14:05 | Inpatient (IN) | payer MEDICARE ==
[~2022-02-08] VITALS: Ht 162.6 cm; Wt 60.3 kg
[~2022-02-08 14:05] MED LIST changes: -HOME MED LIST COMPLETE! XX SCH; -LIDOCAINE 1% MDV 20ML VIAL As Ordered ONE; -MIDAZOLAM INJ 2MG/2ML VIAL (J2250 PER 1MG) As Ordered ONE; -fentaNYL 100 MCG/2 ML INJECTION As Ordered ONE
[2022-02-08] MEDS ORDERED: BISACODYL 10 MG SUPP PR PRN (14:20)
[2022-02-08] MEDS ORDERED: PERCOCET 5MG/325MG TAB PO PRN ×2 (14:20)
[2022-02-08] MEDS ORDERED: ONDANSETRON 4MG 2ML VIAL IV PRN (14:20)
[2022-02-08] MEDS ORDERED: ACETAMINOPHEN TAB 650MG DOSE (2X325MG) PO PRN (14:20)
[2022-02-08] MEDS ORDERED: LEVALBUTEROL 1.25 MG/0.5 ML CONCENTRATE NEB NEB PRN (14:20)
[2022-02-08] MEDS ORDERED: HOME MED LIST COMPLETE! XX SCH (14:35)
[2022-02-08] MEDS: LEVALBUTEROL 1.25 MG/0.5 ML CONCENTRATE NEB NEB SCH ×2 (15:00→19:27)
[2022-02-08 15:08] VITALS: BP 151/68
[2022-02-08] MEDS: MOM 30ML SUSPENSION UDC PO SCH (15:50)
[2022-02-08] MEDS: KCL 20MEQ IN D5/NS 1000ML 1,000 ML IV SCH (15:50)
[2022-02-08] MEDS: KETOROLAC 30 MG/ML 1ML VIAL IV SCH ×2 (15:51→20:54)
[2022-02-08] MEDS: PANTOPRAZOLE 40MG TAB (PROTONIX) PO SCH (15:51)
[2022-02-08 16:13] LABS: BASO # 0.2 10^3/uL (0.0-0.2); BASO % 2.4 % (0.0-1.0); EOS # 0.9 10^3/uL (0.0-0.5); EOS % 9.2 % (0.0-3.0); HEMATOCRIT 41.3 % (42.0-52.0); HEMOGLOBIN 13.7 g/dl (13.5-17.5); LYMPH # 1.5 10^3/uL (1.5-5.0); MEAN CORPUSCULAR HEMOGLOBIN 32.3 pg (27.0-33.0); MEAN CORPUSCULAR HGB CONC 33.2 g/dl (32.0-36.5); MEAN CORPUSCULAR VOLUME 97.4 fl (80.0-96.0); MONO # 0.9 10^3/uL (0.0-0.8); MONO % 9.6 % (2.0-8.0); NEUTROPHILS # 6.2 10^3/uL (1.5-8.5); NEUTROPHILS % 63.4 % (36.0-66.0); PLATELET COUNT, AUTOMATED 195 10^3/uL (150-450); RED BLOOD COUNT 4.24 10^6/uL (4.30-6.10); WHITE BLOOD COUNT 9.8 10^3/uL (4.0-10.0)
[2022-02-08 17:03] LABS: BLOOD UREA NITROGEN 18 MG/DL (7-18); CALCIUM LEVEL 8.6 MG/DL (8.8-10.2); CARBON DIOXIDE LEVEL 25 MEQ/L (21-32); CHLORIDE LEVEL 109 MEQ/L (98-107); CREATININE FOR GFR 0.91 MG/DL (0.70-1.30); GLOMERULAR FILTRATION RATE > 60.0 (>35); GLUCOSE, FASTING 81 MG/DL (70-100); POTASSIUM SERUM 4.2 MEQ/L (3.5-5.1); SODIUM LEVEL 141 MEQ/L (136-145)
[2022-02-08 19:00] VITALS: O2SAT 98
[2022-02-08] MEDS: ADVAIR HFA 230/21MCG INHALER INH SCH (19:27)
[2022-02-08 20:00] VITALS: BP 124/56; O2SAT 94
[2022-02-08] MEDS: DOCUSATE SODIUM 100MG CAPSULE PO SCH (20:53)
[2022-02-08] MEDS: HEPARIN SOD (PORCINE) 5000UNITS/ML 1ML VIAL/SYRINGE SC SCH (20:54)
[2022-02-08 21:00] VITALS: O2SAT 99
[2022-02-08 22:00] VITALS: O2SAT 94
[2022-02-08 23:00] VITALS: O2SAT 90
[2022-02-09] VITALS (17 sets, daily range): BP systolic 130–170; BP diastolic 60–74; O2SAT 91–100
[2022-02-09] MEDS: LEVALBUTEROL 1.25 MG/0.5 ML CONCENTRATE NEB NEB SCH ×4 (01:08→19:30)
[2022-02-09] MEDS: KCL 20MEQ IN D5/NS 1000ML 1,000 ML IV SCH (03:07)
[2022-02-09] MEDS: KETOROLAC 30 MG/ML 1ML VIAL IV SCH ×4 (03:08→20:02)
[2022-02-09 05:33] LABS: BASO # 0.2 10^3/uL (0.0-0.2); BASO % 2.5 % (0.0-1.0); EOS # 0.9 10^3/uL (0.0-0.5); EOS % 12.4 % (0.0-3.0); HEMATOCRIT 40.5 % (42.0-52.0); HEMOGLOBIN 13.2 g/dl (13.5-17.5); LYMPH # 1.3 10^3/uL (1.5-5.0); LYMPH % 17.7 % (24.0-44.0); MEAN CORPUSCULAR HEMOGLOBIN 32.1 pg (27.0-33.0); MEAN CORPUSCULAR HGB CONC 32.6 g/dl (32.0-36.5); MEAN CORPUSCULAR VOLUME 98.5 fl (80.0-96.0); MONO # 0.7 10^3/uL (0.0-0.8); MONO % 9.5 % (2.0-8.0); NEUTROPHILS # 4.4 10^3/uL (1.5-8.5); NEUTROPHILS % 57.8 % (36.0-66.0); PLATELET COUNT, AUTOMATED 172 10^3/uL (150-450); RED BLOOD COUNT 4.11 10^6/uL (4.30-6.10); WHITE BLOOD COUNT 7.6 10^3/uL (4.0-10.0)
[2022-02-09 05:55] LABS: BLOOD UREA NITROGEN 21 MG/DL (7-18); CALCIUM LEVEL 8.1 MG/DL (8.8-10.2); CARBON DIOXIDE LEVEL 29 MEQ/L (21-32); CHLORIDE LEVEL 112 MEQ/L (98-107); CREATININE FOR GFR 0.99 MG/DL (0.70-1.30); GLOMERULAR FILTRATION RATE > 60.0 (>35); GLUCOSE, FASTING 105 MG/DL (70-100); MAGNESIUM LEVEL 2.5 MG/DL (1.8-2.4); POTASSIUM SERUM 4.7 MEQ/L (3.5-5.1); SODIUM LEVEL 143 MEQ/L (136-145)
[2022-02-09] MEDS: ADVAIR HFA 230/21MCG INHALER INH SCH ×2 (08:00→19:30)
[2022-02-09] MEDS: PANTOPRAZOLE 40MG TAB (PROTONIX) PO SCH (08:39)
[2022-02-09] MEDS: MOM 30ML SUSPENSION UDC PO SCH (08:39)
[2022-02-09] MEDS: DOCUSATE SODIUM 100MG CAPSULE PO SCH ×2 (08:39→20:02)
[2022-02-09] MEDS: ASPIRIN 81MG ENTERIC TABLET PO SCH (08:39)
[2022-02-09] MEDS: VITAMIN D 1,000 INTERNATIONAL UNITS TABLET PO SCH (08:40)
[2022-02-09] MEDS: HEPARIN SOD (PORCINE) 5000UNITS/ML 1ML VIAL/SYRINGE SC SCH ×2 (08:40→20:02)
[2022-02-09] MEDS: CYANOCOBALAMIN 500 MCG TAB PO SCH (08:40)
[2022-02-09] MEDS: DOXAZOSIN MESYLATE 1 MG TAB PO SCH (08:40)
[2022-02-10] VITALS (19 sets, daily range): BP systolic 144–163; BP diastolic 65–72; O2SAT 94–100
[2022-02-10] MEDS: LEVALBUTEROL 1.25 MG/0.5 ML CONCENTRATE NEB NEB SCH ×4 (01:45→19:27)
[2022-02-10] MEDS: KETOROLAC 30 MG/ML 1ML VIAL IV SCH ×4 (05:56→20:57)
[2022-02-10 06:25] LABS: BASO # 0.2 10^3/uL (0.0-0.2); BASO % 1.8 % (0.0-1.0); EOS % 10.7 % (0.0-3.0); HEMATOCRIT 40.2 % (42.0-52.0); HEMOGLOBIN 13.4 g/dl (13.5-17.5); LYMPH # 1.2 10^3/uL (1.5-5.0); LYMPH % 13.3 % (24.0-44.0); MEAN CORPUSCULAR HEMOGLOBIN 32.1 pg (27.0-33.0); MEAN CORPUSCULAR HGB CONC 33.3 g/dl (32.0-36.5); MEAN CORPUSCULAR VOLUME 96.4 fl (80.0-96.0); MONO # 0.8 10^3/uL (0.0-0.8); MONO % 9.3 % (2.0-8.0); NEUTROPHILS # 5.8 10^3/uL (1.5-8.5); NEUTROPHILS % 64.7 % (36.0-66.0); PLATELET COUNT, AUTOMATED 181 10^3/uL (150-450); RED BLOOD COUNT 4.17 10^6/uL (4.30-6.10); WHITE BLOOD COUNT 8.9 10^3/uL (4.0-10.0)
[2022-02-10 07:21] LABS: BLOOD UREA NITROGEN 16 MG/DL (7-18); CALCIUM LEVEL 8.6 MG/DL (8.8-10.2); CARBON DIOXIDE LEVEL 26 MEQ/L (21-32); CHLORIDE LEVEL 109 MEQ/L (98-107); CREATININE FOR GFR 0.94 MG/DL (0.70-1.30); GLOMERULAR FILTRATION RATE > 60.0 (>35); GLUCOSE, FASTING 96 MG/DL (70-100); MAGNESIUM LEVEL 2.5 MG/DL (1.8-2.4); POTASSIUM SERUM 4.2 MEQ/L (3.5-5.1); SODIUM LEVEL 141 MEQ/L (136-145)
[2022-02-10] MEDS: ADVAIR HFA 230/21MCG INHALER INH SCH ×2 (08:31→19:27)
[2022-02-10] MEDS: HEPARIN SOD (PORCINE) 5000UNITS/ML 1ML VIAL/SYRINGE SC SCH ×2 (08:47→20:54)
[2022-02-10] MEDS: PANTOPRAZOLE 40MG TAB (PROTONIX) PO SCH (08:48)
[2022-02-10] MEDS: DOCUSATE SODIUM 100MG CAPSULE PO SCH ×2 (08:48→20:54)
[2022-02-10] MEDS: ASPIRIN 81MG ENTERIC TABLET PO SCH (08:48)
[2022-02-10] MEDS: MOM 30ML SUSPENSION UDC PO SCH (08:48)
[2022-02-10] MEDS: CYANOCOBALAMIN 500 MCG TAB PO SCH (08:49)
[2022-02-10] MEDS: VITAMIN D 1,000 INTERNATIONAL UNITS TABLET PO SCH (08:49)
[2022-02-10] MEDS: DOXAZOSIN MESYLATE 1 MG TAB PO SCH (08:52)
== END 2022-02-10 21:57 | disposition home or self-care (01) | DRG 200 ==
LOC: M PCU 14:05
PROVIDERS: ADMIT Thoracic Surgery (Cardiothoracic Vascular Surgery); ATTEND Internal Medicine
PROC: 0W9B30Z Drainage of Left Pleural Cavity with Drainage Device, Percutaneous Approach (ICD-10-PCS; principal; 2022-02-08)
DX: J95.811 Postprocedural pneumothorax (principal); C34.32 Malignant neoplasm of lower lobe, left bronchus or lung; C78.1 Secondary malignant neoplasm of mediastinum; I10 Essential (primary) hypertension; E78.5 Hyperlipidemia, unspecified; E03.9 Hypothyroidism, unspecified; F41.9 Anxiety disorder, unspecified; F32.A Depression, unspecified; E55.9 Vitamin D deficiency, unspecified; E53.8 Deficiency of other specified B group vitamins; N40.0 Benign prostatic hyperplasia without lower urinary tract symptoms; J47.9 Bronchiectasis, uncomplicated; Z98.41 Cataract extraction status, right eye; Z98.42 Cataract extraction status, left eye; Z90.49 Acquired absence of other specified parts of digestive tract; Z79.82 Long term (current) use of aspirin; Z79.899 Other long term (current) drug therapy; Z91.041 Radiographic dye allergy status; Z87.891 Personal history of nicotine dependence; E11.9 Type 2 diabetes mellitus without complications; K21.9 Gastro-esophageal reflux disease without esophagitis; K27.9 Peptic ulcer, site unspecified, unspecified as acute or chronic, without hemorrhage or perforation

== ENCOUNTER → 2022-02-08 | Outpatient (CLI) | payer MEDICARE ==
[~2022-02-08] MED LIST changes: +HOME MED LIST COMPLETE! XX SCH; +LIDOCAINE 1% MDV 20ML VIAL As Ordered ONE; +MIDAZOLAM INJ 2MG/2ML VIAL (J2250 PER 1MG) As Ordered ONE; +fentaNYL 100 MCG/2 ML INJECTION As Ordered ONE
[2022-02-08 14:45] VITALS: BP 125/59
== END ==
LOC: M IRPRO 10:32
PROVIDERS: ATTEND Internal Medicine Pulmonary Disease
DX: C34.32 Malignant neoplasm of lower lobe, left bronchus or lung (principal); J95.811 Postprocedural pneumothorax

== ENCOUNTER → 2022-02-21 | Outpatient (CLI) | payer MEDICARE ==
[~2022-02-21] MED LIST changes: +LEVO1TAB39 PO; -LEVO500T4 PO
== END ==
LOC: M PLAIMG 09:28
PROVIDERS: ATTEND Internal Medicine Pulmonary Disease
DX: J95.811 Postprocedural pneumothorax (principal); Y83.8 Other surgical procedures as the cause of abnormal reaction of the patient, or of later complication, without mention of misadventure at the time of the procedure

== ENCOUNTER → 2022-02-22 | Outpatient (CLI) | payer MEDICARE | LOC: M ONCR 14:10 | PROVIDERS: ATTEND General Practice | DX: C34.32 Malignant neoplasm of lower lobe, left bronchus or lung (principal); J44.9 Chronic obstructive pulmonary disease, unspecified; Z91.041 Radiographic dye allergy status; Z87.891 Personal history of nicotine dependence; Z79.899 Other long term (current) drug therapy ==

== ENCOUNTER → 2022-03-16 | Outpatient (RCR) | payer MEDICARE ==
[~2022-03-16] MED LIST changes: +ONDA-84 PO; +PROC10TA5 PO
== END ==
LOC: M ONCR 03-01 07:10
PROVIDERS: ATTEND General Practice
DX: C34.32 Malignant neoplasm of lower lobe, left bronchus or lung (principal)

== ENCOUNTER → 2022-03-20 | Outpatient (CLI) | payer MEDICARE | LOC: M LABSMTC 10:05 | PROVIDERS: ATTEND Anesthesiology | DX: Z01.812 Encounter for preprocedural laboratory examination (principal); Z20.822 Contact with and (suspected) exposure to COVID-19 ==

== ENCOUNTER → 2022-03-25 | Outpatient (CLI) | payer MEDICARE ==
[~2022-03-25] MED LIST changes: +PROHANCE 279.3MG/ML 15ML VIAL ONE
== END ==
LOC: M PLAIMG 09:57
PROVIDERS: ATTEND General Practice
DX: C34.32 Malignant neoplasm of lower lobe, left bronchus or lung (principal)
CPT/HCPCS: 70553; A9576

== ENCOUNTER → 2022-04-04 | Outpatient (CLI) | payer MEDICARE ==
[~2022-04-04] MED LIST changes: -PROHANCE 279.3MG/ML 15ML VIAL ONE
== END ==
LOC: M LABSMTC 10:08
PROVIDERS: ATTEND Anesthesiology
DX: Z01.812 Encounter for preprocedural laboratory examination (principal); Z20.822 Contact with and (suspected) exposure to COVID-19

== ENCOUNTER → 2022-04-06 | Outpatient (CLI) | payer MEDICARE ==
[~2022-04-06] MED LIST changes: +LIDO2SOL17 PO; +LIDOCAINE 1% MDV 20ML VIAL As Ordered ONE; +MIDAZOLAM INJ 2MG/2ML VIAL (J2250 PER 1MG) As Ordered ONE; +NS 1,000 ML IV SCH; +ceFAZolin 2 GM/D5W 50 ML IV BAG (J0690 PER 500MG) As Ordered ONE; +ceFAZolin SOD 2 GM in IV 1 EA IV ONE; +diphenhydrAMINE 50MG/ML VIAL (J1200) As Ordered ONE; +fentaNYL 100 MCG/2 ML INJECTION As Ordered ONE
[2022-04-06 15:15] VITALS: BP 123/60
== END ==
LOC: M IRPRO 10:15
PROVIDERS: ATTEND Specialist
DX: C34.90 Malignant neoplasm of unspecified part of unspecified bronchus or lung (principal)
CPT/HCPCS: 36561; 99152; 99153; C1769; C1788; C1894; J0690; J1200; J1642; J1644; J2250; J3010

== ENCOUNTER → 2022-04-12 | Outpatient (POV) | payer MEDICARE ==
[~2022-04-12] VITALS: Ht 160 cm; Wt 61.8 kg
[~2022-04-12] MED LIST changes: -LIDOCAINE 1% MDV 20ML VIAL As Ordered ONE; -MIDAZOLAM INJ 2MG/2ML VIAL (J2250 PER 1MG) As Ordered ONE; -NS 1,000 ML IV SCH; -ceFAZolin 2 GM/D5W 50 ML IV BAG (J0690 PER 500MG) As Ordered ONE; -ceFAZolin SOD 2 GM in IV 1 EA IV ONE; -diphenhydrAMINE 50MG/ML VIAL (J1200) As Ordered ONE; -fentaNYL 100 MCG/2 ML INJECTION As Ordered ONE
[2022-04-12 13:35] VITALS: BP 167/79
== END ==
LOC: M IRPOV 13:21
PROVIDERS: ATTEND Radiology Diagnostic Radiology
DX: Z45.2 Encounter for adjustment and management of vascular access device (principal); Z91.041 Radiographic dye allergy status

== ENCOUNTER → 2022-04-15 | Outpatient (RCR) | payer MEDICARE | LOC: M ONCR 03-17 10:29 | PROVIDERS: ATTEND General Practice | DX: C34.32 Malignant neoplasm of lower lobe, left bronchus or lung (principal) ==

== ENCOUNTER 2022-04-28 10:26 | Outpatient (RCR) | payer MEDICARE ==
[2022-05-13] MEDS ORDERED: AZIT-12 PO (10:04)
[2022-05-13] MEDS ORDERED: PRED50TA PO (10:04)
== END 2022-05-16 ==
LOC: M ONCR 10:26
PROVIDERS: ATTEND General Practice
DX: C34.32 Malignant neoplasm of lower lobe, left bronchus or lung (principal)
CPT/HCPCS: 77336; 77386; G0463

== ENCOUNTER → 2022-05-13 | Outpatient (CLI) | payer MEDICARE ==
[~2022-05-13] MED LIST changes: +AZIT-12 PO; +PRED50TA PO
[2022-05-13 10:43] LABS: RSV AMPLIFICATION NEGATIVE (NEGATIVE)
== END ==
LOC: M ONCR 09:35
PROVIDERS: ATTEND General Practice
DX: R05.9 Cough, unspecified (principal); R68.83 Chills (without fever); R09.89 Other specified symptoms and signs involving the circulatory and respiratory systems; R06.09 Other forms of dyspnea; R00.0 Tachycardia, unspecified
CPT/HCPCS: 36415; 87631; G0463

== ENCOUNTER → 2022-06-07 | Outpatient (CLI) | payer MEDICARE ==
[~2022-06-07] MED LIST changes: +READI-CAT 2 As Ordered ONE
== END ==
LOC: M RAD 10:53
PROVIDERS: ATTEND Internal Medicine Medical Oncology
DX: C34.32 Malignant neoplasm of lower lobe, left bronchus or lung (principal); K80.20 Calculus of gallbladder without cholecystitis without obstruction; N28.1 Cyst of kidney, acquired; N40.0 Benign prostatic hyperplasia without lower urinary tract symptoms; R59.0 Localized enlarged lymph nodes; Z95.828 Presence of other vascular implants and grafts; N62 Hypertrophy of breast; J84.9 Interstitial pulmonary disease, unspecified; J98.4 Other disorders of lung; J47.9 Bronchiectasis, uncomplicated

== ENCOUNTER → 2022-06-30 | Outpatient (REF) | payer MEDICARE ==
[~2022-06-30] MED LIST changes: -READI-CAT 2 As Ordered ONE
[2022-06-30 18:41] LABS: BASOPHILS 2 % (0-1); EOSINOPHILS 9 % (0-3); LYMPHOCYTES 7 % (16-44); MONOCYTES 9 % (0-5); NEUTROPHILS 73 % (28-66); PLATELET ESTIMATE NORMAL (NORMAL)
== END ==
LOC: M LAB REF 16:19
PROVIDERS: ATTEND Nurse Practitioner Adult Health
DX: D72.9 Disorder of white blood cells, unspecified (principal)

== ENCOUNTER → 2022-08-09 | Outpatient (CLI) | payer MEDICARE ==
[~2022-08-09] MED LIST changes: +HYDR5SYP11 PO; +PANT20TA6 PO; +POTA-151 PO
== END ==
LOC: M ONCR 13:14
PROVIDERS: ATTEND General Practice
DX: J70.0 Acute pulmonary manifestations due to radiation (principal)

== ENCOUNTER → 2022-08-11 | Outpatient (CLI) | payer MEDICARE | LOC: M RAD 08:59 | PROVIDERS: ATTEND General Practice | DX: C34.32 Malignant neoplasm of lower lobe, left bronchus or lung (principal); K80.20 Calculus of gallbladder without cholecystitis without obstruction; N28.1 Cyst of kidney, acquired; K43.9 Ventral hernia without obstruction or gangrene; N40.0 Benign prostatic hyperplasia without lower urinary tract symptoms; K56.7 Ileus, unspecified ==

== ENCOUNTER 2022-08-25 09:37 | Observation (INO) | payer MEDICARE ==
[~2022-08-25] VITALS: Ht 160 cm; Wt 59.5 kg
[~2022-08-25 09:37] MED LIST changes: +LIDO15SO4 PO; -LIDO2SOL17 PO
[2022-08-25] MEDS: COMBIVENT RESPIMAT 100-20MCG INHALER 4GM INH SCH ×3 (10:11→11:16)
[2022-08-25 10:19] LABS: VENOUS BASE EXCESS 1.5 (-2.0-2.0); VENOUS HCO3 25.6 MEQ/L (23.0-27.0); VENOUS O2 SATURATION 81.3 % (60.0-80.0); VENOUS PARTIAL PRESSURE CO2 38.8 mmHg (38.0-50.0); VENOUS PARTIAL PRESSURE O2 43.8 mmHg (30.0-50.0); VENOUS PH 7.438 UNITS (7.330-7.430); VENOUS STANDARD HCO3 25.4 MEQ/L; VENOUS TOTAL CO2 26.8 MEQ/L (24.0-28.0)
[2022-08-25 10:23] LABS: BASO # 0.1 10^3/uL (0.0-0.2); BASO % 0.9 % (0.0-1.0); EOS # 0.9 10^3/uL (0.0-0.5); EOS % 10.7 % (0.0-3.0); HEMATOCRIT 35.3 % (42.0-52.0); HEMOGLOBIN 11.6 g/dl (13.5-17.5); LYMPH # 0.3 10^3/uL (1.5-5.0); MEAN CORPUSCULAR HGB CONC 32.9 g/dl (32.0-36.5); MEAN CORPUSCULAR VOLUME 97.5 fl (80.0-96.0); MONO # 0.6 10^3/uL (0.0-0.8); MONO % 7.2 % (2.0-8.0); NEUTROPHILS # 6.8 10^3/uL (1.5-8.5); NEUTROPHILS % 77.5 % (36.0-66.0); PLATELET COUNT, AUTOMATED 306 10^3/uL (150-450); RED BLOOD COUNT 3.62 10^6/uL (4.30-6.10); WHITE BLOOD COUNT 8.8 10^3/uL (4.0-10.0)
[2022-08-25 10:35] LABS: INR 1.08; PROTHROMBIN TIME 14.2 SECONDS (12.5-14.5)
[2022-08-25 10:57] LABS: CPK CREATINE PHOSPHOKINASE 47 U/L (46-171)
[2022-08-25 11:00] LABS: ALBUMIN 2.7 G/DL (3.2-5.2); ALKALINE PHOSPHATASE 60 U/L (46-116); ALT/SGPT 20 U/L (7.0-40); AST/SGOT 16 U/L (<34); BILIRUBIN,DIRECT 0.2 MG/DL (<0.4); BILIRUBIN,TOTAL 0.5 MG/DL (0.3-1.2); BLOOD UREA NITROGEN 26 MG/DL (9-23); CALCIUM LEVEL 8.2 MG/DL (8.3-10.6); CARBON DIOXIDE LEVEL 26 MMOL/L (20-31); CHLORIDE LEVEL 102 MMOL/L (98-107); CK-MB VALUE MASS 1.2 NG/ML (<3.6); CREATININE FOR GFR 0.94 MG/DL (0.70-1.30); GLOMERULAR FILTRATION RATE > 60.0 (>35); GLUCOSE, FASTING 82 MG/DL (74-106); MB/CK RELATIVE INDEX 2.55 (< OR =4); POTASSIUM SERUM 3.7 MMOL/L (3.5-5.1); SODIUM LEVEL 139 MMOL/L (136-145); THYROID STIMULATING HORMONE 2.774 uIU/ML (0.55-4.78)
[2022-08-25 11:14] LABS: RSV AMPLIFICATION NEGATIVE (NEGATIVE)
[2022-08-25] MEDS ORDERED: PRED50TA PO (13:45)
[2022-08-25] MEDS ORDERED: ALB2.5NEB INH (13:45)
[2022-08-25] MEDS ORDERED: LEXA5TAB13 PO (13:46)
[2022-08-25] MEDS ORDERED: HOME MED LIST COMPLETE! XX SCH (13:50)
[2022-08-25] MEDS: IPRATROPIUM 0.5MG/ALBUTEROL 2.5MG INH SOL UD 3ML (DUONEB) NEB SCH ×2 (14:00→19:19)
[2022-08-25] MEDS ORDERED: ACETAMINOPHEN TAB 650MG DOSE (2X325MG) PO PRN (14:15)
[2022-08-25] MEDS ORDERED: IPRATROPIUM 0.5MG/ALBUTEROL 2.5MG INH SOL UD 3ML (DUONEB) NEB PRN (14:20)
[2022-08-25] MEDS ORDERED: CEFEPIME HCL 2 GM in D5W MINI-BAG PLUS 50 ML IV SCH (15:00)
[2022-08-25 15:15] VITALS: BP 141/63
[2022-08-25 15:39] LABS: FOLATE 12.6 NG/ML (>5.4)
[2022-08-25] MEDS ORDERED: DOXYCYCLINE HYCLATE 100 MG in D5W MINI-BAG PLUS 100 ML IV SCH (16:00)
[2022-08-25] MEDS ORDERED: REMDESIVIR 200 MG in NS 250 ML IV ONE (18:00)
[2022-08-25] MEDS: NIRMATRELVIR/RITONAVIR (RENAL) CO-PACK (EUA) PO SCH (19:49)
[2022-08-25] MEDS ORDERED: SODIUM CHLORIDE 0.9% INJ 10 ML SYR IV ONE (20:00)
[2022-08-25 20:23] VITALS: BP 123/64
[2022-08-26] MEDS: IPRATROPIUM 0.5MG/ALBUTEROL 2.5MG INH SOL UD 3ML (DUONEB) NEB SCH ×3 (00:41→11:33)
[2022-08-26] MEDS ORDERED: CEPACOL LOZENGE PO PRN (05:20)
[2022-08-26] MEDS ORDERED: guaiFENesin SYRUP 200MG 10ML UDC PO PRN (05:20)
[2022-08-26 05:22] VITALS: BP 134/59
[2022-08-26 05:45] LABS: HEMATOCRIT 34.5 % (42.0-52.0); HEMOGLOBIN 11.3 g/dl (13.5-17.5); MEAN CORPUSCULAR HEMOGLOBIN 31.7 pg (27.0-33.0); MEAN CORPUSCULAR HGB CONC 32.8 g/dl (32.0-36.5); MEAN CORPUSCULAR VOLUME 96.9 fl (80.0-96.0); PLATELET COUNT, AUTOMATED 274 10^3/uL (150-450); RED BLOOD COUNT 3.56 10^6/uL (4.30-6.10); WHITE BLOOD COUNT 8.3 10^3/uL (4.0-10.0)
[2022-08-26] MEDS ORDERED: LEVOTHYROXINE 25MCG TABLET (0.025MG) PO SCH (06:00)
[2022-08-26 06:14] LABS: ALBUMIN 2.7 G/DL (3.2-5.2); ALKALINE PHOSPHATASE 58 U/L (46-116); ALT/SGPT 20 U/L (7.0-40); AST/SGOT 17 U/L (<34); BILIRUBIN,TOTAL 0.3 MG/DL (0.3-1.2); BLOOD UREA NITROGEN 33 MG/DL (9-23); CALCIUM LEVEL 8.2 MG/DL (8.3-10.6); CARBON DIOXIDE LEVEL 23 MMOL/L (20-31); CHLORIDE LEVEL 104 MMOL/L (98-107); CREATININE FOR GFR 0.91 MG/DL (0.70-1.30); GLOMERULAR FILTRATION RATE > 60.0 (>35); GLUCOSE, FASTING 124 MG/DL (74-106); MAGNESIUM LEVEL 2.1 MG/DL (1.8-2.4); PHOSPHORUS LEVEL 4.1 MG/DL (2.4-5.1); POTASSIUM SERUM 3.9 MMOL/L (3.5-5.1); SODIUM LEVEL 138 MMOL/L (136-145)
[2022-08-26] MEDS ORDERED: TIOTROPIUM INHALER/CAPSULE (SPIRIVA) INH SCH (08:00)
[2022-08-26] MEDS ORDERED: SYMBICORT 80/4.5MCG INHALER 6GM INH SCH (08:00)
[2022-08-26] MEDS ORDERED: ASPIRIN 81MG ENTERIC TABLET PO SCH (09:00)
[2022-08-26] MEDS ORDERED: DOXAZOSIN MESYLATE 1 MG TAB PO SCH (09:00)
[2022-08-26] MEDS ORDERED: ENOXAPARIN 40MG/0.4ML SYRINGE (J1650 PER 10MG) SC SCH (09:00)
[2022-08-26] MEDS ORDERED: predniSONE 50 MG TAB PO SCH (09:00)
[2022-08-26] MEDS ORDERED: PRAVASTATIN 20 MG TAB PO SCH (09:00)
[2022-08-26] MEDS ORDERED: ESCITALOPRAM OXALATE 5MG TABLET (LEXAPRO) PO SCH (09:00)
[2022-08-26 09:07] VITALS: BP 114/47
[2022-08-26] MEDS: NIRMATRELVIR/RITONAVIR (RENAL) CO-PACK (EUA) PO SCH (09:29)
[2022-08-26] MEDS ORDERED: NIRM1TAB PO ×2 (11:32→11:44)
[2022-08-26] MEDS ORDERED: PRED50TA PO (11:44)
[2022-08-26] MEDS ORDERED: PRAV20TA2 PO (12:20)
[2022-08-26] MEDS ORDERED: REMDESIVIR 100 MG in NS 250 ML IV SCH (18:00)
[2022-08-26] MEDS ORDERED: SODIUM CHLORIDE 0.9% INJ 10 ML SYR IV SCH (19:00)
[2022-08-30] MEDS ORDERED: HYDR5SYP11 PO (09:56)
[2022-08-31] MEDS ORDERED: PRED50TA PO (08:45)
== END 2022-08-26 14:35 | disposition home or self-care (01) ==
LOC: M ED 09:37 → M ED INP 09:38 → UNDOADMOB 14:12 → INTOOBSV 14:12 → ENRESERV 14:39 → M MSPAV 15:10 → M ED INP 15:10 → M MSPAV 15:10
PROVIDERS: ADMIT Internal Medicine; ATTEND Internal Medicine
DX: J96.01 Acute respiratory failure with hypoxia (principal); U07.1 COVID-19; E87.21 Acute metabolic acidosis; C34.12 Malignant neoplasm of upper lobe, left bronchus or lung; T45.1X5A Adverse effect of antineoplastic and immunosuppressive drugs, initial encounter; J70.2 Acute drug-induced interstitial lung disorders; E03.9 Hypothyroidism, unspecified; E78.5 Hyperlipidemia, unspecified; J47.1 Bronchiectasis with (acute) exacerbation; N40.0 Benign prostatic hyperplasia without lower urinary tract symptoms; Z79.82 Long term (current) use of aspirin; Z79.899 Other long term (current) drug therapy; Z79.52 Long term (current) use of systemic steroids; Z91.041 Radiographic dye allergy status; Z87.891 Personal history of nicotine dependence
CPT/HCPCS: 36415; 71045; 80048; 80053; 80076; 82550; 82553; 82607; 82746; 82803; 83605; 83735; 83880; 84100; 84145; 84443; 84484; 85025; 85027; 85610; 87040; 87077; 87186; 87631; 93005; 93041; 94640; 94760; 96372; 96374; 97161; 97530; 99285; G0378; J1100; J1650; J7512

== ENCOUNTER → 2022-09-19 | Outpatient (CLI) | payer MEDICARE ==
[~2022-09-19] MED LIST changes: +ALB2.5NEB INH; +BENZ200C70 PO; +BLOOMIS12 XX; +LEXA5TAB13 PO; +NIRM1TAB PO
== END ==
LOC: M PLAIMG 08:31
PROVIDERS: ATTEND Nurse Practitioner
DX: C34.92 Malignant neoplasm of unspecified part of left bronchus or lung (principal)

== ENCOUNTER → 2022-09-20 | Outpatient (CLI) | payer MEDICARE | LOC: M ONCR 09:22 | PROVIDERS: ATTEND General Practice | DX: C34.32 Malignant neoplasm of lower lobe, left bronchus or lung (principal); Z79.51 Long term (current) use of inhaled steroids; Z79.82 Long term (current) use of aspirin; Z79.890 Hormone replacement therapy; Z79.899 Other long term (current) drug therapy; Z87.891 Personal history of nicotine dependence; Z91.041 Radiographic dye allergy status ==

== ENCOUNTER 2022-09-27 12:49 | Inpatient (IN) | payer BC, MEDICARE, OTHER ==
[~2022-09-27] VITALS: Ht 152.4 cm; Wt 49.5 kg
[~2022-09-27 12:49] MED LIST changes: +LIDO15SO PO; -LIDO15SO4 PO
[2022-09-27 13:51] LABS: BASO # 0.1 10^3/uL (0.0-0.2); BASO % 1.3 % (0.0-1.0); EOS # 0.3 10^3/uL (0.0-0.5); EOS % 4.3 % (0.0-3.0); HEMATOCRIT 38.4 % (42.0-52.0); HEMOGLOBIN 12.1 g/dl (13.5-17.5); LYMPH # 0.3 10^3/uL (1.5-5.0); LYMPH % 3.9 % (24.0-44.0); MEAN CORPUSCULAR HEMOGLOBIN 30.3 pg (27.0-33.0); MEAN CORPUSCULAR HGB CONC 31.5 g/dl (32.0-36.5); MONO # 0.7 10^3/uL (0.0-0.8); MONO % 8.5 % (2.0-8.0); NEUTROPHILS # 6.2 10^3/uL (1.5-8.5); NEUTROPHILS % 80.2 % (36.0-66.0); PLATELET COUNT, AUTOMATED 297 10^3/uL (150-450); WHITE BLOOD COUNT 7.7 10^3/uL (4.0-10.0)
[2022-09-27 14:07] LABS: ABG BASE EXCESS 1.4 (-2.0-2.0); ABG HCO3 23.1 MEQ/L (22.0-26.0); ABG O2 SATURATION 96.8 % (95.0-99.0); ABG PARTIAL PRESSURE CO2 27.8 mmHg (35.0-45.0); ABG PARTIAL PRESSURE O2 80.3 mmHg (75.0-100.0); ABG STANDARD HCO3 25.7 MEQ/L (22.0-26.0); ABG TOTAL CO2 23.9 MEQ/L (23.0-31.0); ABG pH (ARTERIAL) 7.537 UNITS (7.350-7.450)
[2022-09-27 14:17] LABS: ALBUMIN 2.8 G/DL (3.2-5.2); ALKALINE PHOSPHATASE 71 U/L (46-116); ALT/SGPT 23 U/L (7.0-40); AST/SGOT 15 U/L (<34); BILIRUBIN,DIRECT 0.2 MG/DL (<0.4); BILIRUBIN,TOTAL 0.7 MG/DL (0.3-1.2); BLOOD UREA NITROGEN 20 MG/DL (9-23); CALCIUM LEVEL 8.5 MG/DL (8.3-10.6); CARBON DIOXIDE LEVEL 27 MMOL/L (20-31); CHLORIDE LEVEL 106 MMOL/L (98-107); CPK CREATINE PHOSPHOKINASE 26 U/L (46-171); CREATININE FOR GFR 1.02 MG/DL (0.70-1.30); GLOMERULAR FILTRATION RATE > 60.0 (>35); GLUCOSE, FASTING 85 MG/DL (74-106); POTASSIUM SERUM 3.9 MMOL/L (3.5-5.1); SODIUM LEVEL 140 MMOL/L (136-145); TOTAL PROTEIN 6.6 G/DL (5.7-8.2)
[2022-09-27 14:18] LABS: CK-MB VALUE MASS < 1.0 NG/ML (<3.6); MB/CK RELATIVE INDEX 3.84 (< OR =4)
[2022-09-27 14:20] LABS: THYROXINE (T4) 4.6 UG/DL (4.5-10.9)
[2022-09-27] MEDS ORDERED: IPRATROPIUM 0.5MG/ALBUTEROL 2.5MG INH SOL UD 3ML (DUONEB) NEB ONE (15:15)
[2022-09-27] MEDS: AZITHROMYCIN 250MG TABLET PO SCH (17:40)
[2022-09-27] MEDS ORDERED: ACETAMINOPHEN TAB 650MG DOSE (2X325MG) PO PRN (17:40)
[2022-09-27] MEDS ORDERED: IPRATROPIUM 0.5MG/ALBUTEROL 2.5MG INH SOL UD 3ML (DUONEB) NEB PRN (17:40)
[2022-09-27] MEDS: cefTRIAXone SOD 2 GM in D5W MINI-BAG PLUS 50 ML IV SCH (18:13)
[2022-09-27] MEDS ORDERED: BENZ200C70 PO (18:55)
[2022-09-27] MEDS ORDERED: PROC10TA5 PO (18:55)
[2022-09-27] MEDS ORDERED: HYDR5SYP PO (18:55)
[2022-09-27] MEDS ORDERED: PRED50TA PO (18:55)
[2022-09-27] MEDS ORDERED: ALBU2.5V10 INH (18:55)
[2022-09-27] MEDS ORDERED: ONDA-84 PO (18:56)
[2022-09-27] MEDS ORDERED: HOME MED LIST COMPLETE! XX SCH (19:00)
[2022-09-27 20:05] VITALS: BP 118/85
[2022-09-27] MEDS: IPRATROPIUM 0.5MG/ALBUTEROL 2.5MG INH SOL UD 3ML (DUONEB) NEB SCH (20:19)
[2022-09-27] MEDS: guaiFENesin 200 MG TAB PO SCH (20:23)
[2022-09-27] MEDS ORDERED: ALBUTEROL 90 MCG/ACT 8GM HFA INHALER INH PRN (21:50)
[2022-09-27] MEDS ORDERED: ONDANSETRON 4MG TAB PO PRN (21:50)
[2022-09-28] MEDS: guaiFENesin 200 MG TAB PO SCH ×5 (00:17→23:31)
[2022-09-28] MEDS: IPRATROPIUM 0.5MG/ALBUTEROL 2.5MG INH SOL UD 3ML (DUONEB) NEB SCH ×7 (03:18→23:22)
[2022-09-28] MEDS: LEVOTHYROXINE 25MCG TABLET (0.025MG) PO SCH (05:09)
[2022-09-28 06:00] VITALS: BP 149/81
[2022-09-28 06:55] LABS: HEMATOCRIT 36.3 % (42.0-52.0); HEMOGLOBIN 11.8 g/dl (13.5-17.5); MEAN CORPUSCULAR HEMOGLOBIN 30.8 pg (27.0-33.0); MEAN CORPUSCULAR HGB CONC 32.5 g/dl (32.0-36.5); MEAN CORPUSCULAR VOLUME 94.8 fl (80.0-96.0); PLATELET COUNT, AUTOMATED 302 10^3/uL (150-450); RED BLOOD COUNT 3.83 10^6/uL (4.30-6.10); WHITE BLOOD COUNT 7.5 10^3/uL (4.0-10.0)
[2022-09-28 07:38] LABS: ALBUMIN 2.5 G/DL (3.2-5.2); ALKALINE PHOSPHATASE 68 U/L (46-116); ALT/SGPT 21 U/L (7.0-40); AST/SGOT 12 U/L (<34); BILIRUBIN,TOTAL 0.6 MG/DL (0.3-1.2); BLOOD UREA NITROGEN 25 MG/DL (9-23); CALCIUM LEVEL 8.4 MG/DL (8.3-10.6); CARBON DIOXIDE LEVEL 23 MMOL/L (20-31); CHLORIDE LEVEL 105 MMOL/L (98-107); GLOMERULAR FILTRATION RATE > 60.0 (>35); GLUCOSE, FASTING 109 MG/DL (74-106); MAGNESIUM LEVEL 2.1 MG/DL (1.8-2.4); POTASSIUM SERUM 4.6 MMOL/L (3.5-5.1); SODIUM LEVEL 137 MMOL/L (136-145); TOTAL PROTEIN 6.4 G/DL (5.7-8.2)
[2022-09-28] MEDS: TIOTROPIUM INHALER/CAPSULE (SPIRIVA) INH SCH (07:47)
[2022-09-28] MEDS: ADVAIR HFA 115/21MCG INHALER INH SCH ×2 (07:47→19:56)
[2022-09-28] MEDS: methylPREDNISolone 40MG 1ML VIAL IV SCH (08:32)
[2022-09-28] MEDS: AZITHROMYCIN 250MG TABLET PO SCH (08:34)
[2022-09-28] MEDS ORDERED: ESCITALOPRAM OXALATE 5MG TABLET (LEXAPRO) PO SCH (09:00)
[2022-09-28] MEDS ORDERED: PRAVASTATIN 20 MG TAB PO SCH (09:00)
[2022-09-28] MEDS ORDERED: DOXAZOSIN MESYLATE 1 MG TAB PO SCH (09:00)
[2022-09-28] MEDS ORDERED: ASPIRIN 81MG ENTERIC TABLET PO SCH (09:00)
[2022-09-28] MEDS ORDERED: ENOXAPARIN 40MG/0.4ML SYRINGE (J1650 PER 10MG) SC SCH (09:00)
[2022-09-28 14:00] VITALS: BP 124/57
[2022-09-28] MEDS: cefTRIAXone SOD 2 GM in D5W MINI-BAG PLUS 50 ML IV SCH (17:22)
[2022-09-28] MEDS ORDERED: RIVAROXABAN 20MG TAB (XARELTO) PO SCH (18:00)
[2022-09-28 18:43] LABS: INR 1.06
[2022-09-28 20:00] VITALS: BP 124/55
[2022-09-29] VITALS (36 sets, daily range): BP systolic 74–205; BP diastolic 27–96
[2022-09-29] MEDS ORDERED: CALCIUM CARBONATE 500 MG CHEW U/D PO ONE (01:15)
[2022-09-29] MEDS: PROCHLORPERAZINE 5MG TAB PO PRN (01:23)
[2022-09-29] MEDS ORDERED: MORPHINE 2 MG/ML 1ML VIAL IV ONE (01:40)
[2022-09-29] MEDS ORDERED: NS 500 ML IV ONE (01:40)
[2022-09-29] MEDS: ONDANSETRON 4MG 2ML VIAL IV PRN (01:49)
[2022-09-29] MEDS ORDERED: ACETAMINOPHEN 1000MG 100ML IV BAG IV ONE (03:05)
[2022-09-29] MEDS ORDERED: NS 1,000 ML IV ONE ×2 (03:05→03:45)
[2022-09-29] MEDS ORDERED: HYDROCORTISONE 100MG/2ML VIAL IV STA (03:24)
[2022-09-29] MEDS ORDERED: HYDROMORPHONE HCL 0.5 MG/ 0.5 ML SYRINGE IV ONE (03:35)
[2022-09-29 03:49] LABS: BASO # 0.1 10^3/uL (0.0-0.2); BASO % 0.4 % (0.0-1.0); EOS # 0.3 10^3/uL (0.0-0.5); HEMATOCRIT 27.7 % (42.0-52.0); LYMPH # 1.1 10^3/uL (1.5-5.0); LYMPH % 8.5 % (24.0-44.0); MEAN CORPUSCULAR HEMOGLOBIN 31.2 pg (27.0-33.0); MEAN CORPUSCULAR VOLUME 104.1 fl (80.0-96.0); MONO # 1.3 10^3/uL (0.0-0.8); MONO % 9.4 % (2.0-8.0); NEUTROPHILS # 10.3 10^3/uL (1.5-8.5); NEUTROPHILS % 77.4 % (36.0-66.0); PLATELET COUNT, AUTOMATED 353 10^3/uL (150-450); RED BLOOD COUNT 2.66 10^6/uL (4.30-6.10); WHITE BLOOD COUNT 13.4 10^3/uL (4.0-10.0)
[2022-09-29] MEDS ORDERED: LEVALBUTEROL 1.25MG 0.5ML CONCENTRATE NEB NEB ONE (03:50)
[2022-09-29 03:56] LABS: HEMOGLOBIN 8.3 g/dl (13.5-17.5)
[2022-09-29] MEDS: IPRATROPIUM 0.5MG/ALBUTEROL 2.5MG INH SOL UD 3ML (DUONEB) NEB SCH ×6 (04:00→20:54)
[2022-09-29] MEDS: LR 1,000 ML IV SCH ×2 (04:48→17:05)
[2022-09-29] MEDS: PIPERACILLIN/TAZOBACTAM SOD 4.5 GM in D5W MINI-BAG PLUS 50 ML IV SCH ×4 (04:48→22:03)
[2022-09-29] MEDS: LEVOTHYROXINE 25MCG TABLET (0.025MG) PO SCH (04:49)
[2022-09-29 04:54] LABS: HEMATOCRIT 22.8 % (42.0-52.0); MEAN CORPUSCULAR HEMOGLOBIN 31.1 pg (27.0-33.0); MEAN CORPUSCULAR HGB CONC 28.1 g/dl (32.0-36.5); MEAN CORPUSCULAR VOLUME 110.7 fl (80.0-96.0); PLATELET COUNT, AUTOMATED 288 10^3/uL (150-450); RED BLOOD COUNT 2.06 10^6/uL (4.30-6.10); WHITE BLOOD COUNT 13.9 10^3/uL (4.0-10.0)
[2022-09-29 04:59] LABS: HEMOGLOBIN 6.4 g/dl (13.5-17.5)
[2022-09-29] MEDS ORDERED: NOREPINEPHRINE 4MG IN D5 250ML 4 MG in IV 1 EA IV SCH ×2 (05:05)
[2022-09-29] MEDS ORDERED: PROTHROMBIN COMPLEX CONCEN IV ONE (05:30)
[2022-09-29 05:51] LABS: ALBUMIN 1.5 G/DL (3.2-5.2); ALKALINE PHOSPHATASE 65 U/L (46-116); ALT/SGPT 36 U/L (7.0-40); AST/SGOT 58 U/L (<34); BILIRUBIN,TOTAL 0.2 MG/DL (0.3-1.2); BLOOD UREA NITROGEN 35 MG/DL (9-23); CALCIUM LEVEL 6.7 MG/DL (8.3-10.6); CARBON DIOXIDE LEVEL 11 MMOL/L (20-31); CHLORIDE LEVEL 112 MMOL/L (98-107); CREATININE FOR GFR 1.12 MG/DL (0.70-1.30); GLOMERULAR FILTRATION RATE > 60.0 (>35); GLUCOSE, FASTING 330 MG/DL (74-106); MAGNESIUM LEVEL 2.1 MG/DL (1.8-2.4); POTASSIUM SERUM 5.6 MMOL/L (3.5-5.1); SODIUM LEVEL 140 MMOL/L (136-145); TOTAL PROTEIN 3.8 G/DL (5.7-8.2)
[2022-09-29 05:51] LABS: ALBUMIN 1.8 G/DL (3.2-5.2); ALKALINE PHOSPHATASE 60 U/L (46-116); ALT/SGPT 33 U/L (7.0-40); AST/SGOT 24 U/L (<34); BILIRUBIN,TOTAL 0.2 MG/DL (0.3-1.2); BLOOD UREA NITROGEN 35 MG/DL (9-23); CALCIUM LEVEL 7.6 MG/DL (8.3-10.6); CARBON DIOXIDE LEVEL 12 MMOL/L (20-31); CHLORIDE LEVEL 111 MMOL/L (98-107); CREATININE FOR GFR 1.12 MG/DL (0.70-1.30); GLOMERULAR FILTRATION RATE > 60.0 (>35); GLUCOSE, FASTING 257 MG/DL (74-106); MAGNESIUM LEVEL 2.1 MG/DL (1.8-2.4); POTASSIUM SERUM 5.1 MMOL/L (3.5-5.1); SODIUM LEVEL 140 MMOL/L (136-145); TOTAL PROTEIN 4.5 G/DL (5.7-8.2)
[2022-09-29] MEDS ORDERED: RIVAROXABAN 15MG TAB (XARELTO) PO SCH (06:00)
[2022-09-29] MEDS ORDERED: HEPARIN SOD (PORCINE) 5000UNITS/ML 1ML VIAL/SYRINGE As Ordered ONE (06:05)
[2022-09-29 06:49] LABS: ATYPICAL LYMPH 1 % (0-5); EOSINOPHILS 2 % (0-3); LYMPHOCYTES 8 % (16-44); METAMYELOCYTES 1 % (0-0); MONOCYTES 5 % (0-5); NEUTROPHILS 82 % (28-66)
[2022-09-29 06:50] LABS: ANISOCYTOSIS 1+; PLATELET ESTIMATE NORMAL (NORMAL)
[2022-09-29] MEDS ORDERED: MIDAZOLAM INJ 2MG/2ML VIAL As Ordered ONE (06:54)
[2022-09-29] MEDS ORDERED: LIDOCAINE 2% 100MG/5ML SDV (FOR ANES.) As Ordered ONE (06:54)
[2022-09-29] MEDS ORDERED: HYDROmorphone HCL 2MG/ML 1ML VIAL As Ordered ONE (06:54)
[2022-09-29] MEDS ORDERED: propofoL 200 MG/20 ML VIAL As Ordered ONE (06:54)
[2022-09-29] MEDS ORDERED: PHENYLEPHRINE 10MG/ML 1ML VIAL As Ordered ONE (06:54)
[2022-09-29] MEDS ORDERED: ROCURONIUM BROMIDE 50MG/5ML VIAL As Ordered ONE (06:54)
[2022-09-29] MEDS ORDERED: ETOMIDATE INJ 20MG/10ML VIAL As Ordered ONE (06:54)
[2022-09-29] MEDS ORDERED: fentaNYL 250 MCG/5 ML INJECTION As Ordered ONE (06:54)
[2022-09-29] MEDS: ADVAIR HFA 115/21MCG INHALER INH SCH ×2 (07:53→20:54)
[2022-09-29] MEDS: TIOTROPIUM INHALER/CAPSULE (SPIRIVA) INH SCH (07:53)
[2022-09-29] MEDS ORDERED: BUPIVACAINE LIPOSOME/PF 1.3% 20ML VIAL (13.3MG/ML)(EXPAREL) As Ordered ONE (08:03)
[2022-09-29] MEDS ORDERED: MIDAZOLAM 5MG/ML 1ML VIAL As Ordered ONE (08:47)
[2022-09-29 09:17] LABS: ABG pH (ARTERIAL) 7.251 UNITS (7.350-7.450)
[2022-09-29 09:18] LABS: ABG BASE EXCESS -6.4 (-2.0-2.0); ABG HCO3 20.9 MEQ/L (22.0-26.0); ABG O2 SATURATION 97.5 % (95.0-99.0); ABG PARTIAL PRESSURE CO2 48.6 mmHg (35.0-45.0); ABG PARTIAL PRESSURE O2 107.8 mmHg (75.0-100.0); ABG STANDARD HCO3 19.3 MEQ/L (22.0-26.0); ABG TOTAL CO2 22.4 MEQ/L (23.0-31.0)
[2022-09-29 09:31] LABS: HEMATOCRIT 36.2 % (42.0-52.0)
[2022-09-29] MEDS ORDERED: FENTANYL DRIP LOCK BOX KEY 1 EACH XX PRN (09:35)
[2022-09-29] MEDS ORDERED: fentaNYL CITRATE/NaCl 1,000 MCG in IV 1 EA IV SCH (09:35)
[2022-09-29 09:38] LABS: HEMOGLOBIN 11.6 g/dl (13.5-17.5)
[2022-09-29 09:41] LABS: BASO % 0.4 % (0.0-1.0); EOS % 0.3 % (0.0-3.0); HEMATOCRIT 36.3 % (42.0-52.0); HEMOGLOBIN 11.5 g/dl (13.5-17.5); LYMPH # 0.1 10^3/uL (1.5-5.0); LYMPH % 1.4 % (24.0-44.0); MEAN CORPUSCULAR HGB CONC 31.7 g/dl (32.0-36.5); MEAN CORPUSCULAR VOLUME 88.5 fl (80.0-96.0); MONO # 0.6 10^3/uL (0.0-0.8); MONO % 7.1 % (2.0-8.0); NEUTROPHILS # 7.9 10^3/uL (1.5-8.5); NEUTROPHILS % 88.1 % (36.0-66.0)
[2022-09-29] MEDS ORDERED: PROPOFOL 1,000 MG/100 ML VIAL As Ordered ONE (09:45)
[2022-09-29 09:47] LABS: LDH LACTATE DEHYDROGENASE 269 U/L (120-246)
[2022-09-29 09:52] LABS: ALBUMIN 1.8 G/DL (3.2-5.2); ALKALINE PHOSPHATASE 52 U/L (46-116); ALT/SGPT 29 U/L (7.0-40); AST/SGOT 32 U/L (<34); BILIRUBIN,TOTAL 0.7 MG/DL (0.3-1.2); BLOOD UREA NITROGEN 29 MG/DL (9-23); CARBON DIOXIDE LEVEL 23 MMOL/L (20-31); CHLORIDE LEVEL 117 MMOL/L (98-107); CHOLESTEROL LEVEL 99 MG/DL (<200); CPK CREATINE PHOSPHOKINASE 50 U/L (46-171); CREATININE FOR GFR 0.98 MG/DL (0.70-1.30); GLOMERULAR FILTRATION RATE > 60.0 (>35); GLUCOSE, FASTING 164 MG/DL (74-106); PHOSPHORUS LEVEL 5.5 MG/DL (2.4-5.1); POTASSIUM SERUM 4.2 MMOL/L (3.5-5.1); SODIUM LEVEL 146 MMOL/L (136-145); TRIGLYCERIDES LEVEL 122 MG/DL (<150)
[2022-09-29 09:54] LABS: INR 1.73; PROTHROMBIN TIME 20.6 SECONDS (12.5-14.5)
[2022-09-29 09:55] LABS: PARTIAL THROMBOPLASTIN TIME 29.1 SECONDS (24.8-34.2)
[2022-09-29] MEDS: fentaNYL CITRATE/NaCl 1,000 MCG in IV 1 EA IV SCH ×2 (10:05→20:40)
[2022-09-29 10:12] LABS: PLATELET COUNT, AUTOMATED 113 10^3/uL (150-450)
[2022-09-29] MEDS ORDERED: LABETALOL 100MG/20ML VIAL As Ordered ONE (10:12)
[2022-09-29] MEDS ORDERED: LABETALOL 100MG/20ML VIAL IV STA (10:15)
[2022-09-29 10:38] LABS: ABG BASE EXCESS -6.2 (-2.0-2.0); ABG HCO3 20.5 MEQ/L (22.0-26.0); ABG O2 SATURATION 94.7 % (95.0-99.0); ABG PARTIAL PRESSURE CO2 45.1 mmHg (35.0-45.0); ABG PARTIAL PRESSURE O2 75.7 mmHg (75.0-100.0); ABG STANDARD HCO3 19.3 MEQ/L (22.0-26.0); ABG TOTAL CO2 21.9 MEQ/L (23.0-31.0); ABG pH (ARTERIAL) 7.275 UNITS (7.350-7.450)
[2022-09-29 10:48] LABS: BASO % 0.2 % (0.0-1.0); EOS % 0.3 % (0.0-3.0); HEMATOCRIT 40.1 % (42.0-52.0); HEMOGLOBIN 12.9 g/dl (13.5-17.5); LYMPH # 0.2 10^3/uL (1.5-5.0); LYMPH % 1.8 % (24.0-44.0); MEAN CORPUSCULAR HEMOGLOBIN 28.3 pg (27.0-33.0); MEAN CORPUSCULAR HGB CONC 32.2 g/dl (32.0-36.5); MEAN CORPUSCULAR VOLUME 87.9 fl (80.0-96.0); MONO # 0.7 10^3/uL (0.0-0.8); MONO % 6.3 % (2.0-8.0); NEUTROPHILS # 10.2 10^3/uL (1.5-8.5); NEUTROPHILS % 89.4 % (36.0-66.0); PLATELET COUNT, AUTOMATED 134 10^3/uL (150-450); RED BLOOD COUNT 4.56 10^6/uL (4.30-6.10); WHITE BLOOD COUNT 11.4 10^3/uL (4.0-10.0)
[2022-09-29 10:58] LABS: INR 1.48; PROTHROMBIN TIME 18.2 SECONDS (12.5-14.5)
[2022-09-29] MEDS: PANTOPRAZOLE 40MG VIAL IV SCH (11:07)
[2022-09-29] MEDS: methylPREDNISolone 40MG 1ML VIAL IV SCH (11:07)
[2022-09-29 11:31] LABS: ALBUMIN 2.2 G/DL (3.2-5.2); ALKALINE PHOSPHATASE 60 U/L (46-116); ALT/SGPT 35 U/L (7.0-40); AST/SGOT 37 U/L (<34); BILIRUBIN,TOTAL 0.8 MG/DL (0.3-1.2); BLOOD UREA NITROGEN 28 MG/DL (9-23); CALCIUM LEVEL 7.4 MG/DL (8.3-10.6); CARBON DIOXIDE LEVEL 24 MMOL/L (20-31); CHLORIDE LEVEL 113 MMOL/L (98-107); CREATININE FOR GFR 0.94 MG/DL (0.70-1.30); GLOMERULAR FILTRATION RATE > 60.0 (>35); GLUCOSE, FASTING 119 MG/DL (74-106); MAGNESIUM LEVEL 1.9 MG/DL (1.8-2.4); PHOSPHORUS LEVEL 5.2 MG/DL (2.4-5.1); POTASSIUM SERUM 3.8 MMOL/L (3.5-5.1); SODIUM LEVEL 145 MMOL/L (136-145); TOTAL PROTEIN 4.6 G/DL (5.7-8.2)
[2022-09-29 14:35] LABS: HEMATOCRIT 39.2 % (42.0-52.0); HEMOGLOBIN 12.9 g/dl (13.5-17.5)
[2022-09-29] MEDS ORDERED: fentaNYL 100 MCG/2 ML INJECTION IV ONE (16:30)
[2022-09-29 18:48] LABS: HEMOGLOBIN 11.2 g/dl (13.5-17.5)
[2022-09-29] MEDS: propofoL 1,000 MG in IV 1 EA IV SCH (22:01)
[2022-09-29 22:32] LABS: HEMATOCRIT 35.6 % (42.0-52.0); HEMOGLOBIN 11.7 g/dl (13.5-17.5)
[2022-09-30] VITALS (34 sets, daily range): BP systolic 119–200; BP diastolic 43–88
[2022-09-30 02:13] LABS: HEMATOCRIT 33.5 % (42.0-52.0); HEMOGLOBIN 10.9 g/dl (13.5-17.5)
[2022-09-30] MEDS: IPRATROPIUM 0.5MG/ALBUTEROL 2.5MG INH SOL UD 3ML (DUONEB) NEB SCH ×6 (03:17→23:35)
[2022-09-30] MEDS: PIPERACILLIN/TAZOBACTAM SOD 4.5 GM in D5W MINI-BAG PLUS 50 ML IV SCH ×4 (05:10→22:35)
[2022-09-30] MEDS: LEVOTHYROXINE 25MCG TABLET (0.025MG) PO SCH (05:10)
[2022-09-30] MEDS: LR 1,000 ML IV SCH ×2 (05:11→15:27)
[2022-09-30] MEDS: propofoL 1,000 MG in IV 1 EA IV SCH (05:15)
[2022-09-30 05:28] LABS: ABG BASE EXCESS -3.1 (-2.0-2.0); ABG HCO3 21.9 MEQ/L (22.0-26.0); ABG O2 SATURATION 94.4 % (95.0-99.0); ABG PARTIAL PRESSURE CO2 39.1 mmHg (35.0-45.0); ABG STANDARD HCO3 21.9 MEQ/L (22.0-26.0); ABG TOTAL CO2 23.1 MEQ/L (23.0-31.0); ABG pH (ARTERIAL) 7.367 UNITS (7.350-7.450)
[2022-09-30 05:36] LABS: BASO % 0.1 % (0.0-1.0); EOS # 0.1 10^3/uL (0.0-0.5); EOS % 0.8 % (0.0-3.0); HEMATOCRIT 33.7 % (42.0-52.0); HEMOGLOBIN 10.9 g/dl (13.5-17.5); LYMPH # 0.2 10^3/uL (1.5-5.0); LYMPH % 2.5 % (24.0-44.0); MEAN CORPUSCULAR HEMOGLOBIN 28.1 pg (27.0-33.0); MEAN CORPUSCULAR HGB CONC 32.3 g/dl (32.0-36.5); MEAN CORPUSCULAR VOLUME 86.9 fl (80.0-96.0); MONO # 0.5 10^3/uL (0.0-0.8); MONO % 6.6 % (2.0-8.0); NEUTROPHILS # 6.5 10^3/uL (1.5-8.5); NEUTROPHILS % 89.2 % (36.0-66.0); PLATELET COUNT, AUTOMATED 129 10^3/uL (150-450); RED BLOOD COUNT 3.88 10^6/uL (4.30-6.10); WHITE BLOOD COUNT 7.3 10^3/uL (4.0-10.0)
[2022-09-30 05:54] LABS: ALBUMIN 2.1 G/DL (3.2-5.2); ALKALINE PHOSPHATASE 41 U/L (46-116); ALT/SGPT 30 U/L (7.0-40); AST/SGOT 20 U/L (<34); BILIRUBIN,TOTAL 0.6 MG/DL (0.3-1.2); BLOOD UREA NITROGEN 27 MG/DL (9-23); CALCIUM LEVEL 7.3 MG/DL (8.3-10.6); CARBON DIOXIDE LEVEL 24 MMOL/L (20-31); CHLORIDE LEVEL 112 MMOL/L (98-107); CREATININE FOR GFR 1.04 MG/DL (0.70-1.30); GLOMERULAR FILTRATION RATE > 60.0 (>35); GLUCOSE, FASTING 110 MG/DL (74-106); MAGNESIUM LEVEL 1.9 MG/DL (1.8-2.4); POTASSIUM SERUM 3.9 MMOL/L (3.5-5.1); SODIUM LEVEL 144 MMOL/L (136-145); TOTAL PROTEIN 4.7 G/DL (5.7-8.2)
[2022-09-30] MEDS: TIOTROPIUM INHALER/CAPSULE (SPIRIVA) INH SCH (07:31)
[2022-09-30] MEDS: ADVAIR HFA 115/21MCG INHALER INH SCH ×2 (07:31→19:14)
[2022-09-30] MEDS: methylPREDNISolone 40MG 1ML VIAL IV SCH (09:13)
[2022-09-30] MEDS: PANTOPRAZOLE 40MG VIAL IV SCH (09:13)
[2022-09-30] MEDS: METOPROLOL 5 MG/5 ML VIAL IV SCH ×2 (17:10→22:00)
[2022-09-30] MEDS ORDERED: hydrALAZINE 20MG/ML 1ML VIAL IV PRN (18:15)
[2022-09-30] MEDS ORDERED: OXYMETAZOLINE 0.05% NASAL SPRAY (AFRIN) ONE (21:30)
[2022-10-01] VITALS (15 sets, daily range): BP systolic 155–188; BP diastolic 69–105
[2022-10-01] MEDS: METOPROLOL 5 MG/5 ML VIAL IV SCH ×2 (04:00→09:47)
[2022-10-01] MEDS: IPRATROPIUM 0.5MG/ALBUTEROL 2.5MG INH SOL UD 3ML (DUONEB) NEB SCH ×6 (04:05→23:49)
[2022-10-01] MEDS: LR 1,000 ML IV SCH (04:48)
[2022-10-01] MEDS: PIPERACILLIN/TAZOBACTAM SOD 4.5 GM in D5W MINI-BAG PLUS 50 ML IV SCH ×4 (04:48→22:28)
[2022-10-01 05:31] LABS: BASO % 0.3 % (0.0-1.0); EOS # 0.2 10^3/uL (0.0-0.5); EOS % 1.5 % (0.0-3.0); HEMATOCRIT 33.6 % (42.0-52.0); LYMPH # 0.3 10^3/uL (1.5-5.0); LYMPH % 2.6 % (24.0-44.0); MEAN CORPUSCULAR HEMOGLOBIN 28.3 pg (27.0-33.0); MEAN CORPUSCULAR HGB CONC 32.7 g/dl (32.0-36.5); MEAN CORPUSCULAR VOLUME 86.4 fl (80.0-96.0); MONO # 0.5 10^3/uL (0.0-0.8); MONO % 4.8 % (2.0-8.0); NEUTROPHILS # 8.9 10^3/uL (1.5-8.5); NEUTROPHILS % 89.6 % (36.0-66.0); PLATELET COUNT, AUTOMATED 143 10^3/uL (150-450); RED BLOOD COUNT 3.89 10^6/uL (4.30-6.10); WHITE BLOOD COUNT 9.9 10^3/uL (4.0-10.0)
[2022-10-01 05:48] LABS: ALKALINE PHOSPHATASE 46 U/L (46-116); ALT/SGPT 36 U/L (7.0-40); AST/SGOT 27 U/L (<34); BILIRUBIN,TOTAL 0.8 MG/DL (0.3-1.2); BLOOD UREA NITROGEN 22 MG/DL (9-23); CALCIUM LEVEL 7.6 MG/DL (8.3-10.6); CARBON DIOXIDE LEVEL 28 MMOL/L (20-31); CHLORIDE LEVEL 107 MMOL/L (98-107); CREATININE FOR GFR 0.83 MG/DL (0.70-1.30); GLOMERULAR FILTRATION RATE > 60.0 (>35); GLUCOSE, FASTING 79 MG/DL (74-106); POTASSIUM SERUM 3.9 MMOL/L (3.5-5.1); SODIUM LEVEL 141 MMOL/L (136-145); TOTAL PROTEIN 4.9 G/DL (5.7-8.2)
[2022-10-01] MEDS: LEVOTHYROXINE 25MCG TABLET (0.025MG) PO SCH (05:53)
[2022-10-01] MEDS: TIOTROPIUM INHALER/CAPSULE (SPIRIVA) INH SCH (07:21)
[2022-10-01] MEDS: ADVAIR HFA 115/21MCG INHALER INH SCH ×2 (07:21→19:45)
[2022-10-01] MEDS: methylPREDNISolone 40MG 1ML VIAL IV SCH (09:47)
[2022-10-01] MEDS: DOCUSATE SODIUM 100MG CAPSULE PO SCH ×2 (09:47→20:57)
[2022-10-01] MEDS: PANTOPRAZOLE 40MG VIAL IV SCH (09:47)
[2022-10-01] MEDS: ONDANSETRON 4MG 2ML VIAL IV PRN (10:35)
[2022-10-01] MEDS: ALVIMOPAN 12 MG CAPSULE (ENTEREG) PO SCH ×2 (11:34→20:57)
[2022-10-01] MEDS ORDERED: D5W/0.45% SODIUM CHLORIDE 1,000 ML IV SCH (17:00)
[2022-10-01] MEDS ORDERED: hydrALAZINE 20MG/ML 1ML VIAL IV ONE (20:15)
[2022-10-01] MEDS ORDERED: amLODIPine 5 MG TAB PO ONE (21:55)
[2022-10-02] VITALS (8 sets, daily range): BP systolic 143–181; BP diastolic 68–121
[2022-10-02] MEDS ORDERED: amLODIPine 5 MG TAB PO ONE (00:55)
[2022-10-02] MEDS: IPRATROPIUM 0.5MG/ALBUTEROL 2.5MG INH SOL UD 3ML (DUONEB) NEB SCH ×6 (03:33→23:04)
[2022-10-02] MEDS: PIPERACILLIN/TAZOBACTAM SOD 4.5 GM in D5W MINI-BAG PLUS 50 ML IV SCH ×4 (05:51→23:31)
[2022-10-02] MEDS: LEVOTHYROXINE 25MCG TABLET (0.025MG) PO SCH (05:51)
[2022-10-02 06:15] LABS: BASO % 0.2 % (0.0-1.0); EOS # 0.1 10^3/uL (0.0-0.5); EOS % 0.9 % (0.0-3.0); HEMATOCRIT 36.8 % (42.0-52.0); LYMPH # 0.2 10^3/uL (1.5-5.0); LYMPH % 1.7 % (24.0-44.0); MEAN CORPUSCULAR HEMOGLOBIN 28.4 pg (27.0-33.0); MEAN CORPUSCULAR HGB CONC 32.6 g/dl (32.0-36.5); MEAN CORPUSCULAR VOLUME 87.2 fl (80.0-96.0); MONO # 0.5 10^3/uL (0.0-0.8); MONO % 4.2 % (2.0-8.0); NEUTROPHILS % 91.7 % (36.0-66.0); PLATELET COUNT, AUTOMATED 156 10^3/uL (150-450); RED BLOOD COUNT 4.22 10^6/uL (4.30-6.10); WHITE BLOOD COUNT 11.9 10^3/uL (4.0-10.0)
[2022-10-02 06:56] LABS: ALBUMIN 2.2 G/DL (3.2-5.2); ALKALINE PHOSPHATASE 56 U/L (46-116); ALT/SGPT 37 U/L (7.0-40); AST/SGOT 25 U/L (<34); BLOOD UREA NITROGEN 22 MG/DL (9-23); CALCIUM LEVEL 7.8 MG/DL (8.3-10.6); CARBON DIOXIDE LEVEL 27 MMOL/L (20-31); CHLORIDE LEVEL 105 MMOL/L (98-107); CREATININE FOR GFR 0.83 MG/DL (0.70-1.30); GLOMERULAR FILTRATION RATE > 60.0 (>35); GLUCOSE, FASTING 118 MG/DL (74-106); MAGNESIUM LEVEL 2.1 MG/DL (1.8-2.4); POTASSIUM SERUM 3.5 MMOL/L (3.5-5.1); SODIUM LEVEL 139 MMOL/L (136-145); TOTAL PROTEIN 5.5 G/DL (5.7-8.2)
[2022-10-02] MEDS: TIOTROPIUM INHALER/CAPSULE (SPIRIVA) INH SCH (07:43)
[2022-10-02] MEDS: ADVAIR HFA 115/21MCG INHALER INH SCH ×2 (07:43→19:33)
[2022-10-02] MEDS: PANTOPRAZOLE 40MG VIAL IV SCH (08:54)
[2022-10-02] MEDS: ALVIMOPAN 12 MG CAPSULE (ENTEREG) PO SCH ×2 (08:54→20:52)
[2022-10-02] MEDS: methylPREDNISolone 40MG 1ML VIAL IV SCH (08:54)
[2022-10-02] MEDS: DOCUSATE SODIUM 100MG CAPSULE PO SCH ×2 (08:55→20:52)
[2022-10-02] MEDS: TAMSULOSIN 0.4 MG CAP PO SCH (12:58)
[2022-10-02 16:36] LABS: APPEARANCE, URINE HAZY (CLEAR); BACTERIA, URINE AUTO NEGATIVE (NEGATIVE); BILIRUBIN, URINE AUTO NEGATIVE (NEGATIVE); BLOOD, URINE BLOOD 3+ (NEGATIVE); COLOR, URINE YELLOW (YELLOW); GLUCOSE, URINE (UA) AUTO NEGATIVE (NEGATIVE); KETONE, URINE AUTO NEGATIVE (NEGATIVE); LEUKOCYTE ESTERASE, URINE AUTO NEGATIVE (NEGATIVE); NITRITE, URINE AUTO NEGATIVE (NEGATIVE); PROTEIN, URINE AUTO 1+ mg/dL (NEGATIVE); RBC, URINE AUTO TNTC /HPF (0-3); SQUAMOUS EPITHELIAL CELL UR AU 0 /HPF (0-6); UROBILINOGEN, URINE AUTO 0.2 mg/dL (0.0-2.0); WBC, URINE AUTO 0 /HPF (0-3)
[2022-10-02] MEDS: CEPACOL LOZENGE PO PRN (18:30)
[2022-10-02] MEDS: ONDANSETRON 4MG 2ML VIAL IV PRN (23:40)
[2022-10-03] VITALS (7 sets, daily range): BP systolic 107–166; BP diastolic 52–83
[2022-10-03] MEDS: PROCHLORPERAZINE 5MG TAB PO PRN (00:12)
[2022-10-03] MEDS: PIPERACILLIN/TAZOBACTAM SOD 4.5 GM in D5W MINI-BAG PLUS 50 ML IV SCH ×4 (00:30→17:19)
[2022-10-03] MEDS: IPRATROPIUM 0.5MG/ALBUTEROL 2.5MG INH SOL UD 3ML (DUONEB) NEB SCH ×3 (02:49→11:10)
[2022-10-03 04:51] LABS: BASO % 0.2 % (0.0-1.0); EOS # 0.2 10^3/uL (0.0-0.5); EOS % 1.6 % (0.0-3.0); HEMATOCRIT 39.2 % (42.0-52.0); HEMOGLOBIN 12.6 g/dl (13.5-17.5); LYMPH # 0.3 10^3/uL (1.5-5.0); LYMPH % 2.2 % (24.0-44.0); MEAN CORPUSCULAR HEMOGLOBIN 28.5 pg (27.0-33.0); MEAN CORPUSCULAR HGB CONC 32.1 g/dl (32.0-36.5); MEAN CORPUSCULAR VOLUME 88.7 fl (80.0-96.0); MONO # 0.7 10^3/uL (0.0-0.8); MONO % 5.4 % (2.0-8.0); NEUTROPHILS # 10.9 10^3/uL (1.5-8.5); NEUTROPHILS % 89.5 % (36.0-66.0); PLATELET COUNT, AUTOMATED 194 10^3/uL (150-450); RED BLOOD COUNT 4.42 10^6/uL (4.30-6.10); WHITE BLOOD COUNT 12.2 10^3/uL (4.0-10.0)
[2022-10-03] MEDS: LEVOTHYROXINE 25MCG TABLET (0.025MG) PO SCH (05:13)
[2022-10-03 05:14] LABS: ALBUMIN 2.3 G/DL (3.2-5.2); ALKALINE PHOSPHATASE 56 U/L (46-116); ALT/SGPT 37 U/L (7.0-40); AST/SGOT 23 U/L (<34); BLOOD UREA NITROGEN 22 MG/DL (9-23); CALCIUM LEVEL 7.7 MG/DL (8.3-10.6); CARBON DIOXIDE LEVEL 26 MMOL/L (20-31); CHLORIDE LEVEL 107 MMOL/L (98-107); CREATININE FOR GFR 0.93 MG/DL (0.70-1.30); GLOMERULAR FILTRATION RATE > 60.0 (>35); GLUCOSE, FASTING 87 MG/DL (74-106); POTASSIUM SERUM 3.5 MMOL/L (3.5-5.1); SODIUM LEVEL 142 MMOL/L (136-145); TOTAL PROTEIN 5.7 G/DL (5.7-8.2)
[2022-10-03] MEDS: TIOTROPIUM INHALER/CAPSULE (SPIRIVA) INH SCH (08:18)
[2022-10-03] MEDS: ADVAIR HFA 115/21MCG INHALER INH SCH ×2 (08:18→19:11)
[2022-10-03] MEDS: PANTOPRAZOLE 40MG VIAL IV SCH (08:52)
[2022-10-03] MEDS: TAMSULOSIN 0.4 MG CAP PO SCH (08:54)
[2022-10-03] MEDS: ALVIMOPAN 12 MG CAPSULE (ENTEREG) PO SCH ×2 (08:54→20:23)
[2022-10-03] MEDS: predniSONE 20 MG TAB PO SCH (08:56)
[2022-10-03] MEDS ORDERED: SENNA 8.6 MG TAB (SENOKOT) PO SCH (09:00)
[2022-10-03] MEDS: SENOKOT S TAB PO SCH ×2 (10:47→20:23)
[2022-10-03] MEDS: ONDANSETRON 4MG 2ML VIAL IV PRN (11:34)
[2022-10-03] MEDS: ALBUTEROL SULFATE 2.5MG/0.5ML INH NEB SOLN NEB SCH ×3 (15:58→23:06)
[2022-10-04] MEDS: ALBUTEROL SULFATE 2.5MG/0.5ML INH NEB SOLN NEB SCH ×6 (03:12→23:49)
[2022-10-04 04:59] LABS: BASO % 0.4 % (0.0-1.0); EOS # 0.4 10^3/uL (0.0-0.5); EOS % 3.3 % (0.0-3.0); HEMATOCRIT 37.8 % (42.0-52.0); LYMPH # 0.3 10^3/uL (1.5-5.0); LYMPH % 2.6 % (24.0-44.0); MEAN CORPUSCULAR HEMOGLOBIN 28.3 pg (27.0-33.0); MEAN CORPUSCULAR HGB CONC 31.7 g/dl (32.0-36.5); MEAN CORPUSCULAR VOLUME 89.2 fl (80.0-96.0); MONO # 0.7 10^3/uL (0.0-0.8); MONO % 6.6 % (2.0-8.0); NEUTROPHILS # 9.6 10^3/uL (1.5-8.5); NEUTROPHILS % 85.9 % (36.0-66.0); PLATELET COUNT, AUTOMATED 221 10^3/uL (150-450); RED BLOOD COUNT 4.24 10^6/uL (4.30-6.10); WHITE BLOOD COUNT 11.2 10^3/uL (4.0-10.0)
[2022-10-04 05:31] LABS: ALBUMIN 2.2 G/DL (3.2-5.2); ALKALINE PHOSPHATASE 54 U/L (46-116); ALT/SGPT 33 U/L (7.0-40); AST/SGOT 17 U/L (<34); BILIRUBIN,TOTAL 0.9 MG/DL (0.3-1.2); BLOOD UREA NITROGEN 31 MG/DL (9-23); CALCIUM LEVEL 8.3 MG/DL (8.3-10.6); CARBON DIOXIDE LEVEL 27 MMOL/L (20-31); CHLORIDE LEVEL 109 MMOL/L (98-107); CREATININE FOR GFR 0.95 MG/DL (0.70-1.30); GLOMERULAR FILTRATION RATE > 60.0 (>35); GLUCOSE, FASTING 83 MG/DL (74-106); POTASSIUM SERUM 3.3 MMOL/L (3.5-5.1); SODIUM LEVEL 144 MMOL/L (136-145); TOTAL PROTEIN 5.4 G/DL (5.7-8.2)
[2022-10-04] MEDS: LEVOTHYROXINE 25MCG TABLET (0.025MG) PO SCH (05:50)
[2022-10-04] MEDS: PIPERACILLIN/TAZOBACTAM SOD 4.5 GM in D5W MINI-BAG PLUS 50 ML IV SCH ×4 (05:50→22:16)
[2022-10-04] MEDS ORDERED: POTASSIUM CHLORIDE 10MEQ SR TABLET PO ONE ×2 (07:30→08:30)
[2022-10-04] MEDS: TIOTROPIUM INHALER/CAPSULE (SPIRIVA) INH SCH (07:38)
[2022-10-04] MEDS: ADVAIR HFA 115/21MCG INHALER INH SCH ×2 (07:38→20:44)
[2022-10-04 08:03] VITALS: BP 173/72
[2022-10-04] MEDS ORDERED: POTASSIUM CHLORIDE 10% LIQ 20MEQ/15ML UDC PO ONE (09:10)
[2022-10-04] MEDS: SENOKOT S TAB PO SCH ×2 (09:31→20:18)
[2022-10-04] MEDS: TAMSULOSIN 0.4 MG CAP PO SCH (09:32)
[2022-10-04] MEDS: PANTOPRAZOLE 40MG VIAL IV SCH (09:32)
[2022-10-04] MEDS: predniSONE 20 MG TAB PO SCH (09:32)
[2022-10-04] MEDS: ALVIMOPAN 12 MG CAPSULE (ENTEREG) PO SCH ×2 (09:32→20:17)
[2022-10-04 12:00] VITALS: BP 162/70
[2022-10-04 16:00] VITALS: BP 135/63
[2022-10-04] MEDS: amLODIPine 5 MG TAB PO SCH (16:22)
[2022-10-04 20:17] VITALS: BP 166/76
[2022-10-04] MEDS: HYDROMORPHONE HCL 0.5 MG/ 0.5 ML SYRINGE IV PRN (22:15)
[2022-10-04] MEDS: CEPACOL LOZENGE PO PRN (22:16)
[2022-10-05] VITALS (10 sets, daily range): BP systolic 108–199; BP diastolic 58–87; O2SAT 90–93
[2022-10-05] MEDS: ONDANSETRON 4MG 2ML VIAL IV PRN ×3 (00:01→22:33)
[2022-10-05] MEDS: ALBUTEROL SULFATE 2.5MG/0.5ML INH NEB SOLN NEB SCH ×6 (04:00→23:50)
[2022-10-05 04:52] LABS: BASO % 0.3 % (0.0-1.0); EOS # 0.5 10^3/uL (0.0-0.5); EOS % 3.6 % (0.0-3.0); HEMATOCRIT 37.4 % (42.0-52.0); LYMPH # 0.3 10^3/uL (1.5-5.0); LYMPH % 2.4 % (24.0-44.0); MEAN CORPUSCULAR HEMOGLOBIN 28.7 pg (27.0-33.0); MEAN CORPUSCULAR HGB CONC 32.1 g/dl (32.0-36.5); MEAN CORPUSCULAR VOLUME 89.5 fl (80.0-96.0); MONO # 0.8 10^3/uL (0.0-0.8); MONO % 6.2 % (2.0-8.0); NEUTROPHILS # 10.8 10^3/uL (1.5-8.5); NEUTROPHILS % 86.5 % (36.0-66.0); PLATELET COUNT, AUTOMATED 240 10^3/uL (150-450); RED BLOOD COUNT 4.18 10^6/uL (4.30-6.10); WHITE BLOOD COUNT 12.5 10^3/uL (4.0-10.0)
[2022-10-05] MEDS: PIPERACILLIN/TAZOBACTAM SOD 4.5 GM in D5W MINI-BAG PLUS 50 ML IV SCH ×4 (04:59→22:33)
[2022-10-05 05:23] LABS: ALBUMIN 2.2 G/DL (3.2-5.2); ALKALINE PHOSPHATASE 55 U/L (46-116); ALT/SGPT 36 U/L (7.0-40); AST/SGOT 19 U/L (<34); BILIRUBIN,TOTAL 0.9 MG/DL (0.3-1.2); BLOOD UREA NITROGEN 30 MG/DL (9-23); CALCIUM LEVEL 8.3 MG/DL (8.3-10.6); CARBON DIOXIDE LEVEL 27 MMOL/L (20-31); CHLORIDE LEVEL 110 MMOL/L (98-107); CREATININE FOR GFR 0.92 MG/DL (0.70-1.30); GLOMERULAR FILTRATION RATE > 60.0 (>35); GLUCOSE, FASTING 88 MG/DL (74-106); POTASSIUM SERUM 3.3 MMOL/L (3.5-5.1); SODIUM LEVEL 145 MMOL/L (136-145); TOTAL PROTEIN 5.5 G/DL (5.7-8.2)
[2022-10-05] MEDS: LEVOTHYROXINE 25MCG TABLET (0.025MG) PO SCH (06:19)
[2022-10-05] MEDS: TIOTROPIUM INHALER/CAPSULE (SPIRIVA) INH SCH (07:18)
[2022-10-05] MEDS: ADVAIR HFA 115/21MCG INHALER INH SCH ×3 (07:19→20:52)
[2022-10-05] MEDS ORDERED: POTASSIUM CHLORIDE 10% LIQ 20MEQ/15ML UDC PO ONE (08:00)
[2022-10-05] MEDS: PANTOPRAZOLE 40MG VIAL IV SCH (08:08)
[2022-10-05] MEDS: TAMSULOSIN 0.4 MG CAP PO SCH (08:08)
[2022-10-05] MEDS: amLODIPine 5 MG TAB PO SCH (08:09)
[2022-10-05] MEDS: SENOKOT S TAB PO SCH ×2 (08:09→21:35)
[2022-10-05] MEDS: predniSONE 20 MG TAB PO SCH (08:10)
[2022-10-05] MEDS: ALVIMOPAN 12 MG CAPSULE (ENTEREG) PO SCH ×2 (08:10→21:35)
[2022-10-05] MEDS ORDERED: FUROSEMIDE 20MG/2ML VIAL IV ONE (09:00)
[2022-10-05] MEDS: BUDESONIDE 0.5 MG/2 ML INHALATION SUSPENSION INH SCH ×2 (11:59→20:40)
[2022-10-05] MEDS: ENOXAPARIN 40MG/0.4ML SYRINGE (J1650 PER 10MG) SC SCH (21:35)
[2022-10-06] VITALS (13 sets, daily range): BP systolic 124–198; BP diastolic 62–95
[2022-10-06] MEDS: CEPACOL LOZENGE PO PRN (02:03)
[2022-10-06] MEDS: ALBUTEROL SULFATE 2.5MG/0.5ML INH NEB SOLN NEB SCH ×5 (04:00→20:00)
[2022-10-06 05:33] LABS: HEMOGLOBIN 11.9 g/dl (13.5-17.5); MEAN CORPUSCULAR HEMOGLOBIN 28.7 pg (27.0-33.0); MEAN CORPUSCULAR HGB CONC 32.2 g/dl (32.0-36.5); MEAN CORPUSCULAR VOLUME 89.4 fl (80.0-96.0); PLATELET COUNT, AUTOMATED 256 10^3/uL (150-450); RED BLOOD COUNT 4.14 10^6/uL (4.30-6.10); WHITE BLOOD COUNT 11.6 10^3/uL (4.0-10.0)
[2022-10-06] MEDS: LEVOTHYROXINE 25MCG TABLET (0.025MG) PO SCH (05:41)
[2022-10-06] MEDS: PIPERACILLIN/TAZOBACTAM SOD 4.5 GM in D5W MINI-BAG PLUS 50 ML IV SCH ×4 (05:41→23:36)
[2022-10-06 06:00] LABS: ALBUMIN 2.2 G/DL (3.2-5.2); ALKALINE PHOSPHATASE 56 U/L (46-116); ALT/SGPT 36 U/L (7.0-40); AST/SGOT 19 U/L (<34); BILIRUBIN,TOTAL 0.7 MG/DL (0.3-1.2); BLOOD UREA NITROGEN 35 MG/DL (9-23); CALCIUM LEVEL 8.5 MG/DL (8.3-10.6); CARBON DIOXIDE LEVEL 27 MMOL/L (20-31); CHLORIDE LEVEL 110 MMOL/L (98-107); CREATININE FOR GFR 0.99 MG/DL (0.70-1.30); GLOMERULAR FILTRATION RATE > 60.0 (>35); GLUCOSE, FASTING 100 MG/DL (74-106); POTASSIUM SERUM 3.3 MMOL/L (3.5-5.1); SODIUM LEVEL 144 MMOL/L (136-145); TOTAL PROTEIN 5.6 G/DL (5.7-8.2)
[2022-10-06] MEDS: BUDESONIDE 0.5 MG/2 ML INHALATION SUSPENSION INH SCH ×2 (07:59→20:00)
[2022-10-06] MEDS: ADVAIR HFA 115/21MCG INHALER INH SCH ×2 (07:59→20:00)
[2022-10-06] MEDS: TIOTROPIUM INHALER/CAPSULE (SPIRIVA) INH SCH (07:59)
[2022-10-06] MEDS: ALVIMOPAN 12 MG CAPSULE (ENTEREG) PO SCH ×2 (08:08→21:00)
[2022-10-06] MEDS: PANTOPRAZOLE 40MG VIAL IV SCH (08:08)
[2022-10-06] MEDS: amLODIPine 5 MG TAB PO SCH (08:10)
[2022-10-06] MEDS: predniSONE 20 MG TAB PO SCH (08:10)
[2022-10-06] MEDS: TAMSULOSIN 0.4 MG CAP PO SCH (08:10)
[2022-10-06] MEDS: SENOKOT S TAB PO SCH (08:10)
[2022-10-06] MEDS ORDERED: POTASSIUM CHLORIDE 10% LIQ 20MEQ/15ML UDC PO SCH (09:00)
[2022-10-06] MEDS ORDERED: FUROSEMIDE 20MG/2ML VIAL IV ONE (14:30)
[2022-10-06] MEDS ORDERED: BUPIVACAINE HCL 0.5% 30ML VIAL As Ordered ONE (19:16)
[2022-10-06] MEDS ORDERED: BOTOX THERAPEUTIC 100 UNIT VIAL As Ordered ONE (19:17)
[2022-10-06] MEDS ORDERED: ceFAZolin 1GM VIAL As Ordered ONE (19:29)
[2022-10-06] MEDS ORDERED: fentaNYL 100 MCG/2 ML INJECTION As Ordered ONE ×2 (20:07→20:08)
[2022-10-06] MEDS ORDERED: propofoL 200 MG/20 ML VIAL As Ordered ONE (20:07)
[2022-10-06] MEDS ORDERED: VASOPRESSIN INJ 20UNITS/ML 1ML VIAL As Ordered ONE (20:07)
[2022-10-06] MEDS ORDERED: ROCURONIUM BROMIDE 50MG/5ML VIAL As Ordered ONE ×4 (20:07→22:12)
[2022-10-06] MEDS ORDERED: LIDOCAINE 2% 100MG/5ML SDV (FOR ANES.) As Ordered ONE (20:07)
[2022-10-06] MEDS ORDERED: ETOMIDATE INJ 20MG/10ML VIAL As Ordered ONE (20:07)
[2022-10-06] MEDS ORDERED: MIDAZOLAM INJ 2MG/2ML VIAL As Ordered ONE (20:07)
[2022-10-06] MEDS ORDERED: HYDROmorphone HCL 2MG/ML 1ML VIAL As Ordered ONE (20:29)
[2022-10-06] MEDS: ENOXAPARIN 40MG/0.4ML SYRINGE (J1650 PER 10MG) SC SCH (21:00)
[2022-10-06] MEDS ORDERED: ZOSYN 4.5GM VIAL As Ordered ONE (21:31)
[2022-10-06] MEDS ORDERED: ACETAMINOPHEN 1000MG 100ML IV BAG As Ordered ONE (22:01)
[2022-10-06] MEDS ORDERED: PROPOFOL 1,000 MG/100 ML VIAL As Ordered ONE (22:50)
[2022-10-06] MEDS: propofoL 1,000 MG in IV 1 EA IV SCH (23:13)
[2022-10-06] MEDS: CISATRACURIUM 200 MG in NS 480 ML IV SCH (23:25)
[2022-10-07] VITALS (94 sets, daily range): BP systolic 85–221; BP diastolic 47–95
[2022-10-07] MEDS ORDERED: CISATRACURIUM 200 MG in NS 480 ML IV SCH ×2
[2022-10-07 00:14] LABS: ABG BASE EXCESS 0.4 (-2.0-2.0); ABG HCO3 27.3 MEQ/L (22.0-26.0); ABG PARTIAL PRESSURE CO2 53.4 mmHg (35.0-45.0); ABG PARTIAL PRESSURE O2 84.3 mmHg (75.0-100.0); ABG STANDARD HCO3 24.8 MEQ/L (22.0-26.0); ABG TOTAL CO2 28.9 MEQ/L (23.0-31.0); ABG pH (ARTERIAL) 7.326 UNITS (7.350-7.450)
[2022-10-07] MEDS: ALBUTEROL SULFATE 2.5MG/0.5ML INH NEB SOLN NEB SCH ×7 (00:52→23:12)
[2022-10-07 04:50] LABS: HEMATOCRIT 39.5 % (42.0-52.0); HEMOGLOBIN 12.1 g/dl (13.5-17.5); MEAN CORPUSCULAR HEMOGLOBIN 28.3 pg (27.0-33.0); MEAN CORPUSCULAR HGB CONC 30.6 g/dl (32.0-36.5); MEAN CORPUSCULAR VOLUME 92.3 fl (80.0-96.0); PLATELET COUNT, AUTOMATED 286 10^3/uL (150-450); RED BLOOD COUNT 4.28 10^6/uL (4.30-6.10); WHITE BLOOD COUNT 14.2 10^3/uL (4.0-10.0)
[2022-10-07] MEDS: PIPERACILLIN/TAZOBACTAM SOD 4.5 GM in D5W MINI-BAG PLUS 50 ML IV SCH ×3 (05:00→16:12)
[2022-10-07 05:58] LABS: ALKALINE PHOSPHATASE 53 U/L (46-116); ALT/SGPT 33 U/L (7.0-40); AST/SGOT 15 U/L (<34); BILIRUBIN,TOTAL 0.6 MG/DL (0.3-1.2); BLOOD UREA NITROGEN 37 MG/DL (9-23); CALCIUM LEVEL 7.9 MG/DL (8.3-10.6); CARBON DIOXIDE LEVEL 28 MMOL/L (20-31); CHLORIDE LEVEL 109 MMOL/L (98-107); CREATININE FOR GFR 1.22 MG/DL (0.70-1.30); GLOMERULAR FILTRATION RATE > 60.0 (>35); GLUCOSE, FASTING 125 MG/DL (74-106); POTASSIUM SERUM 3.7 MMOL/L (3.5-5.1); SODIUM LEVEL 144 MMOL/L (136-145); TOTAL PROTEIN 5.2 G/DL (5.7-8.2)
[2022-10-07] MEDS: propofoL 1,000 MG in IV 1 EA IV SCH ×3 (06:48→20:41)
[2022-10-07] MEDS ORDERED: FENTANYL DRIP LOCK BOX KEY 1 EACH XX PRN (08:15)
[2022-10-07] MEDS: fentaNYL CITRATE/NaCl 1,000 MCG in IV 1 EA IV SCH (09:23)
[2022-10-07] MEDS: PANTOPRAZOLE 40MG VIAL IV SCH (09:27)
[2022-10-07] MEDS: CHLORHEXIDINE GLUCONATE 0.12 % 15ML UDC (PERIDEX ORAL RINSE) MT SCH ×2 (09:29→20:40)
[2022-10-07] MEDS: NS 1,000 ML IV SCH ×2 (09:29→21:13)
[2022-10-07] MEDS: LACRILUBE (AKWA TEARS) OPHTH OINT 3.5GM OU SCH ×3 (11:17→21:13)
[2022-10-07] MEDS: CISATRACURIUM 200 MG in NS 480 ML IV SCH (14:10)
[2022-10-07] MEDS: hydrALAZINE 20MG/ML 1ML VIAL IV PRN (15:05)
[2022-10-07] MEDS: amLODIPine 5 MG TAB PO SCH (15:44)
[2022-10-08] VITALS (70 sets, daily range): BP systolic 80–188; BP diastolic 42–83
[2022-10-08] MEDS: PIPERACILLIN/TAZOBACTAM SOD 4.5 GM in D5W MINI-BAG PLUS 50 ML IV SCH ×5 (00:03→23:03)
[2022-10-08] MEDS: fentaNYL CITRATE/NaCl 1,000 MCG in IV 1 EA IV SCH ×3 (03:27→20:33)
[2022-10-08] MEDS: propofoL 1,000 MG in IV 1 EA IV SCH ×5 (03:27→23:42)
[2022-10-08] MEDS: ALBUTEROL SULFATE 2.5MG/0.5ML INH NEB SOLN NEB SCH ×6 (03:29→23:16)
[2022-10-08 04:29] LABS: HEMATOCRIT 33.5 % (42.0-52.0); MEAN CORPUSCULAR HEMOGLOBIN 28.4 pg (27.0-33.0); MEAN CORPUSCULAR HGB CONC 30.1 g/dl (32.0-36.5); MEAN CORPUSCULAR VOLUME 94.1 fl (80.0-96.0); PLATELET COUNT, AUTOMATED 221 10^3/uL (150-450); RED BLOOD COUNT 3.56 10^6/uL (4.30-6.10)
[2022-10-08 04:45] LABS: HEMOGLOBIN 10.1 g/dl (13.5-17.5)
[2022-10-08] MEDS: CISATRACURIUM 200 MG in NS 480 ML IV SCH (05:06)
[2022-10-08 05:10] LABS: ALBUMIN 1.5 G/DL (3.2-5.2); ALKALINE PHOSPHATASE 45 U/L (46-116); ALT/SGPT 23 U/L (7.0-40); AST/SGOT 17 U/L (<34); BILIRUBIN,TOTAL 0.3 MG/DL (0.3-1.2); BLOOD UREA NITROGEN 24 MG/DL (9-23); CALCIUM LEVEL 6.9 MG/DL (8.3-10.6); CARBON DIOXIDE LEVEL 26 MMOL/L (20-31); CHLORIDE LEVEL 114 MMOL/L (98-107); CREATININE FOR GFR 0.73 MG/DL (0.70-1.30); GLOMERULAR FILTRATION RATE > 60.0 (>35); GLUCOSE, FASTING 107 MG/DL (74-106); POTASSIUM SERUM 3.4 MMOL/L (3.5-5.1); SODIUM LEVEL 146 MMOL/L (136-145); TOTAL PROTEIN 4.3 G/DL (5.7-8.2)
[2022-10-08] MEDS: NS 1,000 ML IV SCH (05:14)
[2022-10-08 05:45] LABS: ABG BASE EXCESS -0.1 (-2.0-2.0); ABG HCO3 24.9 MEQ/L (22.0-26.0); ABG O2 SATURATION 98.4 % (95.0-99.0); ABG PARTIAL PRESSURE CO2 42.1 mmHg (35.0-45.0); ABG PARTIAL PRESSURE O2 116.7 mmHg (75.0-100.0); ABG STANDARD HCO3 24.4 MEQ/L (22.0-26.0); ABG TOTAL CO2 26.2 MEQ/L (23.0-31.0)
[2022-10-08] MEDS ORDERED: KCL 20MEQ IN 100ML SWI (KRUN) 20 MEQ in IV 1 EA IV ONE ×2 (06:00)
[2022-10-08] MEDS: amLODIPine 5 MG TAB PO SCH (09:56)
[2022-10-08] MEDS: CHLORHEXIDINE GLUCONATE 0.12 % 15ML UDC (PERIDEX ORAL RINSE) MT SCH ×2 (09:56→20:25)
[2022-10-08] MEDS: LACRILUBE (AKWA TEARS) OPHTH OINT 3.5GM OU SCH ×3 (09:57→20:25)
[2022-10-08] MEDS: PANTOPRAZOLE 40MG VIAL IV SCH (09:57)
[2022-10-08] MEDS: LEVOTHYROXINE 100MCG (0.1MG) 5ML SDV PF (SOLUTION FORM) IV SCH (12:11)
[2022-10-08] MEDS ORDERED: FUROSEMIDE 20MG/2ML VIAL IV ONE (18:35)
[2022-10-09] VITALS (56 sets, daily range): BP systolic 86–183; BP diastolic 48–79; O2SAT 95–96
[2022-10-09] MEDS: HYDROMORPHONE HCL 0.5 MG/ 0.5 ML SYRINGE IV PRN (00:52)
[2022-10-09] MEDS: ALBUTEROL SULFATE 2.5MG/0.5ML INH NEB SOLN NEB SCH ×5 (03:05→23:11)
[2022-10-09] MEDS: PIPERACILLIN/TAZOBACTAM SOD 4.5 GM in D5W MINI-BAG PLUS 50 ML IV SCH (04:18)
[2022-10-09] MEDS: propofoL 1,000 MG in IV 1 EA IV SCH (04:26)
[2022-10-09 04:44] LABS: HEMATOCRIT 31.2 % (42.0-52.0); HEMOGLOBIN 9.5 g/dl (13.5-17.5); MEAN CORPUSCULAR HEMOGLOBIN 28.4 pg (27.0-33.0); MEAN CORPUSCULAR HGB CONC 30.4 g/dl (32.0-36.5); MEAN CORPUSCULAR VOLUME 93.4 fl (80.0-96.0); PLATELET COUNT, AUTOMATED 202 10^3/uL (150-450); RED BLOOD COUNT 3.34 10^6/uL (4.30-6.10); WHITE BLOOD COUNT 10.7 10^3/uL (4.0-10.0)
[2022-10-09 05:14] LABS: ALBUMIN 1.4 G/DL (3.2-5.2); ALKALINE PHOSPHATASE 46 U/L (46-116); ALT/SGPT 20 U/L (7.0-40); AST/SGOT 21 U/L (<34); BILIRUBIN,TOTAL 0.4 MG/DL (0.3-1.2); BLOOD UREA NITROGEN 22 MG/DL (9-23); CALCIUM LEVEL 7.3 MG/DL (8.3-10.6); CARBON DIOXIDE LEVEL 28 MMOL/L (20-31); CHLORIDE LEVEL 110 MMOL/L (98-107); CREATININE FOR GFR 0.84 MG/DL (0.70-1.30); GLOMERULAR FILTRATION RATE > 60.0 (>35); GLUCOSE, FASTING 80 MG/DL (74-106); POTASSIUM SERUM 3.1 MMOL/L (3.5-5.1); SODIUM LEVEL 144 MMOL/L (136-145); TOTAL PROTEIN 4.4 G/DL (5.7-8.2)
[2022-10-09] MEDS: KCL 20MEQ IN 100ML SWI (KRUN) 20 MEQ in IV 1 EA IV SCH ×4 (05:51→06:58)
[2022-10-09 06:22] LABS: ABG BASE EXCESS 1.7 (-2.0-2.0); ABG HCO3 26.8 MEQ/L (22.0-26.0); ABG O2 SATURATION 96.4 % (95.0-99.0); ABG PARTIAL PRESSURE CO2 43.9 mmHg (35.0-45.0); ABG TOTAL CO2 28.1 MEQ/L (23.0-31.0); ABG pH (ARTERIAL) 7.403 UNITS (7.350-7.450)
[2022-10-09] MEDS ORDERED: fentaNYL CITRATE/NaCl 1,000 MCG in IV 1 EA IV SCH (08:00)
[2022-10-09] MEDS: amLODIPine 5 MG TAB PO SCH (09:25)
[2022-10-09] MEDS: LACRILUBE (AKWA TEARS) OPHTH OINT 3.5GM OU SCH ×3 (09:25→21:00)
[2022-10-09] MEDS: LEVOTHYROXINE 100MCG (0.1MG) 5ML SDV PF (SOLUTION FORM) IV SCH (09:25)
[2022-10-09] MEDS: CHLORHEXIDINE GLUCONATE 0.12 % 15ML UDC (PERIDEX ORAL RINSE) MT SCH (09:25)
[2022-10-09] MEDS: PANTOPRAZOLE 40MG VIAL IV SCH (09:25)
[2022-10-09 11:26] LABS: ABG BASE EXCESS 2.2 (-2.0-2.0); ABG HCO3 24.4 MEQ/L (22.0-26.0); ABG O2 SATURATION 94.8 % (95.0-99.0); ABG PARTIAL PRESSURE CO2 30.3 mmHg (35.0-45.0); ABG PARTIAL PRESSURE O2 62.9 mmHg (75.0-100.0); ABG STANDARD HCO3 26.4 MEQ/L (22.0-26.0); ABG TOTAL CO2 25.3 MEQ/L (23.0-31.0); ABG pH (ARTERIAL) 7.523 UNITS (7.350-7.450)
[2022-10-09] MEDS ORDERED: LORazepam 2 MG/ML 1ML VIAL IV STA (12:40)
[2022-10-09] MEDS: ESCITALOPRAM OXALATE 5MG TABLET (LEXAPRO) PO SCH (16:04)
[2022-10-09] MEDS ORDERED: ACETAMINOPHEN 1000MG 100ML IV BAG IV ONE (16:25)
[2022-10-09] MEDS ORDERED: FAT EMULSION IV 250 ML IV ONE (18:00)
[2022-10-09] MEDS: INSULIN LISPRO (NovoLOG) PER UNIT SC SCH ×2 (18:00→23:39)
[2022-10-09] MEDS ORDERED: AMINO AC/ELECTROLYTE/DEX/CALC 2,000 ML IV SCH (18:00)
[2022-10-10] VITALS (19 sets, daily range): BP systolic 124–182; BP diastolic 61–109; O2SAT 94
[2022-10-10] MEDS: HYDROMORPHONE HCL 0.5 MG/ 0.5 ML SYRINGE IV PRN ×4 (01:24→23:28)
[2022-10-10] MEDS: hydrALAZINE 20MG/ML 1ML VIAL IV PRN (04:42)
[2022-10-10 05:08] LABS: HEMATOCRIT 33.8 % (42.0-52.0); HEMOGLOBIN 10.6 g/dl (13.5-17.5); MEAN CORPUSCULAR HEMOGLOBIN 28.2 pg (27.0-33.0); MEAN CORPUSCULAR HGB CONC 31.4 g/dl (32.0-36.5); MEAN CORPUSCULAR VOLUME 89.9 fl (80.0-96.0); PLATELET COUNT, AUTOMATED 230 10^3/uL (150-450); RED BLOOD COUNT 3.76 10^6/uL (4.30-6.10); WHITE BLOOD COUNT 11.3 10^3/uL (4.0-10.0)
[2022-10-10] MEDS ORDERED: METOPROLOL 5 MG/5 ML VIAL IV STA (05:08)
[2022-10-10 05:30] LABS: ALBUMIN 1.6 G/DL (3.2-5.2); ALKALINE PHOSPHATASE 57 U/L (46-116); ALT/SGPT 32 U/L (7.0-40); AST/SGOT 39 U/L (<34); BILIRUBIN,TOTAL 0.4 MG/DL (0.3-1.2); BLOOD UREA NITROGEN 15 MG/DL (9-23); CARBON DIOXIDE LEVEL 28 MMOL/L (20-31); CHLORIDE LEVEL 107 MMOL/L (98-107); CREATININE FOR GFR 0.57 MG/DL (0.70-1.30); GLOMERULAR FILTRATION RATE > 60.0 (>35); GLUCOSE, FASTING 149 MG/DL (74-106); SODIUM LEVEL 140 MMOL/L (136-145)
[2022-10-10] MEDS: INSULIN LISPRO (NovoLOG) PER UNIT SC SCH ×4 (05:44→23:21)
[2022-10-10] MEDS: KCL 20MEQ IN 100ML SWI (KRUN) 20 MEQ in IV 1 EA IV SCH ×4 (05:55→06:44)
[2022-10-10] MEDS ORDERED: LEVOTHYROXINE 25MCG TABLET (0.025MG) PO SCH (06:00)
[2022-10-10] MEDS: ALBUTEROL SULFATE 2.5MG/0.5ML INH NEB SOLN NEB SCH (07:47)
[2022-10-10 08:04] LABS: MAGNESIUM LEVEL 1.7 MG/DL (1.8-2.4)
[2022-10-10] MEDS: ESCITALOPRAM OXALATE 5MG TABLET (LEXAPRO) PO SCH ×2 (09:00→09:09)
[2022-10-10] MEDS: METOPROLOL SUCC *XL* 12.5MG PER 1/2 TAB (TopROL *XL*) PO SCH ×2 (09:00→09:10)
[2022-10-10] MEDS ORDERED: MAG SULF 1GM/100ML (MAG RUN) 1 GM in IV 1 EA IV ONE (09:00)
[2022-10-10] MEDS: amLODIPine 5 MG TAB PO SCH ×2 (09:00→09:10)
[2022-10-10] MEDS: PANTOPRAZOLE 40MG VIAL IV SCH (09:09)
[2022-10-10] MEDS ORDERED: FUROSEMIDE 40MG/4ML VIAL IV ONE (11:50)
[2022-10-10] MEDS: LEVOTHYROXINE 100MCG (0.1MG) 5ML SDV PF (SOLUTION FORM) IV SCH (14:59)
[2022-10-10] MEDS ORDERED: MULTIVITAMIN -ADULT INJECTION 10 ML, ZINC/COPPER/MANGANESE/SELENIUM 1 ML, POTASSIUM CHL... IV SCH ×4 (18:00)
[2022-10-11] VITALS (12 sets, daily range): BP systolic 134–163; BP diastolic 67–81; O2SAT 96–99
[2022-10-11 05:18] LABS: HEMATOCRIT 34.6 % (42.0-52.0); HEMOGLOBIN 11.1 g/dl (13.5-17.5); MEAN CORPUSCULAR HEMOGLOBIN 28.5 pg (27.0-33.0); MEAN CORPUSCULAR HGB CONC 32.1 g/dl (32.0-36.5); MEAN CORPUSCULAR VOLUME 88.9 fl (80.0-96.0); PLATELET COUNT, AUTOMATED 278 10^3/uL (150-450); RED BLOOD COUNT 3.89 10^6/uL (4.30-6.10); WHITE BLOOD COUNT 9.3 10^3/uL (4.0-10.0)
[2022-10-11 05:52] LABS: ALBUMIN 1.6 G/DL (3.2-5.2); ALKALINE PHOSPHATASE 59 U/L (46-116); ALT/SGPT 30 U/L (7.0-40); AST/SGOT 26 U/L (<34); BILIRUBIN,TOTAL 0.5 MG/DL (0.3-1.2); BLOOD UREA NITROGEN 29 MG/DL (9-23); CALCIUM LEVEL 7.5 MG/DL (8.3-10.6); CARBON DIOXIDE LEVEL 28 MMOL/L (20-31); CHLORIDE LEVEL 107 MMOL/L (98-107); CREATININE FOR GFR 0.61 MG/DL (0.70-1.30); GLOMERULAR FILTRATION RATE > 60.0 (>35); GLUCOSE, FASTING 105 MG/DL (74-106); POTASSIUM SERUM 3.1 MMOL/L (3.5-5.1); SODIUM LEVEL 141 MMOL/L (136-145); TOTAL PROTEIN 5.5 G/DL (5.7-8.2)
[2022-10-11] MEDS: INSULIN LISPRO (NovoLOG) PER UNIT SC SCH ×2 (06:30→12:24)
[2022-10-11] MEDS ORDERED: KCL 10MEQ/100ML SWI (KRUN) 10 MEQ in IV 1 EA IV SCH (07:00)
[2022-10-11] MEDS: amLODIPine 5 MG TAB PO SCH (07:38)
[2022-10-11] MEDS: METOPROLOL SUCC *XL* 12.5MG PER 1/2 TAB (TopROL *XL*) PO SCH (07:38)
[2022-10-11] MEDS: ESCITALOPRAM OXALATE 5MG TABLET (LEXAPRO) PO SCH (07:40)
[2022-10-11] MEDS ORDERED: KCL 20MEQ IN 100ML SWI (KRUN) 20 MEQ in IV 1 EA IV ONE ×2 (08:00)
[2022-10-11] MEDS: PANTOPRAZOLE 40MG VIAL IV SCH (08:39)
[2022-10-11] MEDS: LEVOTHYROXINE 100MCG (0.1MG) 5ML SDV PF (SOLUTION FORM) IV SCH (08:39)
[2022-10-11] MEDS: ONDANSETRON 4MG 2ML VIAL IV PRN ×2 (08:50→18:48)
[2022-10-11] MEDS ORDERED: KCL 10MEQ/100ML SWI (KRUN) 10 MEQ in IV 1 EA IV ONE (09:00)
[2022-10-11] MEDS ORDERED: LIDOCAINE 1% MDV 20ML VIAL As Ordered ONE (16:07)
[2022-10-11] MEDS ORDERED: POTASSIUM CHLORIDE INJ 40 MEQ in AMINO AC/ELECTROLYTE/DEX/CALC 2,000 ML IV SCH (18:00)
[2022-10-11] MEDS ORDERED: NEOSPORIN OINT 0.9 GM PKT TOP ONE (18:15)
[2022-10-11] MEDS: HYDROMORPHONE HCL 0.5 MG/ 0.5 ML SYRINGE IV PRN (22:09)
[2022-10-12] VITALS (11 sets, daily range): BP systolic 114–150; BP diastolic 55–72; O2SAT 97–99
[2022-10-12 05:02] LABS: BLOOD UREA NITROGEN 34 MG/DL (9-23); CALCIUM LEVEL 7.8 MG/DL (8.3-10.6); CARBON DIOXIDE LEVEL 28 MMOL/L (20-31); CHLORIDE LEVEL 111 MMOL/L (98-107); CREATININE FOR GFR 0.66 MG/DL (0.70-1.30); GLOMERULAR FILTRATION RATE > 60.0 (>35); GLUCOSE, FASTING 124 MG/DL (74-106); POTASSIUM SERUM 3.9 MMOL/L (3.5-5.1); SODIUM LEVEL 143 MMOL/L (136-145)
[2022-10-12] MEDS: SODIUM CHLORIDE 0.9% INJ 10 ML SYR IV SCH ×2 (06:08→18:11)
[2022-10-12 08:11] LABS: BASO # 0.1 10^3/uL (0.0-0.2); BASO % 0.6 % (0.0-1.0); EOS # 0.4 10^3/uL (0.0-0.5); EOS % 4.8 % (0.0-3.0); HEMOGLOBIN 10.9 g/dl (13.5-17.5); LYMPH # 0.6 10^3/uL (1.5-5.0); LYMPH % 6.6 % (24.0-44.0); MEAN CORPUSCULAR HEMOGLOBIN 27.9 pg (27.0-33.0); MEAN CORPUSCULAR HGB CONC 31.1 g/dl (32.0-36.5); MEAN CORPUSCULAR VOLUME 89.5 fl (80.0-96.0); MONO # 0.6 10^3/uL (0.0-0.8); MONO % 7.5 % (2.0-8.0); NEUTROPHILS # 6.7 10^3/uL (1.5-8.5); NEUTROPHILS % 79.5 % (36.0-66.0); PLATELET COUNT, AUTOMATED 273 10^3/uL (150-450); RED BLOOD COUNT 3.91 10^6/uL (4.30-6.10); WHITE BLOOD COUNT 8.4 10^3/uL (4.0-10.0)
[2022-10-12] MEDS: ESCITALOPRAM OXALATE 5MG TABLET (LEXAPRO) PO SCH (08:19)
[2022-10-12] MEDS: amLODIPine 5 MG TAB PO SCH (08:19)
[2022-10-12] MEDS: METOPROLOL SUCC *XL* 12.5MG PER 1/2 TAB (TopROL *XL*) PO SCH (08:20)
[2022-10-12] MEDS: LEVOTHYROXINE 100MCG (0.1MG) 5ML SDV PF (SOLUTION FORM) IV SCH (09:16)
[2022-10-12] MEDS: PANTOPRAZOLE 40MG VIAL IV SCH (09:16)
[2022-10-12] MEDS: ONDANSETRON 4MG 2ML VIAL IV PRN ×2 (13:33→18:19)
[2022-10-12] MEDS: HYDROMORPHONE HCL 0.5 MG/ 0.5 ML SYRINGE IV PRN (13:34)
[2022-10-12] MEDS ORDERED: MULTIVITAMIN -ADULT INJECTION 10 ML, ZINC/COPPER/MANGANESE/SELENIUM 1 ML in AMINO AC/EL... IV SCH (18:00)
[2022-10-13] VITALS (24 sets, daily range): BP systolic 133–143; BP diastolic 63–71; O2SAT 85–98
[2022-10-13] MEDS: HYDROMORPHONE HCL 0.5 MG/ 0.5 ML SYRINGE IV PRN ×3 (00:05→18:21)
[2022-10-13] MEDS: ONDANSETRON 4MG 2ML VIAL IV PRN ×3 (00:05→18:30)
[2022-10-13 04:17] LABS: BASO # 0.1 10^3/uL (0.0-0.2); BASO % 0.7 % (0.0-1.0); EOS # 0.4 10^3/uL (0.0-0.5); EOS % 5.1 % (0.0-3.0); HEMATOCRIT 33.2 % (42.0-52.0); HEMOGLOBIN 10.6 g/dl (13.5-17.5); LYMPH # 0.5 10^3/uL (1.5-5.0); LYMPH % 6.9 % (24.0-44.0); MEAN CORPUSCULAR HEMOGLOBIN 28.6 pg (27.0-33.0); MEAN CORPUSCULAR HGB CONC 31.9 g/dl (32.0-36.5); MEAN CORPUSCULAR VOLUME 89.5 fl (80.0-96.0); MONO # 0.7 10^3/uL (0.0-0.8); MONO % 9.2 % (2.0-8.0); NEUTROPHILS # 5.8 10^3/uL (1.5-8.5); PLATELET COUNT, AUTOMATED 280 10^3/uL (150-450); RED BLOOD COUNT 3.71 10^6/uL (4.30-6.10); WHITE BLOOD COUNT 7.5 10^3/uL (4.0-10.0)
[2022-10-13 04:48] LABS: BLOOD UREA NITROGEN 33 MG/DL (9-23); CALCIUM LEVEL 7.7 MG/DL (8.3-10.6); CARBON DIOXIDE LEVEL 26 MMOL/L (20-31); CHLORIDE LEVEL 110 MMOL/L (98-107); CREATININE FOR GFR 0.67 MG/DL (0.70-1.30); GLOMERULAR FILTRATION RATE > 60.0 (>35); GLUCOSE, FASTING 112 MG/DL (74-106); SODIUM LEVEL 141 MMOL/L (136-145)
[2022-10-13] MEDS: SODIUM CHLORIDE 0.9% INJ 10 ML SYR IV SCH ×2 (05:21→18:22)
[2022-10-13] MEDS: IPRATROPIUM 0.5MG/ALBUTEROL 2.5MG INH SOL UD 3ML (DUONEB) NEB SCH ×3 (08:00→21:03)
[2022-10-13] MEDS: LEVOTHYROXINE 100MCG (0.1MG) 5ML SDV PF (SOLUTION FORM) IV SCH (09:08)
[2022-10-13] MEDS: PANTOPRAZOLE 40MG VIAL IV SCH (09:08)
[2022-10-13] MEDS: SODIUM CHLORIDE 0.9% INJ 10 ML SYR IV PRN (09:09)
[2022-10-13] MEDS ORDERED: guaiFENesin 200 MG TAB PO PRN (10:00)
[2022-10-13] MEDS ORDERED: VARIBAR NECTAR 40% w/v 240ML SUSP BTL As Ordered ONE (14:28)
[2022-10-13] MEDS ORDERED: VARIBAR PUDDING 40% w/v 230ML TUBE As Ordered ONE (14:28)
[2022-10-13] MEDS ORDERED: E-Z-PAQUE 96% w/w SUSP 176GM BTL As Ordered ONE (14:29)
[2022-10-13] MEDS ORDERED: AMINO AC/ELECTROLYTE/DEX/CALC 2,000 ML IV SCH (18:00)
[2022-10-13] MEDS: INSULIN LISPRO (NovoLOG) PER UNIT SC SCH (18:00)
[2022-10-13] MEDS ORDERED: FAT EMULSION IV 250 ML IV ONE (18:00)
[2022-10-14] VITALS (19 sets, daily range): BP systolic 131–143; BP diastolic 63–80; O2SAT 90–97
[2022-10-14] MEDS: IPRATROPIUM 0.5MG/ALBUTEROL 2.5MG INH SOL UD 3ML (DUONEB) NEB SCH ×4 (02:34→20:39)
[2022-10-14] MEDS: INSULIN LISPRO (NovoLOG) PER UNIT SC SCH ×4 (06:00→18:00)
[2022-10-14] MEDS: SODIUM CHLORIDE 0.9% INJ 10 ML SYR IV SCH ×2 (06:31→18:12)
[2022-10-14 07:59] LABS: BASO # 0.1 10^3/uL (0.0-0.2); BASO % 1.2 % (0.0-1.0); EOS # 0.5 10^3/uL (0.0-0.5); EOS % 6.1 % (0.0-3.0); HEMATOCRIT 35.4 % (42.0-52.0); HEMOGLOBIN 10.9 g/dl (13.5-17.5); LYMPH # 0.5 10^3/uL (1.5-5.0); LYMPH % 6.8 % (24.0-44.0); MEAN CORPUSCULAR HGB CONC 30.8 g/dl (32.0-36.5); MONO # 0.6 10^3/uL (0.0-0.8); MONO % 7.7 % (2.0-8.0); NEUTROPHILS # 5.9 10^3/uL (1.5-8.5); NEUTROPHILS % 77.2 % (36.0-66.0); PLATELET COUNT, AUTOMATED 271 10^3/uL (150-450); RED BLOOD COUNT 3.89 10^6/uL (4.30-6.10); WHITE BLOOD COUNT 7.7 10^3/uL (4.0-10.0)
[2022-10-14 08:14] LABS: BLOOD UREA NITROGEN 29 MG/DL (9-23); CARBON DIOXIDE LEVEL 25 MMOL/L (20-31); CHLORIDE LEVEL 107 MMOL/L (98-107); CREATININE FOR GFR 0.68 MG/DL (0.70-1.30); GLOMERULAR FILTRATION RATE > 60.0 (>35); GLUCOSE, FASTING 131 MG/DL (74-106); SODIUM LEVEL 139 MMOL/L (136-145)
[2022-10-14] MEDS: PANTOPRAZOLE 40MG VIAL IV SCH (08:43)
[2022-10-14] MEDS: LEVOTHYROXINE 100MCG (0.1MG) 5ML SDV PF (SOLUTION FORM) IV SCH (08:50)
[2022-10-14] MEDS ORDERED: FAT EMULSION IV 250 ML IV ONE (18:00)
[2022-10-14] MEDS ORDERED: AMINO AC/ELECTROLYTE/DEX/CALC 2,000 ML IV SCH (18:00)
[2022-10-14] MEDS: HYDROMORPHONE HCL 0.5 MG/ 0.5 ML SYRINGE IV PRN (18:30)
[2022-10-14] MEDS: ONDANSETRON 4MG 2ML VIAL IV PRN (22:30)
[2022-10-15] VITALS (7 sets, daily range): BP systolic 130–151; BP diastolic 62–71
[2022-10-15] MEDS: HYDROMORPHONE HCL 0.5 MG/ 0.5 ML SYRINGE IV PRN ×4 (01:15→22:39)
[2022-10-15] MEDS: IPRATROPIUM 0.5MG/ALBUTEROL 2.5MG INH SOL UD 3ML (DUONEB) NEB SCH ×4 (01:47→20:34)
[2022-10-15] MEDS: SODIUM CHLORIDE 0.9% INJ 10 ML SYR IV SCH ×2 (05:13→18:05)
[2022-10-15 05:31] LABS: BLOOD UREA NITROGEN 24 MG/DL (9-23); CALCIUM LEVEL 7.9 MG/DL (8.3-10.6); CARBON DIOXIDE LEVEL 28 MMOL/L (20-31); CHLORIDE LEVEL 107 MMOL/L (98-107); CREATININE FOR GFR 0.67 MG/DL (0.70-1.30); GLOMERULAR FILTRATION RATE > 60.0 (>35); GLUCOSE, FASTING 114 MG/DL (74-106); POTASSIUM SERUM 4.2 MMOL/L (3.5-5.1); SODIUM LEVEL 140 MMOL/L (136-145)
[2022-10-15] MEDS: INSULIN LISPRO (NovoLOG) PER UNIT SC SCH ×5 (05:33→23:23)
[2022-10-15 05:38] LABS: BASO # 0.1 10^3/uL (0.0-0.2); BASO % 0.8 % (0.0-1.0); EOS # 0.6 10^3/uL (0.0-0.5); EOS % 6.8 % (0.0-3.0); HEMATOCRIT 32.5 % (42.0-52.0); HEMOGLOBIN 10.2 g/dl (13.5-17.5); LYMPH # 0.5 10^3/uL (1.5-5.0); LYMPH % 6.3 % (24.0-44.0); MEAN CORPUSCULAR HEMOGLOBIN 28.3 pg (27.0-33.0); MEAN CORPUSCULAR HGB CONC 31.4 g/dl (32.0-36.5); MEAN CORPUSCULAR VOLUME 90.3 fl (80.0-96.0); MONO # 0.8 10^3/uL (0.0-0.8); MONO % 9.1 % (2.0-8.0); NEUTROPHILS # 6.6 10^3/uL (1.5-8.5); PLATELET COUNT, AUTOMATED 274 10^3/uL (150-450); WHITE BLOOD COUNT 8.6 10^3/uL (4.0-10.0)
[2022-10-15] MEDS: LEVOTHYROXINE 100MCG (0.1MG) 5ML SDV PF (SOLUTION FORM) IV SCH (09:10)
[2022-10-15] MEDS: ONDANSETRON 4MG 2ML VIAL IV PRN ×2 (09:10→22:39)
[2022-10-15] MEDS: PANTOPRAZOLE 40MG VIAL IV SCH (09:10)
[2022-10-15] MEDS ORDERED: methylPREDNISolone 125MG 2ML VIAL IV ONE (10:30)
[2022-10-15] MEDS ORDERED: FUROSEMIDE 20MG/2ML VIAL IV ONE (10:30)
[2022-10-15] MEDS ORDERED: guaiFENesin 200 MG TAB PO SCH (12:00)
[2022-10-15] MEDS: HEPARIN SOD (PORCINE) 5000UNITS/ML 1ML VIAL/SYRINGE SQ SCH ×2 (14:20→20:08)
[2022-10-15] MEDS: guaiFENesin DM LIQ 10ML UD PO PRN (14:20)
[2022-10-15] MEDS ORDERED: FAT EMULSION IV 250 ML IV ONE (18:00)
[2022-10-15] MEDS ORDERED: AMINO AC/ELECTROLYTE/DEX/CALC 2,000 ML IV SCH (18:00)
[2022-10-15] MEDS: SODIUM CHLORIDE 0.9% INJ 10 ML SYR IV PRN (22:39)
[2022-10-16] MEDS: guaiFENesin DM LIQ 10ML UD PO PRN ×4 (01:24→20:09)
[2022-10-16] MEDS: IPRATROPIUM 0.5MG/ALBUTEROL 2.5MG INH SOL UD 3ML (DUONEB) NEB SCH ×4 (01:26→19:14)
[2022-10-16 03:46] VITALS: BP 138/72
[2022-10-16] MEDS: ONDANSETRON 4MG 2ML VIAL IV PRN ×3 (03:46→20:10)
[2022-10-16] MEDS: HYDROMORPHONE HCL 0.5 MG/ 0.5 ML SYRINGE IV PRN ×3 (03:46→20:11)
[2022-10-16] MEDS: SODIUM CHLORIDE 0.9% INJ 10 ML SYR IV PRN ×2 (03:46→20:11)
[2022-10-16 05:20] LABS: BASO # 0.1 10^3/uL (0.0-0.2); BASO % 0.6 % (0.0-1.0); EOS % 0.1 % (0.0-3.0); HEMATOCRIT 31.7 % (42.0-52.0); HEMOGLOBIN 11.1 g/dl (13.5-17.5); LYMPH # 0.4 10^3/uL (1.5-5.0); MEAN CORPUSCULAR HEMOGLOBIN 32.6 pg (27.0-33.0); MEAN CORPUSCULAR VOLUME 93.2 fl (80.0-96.0); MONO # 0.4 10^3/uL (0.0-0.8); MONO % 4.3 % (2.0-8.0); NEUTROPHILS # 9.3 10^3/uL (1.5-8.5); PLATELET COUNT, AUTOMATED 331 10^3/uL (150-450); WHITE BLOOD COUNT 10.3 10^3/uL (4.0-10.0)
[2022-10-16] MEDS: SODIUM CHLORIDE 0.9% INJ 10 ML SYR IV SCH ×2 (05:29→18:41)
[2022-10-16 06:54] LABS: BLOOD UREA NITROGEN 31 MG/DL (9-23); CALCIUM LEVEL 8.7 MG/DL (8.3-10.6); CARBON DIOXIDE LEVEL 25 MMOL/L (20-31); CHLORIDE LEVEL 103 MMOL/L (98-107); CREATININE FOR GFR 0.68 MG/DL (0.70-1.30); GLOMERULAR FILTRATION RATE > 60.0 (>35); GLUCOSE, FASTING 129 MG/DL (74-106); POTASSIUM SERUM 4.1 MMOL/L (3.5-5.1); SODIUM LEVEL 133 MMOL/L (136-145)
[2022-10-16] MEDS: INSULIN LISPRO (NovoLOG) PER UNIT SC SCH ×4 (07:19→18:00)
[2022-10-16 07:48] VITALS: BP 143/66
[2022-10-16] MEDS: PANTOPRAZOLE 40MG VIAL IV SCH (09:39)
[2022-10-16] MEDS: LEVOTHYROXINE 100MCG (0.1MG) 5ML SDV PF (SOLUTION FORM) IV SCH (09:40)
[2022-10-16] MEDS: HEPARIN SOD (PORCINE) 5000UNITS/ML 1ML VIAL/SYRINGE SQ SCH ×2 (09:40→20:10)
[2022-10-16 12:35] VITALS: BP 160/72
[2022-10-16 16:05] VITALS: BP 163/78
[2022-10-16] MEDS ORDERED: AMINO AC/ELECTROLYTE/DEX/CALC 2,000 ML IV SCH (18:00)
[2022-10-16] MEDS ORDERED: FAT EMULSION IV 250 ML IV ONE (18:00)
[2022-10-16 19:32] VITALS: BP 135/63
[2022-10-16 20:00] VITALS: BP 135/63
[2022-10-17] VITALS: BP 146/67
[2022-10-17] MEDS: HYDROMORPHONE HCL 0.5 MG/ 0.5 ML SYRINGE IV PRN ×6 (00:15→20:45)
[2022-10-17] MEDS: guaiFENesin DM LIQ 10ML UD PO PRN ×2 (00:15→22:17)
[2022-10-17] MEDS: ONDANSETRON 4MG 2ML VIAL IV PRN ×5 (00:15→20:44)
[2022-10-17] MEDS: SODIUM CHLORIDE 0.9% INJ 10 ML SYR IV PRN ×3 (00:22→15:41)
[2022-10-17] MEDS: IPRATROPIUM 0.5MG/ALBUTEROL 2.5MG INH SOL UD 3ML (DUONEB) NEB SCH ×4 (02:00→20:00)
[2022-10-17 04:27] VITALS: BP 131/60
[2022-10-17] MEDS: SODIUM CHLORIDE 0.9% INJ 10 ML SYR IV SCH ×2 (06:00→16:57)
[2022-10-17] MEDS: INSULIN LISPRO (NovoLOG) PER UNIT SC SCH ×4 (06:00→17:20)
[2022-10-17 06:22] LABS: BASO # 0.1 10^3/uL (0.0-0.2); EOS # 1.1 10^3/uL (0.0-0.5); HEMATOCRIT 33.8 % (42.0-52.0); HEMOGLOBIN 10.7 g/dl (13.5-17.5); LYMPH # 0.7 10^3/uL (1.5-5.0); LYMPH % 6.1 % (24.0-44.0); MEAN CORPUSCULAR HEMOGLOBIN 28.4 pg (27.0-33.0); MEAN CORPUSCULAR HGB CONC 31.7 g/dl (32.0-36.5); MEAN CORPUSCULAR VOLUME 89.7 fl (80.0-96.0); MONO # 1.1 10^3/uL (0.0-0.8); MONO % 10.1 % (2.0-8.0); NEUTROPHILS # 7.7 10^3/uL (1.5-8.5); PLATELET COUNT, AUTOMATED 380 10^3/uL (150-450); RED BLOOD COUNT 3.77 10^6/uL (4.30-6.10); WHITE BLOOD COUNT 10.7 10^3/uL (4.0-10.0)
[2022-10-17 06:39] LABS: BLOOD UREA NITROGEN 30 MG/DL (9-23); CALCIUM LEVEL 8.3 MG/DL (8.3-10.6); CARBON DIOXIDE LEVEL 24 MMOL/L (20-31); CHLORIDE LEVEL 105 MMOL/L (98-107); CREATININE FOR GFR 0.86 MG/DL (0.70-1.30); GLOMERULAR FILTRATION RATE > 60.0 (>35); GLUCOSE, FASTING 104 MG/DL (74-106); POTASSIUM SERUM 4.5 MMOL/L (3.5-5.1); SODIUM LEVEL 135 MMOL/L (136-145)
[2022-10-17 07:40] VITALS: BP 135/66
[2022-10-17] MEDS: PANTOPRAZOLE 40MG VIAL IV SCH (09:21)
[2022-10-17] MEDS: HEPARIN SOD (PORCINE) 5000UNITS/ML 1ML VIAL/SYRINGE SQ SCH ×2 (09:21→20:44)
[2022-10-17] MEDS: LEVOTHYROXINE 100MCG (0.1MG) 5ML SDV PF (SOLUTION FORM) IV SCH (09:38)
[2022-10-17 11:54] VITALS: BP 128/65
[2022-10-17] MEDS ORDERED: FAT EMULSION IV 250 ML IV ONE (18:00)
[2022-10-17] MEDS ORDERED: AMINO AC/ELECTROLYTE/DEX/CALC 2,000 ML IV SCH (18:00)
[2022-10-17 20:00] VITALS: BP 126/62
[2022-10-18] MEDS: HYDROMORPHONE HCL 0.5 MG/ 0.5 ML SYRINGE IV PRN ×7 (00:05→21:44)
[2022-10-18] MEDS: IPRATROPIUM 0.5MG/ALBUTEROL 2.5MG INH SOL UD 3ML (DUONEB) NEB SCH ×4 (00:58→20:57)
[2022-10-18 04:00] VITALS: BP 123/59
[2022-10-18] MEDS: INSULIN LISPRO (NovoLOG) PER UNIT SC SCH ×4 (06:00→18:00)
[2022-10-18] MEDS: SODIUM CHLORIDE 0.9% INJ 10 ML SYR IV SCH ×2 (06:15→17:48)
[2022-10-18 08:00] VITALS: O2SAT 95
[2022-10-18 08:17] VITALS: BP 146/63
[2022-10-18 09:45] LABS: BASO # 0.1 10^3/uL (0.0-0.2); BASO % 1.1 % (0.0-1.0); EOS # 0.9 10^3/uL (0.0-0.5); EOS % 9.9 % (0.0-3.0); HEMATOCRIT 34.2 % (42.0-52.0); HEMOGLOBIN 10.7 g/dl (13.5-17.5); LYMPH # 0.5 10^3/uL (1.5-5.0); LYMPH % 5.4 % (24.0-44.0); MEAN CORPUSCULAR HEMOGLOBIN 28.2 pg (27.0-33.0); MEAN CORPUSCULAR HGB CONC 31.3 g/dl (32.0-36.5); MEAN CORPUSCULAR VOLUME 90.2 fl (80.0-96.0); MONO # 0.8 10^3/uL (0.0-0.8); MONO % 8.2 % (2.0-8.0); NEUTROPHILS # 7.1 10^3/uL (1.5-8.5); NEUTROPHILS % 73.9 % (36.0-66.0); PLATELET COUNT, AUTOMATED 364 10^3/uL (150-450); RED BLOOD COUNT 3.79 10^6/uL (4.30-6.10); WHITE BLOOD COUNT 9.5 10^3/uL (4.0-10.0)
[2022-10-18 10:01] LABS: BLOOD UREA NITROGEN 33 MG/DL (9-23); CALCIUM LEVEL 8.3 MG/DL (8.3-10.6); CARBON DIOXIDE LEVEL 23 MMOL/L (20-31); CHLORIDE LEVEL 107 MMOL/L (98-107); CREATININE FOR GFR 0.94 MG/DL (0.70-1.30); GLOMERULAR FILTRATION RATE > 60.0 (>35); GLUCOSE, FASTING 126 MG/DL (74-106); POTASSIUM SERUM 4.3 MMOL/L (3.5-5.1); SODIUM LEVEL 135 MMOL/L (136-145)
[2022-10-18] MEDS: LEVOTHYROXINE 100MCG (0.1MG) 5ML SDV PF (SOLUTION FORM) IV SCH (10:16)
[2022-10-18] MEDS: PANTOPRAZOLE 40MG VIAL IV SCH (10:17)
[2022-10-18] MEDS: HEPARIN SOD (PORCINE) 5000UNITS/ML 1ML VIAL/SYRINGE SQ SCH ×2 (10:17→21:36)
[2022-10-18] MEDS: SODIUM CHLORIDE 0.9% INJ 10 ML SYR IV PRN (13:27)
[2022-10-18] MEDS ORDERED: VARIBAR NECTAR 40% w/v 240ML SUSP BTL As Ordered ONE (13:30)
[2022-10-18] MEDS ORDERED: E-Z-PAQUE 96% w/w SUSP 176GM BTL As Ordered ONE (13:30)
[2022-10-18] MEDS ORDERED: BARIUM SULFATE 700 MG TABLET (E-Z-DISK) As Ordered ONE (13:30)
[2022-10-18] MEDS ORDERED: VARIBAR PUDDING 40% w/v 230ML TUBE As Ordered ONE (13:30)
[2022-10-18 15:33] VITALS: BP 123/57
[2022-10-18] MEDS ORDERED: AMINO AC/ELECTROLYTE/DEX/CALC 2,000 ML IV SCH (18:00)
[2022-10-18] MEDS ORDERED: FAT EMULSION IV 250 ML IV ONE (18:00)
[2022-10-18 19:56] VITALS: BP 125/59
[2022-10-18 23:02] VITALS: BP 112/49
[2022-10-19] VITALS (9 sets, daily range): BP systolic 108–150; BP diastolic 48–74
[2022-10-19] MEDS: IPRATROPIUM 0.5MG/ALBUTEROL 2.5MG INH SOL UD 3ML (DUONEB) NEB SCH ×4 (02:00→19:09)
[2022-10-19] MEDS ORDERED: ACETAMINOPHEN 1000MG 100ML IV BAG IV ONE (02:00)
[2022-10-19] MEDS: INSULIN LISPRO (NovoLOG) PER UNIT SC SCH ×4 (02:14→18:25)
[2022-10-19] MEDS: SODIUM CHLORIDE 0.9% INJ 10 ML SYR IV SCH ×2 (06:15→18:23)
[2022-10-19 06:38] LABS: HEMATOCRIT 34.4 % (42.0-52.0); HEMOGLOBIN 10.9 g/dl (13.5-17.5); MEAN CORPUSCULAR HEMOGLOBIN 28.5 pg (27.0-33.0); MEAN CORPUSCULAR HGB CONC 31.7 g/dl (32.0-36.5); MEAN CORPUSCULAR VOLUME 90.1 fl (80.0-96.0); PLATELET COUNT, AUTOMATED 375 10^3/uL (150-450); RED BLOOD COUNT 3.82 10^6/uL (4.30-6.10); WHITE BLOOD COUNT 10.3 10^3/uL (4.0-10.0)
[2022-10-19 06:52] LABS: BLOOD UREA NITROGEN 34 MG/DL (9-23); CALCIUM LEVEL 8.3 MG/DL (8.3-10.6); CARBON DIOXIDE LEVEL 24 MMOL/L (20-31); CHLORIDE LEVEL 106 MMOL/L (98-107); CREATININE FOR GFR 0.88 MG/DL (0.70-1.30); GLOMERULAR FILTRATION RATE > 60.0 (>35); GLUCOSE, FASTING 111 MG/DL (74-106); POTASSIUM SERUM 4.2 MMOL/L (3.5-5.1); SODIUM LEVEL 138 MMOL/L (136-145)
[2022-10-19] MEDS: ALBUTEROL SULFATE 2.5MG/0.5ML INH NEB SOLN NEB PRN (07:13)
[2022-10-19] MEDS: HEPARIN SOD (PORCINE) 5000UNITS/ML 1ML VIAL/SYRINGE SQ SCH ×3 (09:00→20:56)
[2022-10-19] MEDS: PANTOPRAZOLE 40MG VIAL IV SCH (09:23)
[2022-10-19] MEDS: LEVOTHYROXINE 100MCG (0.1MG) 5ML SDV PF (SOLUTION FORM) IV SCH (09:23)
[2022-10-19] MEDS: HYDROMORPHONE HCL 0.5 MG/ 0.5 ML SYRINGE IV PRN (13:28)
[2022-10-19] MEDS ORDERED: AMPICILLIN SOD/SULBACTAM SOD 3 GM in D5W MINI-BAG PLUS 100 ML IV STA (14:40)
[2022-10-19] MEDS ORDERED: fentaNYL 100 MCG/2 ML INJECTION As Ordered ONE (14:49)
[2022-10-19] MEDS ORDERED: LIDOCAINE 2% 100MG/5ML SDV (FOR ANES.) As Ordered ONE (14:49)
[2022-10-19] MEDS ORDERED: propofoL 200 MG/20 ML VIAL As Ordered ONE (15:15)
[2022-10-19] MEDS ORDERED: MORPHINE 2 MG/ML 1ML VIAL IV PRN ×2 (16:25)
[2022-10-19] MEDS ORDERED: PERCOCET 5MG/325MG TAB PO PRN (17:15)
[2022-10-19] MEDS: PERCOCET 5MG/325MG TAB PO PRN (17:46)
[2022-10-19] MEDS ORDERED: AMINO AC/ELECTROLYTE/DEX/CALC 2,000 ML IV SCH (18:00)
[2022-10-19] MEDS ORDERED: FAT EMULSION IV 250 ML IV ONE (18:00)
[2022-10-20] MEDS: INSULIN LISPRO (NovoLOG) PER UNIT SC SCH ×3 (00:53→12:32)
[2022-10-20 01:00] VITALS: BP 125/60
[2022-10-20] MEDS: PERCOCET 5MG/325MG TAB PO PRN (01:39)
[2022-10-20] MEDS: IPRATROPIUM 0.5MG/ALBUTEROL 2.5MG INH SOL UD 3ML (DUONEB) NEB SCH ×4 (02:00→19:19)
[2022-10-20 05:00] VITALS: BP 111/52
[2022-10-20] MEDS: SODIUM CHLORIDE 0.9% INJ 10 ML SYR IV SCH ×2 (06:24→17:52)
[2022-10-20 06:38] LABS: HEMATOCRIT 33.1 % (42.0-52.0); MEAN CORPUSCULAR HGB CONC 30.2 g/dl (32.0-36.5); MEAN CORPUSCULAR VOLUME 92.7 fl (80.0-96.0); PLATELET COUNT, AUTOMATED 342 10^3/uL (150-450); RED BLOOD COUNT 3.57 10^6/uL (4.30-6.10); WHITE BLOOD COUNT 8.4 10^3/uL (4.0-10.0)
[2022-10-20 06:58] LABS: BLOOD UREA NITROGEN 33 MG/DL (9-23); CALCIUM LEVEL 8.1 MG/DL (8.3-10.6); CARBON DIOXIDE LEVEL 24 MMOL/L (20-31); CHLORIDE LEVEL 106 MMOL/L (98-107); CREATININE FOR GFR 0.87 MG/DL (0.70-1.30); GLOMERULAR FILTRATION RATE > 60.0 (>35); GLUCOSE, FASTING 128 MG/DL (74-106); POTASSIUM SERUM 4.1 MMOL/L (3.5-5.1); SODIUM LEVEL 138 MMOL/L (136-145)
[2022-10-20] MEDS: PANTOPRAZOLE 40MG VIAL IV SCH (08:33)
[2022-10-20] MEDS: HEPARIN SOD (PORCINE) 5000UNITS/ML 1ML VIAL/SYRINGE SQ SCH ×2 (08:33→21:42)
[2022-10-20] MEDS: LEVOTHYROXINE 25MCG TABLET (0.025MG) PEG SCH (08:34)
[2022-10-20] MEDS: PERCOCET 5MG/325MG TAB PEG PRN ×3 (08:35→21:44)
[2022-10-20 09:00] VITALS: BP 115/51
[2022-10-20 13:00] VITALS: BP 117/51
[2022-10-20 17:00] VITALS: BP 121/61
[2022-10-20] MEDS: SODIUM CHLORIDE 0.9% INJ 10 ML SYR IV PRN (17:51)
[2022-10-20 20:03] VITALS: BP 121/56
[2022-10-21] MEDS: ONDANSETRON 4MG 2ML VIAL IV PRN ×2 (01:40→05:53)
[2022-10-21] MEDS: IPRATROPIUM 0.5MG/ALBUTEROL 2.5MG INH SOL UD 3ML (DUONEB) NEB SCH ×4 (02:53→19:14)
[2022-10-21] MEDS: LEVOTHYROXINE 25MCG TABLET (0.025MG) PEG SCH (05:33)
[2022-10-21] MEDS: PERCOCET 5MG/325MG TAB PEG PRN ×4 (05:33→22:43)
[2022-10-21] MEDS: SODIUM CHLORIDE 0.9% INJ 10 ML SYR IV SCH ×2 (05:53→18:00)
[2022-10-21 06:07] LABS: HEMATOCRIT 31.7 % (42.0-52.0); HEMOGLOBIN 9.9 g/dl (13.5-17.5); MEAN CORPUSCULAR HEMOGLOBIN 28.2 pg (27.0-33.0); MEAN CORPUSCULAR HGB CONC 31.2 g/dl (32.0-36.5); MEAN CORPUSCULAR VOLUME 90.3 fl (80.0-96.0); PLATELET COUNT, AUTOMATED 356 10^3/uL (150-450); RED BLOOD COUNT 3.51 10^6/uL (4.30-6.10); WHITE BLOOD COUNT 7.9 10^3/uL (4.0-10.0)
[2022-10-21 06:48] LABS: BLOOD UREA NITROGEN 33 MG/DL (9-23); CALCIUM LEVEL 8.2 MG/DL (8.3-10.6); CARBON DIOXIDE LEVEL 25 MMOL/L (20-31); CHLORIDE LEVEL 104 MMOL/L (98-107); CREATININE FOR GFR 0.84 MG/DL (0.70-1.30); GLOMERULAR FILTRATION RATE > 60.0 (>35); GLUCOSE, FASTING 111 MG/DL (74-106); POTASSIUM SERUM 4.4 MMOL/L (3.5-5.1); SODIUM LEVEL 137 MMOL/L (136-145)
[2022-10-21 06:55] VITALS: BP 102/43
[2022-10-21] MEDS: OMEPRAZOLE SUSPENSION 20MG 10ML ORAL SYRINGE GT SCH (08:35)
[2022-10-21] MEDS: HEPARIN SOD (PORCINE) 5000UNITS/ML 1ML VIAL/SYRINGE SQ SCH ×2 (08:35→20:29)
[2022-10-21] MEDS: guaiFENesin DM LIQ 10ML UD PEG PRN ×2 (08:39→18:24)
[2022-10-21 14:00] VITALS: BP 99/44
[2022-10-21 20:00] VITALS: BP 108/53
[2022-10-22] MEDS: guaiFENesin DM LIQ 10ML UD PEG PRN ×2 (01:26→22:16)
[2022-10-22] MEDS: ONDANSETRON 4MG 2ML VIAL IV PRN ×4 (01:30→22:16)
[2022-10-22] MEDS: IPRATROPIUM 0.5MG/ALBUTEROL 2.5MG INH SOL UD 3ML (DUONEB) NEB SCH ×4 (02:08→19:02)
[2022-10-22] MEDS: PERCOCET 5MG/325MG TAB PEG PRN ×4 (03:26→22:19)
[2022-10-22] MEDS: LEVOTHYROXINE 25MCG TABLET (0.025MG) PEG SCH (05:58)
[2022-10-22] MEDS: SODIUM CHLORIDE 0.9% INJ 10 ML SYR IV SCH ×2 (05:59→16:07)
[2022-10-22 06:00] VITALS: BP 114/49
[2022-10-22 06:29] LABS: HEMOGLOBIN 9.8 g/dl (13.5-17.5); MEAN CORPUSCULAR HEMOGLOBIN 28.4 pg (27.0-33.0); MEAN CORPUSCULAR HGB CONC 30.6 g/dl (32.0-36.5); MEAN CORPUSCULAR VOLUME 92.8 fl (80.0-96.0); PLATELET COUNT, AUTOMATED 360 10^3/uL (150-450); RED BLOOD COUNT 3.45 10^6/uL (4.30-6.10); WHITE BLOOD COUNT 8.8 10^3/uL (4.0-10.0)
[2022-10-22 06:55] LABS: BLOOD UREA NITROGEN 33 MG/DL (9-23); CALCIUM LEVEL 8.4 MG/DL (8.3-10.6); CARBON DIOXIDE LEVEL 30 MMOL/L (20-31); CHLORIDE LEVEL 104 MMOL/L (98-107); CREATININE FOR GFR 0.89 MG/DL (0.70-1.30); GLOMERULAR FILTRATION RATE > 60.0 (>35); GLUCOSE, FASTING 100 MG/DL (74-106); POTASSIUM SERUM 4.1 MMOL/L (3.5-5.1); SODIUM LEVEL 140 MMOL/L (136-145)
[2022-10-22] MEDS: HEPARIN SOD (PORCINE) 5000UNITS/ML 1ML VIAL/SYRINGE SQ SCH ×2 (08:24→22:16)
[2022-10-22] MEDS: OMEPRAZOLE SUSPENSION 20MG 10ML ORAL SYRINGE GT SCH (08:28)
[2022-10-22] MEDS: SODIUM CHLORIDE 0.9% INJ 10 ML SYR IV PRN ×2 (08:32→22:18)
[2022-10-22 14:00] VITALS: BP 112/48
[2022-10-22 20:00] VITALS: BP 111/48
[2022-10-23] MEDS: IPRATROPIUM 0.5MG/ALBUTEROL 2.5MG INH SOL UD 3ML (DUONEB) NEB SCH ×4 (01:06→19:08)
[2022-10-23] MEDS: guaiFENesin DM LIQ 10ML UD PEG PRN ×4 (02:39→21:41)
[2022-10-23] MEDS: PERCOCET 5MG/325MG TAB PEG PRN ×4 (02:40→21:42)
[2022-10-23] MEDS: SODIUM CHLORIDE 0.9% INJ 10 ML SYR IV SCH ×2 (05:18→17:09)
[2022-10-23] MEDS: SODIUM CHLORIDE 0.9% INJ 10 ML SYR IV PRN ×2 (05:19→21:42)
[2022-10-23 05:47] LABS: HEMATOCRIT 29.2 % (42.0-52.0); HEMOGLOBIN 9.1 g/dl (13.5-17.5); MEAN CORPUSCULAR HEMOGLOBIN 29.1 pg (27.0-33.0); MEAN CORPUSCULAR HGB CONC 31.2 g/dl (32.0-36.5); MEAN CORPUSCULAR VOLUME 93.3 fl (80.0-96.0); PLATELET COUNT, AUTOMATED 334 10^3/uL (150-450); RED BLOOD COUNT 3.13 10^6/uL (4.30-6.10); WHITE BLOOD COUNT 7.5 10^3/uL (4.0-10.0)
[2022-10-23 06:00] VITALS: BP 107/47
[2022-10-23 06:07] LABS: BLOOD UREA NITROGEN 27 MG/DL (9-23); CARBON DIOXIDE LEVEL 32 MMOL/L (20-31); CHLORIDE LEVEL 105 MMOL/L (98-107); CREATININE FOR GFR 0.77 MG/DL (0.70-1.30); GLOMERULAR FILTRATION RATE > 60.0 (>35); GLUCOSE, FASTING 113 MG/DL (74-106); POTASSIUM SERUM 3.8 MMOL/L (3.5-5.1); SODIUM LEVEL 141 MMOL/L (136-145)
[2022-10-23] MEDS: LEVOTHYROXINE 25MCG TABLET (0.025MG) PEG SCH (06:43)
[2022-10-23] MEDS: OMEPRAZOLE SUSPENSION 20MG 10ML ORAL SYRINGE GT SCH (08:47)
[2022-10-23] MEDS: HEPARIN SOD (PORCINE) 5000UNITS/ML 1ML VIAL/SYRINGE SQ SCH ×2 (08:47→21:41)
[2022-10-23] MEDS: ALBUTEROL SULFATE 2.5MG/0.5ML INH NEB SOLN NEB PRN (12:04)
[2022-10-23 19:58] VITALS: BP 108/47
[2022-10-23] MEDS: ONDANSETRON 4MG 2ML VIAL IV PRN (21:41)
[2022-10-24] MEDS: IPRATROPIUM 0.5MG/ALBUTEROL 2.5MG INH SOL UD 3ML (DUONEB) NEB SCH ×4 (01:10→19:33)
[2022-10-24] MEDS: guaiFENesin DM LIQ 10ML UD PEG PRN (04:25)
[2022-10-24] MEDS: PERCOCET 5MG/325MG TAB PEG PRN ×2 (04:26→17:04)
[2022-10-24] MEDS: ONDANSETRON 4MG 2ML VIAL IV PRN (04:38)
[2022-10-24] MEDS: SODIUM CHLORIDE 0.9% INJ 10 ML SYR IV PRN (04:39)
[2022-10-24 04:50] VITALS: BP 122/53
[2022-10-24] MEDS: LEVOTHYROXINE 25MCG TABLET (0.025MG) PEG SCH (06:01)
[2022-10-24] MEDS: SODIUM CHLORIDE 0.9% INJ 10 ML SYR IV SCH ×2 (06:01→17:02)
[2022-10-24 06:28] LABS: HEMATOCRIT 28.9 % (42.0-52.0); HEMOGLOBIN 8.8 g/dl (13.5-17.5); MEAN CORPUSCULAR HEMOGLOBIN 28.4 pg (27.0-33.0); MEAN CORPUSCULAR HGB CONC 30.4 g/dl (32.0-36.5); MEAN CORPUSCULAR VOLUME 93.2 fl (80.0-96.0); PLATELET COUNT, AUTOMATED 329 10^3/uL (150-450); WHITE BLOOD COUNT 7.6 10^3/uL (4.0-10.0)
[2022-10-24 06:56] LABS: BLOOD UREA NITROGEN 27 MG/DL (9-23); CALCIUM LEVEL 7.9 MG/DL (8.3-10.6); CARBON DIOXIDE LEVEL 31 MMOL/L (20-31); CHLORIDE LEVEL 103 MMOL/L (98-107); CREATININE FOR GFR 0.71 MG/DL (0.70-1.30); GLOMERULAR FILTRATION RATE > 60.0 (>35); GLUCOSE, FASTING 117 MG/DL (74-106); POTASSIUM SERUM 3.6 MMOL/L (3.5-5.1); SODIUM LEVEL 139 MMOL/L (136-145)
[2022-10-24] MEDS: OMEPRAZOLE SUSPENSION 20MG 10ML ORAL SYRINGE GT SCH (09:56)
[2022-10-24] MEDS: HEPARIN SOD (PORCINE) 5000UNITS/ML 1ML VIAL/SYRINGE SQ SCH ×2 (09:56→20:48)
[2022-10-25] MEDS: ONDANSETRON 4MG 2ML VIAL IV PRN ×2 (01:12→16:29)
[2022-10-25] MEDS: guaiFENesin DM LIQ 10ML UD PEG PRN ×3 (01:12→20:01)
[2022-10-25] MEDS: PERCOCET 5MG/325MG TAB PEG PRN ×3 (01:15→20:02)
[2022-10-25] MEDS: IPRATROPIUM 0.5MG/ALBUTEROL 2.5MG INH SOL UD 3ML (DUONEB) NEB SCH ×4 (01:51→19:36)
[2022-10-25] MEDS: LEVOTHYROXINE 25MCG TABLET (0.025MG) PEG SCH (05:10)
[2022-10-25] MEDS: SODIUM CHLORIDE 0.9% INJ 10 ML SYR IV SCH ×2 (05:11→18:15)
[2022-10-25 05:20] VITALS: BP 105/46
[2022-10-25 05:56] LABS: HEMATOCRIT 29.1 % (42.0-52.0); MEAN CORPUSCULAR HEMOGLOBIN 28.3 pg (27.0-33.0); MEAN CORPUSCULAR HGB CONC 30.9 g/dl (32.0-36.5); MEAN CORPUSCULAR VOLUME 91.5 fl (80.0-96.0); PLATELET COUNT, AUTOMATED 336 10^3/uL (150-450); RED BLOOD COUNT 3.18 10^6/uL (4.30-6.10); WHITE BLOOD COUNT 6.9 10^3/uL (4.0-10.0)
[2022-10-25 06:16] LABS: BLOOD UREA NITROGEN 23 MG/DL (9-23); CARBON DIOXIDE LEVEL 31 MMOL/L (20-31); CHLORIDE LEVEL 104 MMOL/L (98-107); CREATININE FOR GFR 0.64 MG/DL (0.70-1.30); GLOMERULAR FILTRATION RATE > 60.0 (>35); GLUCOSE, FASTING 125 MG/DL (74-106); POTASSIUM SERUM 3.4 MMOL/L (3.5-5.1); SODIUM LEVEL 140 MMOL/L (136-145)
[2022-10-25] MEDS ORDERED: MAGNESIUM OXIDE 400MG TAB (MAG-OX) PO ONE (07:55)
[2022-10-25] MEDS: OMEPRAZOLE SUSPENSION 20MG 10ML ORAL SYRINGE GT SCH (10:35)
[2022-10-25] MEDS: HEPARIN SOD (PORCINE) 5000UNITS/ML 1ML VIAL/SYRINGE SQ SCH ×2 (10:36→21:25)
[2022-10-25] MEDS ORDERED: POTASSIUM CHLORIDE 10% LIQ 20MEQ/15ML UDC PEG ONE (12:00)
[2022-10-25 13:12] VITALS: BP 129/60
[2022-10-25] MEDS: SODIUM CHLORIDE 0.9% INJ 10 ML SYR IV PRN (16:29)
[2022-10-26] VITALS (7 sets, daily range): BP systolic 118–133; BP diastolic 58–68
[2022-10-26] MEDS: IPRATROPIUM 0.5MG/ALBUTEROL 2.5MG INH SOL UD 3ML (DUONEB) NEB SCH ×4 (01:19→20:05)
[2022-10-26] MEDS: guaiFENesin DM LIQ 10ML UD PEG PRN ×2 (02:45→17:41)
[2022-10-26] MEDS: PERCOCET 5MG/325MG TAB PEG PRN ×3 (02:46→23:53)
[2022-10-26] MEDS ORDERED: NS 500 ML IV ONE (03:40)
[2022-10-26] MEDS ORDERED: NS 1,000 ML IV ONE (03:40)
[2022-10-26 05:21] LABS: BASO # 0.1 10^3/uL (0.0-0.2); BASO % 0.9 % (0.0-1.0); EOS # 0.6 10^3/uL (0.0-0.5); HEMATOCRIT 28.5 % (42.0-52.0); HEMOGLOBIN 8.7 g/dl (13.5-17.5); LYMPH # 0.4 10^3/uL (1.5-5.0); MEAN CORPUSCULAR HEMOGLOBIN 28.4 pg (27.0-33.0); MEAN CORPUSCULAR HGB CONC 30.5 g/dl (32.0-36.5); MEAN CORPUSCULAR VOLUME 93.1 fl (80.0-96.0); MONO # 0.9 10^3/uL (0.0-0.8); MONO % 10.3 % (2.0-8.0); NEUTROPHILS # 6.6 10^3/uL (1.5-8.5); NEUTROPHILS % 75.5 % (36.0-66.0); PLATELET COUNT, AUTOMATED 336 10^3/uL (150-450); RED BLOOD COUNT 3.06 10^6/uL (4.30-6.10); WHITE BLOOD COUNT 8.7 10^3/uL (4.0-10.0)
[2022-10-26 05:55] LABS: ALBUMIN 1.6 G/DL (3.2-5.2); ALKALINE PHOSPHATASE 113 U/L (46-116); ALT/SGPT 33 U/L (7.0-40); AST/SGOT 35 U/L (<34); BILIRUBIN,TOTAL 0.2 MG/DL (0.3-1.2); BLOOD UREA NITROGEN 21 MG/DL (9-23); CALCIUM LEVEL 7.5 MG/DL (8.3-10.6); CARBON DIOXIDE LEVEL 27 MMOL/L (20-31); CHLORIDE LEVEL 107 MMOL/L (98-107); CREATININE FOR GFR 0.63 MG/DL (0.70-1.30); GLOMERULAR FILTRATION RATE > 60.0 (>35); GLUCOSE, FASTING 114 MG/DL (74-106); MAGNESIUM LEVEL 1.3 MG/DL (1.8-2.4); POTASSIUM SERUM 3.9 MMOL/L (3.5-5.1); SODIUM LEVEL 139 MMOL/L (136-145); TOTAL PROTEIN 5.4 G/DL (5.7-8.2)
[2022-10-26 05:57] LABS: FREE T4 0.79 NG/DL (0.89-1.76)
[2022-10-26] MEDS: LEVOTHYROXINE 25MCG TABLET (0.025MG) PEG SCH (06:11)
[2022-10-26] MEDS: SODIUM CHLORIDE 0.9% INJ 10 ML SYR IV SCH ×2 (06:12→17:42)
[2022-10-26] MEDS: MAG SULF 1GM/100ML (MAG RUN) 1 GM in IV 1 EA IV SCH ×2 (06:34→08:46)
[2022-10-26] MEDS: OMEPRAZOLE SUSPENSION 20MG 10ML ORAL SYRINGE GT SCH (08:47)
[2022-10-26] MEDS: HEPARIN SOD (PORCINE) 5000UNITS/ML 1ML VIAL/SYRINGE SQ SCH ×2 (08:47→20:41)
[2022-10-26] MEDS: ONDANSETRON 4MG 2ML VIAL IV PRN ×2 (10:15→15:10)
[2022-10-26] MEDS: SODIUM CHLORIDE 0.9% INJ 10 ML SYR IV PRN (10:17)
[2022-10-26] MEDS: ESCITALOPRAM OXALATE 5MG TABLET (LEXAPRO) PO SCH (17:41)
[2022-10-26] MEDS: METOPROLOL TART 12.5 MG PER 1/2 TAB PO SCH (20:41)
[2022-10-27] MEDS: ONDANSETRON 4MG 2ML VIAL IV PRN ×4 (00:10→20:19)
[2022-10-27] MEDS: IPRATROPIUM 0.5MG/ALBUTEROL 2.5MG INH SOL UD 3ML (DUONEB) NEB SCH ×4 (01:29→20:45)
[2022-10-27 06:02] VITALS: BP 129/61
[2022-10-27] MEDS: LEVOTHYROXINE 25MCG TABLET (0.025MG) PEG SCH (06:07)
[2022-10-27] MEDS: SODIUM CHLORIDE 0.9% INJ 10 ML SYR IV SCH ×2 (06:07→17:53)
[2022-10-27] MEDS: PERCOCET 5MG/325MG TAB PEG PRN ×3 (06:07→20:18)
[2022-10-27] MEDS: guaiFENesin DM LIQ 10ML UD PEG PRN ×2 (06:12→14:48)
[2022-10-27] MEDS: ALBUTEROL SULFATE 2.5MG/0.5ML INH NEB SOLN NEB PRN (08:06)
[2022-10-27] MEDS: OMEPRAZOLE SUSPENSION 20MG 10ML ORAL SYRINGE GT SCH (09:46)
[2022-10-27] MEDS: METOPROLOL TART 12.5 MG PER 1/2 TAB PO SCH ×2 (09:47→20:19)
[2022-10-27] MEDS: ESCITALOPRAM OXALATE 5MG TABLET (LEXAPRO) PO SCH (09:47)
[2022-10-27] MEDS: HEPARIN SOD (PORCINE) 5000UNITS/ML 1ML VIAL/SYRINGE SQ SCH ×2 (09:47→20:19)
[2022-10-27 14:00] VITALS: BP 132/60
[2022-10-27] MEDS: MAGNESIUM OXIDE 400MG TAB (MAG-OX) PO SCH (14:47)
[2022-10-27 22:00] VITALS: BP 132/58
[2022-10-28] MEDS: guaiFENesin DM LIQ 10ML UD PEG PRN ×3 (00:40→21:22)
[2022-10-28] MEDS: ONDANSETRON 4MG 2ML VIAL IV PRN ×4 (00:40→21:21)
[2022-10-28] MEDS: PERCOCET 5MG/325MG TAB PEG PRN ×3 (00:41→21:22)
[2022-10-28] MEDS: SODIUM CHLORIDE 0.9% INJ 10 ML SYR IV PRN (00:42)
[2022-10-28] MEDS: IPRATROPIUM 0.5MG/ALBUTEROL 2.5MG INH SOL UD 3ML (DUONEB) NEB SCH ×4 (02:00→21:12)
[2022-10-28 05:20] VITALS: BP 127/57
[2022-10-28] MEDS: LEVOTHYROXINE 25MCG TABLET (0.025MG) PEG SCH (05:44)
[2022-10-28] MEDS: SODIUM CHLORIDE 0.9% INJ 10 ML SYR IV SCH ×2 (05:45→17:53)
[2022-10-28] MEDS: ESCITALOPRAM OXALATE 5MG TABLET (LEXAPRO) PO SCH (08:30)
[2022-10-28] MEDS: HEPARIN SOD (PORCINE) 5000UNITS/ML 1ML VIAL/SYRINGE SQ SCH ×2 (08:30→21:20)
[2022-10-28] MEDS: OMEPRAZOLE SUSPENSION 20MG 10ML ORAL SYRINGE GT SCH (08:30)
[2022-10-28] MEDS: MAGNESIUM OXIDE 400MG TAB (MAG-OX) PO SCH (08:31)
[2022-10-28] MEDS: METOPROLOL TART 12.5 MG PER 1/2 TAB PO SCH ×2 (08:31→21:29)
[2022-10-28 13:59] VITALS: BP 86/52
[2022-10-28 14:00] VITALS: BP 98/50
[2022-10-28] MEDS ORDERED: NS 250 ML IV ONE (14:05)
[2022-10-28] MEDS ORDERED: PROCHLORPERAZINE 10MG 2ML VIAL IV ONE (15:30)
[2022-10-28 17:19] VITALS: BP 108/50
[2022-10-28 20:30] VITALS: BP 119/54
[2022-10-29] MEDS: IPRATROPIUM 0.5MG/ALBUTEROL 2.5MG INH SOL UD 3ML (DUONEB) NEB SCH ×4 (01:26→19:20)
[2022-10-29 06:00] VITALS: BP 123/59
[2022-10-29] MEDS: LEVOTHYROXINE 25MCG TABLET (0.025MG) PEG SCH (06:41)
[2022-10-29] MEDS: SODIUM CHLORIDE 0.9% INJ 10 ML SYR IV SCH ×2 (06:42→17:40)
[2022-10-29] MEDS: ONDANSETRON 4MG 2ML VIAL IV PRN ×3 (06:42→19:46)
[2022-10-29] MEDS: PERCOCET 5MG/325MG TAB PEG PRN ×2 (06:43→19:46)
[2022-10-29] MEDS: OMEPRAZOLE SUSPENSION 20MG 10ML ORAL SYRINGE GT SCH (09:42)
[2022-10-29] MEDS: MAGNESIUM OXIDE 400MG TAB (MAG-OX) PEG SCH (09:43)
[2022-10-29] MEDS: METOPROLOL TART 12.5 MG PER 1/2 TAB PEG SCH ×2 (09:44→20:20)
[2022-10-29] MEDS: ESCITALOPRAM OXALATE 5MG TABLET (LEXAPRO) PEG SCH (09:44)
[2022-10-29] MEDS: HEPARIN SOD (PORCINE) 5000UNITS/ML 1ML VIAL/SYRINGE SQ SCH ×2 (09:45→20:20)
[2022-10-29 14:36] VITALS: BP 123/53
[2022-10-29] MEDS: SODIUM CHLORIDE 0.9% INJ 10 ML SYR IV PRN (15:11)
[2022-10-29] MEDS: guaiFENesin DM LIQ 10ML UD PEG PRN (19:46)
[2022-10-29 20:20] VITALS: BP 138/62
[2022-10-30] MEDS: IPRATROPIUM 0.5MG/ALBUTEROL 2.5MG INH SOL UD 3ML (DUONEB) NEB SCH ×4 (01:50→20:00)
[2022-10-30] MEDS: guaiFENesin DM LIQ 10ML UD PEG PRN ×2 (03:32→09:56)
[2022-10-30] MEDS: ONDANSETRON 4MG 2ML VIAL IV PRN ×3 (03:32→14:44)
[2022-10-30] MEDS: PERCOCET 5MG/325MG TAB PEG PRN ×2 (03:32→09:56)
[2022-10-30] MEDS: LEVOTHYROXINE 25MCG TABLET (0.025MG) PEG SCH (05:29)
[2022-10-30] MEDS: SODIUM CHLORIDE 0.9% INJ 10 ML SYR IV SCH ×2 (05:30→17:42)
[2022-10-30 05:51] VITALS: BP 129/61
[2022-10-30] MEDS: HEPARIN SOD (PORCINE) 5000UNITS/ML 1ML VIAL/SYRINGE SQ SCH ×2 (09:56→20:33)
[2022-10-30] MEDS: ESCITALOPRAM OXALATE 5MG TABLET (LEXAPRO) PEG SCH (09:56)
[2022-10-30] MEDS: METOPROLOL TART 12.5 MG PER 1/2 TAB PEG SCH ×2 (09:57→20:34)
[2022-10-30] MEDS: OMEPRAZOLE SUSPENSION 20MG 10ML ORAL SYRINGE GT SCH (09:57)
[2022-10-30] MEDS: MAGNESIUM OXIDE 400MG TAB (MAG-OX) PEG SCH (09:57)
[2022-10-30 14:00] VITALS: BP 127/61
[2022-10-30 22:00] VITALS: BP 128/65
[2022-10-31] MEDS: ONDANSETRON 4MG 2ML VIAL IV PRN (00:48)
[2022-10-31] MEDS: guaiFENesin DM LIQ 10ML UD PEG PRN ×3 (00:54→21:01)
[2022-10-31] MEDS: IPRATROPIUM 0.5MG/ALBUTEROL 2.5MG INH SOL UD 3ML (DUONEB) NEB SCH ×4 (02:00→20:07)
[2022-10-31] MEDS: LEVOTHYROXINE 25MCG TABLET (0.025MG) PEG SCH (05:32)
[2022-10-31] MEDS: SODIUM CHLORIDE 0.9% INJ 10 ML SYR IV PRN (05:33)
[2022-10-31] MEDS: SODIUM CHLORIDE 0.9% INJ 10 ML SYR IV SCH (05:33)
[2022-10-31 06:00] VITALS: BP 126/64
[2022-10-31 08:02] LABS: BASO # 0.1 10^3/uL (0.0-0.2); BASO % 1.2 % (0.0-1.0); EOS # 0.8 10^3/uL (0.0-0.5); EOS % 7.8 % (0.0-3.0); HEMATOCRIT 32.2 % (42.0-52.0); HEMOGLOBIN 10.3 g/dl (13.5-17.5); LYMPH # 0.6 10^3/uL (1.5-5.0); LYMPH % 6.3 % (24.0-44.0); MEAN CORPUSCULAR HEMOGLOBIN 29.6 pg (27.0-33.0); MEAN CORPUSCULAR VOLUME 92.5 fl (80.0-96.0); MONO # 1.1 10^3/uL (0.0-0.8); MONO % 10.8 % (2.0-8.0); NEUTROPHILS # 7.5 10^3/uL (1.5-8.5); NEUTROPHILS % 73.2 % (36.0-66.0); PLATELET COUNT, AUTOMATED 452 10^3/uL (150-450); RED BLOOD COUNT 3.48 10^6/uL (4.30-6.10); WHITE BLOOD COUNT 10.2 10^3/uL (4.0-10.0)
[2022-10-31 08:29] LABS: BLOOD UREA NITROGEN 19 MG/DL (9-23); CALCIUM LEVEL 8.7 MG/DL (8.3-10.6); CARBON DIOXIDE LEVEL 27 MMOL/L (20-31); CHLORIDE LEVEL 103 MMOL/L (98-107); CREATININE FOR GFR 0.66 MG/DL (0.70-1.30); GLOMERULAR FILTRATION RATE > 60.0 (>35); GLUCOSE, FASTING 102 MG/DL (74-106); MAGNESIUM LEVEL 1.8 MG/DL (1.8-2.4); POTASSIUM SERUM 4.3 MMOL/L (3.5-5.1); SODIUM LEVEL 138 MMOL/L (136-145)
[2022-10-31] MEDS: OMEPRAZOLE SUSPENSION 20MG 10ML ORAL SYRINGE GT SCH (08:39)
[2022-10-31] MEDS: ESCITALOPRAM OXALATE 5MG TABLET (LEXAPRO) PEG SCH (08:39)
[2022-10-31] MEDS: HEPARIN SOD (PORCINE) 5000UNITS/ML 1ML VIAL/SYRINGE SQ SCH ×2 (08:39→21:01)
[2022-10-31] MEDS: MAGNESIUM OXIDE 400MG TAB (MAG-OX) PEG SCH (08:39)
[2022-10-31] MEDS: METOPROLOL TART 12.5 MG PER 1/2 TAB PEG SCH ×2 (08:39→21:07)
[2022-10-31] MEDS: ONDANSETRON 4MG ORAL DISINTEGRATING TAB PEG PRN (21:07)
[2022-11-01] MEDS: IPRATROPIUM 0.5MG/ALBUTEROL 2.5MG INH SOL UD 3ML (DUONEB) NEB SCH ×4 (02:41→20:30)
[2022-11-01 05:20] VITALS: BP 113/59
[2022-11-01] MEDS: LEVOTHYROXINE 25MCG TABLET (0.025MG) PEG SCH (05:22)
[2022-11-01 06:23] LABS: BASO # 0.2 10^3/uL (0.0-0.2); BASO % 1.6 % (0.0-1.0); EOS # 0.9 10^3/uL (0.0-0.5); EOS % 7.7 % (0.0-3.0); HEMOGLOBIN 10.1 g/dl (13.5-17.5); LYMPH # 0.7 10^3/uL (1.5-5.0); MEAN CORPUSCULAR HEMOGLOBIN 28.8 pg (27.0-33.0); MEAN CORPUSCULAR HGB CONC 30.6 g/dl (32.0-36.5); MONO # 1.1 10^3/uL (0.0-0.8); MONO % 9.6 % (2.0-8.0); NEUTROPHILS # 8.3 10^3/uL (1.5-8.5); NEUTROPHILS % 74.5 % (36.0-66.0); PLATELET COUNT, AUTOMATED 525 10^3/uL (150-450); RED BLOOD COUNT 3.51 10^6/uL (4.30-6.10); WHITE BLOOD COUNT 11.1 10^3/uL (4.0-10.0)
[2022-11-01] MEDS: ONDANSETRON 4MG ORAL DISINTEGRATING TAB PEG PRN ×3 (09:17→21:04)
[2022-11-01] MEDS: ESCITALOPRAM OXALATE 5MG TABLET (LEXAPRO) PEG SCH (09:17)
[2022-11-01] MEDS: OMEPRAZOLE SUSPENSION 20MG 10ML ORAL SYRINGE GT SCH (09:17)
[2022-11-01] MEDS: METOPROLOL TART 12.5 MG PER 1/2 TAB PEG SCH ×2 (09:18→21:05)
[2022-11-01] MEDS: HEPARIN SOD (PORCINE) 5000UNITS/ML 1ML VIAL/SYRINGE SQ SCH ×2 (09:18→21:11)
[2022-11-01] MEDS: MAGNESIUM OXIDE 400MG TAB (MAG-OX) PEG SCH (09:18)
[2022-11-01] MEDS: guaiFENesin DM LIQ 10ML UD PEG PRN ×3 (09:19→21:05)
[2022-11-01 13:48] VITALS: O2SAT 94
[2022-11-02] MEDS: LEVOTHYROXINE 25MCG TABLET (0.025MG) PEG SCH (04:49)
[2022-11-02 04:50] VITALS: BP 132/63
[2022-11-02] MEDS: SALIVA SUBSTITUTE(MOUTHKOTE) BTL MT PRN (05:37)
[2022-11-02] MEDS: guaiFENesin DM LIQ 10ML UD PEG PRN (05:41)
[2022-11-02] MEDS: ONDANSETRON 4MG ORAL DISINTEGRATING TAB PEG PRN ×2 (05:41→22:12)
[2022-11-02] MEDS: IPRATROPIUM 0.5MG/ALBUTEROL 2.5MG INH SOL UD 3ML (DUONEB) NEB SCH ×3 (09:01→20:28)
[2022-11-02 09:45] VITALS: BP 129/64
[2022-11-02] MEDS: METOPROLOL TART 12.5 MG PER 1/2 TAB PEG SCH ×2 (09:48→22:13)
[2022-11-02] MEDS: ESCITALOPRAM OXALATE 5MG TABLET (LEXAPRO) PEG SCH (09:49)
[2022-11-02] MEDS: MAGNESIUM OXIDE 400MG TAB (MAG-OX) PEG SCH (09:49)
[2022-11-02] MEDS: HEPARIN SOD (PORCINE) 5000UNITS/ML 1ML VIAL/SYRINGE SQ SCH ×2 (09:49→22:12)
[2022-11-02] MEDS: OMEPRAZOLE SUSPENSION 20MG 10ML ORAL SYRINGE GT SCH (09:49)
[2022-11-03 06:00] VITALS: BP 117/57
[2022-11-03] MEDS: LEVOTHYROXINE 25MCG TABLET (0.025MG) PEG SCH (06:22)
[2022-11-03] MEDS: SALIVA SUBSTITUTE(MOUTHKOTE) BTL MT PRN (06:33)
[2022-11-03 07:09] LABS: HEMATOCRIT 33.2 % (42.0-52.0); HEMOGLOBIN 10.2 g/dl (13.5-17.5); MEAN CORPUSCULAR HEMOGLOBIN 29.2 pg (27.0-33.0); MEAN CORPUSCULAR HGB CONC 30.7 g/dl (32.0-36.5); MEAN CORPUSCULAR VOLUME 95.1 fl (80.0-96.0); PLATELET COUNT, AUTOMATED 552 10^3/uL (150-450); RED BLOOD COUNT 3.49 10^6/uL (4.30-6.10); WHITE BLOOD COUNT 10.8 10^3/uL (4.0-10.0)
[2022-11-03 07:44] LABS: BLOOD UREA NITROGEN 22 MG/DL (9-23); CALCIUM LEVEL 8.7 MG/DL (8.3-10.6); CARBON DIOXIDE LEVEL 28 MMOL/L (20-31); CHLORIDE LEVEL 104 MMOL/L (98-107); CREATININE FOR GFR 0.75 MG/DL (0.70-1.30); GLOMERULAR FILTRATION RATE > 60.0 (>35); GLUCOSE, FASTING 101 MG/DL (74-106); POTASSIUM SERUM 3.7 MMOL/L (3.5-5.1); SODIUM LEVEL 139 MMOL/L (136-145)
[2022-11-03] MEDS: IPRATROPIUM 0.5MG/ALBUTEROL 2.5MG INH SOL UD 3ML (DUONEB) NEB SCH ×3 (07:56→20:01)
[2022-11-03] MEDS: ESCITALOPRAM OXALATE 5MG TABLET (LEXAPRO) PEG SCH (09:53)
[2022-11-03] MEDS: OMEPRAZOLE SUSPENSION 20MG 10ML ORAL SYRINGE GT SCH (09:53)
[2022-11-03] MEDS: MAGNESIUM OXIDE 400MG TAB (MAG-OX) PEG SCH (09:53)
[2022-11-03] MEDS: HEPARIN SOD (PORCINE) 5000UNITS/ML 1ML VIAL/SYRINGE SQ SCH ×2 (09:54→20:17)
[2022-11-03] MEDS: METOPROLOL TART 12.5 MG PER 1/2 TAB PEG SCH ×2 (09:55→20:16)
[2022-11-03] MEDS: ONDANSETRON 4MG ORAL DISINTEGRATING TAB PEG PRN (14:48)
[2022-11-04 05:13] VITALS: BP 126/64
[2022-11-04] MEDS: LEVOTHYROXINE 25MCG TABLET (0.025MG) PEG SCH (05:41)
[2022-11-04] MEDS: IPRATROPIUM 0.5MG/ALBUTEROL 2.5MG INH SOL UD 3ML (DUONEB) NEB SCH ×3 (07:33→19:46)
[2022-11-04] MEDS: HEPARIN SOD (PORCINE) 5000UNITS/ML 1ML VIAL/SYRINGE SQ SCH ×2 (09:42→20:22)
[2022-11-04] MEDS: MAGNESIUM OXIDE 400MG TAB (MAG-OX) PEG SCH (09:42)
[2022-11-04] MEDS: ESCITALOPRAM OXALATE 5MG TABLET (LEXAPRO) PEG SCH (09:43)
[2022-11-04] MEDS: METOPROLOL TART 12.5 MG PER 1/2 TAB PEG SCH ×2 (09:43→20:25)
[2022-11-04] MEDS: OMEPRAZOLE SUSPENSION 20MG 10ML ORAL SYRINGE GT SCH (11:34)
[2022-11-04] MEDS: ONDANSETRON 4MG ORAL DISINTEGRATING TAB PEG PRN (20:22)
[2022-11-05 04:40] VITALS: BP 123/61
[2022-11-05] MEDS: LEVOTHYROXINE 25MCG TABLET (0.025MG) PEG SCH (05:06)
[2022-11-05] MEDS: IPRATROPIUM 0.5MG/ALBUTEROL 2.5MG INH SOL UD 3ML (DUONEB) NEB SCH ×3 (08:00→19:34)
[2022-11-05] MEDS: ESCITALOPRAM OXALATE 5MG TABLET (LEXAPRO) PEG SCH (09:53)
[2022-11-05] MEDS: MAGNESIUM OXIDE 400MG TAB (MAG-OX) PEG SCH (09:53)
[2022-11-05] MEDS: OMEPRAZOLE SUSPENSION 20MG 10ML ORAL SYRINGE GT SCH (09:53)
[2022-11-05] MEDS: METOPROLOL TART 12.5 MG PER 1/2 TAB PEG SCH ×2 (09:54→21:00)
[2022-11-05] MEDS: HEPARIN SOD (PORCINE) 5000UNITS/ML 1ML VIAL/SYRINGE SQ SCH ×2 (09:54→20:47)
[2022-11-05] MEDS: ONDANSETRON 4MG ORAL DISINTEGRATING TAB PEG PRN ×2 (09:58→15:50)
[2022-11-05 20:44] VITALS: BP 112/52
[2022-11-06] VITALS: BP 124/58
[2022-11-06] MEDS: ONDANSETRON 4MG ORAL DISINTEGRATING TAB PEG PRN ×6 (00:36→20:23)
[2022-11-06] MEDS ORDERED: METOPROLOL TART 12.5 MG PER 1/2 TAB PEG ONE (01:00)
[2022-11-06] MEDS: LEVOTHYROXINE 25MCG TABLET (0.025MG) PEG SCH (05:24)
[2022-11-06 05:44] VITALS: BP 116/56
[2022-11-06] MEDS: IPRATROPIUM 0.5MG/ALBUTEROL 2.5MG INH SOL UD 3ML (DUONEB) NEB SCH ×2 (07:47→14:49)
[2022-11-06] MEDS: METOPROLOL TART 12.5 MG PER 1/2 TAB PEG SCH ×3 (09:00→20:45)
[2022-11-06] MEDS: ESCITALOPRAM OXALATE 5MG TABLET (LEXAPRO) PEG SCH (09:35)
[2022-11-06] MEDS: OMEPRAZOLE SUSPENSION 20MG 10ML ORAL SYRINGE GT SCH (09:35)
[2022-11-06] MEDS: MAGNESIUM OXIDE 400MG TAB (MAG-OX) PEG SCH (09:36)
[2022-11-06] MEDS: HEPARIN SOD (PORCINE) 5000UNITS/ML 1ML VIAL/SYRINGE SQ SCH ×2 (09:36→20:19)
[2022-11-06 09:45] VITALS: BP 116/60
[2022-11-07 05:30] VITALS: BP 133/61
[2022-11-07] MEDS: LEVOTHYROXINE 25MCG TABLET (0.025MG) PEG SCH (05:36)
[2022-11-07] MEDS: ONDANSETRON 4MG ORAL DISINTEGRATING TAB PEG PRN ×4 (05:44→17:10)
[2022-11-07] MEDS: MAGNESIUM OXIDE 400MG TAB (MAG-OX) PEG SCH (08:44)
[2022-11-07] MEDS: ESCITALOPRAM OXALATE 5MG TABLET (LEXAPRO) PEG SCH (08:44)
[2022-11-07] MEDS: METOPROLOL TART 12.5 MG PER 1/2 TAB PEG SCH ×2 (08:44→21:00)
[2022-11-07] MEDS: OMEPRAZOLE SUSPENSION 20MG 10ML ORAL SYRINGE GT SCH (08:45)
[2022-11-07] MEDS: HEPARIN SOD (PORCINE) 5000UNITS/ML 1ML VIAL/SYRINGE SQ SCH ×2 (08:45→21:30)
[2022-11-08] MEDS: ONDANSETRON 4MG ORAL DISINTEGRATING TAB PEG PRN ×3 (01:49→21:22)
[2022-11-08 05:25] VITALS: BP 130/62
[2022-11-08] MEDS: LEVOTHYROXINE 25MCG TABLET (0.025MG) PEG SCH (05:36)
[2022-11-08] MEDS: ESCITALOPRAM OXALATE 5MG TABLET (LEXAPRO) PEG SCH (09:37)
[2022-11-08] MEDS: MAGNESIUM OXIDE 400MG TAB (MAG-OX) PEG SCH (09:38)
[2022-11-08] MEDS: OMEPRAZOLE SUSPENSION 20MG 10ML ORAL SYRINGE GT SCH (09:38)
[2022-11-08] MEDS: METOPROLOL TART 12.5 MG PER 1/2 TAB PEG SCH ×2 (09:38→21:21)
[2022-11-08] MEDS: HEPARIN SOD (PORCINE) 5000UNITS/ML 1ML VIAL/SYRINGE SQ SCH ×2 (09:38→21:19)
[2022-11-08] MEDS ORDERED: VARIBAR PUDDING 40% w/v 230ML TUBE As Ordered ONE (11:43)
[2022-11-08] MEDS ORDERED: VARIBAR NECTAR 40% w/v 240ML SUSP BTL As Ordered ONE (11:44)
[2022-11-08] MEDS ORDERED: E-Z-PAQUE 96% w/w SUSP 176GM BTL As Ordered ONE (11:44)
[2022-11-08 20:59] VITALS: BP 135/69
[2022-11-09] MEDS: ALBUTEROL SULFATE 2.5MG/0.5ML INH NEB SOLN NEB PRN (02:38)
[2022-11-09] MEDS: ONDANSETRON 4MG ORAL DISINTEGRATING TAB PEG PRN (02:46)
[2022-11-09] MEDS: LEVOTHYROXINE 25MCG TABLET (0.025MG) PEG SCH (05:03)
[2022-11-09] MEDS ORDERED: METOCLOPRAMIDE 5 MG TAB PEG ONE (05:40)
[2022-11-09 06:00] VITALS: BP 126/4
[2022-11-09] MEDS: MAGNESIUM OXIDE 400MG TAB (MAG-OX) PEG SCH (10:17)
[2022-11-09] MEDS: ESCITALOPRAM OXALATE 5MG TABLET (LEXAPRO) PEG SCH (10:17)
[2022-11-09] MEDS: METOPROLOL TART 12.5 MG PER 1/2 TAB PEG SCH ×2 (10:17→19:54)
[2022-11-09] MEDS: OMEPRAZOLE SUSPENSION 20MG 10ML ORAL SYRINGE GT SCH (10:18)
[2022-11-09] MEDS: HEPARIN SOD (PORCINE) 5000UNITS/ML 1ML VIAL/SYRINGE SQ SCH ×2 (10:18→19:53)
[2022-11-09 13:43] LABS: BASO # 0.2 10^3/uL (0.0-0.2); BASO % 2.2 % (0.0-1.0); EOS # 1.3 10^3/uL (0.0-0.5); HEMATOCRIT 34.5 % (42.0-52.0); LYMPH # 0.7 10^3/uL (1.5-5.0); LYMPH % 6.7 % (24.0-44.0); MEAN CORPUSCULAR HEMOGLOBIN 29.9 pg (27.0-33.0); MEAN CORPUSCULAR HGB CONC 31.9 g/dl (32.0-36.5); MEAN CORPUSCULAR VOLUME 93.8 fl (80.0-96.0); NEUTROPHILS # 6.5 10^3/uL (1.5-8.5); NEUTROPHILS % 67.7 % (36.0-66.0); PLATELET COUNT, AUTOMATED 509 10^3/uL (150-450); RED BLOOD COUNT 3.68 10^6/uL (4.30-6.10); WHITE BLOOD COUNT 9.7 10^3/uL (4.0-10.0)
[2022-11-09 14:03] LABS: BLOOD UREA NITROGEN 32 MG/DL (9-23); CALCIUM LEVEL 8.7 MG/DL (8.3-10.6); CARBON DIOXIDE LEVEL 30 MMOL/L (20-31); CHLORIDE LEVEL 106 MMOL/L (98-107); CREATININE FOR GFR 0.85 MG/DL (0.70-1.30); GLOMERULAR FILTRATION RATE > 60.0 (>35); GLUCOSE, FASTING 133 MG/DL (74-106); POTASSIUM SERUM 4.2 MMOL/L (3.5-5.1); SODIUM LEVEL 141 MMOL/L (136-145)
[2022-11-09 20:23] LABS: MAGNESIUM LEVEL 2.3 MG/DL (1.8-2.4)
[2022-11-10 06:00] VITALS: BP 131/59
[2022-11-10] MEDS: LEVOTHYROXINE 25MCG TABLET (0.025MG) PEG SCH (06:16)
[2022-11-10] MEDS: TIOTROPIUM INHALER/CAPSULE (SPIRIVA) INH SCH (07:39)
[2022-11-10] MEDS: SYMBICORT 80/4.5MCG INHALER 6GM INH SCH ×2 (07:40→20:34)
[2022-11-10] MEDS: HEPARIN SOD (PORCINE) 5000UNITS/ML 1ML VIAL/SYRINGE SQ SCH ×2 (08:11→21:33)
[2022-11-10] MEDS: OMEPRAZOLE SUSPENSION 20MG 10ML ORAL SYRINGE GT SCH (08:12)
[2022-11-10] MEDS: DOXAZOSIN MESYLATE 1 MG TAB PO SCH (08:12)
[2022-11-10] MEDS: ASPIRIN 81MG ENTERIC TABLET PO SCH (08:13)
[2022-11-10] MEDS: MAGNESIUM OXIDE 400MG TAB (MAG-OX) PEG SCH (08:13)
[2022-11-10] MEDS: METOPROLOL TART 12.5 MG PER 1/2 TAB PEG SCH ×2 (08:13→21:32)
[2022-11-10] MEDS: ESCITALOPRAM OXALATE 5MG TABLET (LEXAPRO) PEG SCH (08:58)
[2022-11-10] MEDS: ONDANSETRON 4MG ORAL DISINTEGRATING TAB PEG PRN ×2 (08:58→21:45)
[2022-11-10 20:36] VITALS: O2SAT 94
[2022-11-11 06:00] VITALS: BP 93/54
[2022-11-11] MEDS: LEVOTHYROXINE 25MCG TABLET (0.025MG) PEG SCH (06:18)
[2022-11-11] MEDS: SYMBICORT 80/4.5MCG INHALER 6GM INH SCH ×2 (07:13→20:46)
[2022-11-11] MEDS: TIOTROPIUM INHALER/CAPSULE (SPIRIVA) INH SCH (07:13)
[2022-11-11] MEDS: METOPROLOL TART 12.5 MG PER 1/2 TAB PEG SCH ×2 (09:00→20:02)
[2022-11-11] MEDS: DOXAZOSIN MESYLATE 1 MG TAB PO SCH (09:00)
[2022-11-11] MEDS: ASPIRIN 81MG ENTERIC TABLET PO SCH (09:00)
[2022-11-11] MEDS: ESCITALOPRAM OXALATE 5MG TABLET (LEXAPRO) PEG SCH (09:50)
[2022-11-11] MEDS: MAGNESIUM OXIDE 400MG TAB (MAG-OX) PEG SCH (09:50)
[2022-11-11] MEDS: ASPIRIN 81MG CHEW TABLET PEG SCH (09:50)
[2022-11-11] MEDS: OMEPRAZOLE SUSPENSION 20MG 10ML ORAL SYRINGE GT SCH (09:51)
[2022-11-11] MEDS: HEPARIN SOD (PORCINE) 5000UNITS/ML 1ML VIAL/SYRINGE SQ SCH ×2 (09:51→20:03)
[2022-11-11] MEDS: ONDANSETRON 4MG ORAL DISINTEGRATING TAB PEG PRN (17:14)
[2022-11-12] MEDS: LEVOTHYROXINE 25MCG TABLET (0.025MG) PEG SCH (05:33)
[2022-11-12 05:52] VITALS: BP 124/58
[2022-11-12] MEDS: TIOTROPIUM INHALER/CAPSULE (SPIRIVA) INH SCH (07:34)
[2022-11-12] MEDS: SYMBICORT 80/4.5MCG INHALER 6GM INH SCH ×2 (07:34→19:24)
[2022-11-12 09:51] VITALS: BP 125/59
[2022-11-12] MEDS: OMEPRAZOLE SUSPENSION 20MG 10ML ORAL SYRINGE GT SCH (10:05)
[2022-11-12] MEDS: METOPROLOL TART 12.5 MG PER 1/2 TAB PEG SCH ×2 (10:06→20:16)
[2022-11-12] MEDS: MAGNESIUM OXIDE 400MG TAB (MAG-OX) PEG SCH (10:06)
[2022-11-12] MEDS: ESCITALOPRAM OXALATE 5MG TABLET (LEXAPRO) PEG SCH (10:06)
[2022-11-12] MEDS: ASPIRIN 81MG CHEW TABLET PEG SCH (10:06)
[2022-11-12] MEDS: DOXAZOSIN MESYLATE 1 MG TAB PO SCH (10:06)
[2022-11-12] MEDS: HEPARIN SOD (PORCINE) 5000UNITS/ML 1ML VIAL/SYRINGE SQ SCH ×2 (10:07→20:16)
[2022-11-13] MEDS: LEVOTHYROXINE 25MCG TABLET (0.025MG) PEG SCH (05:18)
[2022-11-13 05:44] VITALS: BP 119/52
[2022-11-13] MEDS: SYMBICORT 80/4.5MCG INHALER 6GM INH SCH ×2 (07:27→19:25)
[2022-11-13] MEDS: TIOTROPIUM INHALER/CAPSULE (SPIRIVA) INH SCH (07:27)
[2022-11-13] MEDS: ONDANSETRON 4MG ORAL DISINTEGRATING TAB PEG PRN ×2 (09:35→20:36)
[2022-11-13] MEDS: ASPIRIN 81MG CHEW TABLET PEG SCH (09:36)
[2022-11-13] MEDS: HEPARIN SOD (PORCINE) 5000UNITS/ML 1ML VIAL/SYRINGE SQ SCH ×2 (09:36→20:38)
[2022-11-13] MEDS: OMEPRAZOLE SUSPENSION 20MG 10ML ORAL SYRINGE GT SCH (09:36)
[2022-11-13] MEDS: ESCITALOPRAM OXALATE 5MG TABLET (LEXAPRO) PEG SCH (09:36)
[2022-11-13] MEDS: MAGNESIUM OXIDE 400MG TAB (MAG-OX) PEG SCH (09:36)
[2022-11-13] MEDS: DOXAZOSIN MESYLATE 1 MG TAB PO SCH (09:37)
[2022-11-13] MEDS: METOPROLOL TART 12.5 MG PER 1/2 TAB PEG SCH ×2 (09:37→20:38)
[2022-11-14] MEDS: METOCLOPRAMIDE 5 MG TAB PO PRN ×3 (01:04→22:10)
[2022-11-14 05:35] VITALS: BP 134/65
[2022-11-14] MEDS: LEVOTHYROXINE 25MCG TABLET (0.025MG) PEG SCH (05:52)
[2022-11-14] MEDS: SYMBICORT 80/4.5MCG INHALER 6GM INH SCH ×2 (07:12→19:52)
[2022-11-14] MEDS: TIOTROPIUM INHALER/CAPSULE (SPIRIVA) INH SCH (07:12)
[2022-11-14] MEDS: ONDANSETRON 4MG ORAL DISINTEGRATING TAB PEG PRN (10:36)
[2022-11-14] MEDS: DOXAZOSIN MESYLATE 1 MG TAB PO SCH (10:37)
[2022-11-14] MEDS: MAGNESIUM OXIDE 400MG TAB (MAG-OX) PEG SCH (10:38)
[2022-11-14] MEDS: METOPROLOL TART 12.5 MG PER 1/2 TAB PEG SCH ×2 (10:39→22:10)
[2022-11-14] MEDS: OMEPRAZOLE SUSPENSION 20MG 10ML ORAL SYRINGE GT SCH (10:39)
[2022-11-14] MEDS: ASPIRIN 81MG CHEW TABLET PEG SCH (10:39)
[2022-11-14] MEDS: HEPARIN SOD (PORCINE) 5000UNITS/ML 1ML VIAL/SYRINGE SQ SCH ×2 (10:40→22:10)
[2022-11-14] MEDS: guaiFENesin DM LIQ 10ML UD PEG PRN ×2 (10:40→22:10)
[2022-11-14] MEDS: ESCITALOPRAM OXALATE 5MG TABLET (LEXAPRO) PEG SCH (10:43)
[2022-11-14 21:50] VITALS: BP 114/53
[2022-11-15 05:10] VITALS: BP 114/51
[2022-11-15] MEDS: LEVOTHYROXINE 25MCG TABLET (0.025MG) PEG SCH (06:14)
[2022-11-15] MEDS: TIOTROPIUM INHALER/CAPSULE (SPIRIVA) INH SCH (08:00)
[2022-11-15] MEDS: SYMBICORT 80/4.5MCG INHALER 6GM INH SCH ×2 (08:03→19:50)
[2022-11-15] MEDS: DOXAZOSIN MESYLATE 1 MG TAB PO SCH (09:00)
[2022-11-15] MEDS: HEPARIN SOD (PORCINE) 5000UNITS/ML 1ML VIAL/SYRINGE SQ SCH ×2 (09:54→21:52)
[2022-11-15] MEDS: ONDANSETRON 4MG ORAL DISINTEGRATING TAB PEG PRN ×2 (09:55→16:52)
[2022-11-15] MEDS: OMEPRAZOLE SUSPENSION 20MG 10ML ORAL SYRINGE GT SCH (09:55)
[2022-11-15] MEDS: ESCITALOPRAM OXALATE 5MG TABLET (LEXAPRO) PEG SCH (09:55)
[2022-11-15] MEDS: METOPROLOL TART 12.5 MG PER 1/2 TAB PEG SCH ×2 (09:56→21:51)
[2022-11-15] MEDS: MAGNESIUM OXIDE 400MG TAB (MAG-OX) PEG SCH (09:57)
[2022-11-15] MEDS: ASPIRIN 81MG CHEW TABLET PEG SCH (09:57)
[2022-11-15] MEDS ORDERED: ALPRAZolam 0.25 MG TAB PO PRN (17:05)
[2022-11-15] MEDS: ALPRAZolam 0.25 MG TAB PEG PRN (21:52)
[2022-11-15] MEDS: guaiFENesin DM LIQ 10ML UD PEG PRN (21:52)
[2022-11-15] MEDS: METOCLOPRAMIDE 5 MG TAB PEG PRN (21:52)
[2022-11-16 05:45] VITALS: BP 103/58
[2022-11-16] MEDS: LEVOTHYROXINE 25MCG TABLET (0.025MG) PEG SCH (06:15)
[2022-11-16 06:28] LABS: HEMATOCRIT 32.6 % (42.0-52.0); HEMOGLOBIN 10.2 g/dl (13.5-17.5); MEAN CORPUSCULAR HEMOGLOBIN 29.5 pg (27.0-33.0); MEAN CORPUSCULAR HGB CONC 31.3 g/dl (32.0-36.5); MEAN CORPUSCULAR VOLUME 94.2 fl (80.0-96.0); PLATELET COUNT, AUTOMATED 379 10^3/uL (150-450); RED BLOOD COUNT 3.46 10^6/uL (4.30-6.10); WHITE BLOOD COUNT 6.6 10^3/uL (4.0-10.0)
[2022-11-16 06:40] LABS: ALBUMIN 2.3 G/DL (3.2-5.2); ALKALINE PHOSPHATASE 100 U/L (46-116); ALT/SGPT 33 U/L (7.0-40); AST/SGOT 24 U/L (<34); BILIRUBIN,TOTAL 0.2 MG/DL (0.3-1.2); BLOOD UREA NITROGEN 24 MG/DL (9-23); CALCIUM LEVEL 8.9 MG/DL (8.3-10.6); CARBON DIOXIDE LEVEL 31 MMOL/L (20-31); CHLORIDE LEVEL 104 MMOL/L (98-107); CREATININE FOR GFR 0.82 MG/DL (0.70-1.30); GLOMERULAR FILTRATION RATE > 60.0 (>35); GLUCOSE, FASTING 94 MG/DL (74-106); POTASSIUM SERUM 4.2 MMOL/L (3.5-5.1); SODIUM LEVEL 138 MMOL/L (136-145)
[2022-11-16] MEDS: TIOTROPIUM INHALER/CAPSULE (SPIRIVA) INH SCH (07:45)
[2022-11-16] MEDS: SYMBICORT 80/4.5MCG INHALER 6GM INH SCH ×2 (07:47→19:46)
[2022-11-16] MEDS: DOXAZOSIN MESYLATE 1 MG TAB PEG SCH (09:00)
[2022-11-16] MEDS: ESCITALOPRAM OXALATE 5MG TABLET (LEXAPRO) PEG SCH (09:40)
[2022-11-16] MEDS: MAGNESIUM OXIDE 400MG TAB (MAG-OX) PEG SCH (09:40)
[2022-11-16] MEDS: ONDANSETRON 4MG ORAL DISINTEGRATING TAB SL PRN (09:40)
[2022-11-16] MEDS: HEPARIN SOD (PORCINE) 5000UNITS/ML 1ML VIAL/SYRINGE SQ SCH ×2 (09:41→22:32)
[2022-11-16] MEDS: ASPIRIN 81MG CHEW TABLET PEG SCH (09:41)
[2022-11-16] MEDS: METOPROLOL TART 12.5 MG PER 1/2 TAB PEG SCH ×2 (10:22→22:31)
[2022-11-16] MEDS: OMEPRAZOLE SUSPENSION 20MG 10ML ORAL SYRINGE GT SCH (11:40)
[2022-11-16] MEDS: ALPRAZolam 0.25 MG TAB PEG PRN ×2 (12:09→22:32)
[2022-11-16 14:00] VITALS: BP 120/69
[2022-11-16] MEDS: guaiFENesin DM LIQ 10ML UD PEG PRN (22:32)
[2022-11-16] MEDS: METOCLOPRAMIDE 5 MG TAB PEG PRN (22:32)
[2022-11-17 05:36] VITALS: BP 112/55
[2022-11-17] MEDS: LEVOTHYROXINE 25MCG TABLET (0.025MG) PEG SCH (05:56)
[2022-11-17] MEDS: SALIVA SUBSTITUTE(MOUTHKOTE) BTL MT PRN (05:57)
[2022-11-17] MEDS: SYMBICORT 80/4.5MCG INHALER 6GM INH SCH ×2 (07:31→20:01)
[2022-11-17] MEDS: TIOTROPIUM INHALER/CAPSULE (SPIRIVA) INH SCH (07:31)
[2022-11-17] MEDS: DOXAZOSIN MESYLATE 1 MG TAB PEG SCH (09:00)
[2022-11-17 09:55] VITALS: BP 104/66
[2022-11-17] MEDS: ESCITALOPRAM OXALATE 5MG TABLET (LEXAPRO) PEG SCH (09:57)
[2022-11-17] MEDS: METOPROLOL TART 12.5 MG PER 1/2 TAB PEG SCH ×2 (09:58→21:29)
[2022-11-17] MEDS: OMEPRAZOLE SUSPENSION 20MG 10ML ORAL SYRINGE GT SCH (09:58)
[2022-11-17] MEDS: ASPIRIN 81MG CHEW TABLET PEG SCH (09:58)
[2022-11-17] MEDS: HEPARIN SOD (PORCINE) 5000UNITS/ML 1ML VIAL/SYRINGE SQ SCH ×2 (09:58→21:28)
[2022-11-17] MEDS: MAGNESIUM OXIDE 400MG TAB (MAG-OX) PEG SCH (09:58)
[2022-11-17] MEDS: ALPRAZolam 0.25 MG TAB PEG PRN (10:57)
[2022-11-18] MEDS: ONDANSETRON 4MG ORAL DISINTEGRATING TAB SL PRN ×3 (05:31→20:36)
[2022-11-18] MEDS: LEVOTHYROXINE 25MCG TABLET (0.025MG) PEG SCH (05:31)
[2022-11-18 05:52] VITALS: BP 111/60
[2022-11-18] MEDS: SYMBICORT 80/4.5MCG INHALER 6GM INH SCH ×2 (07:43→19:53)
[2022-11-18] MEDS: TIOTROPIUM INHALER/CAPSULE (SPIRIVA) INH SCH (07:43)
[2022-11-18] MEDS: HEPARIN SOD (PORCINE) 5000UNITS/ML 1ML VIAL/SYRINGE SQ SCH ×2 (09:54→20:36)
[2022-11-18] MEDS: ESCITALOPRAM OXALATE 5MG TABLET (LEXAPRO) PEG SCH (09:55)
[2022-11-18] MEDS: OMEPRAZOLE SUSPENSION 20MG 10ML ORAL SYRINGE GT SCH (09:55)
[2022-11-18] MEDS: ALPRAZolam 0.25 MG TAB PEG PRN (09:56)
[2022-11-18] MEDS: ASPIRIN 81MG CHEW TABLET PEG SCH (09:56)
[2022-11-18] MEDS: DOXAZOSIN MESYLATE 1 MG TAB PEG SCH (09:56)
[2022-11-18] MEDS: MAGNESIUM OXIDE 400MG TAB (MAG-OX) PEG SCH (09:56)
[2022-11-18] MEDS: METOPROLOL TART 12.5 MG PER 1/2 TAB PEG SCH ×2 (09:57→20:31)
[2022-11-18 20:31] VITALS: BP 113/55
[2022-11-19] MEDS: LEVOTHYROXINE 25MCG TABLET (0.025MG) PEG SCH (05:37)
[2022-11-19 05:45] VITALS: BP 108/55
[2022-11-19] MEDS: SYMBICORT 80/4.5MCG INHALER 6GM INH SCH ×2 (08:23→19:31)
[2022-11-19] MEDS: TIOTROPIUM INHALER/CAPSULE (SPIRIVA) INH SCH (08:23)
[2022-11-19 08:25] VITALS: O2SAT 93
[2022-11-19] MEDS: DOXAZOSIN MESYLATE 1 MG TAB PEG SCH (09:00)
[2022-11-19] MEDS: HEPARIN SOD (PORCINE) 5000UNITS/ML 1ML VIAL/SYRINGE SQ SCH ×2 (09:38→20:49)
[2022-11-19] MEDS: MAGNESIUM OXIDE 400MG TAB (MAG-OX) PEG SCH (09:38)
[2022-11-19] MEDS: ESCITALOPRAM OXALATE 5MG TABLET (LEXAPRO) PEG SCH (09:38)
[2022-11-19] MEDS: ASPIRIN 81MG CHEW TABLET PEG SCH (09:38)
[2022-11-19] MEDS: METOPROLOL TART 12.5 MG PER 1/2 TAB PEG SCH ×2 (09:39→20:49)
[2022-11-19] MEDS: ALPRAZolam 0.25 MG TAB PEG PRN (09:46)
[2022-11-19] MEDS: OMEPRAZOLE SUSPENSION 20MG 10ML ORAL SYRINGE GT SCH (09:46)
[2022-11-19] MEDS: ONDANSETRON 4MG ORAL DISINTEGRATING TAB SL PRN (17:39)
[2022-11-19 20:45] VITALS: BP 118/58
[2022-11-20] MEDS: LEVOTHYROXINE 25MCG TABLET (0.025MG) PEG SCH (05:34)
[2022-11-20 05:49] VITALS: BP 106/55
[2022-11-20] MEDS: SYMBICORT 80/4.5MCG INHALER 6GM INH SCH ×2 (07:09→19:50)
[2022-11-20] MEDS: DOXAZOSIN MESYLATE 1 MG TAB PEG SCH (09:00)
[2022-11-20] MEDS: ONDANSETRON 4MG ORAL DISINTEGRATING TAB SL PRN (10:30)
[2022-11-20] MEDS: ASPIRIN 81MG CHEW TABLET PEG SCH (10:31)
[2022-11-20] MEDS: ESCITALOPRAM OXALATE 5MG TABLET (LEXAPRO) PEG SCH (10:31)
[2022-11-20] MEDS: MAGNESIUM OXIDE 400MG TAB (MAG-OX) PEG SCH (10:31)
[2022-11-20] MEDS: ALPRAZolam 0.25 MG TAB PEG PRN (10:32)
[2022-11-20] MEDS: HEPARIN SOD (PORCINE) 5000UNITS/ML 1ML VIAL/SYRINGE SQ SCH ×2 (10:32→20:31)
[2022-11-20] MEDS: OMEPRAZOLE SUSPENSION 20MG 10ML ORAL SYRINGE GT SCH (10:32)
[2022-11-20] MEDS: METOPROLOL TART 12.5 MG PER 1/2 TAB PEG SCH ×2 (10:32→20:31)
[2022-11-20] MEDS: TIOTROPIUM INHALER/CAPSULE (SPIRIVA) INH SCH (10:51)
[2022-11-20 20:00] VITALS: BP 125/73
[2022-11-20] MEDS: METOCLOPRAMIDE 5 MG TAB PEG PRN (20:30)
[2022-11-21 06:00] VITALS: BP 119/73
[2022-11-21] MEDS: LEVOTHYROXINE 25MCG TABLET (0.025MG) PEG SCH (06:08)
[2022-11-21] MEDS: TIOTROPIUM INHALER/CAPSULE (SPIRIVA) INH SCH (06:16)
[2022-11-21] MEDS: SYMBICORT 80/4.5MCG INHALER 6GM INH SCH ×2 (06:17→19:48)
[2022-11-21] MEDS: ESCITALOPRAM OXALATE 5MG TABLET (LEXAPRO) PEG SCH (10:44)
[2022-11-21] MEDS: METOPROLOL TART 12.5 MG PER 1/2 TAB PEG SCH ×2 (10:44→20:47)
[2022-11-21] MEDS: ASPIRIN 81MG CHEW TABLET PEG SCH (10:45)
[2022-11-21] MEDS: MAGNESIUM OXIDE 400MG TAB (MAG-OX) PEG SCH (10:45)
[2022-11-21] MEDS: HEPARIN SOD (PORCINE) 5000UNITS/ML 1ML VIAL/SYRINGE SQ SCH ×2 (10:46→20:47)
[2022-11-21] MEDS: ONDANSETRON 4MG ORAL DISINTEGRATING TAB SL PRN (10:49)
[2022-11-21] MEDS: DOXAZOSIN MESYLATE 1 MG TAB PEG SCH (10:49)
[2022-11-21] MEDS: OMEPRAZOLE SUSPENSION 20MG 10ML ORAL SYRINGE GT SCH (10:50)
[2022-11-21] MEDS: ALPRAZolam 0.25 MG TAB PEG PRN (10:50)
[2022-11-22] MEDS: LEVOTHYROXINE 25MCG TABLET (0.025MG) PEG SCH (05:45)
[2022-11-22] MEDS: ONDANSETRON 4MG ORAL DISINTEGRATING TAB SL PRN (05:45)
[2022-11-22 06:00] VITALS: BP 101/49
[2022-11-22] MEDS: SYMBICORT 80/4.5MCG INHALER 6GM INH SCH ×2 (07:38→19:57)
[2022-11-22] MEDS: TIOTROPIUM INHALER/CAPSULE (SPIRIVA) INH SCH (07:38)
[2022-11-22] MEDS: HEPARIN SOD (PORCINE) 5000UNITS/ML 1ML VIAL/SYRINGE SQ SCH ×2 (08:04→20:20)
[2022-11-22] MEDS: ESCITALOPRAM OXALATE 5MG TABLET (LEXAPRO) PEG SCH (08:05)
[2022-11-22] MEDS: DOXAZOSIN MESYLATE 1 MG TAB PEG SCH (08:05)
[2022-11-22] MEDS: METOPROLOL TART 12.5 MG PER 1/2 TAB PEG SCH ×2 (08:06→20:20)
[2022-11-22] MEDS: OMEPRAZOLE SUSPENSION 20MG 10ML ORAL SYRINGE GT SCH (08:07)
[2022-11-22] MEDS: MAGNESIUM OXIDE 400MG TAB (MAG-OX) PEG SCH (08:07)
[2022-11-22] MEDS: ASPIRIN 81MG CHEW TABLET PEG SCH (08:07)
[2022-11-23] MEDS: ONDANSETRON 4MG ORAL DISINTEGRATING TAB SL PRN ×3 (01:39→19:46)
[2022-11-23 05:42] VITALS: BP 101/52
[2022-11-23] MEDS: LEVOTHYROXINE 25MCG TABLET (0.025MG) PEG SCH (06:01)
[2022-11-23] MEDS: TIOTROPIUM INHALER/CAPSULE (SPIRIVA) INH SCH (07:51)
[2022-11-23] MEDS: SYMBICORT 80/4.5MCG INHALER 6GM INH SCH ×2 (07:52→19:56)
[2022-11-23] MEDS: MAGNESIUM OXIDE 400MG TAB (MAG-OX) PEG SCH (08:07)
[2022-11-23] MEDS: ASPIRIN 81MG CHEW TABLET PEG SCH (08:07)
[2022-11-23] MEDS: HEPARIN SOD (PORCINE) 5000UNITS/ML 1ML VIAL/SYRINGE SQ SCH ×2 (08:07→19:48)
[2022-11-23] MEDS: ESCITALOPRAM OXALATE 5MG TABLET (LEXAPRO) PEG SCH (08:08)
[2022-11-23] MEDS: METOPROLOL TART 12.5 MG PER 1/2 TAB PEG SCH ×2 (08:09→19:47)
[2022-11-23] MEDS: DOXAZOSIN MESYLATE 1 MG TAB PEG SCH (08:09)
[2022-11-23] MEDS: OMEPRAZOLE SUSPENSION 20MG 10ML ORAL SYRINGE GT SCH (08:10)
[2022-11-23] MEDS ORDERED: LIDOCAINE 2% 5ML JELLY UROJET TOP ONE (19:25)
[2022-11-23] MEDS: ALPRAZolam 0.25 MG TAB PEG PRN (19:46)
[2022-11-23] MEDS ORDERED: FOSFOMYCIN TROMETHAMINE 3 GM POWDER PACKET (MONUROL) XX ONE (22:35)
[2022-11-24] MEDS: LEVOTHYROXINE 25MCG TABLET (0.025MG) PEG SCH (05:56)
[2022-11-24 06:00] VITALS: BP 112/53
[2022-11-24 07:16] LABS: BASO # 0.2 10^3/uL (0.0-0.2); BASO % 2.5 % (0.0-1.0); EOS # 1.2 10^3/uL (0.0-0.5); EOS % 15.5 % (0.0-3.0); HEMATOCRIT 33.4 % (42.0-52.0); HEMOGLOBIN 10.2 g/dl (13.5-17.5); LYMPH # 0.6 10^3/uL (1.5-5.0); LYMPH % 7.1 % (24.0-44.0); MEAN CORPUSCULAR HEMOGLOBIN 29.1 pg (27.0-33.0); MEAN CORPUSCULAR HGB CONC 30.5 g/dl (32.0-36.5); MEAN CORPUSCULAR VOLUME 95.4 fl (80.0-96.0); MONO # 0.8 10^3/uL (0.0-0.8); MONO % 9.5 % (2.0-8.0); NEUTROPHILS # 5.2 10^3/uL (1.5-8.5); NEUTROPHILS % 64.9 % (36.0-66.0); PLATELET COUNT, AUTOMATED 374 10^3/uL (150-450)
[2022-11-24 07:41] LABS: ALBUMIN 2.5 G/DL (3.2-5.2); ALKALINE PHOSPHATASE 99 U/L (46-116); ALT/SGPT 28 U/L (7.0-40); AST/SGOT 10 U/L (<34); BILIRUBIN,TOTAL 0.3 MG/DL (0.3-1.2); BLOOD UREA NITROGEN 30 MG/DL (9-23); CALCIUM LEVEL 8.7 MG/DL (8.3-10.6); CARBON DIOXIDE LEVEL 29 MMOL/L (20-31); CHLORIDE LEVEL 103 MMOL/L (98-107); CREATININE FOR GFR 0.85 MG/DL (0.70-1.30); GLOMERULAR FILTRATION RATE > 60.0 (>35); GLUCOSE, FASTING 87 MG/DL (74-106); POTASSIUM SERUM 4.3 MMOL/L (3.5-5.1); SODIUM LEVEL 138 MMOL/L (136-145); TOTAL PROTEIN 6.8 G/DL (5.7-8.2)
[2022-11-24] MEDS: ASPIRIN 81MG CHEW TABLET PEG SCH (08:01)
[2022-11-24] MEDS: METOPROLOL TART 12.5 MG PER 1/2 TAB PEG SCH ×2 (08:01→20:13)
[2022-11-24] MEDS: ESCITALOPRAM OXALATE 5MG TABLET (LEXAPRO) PEG SCH (08:01)
[2022-11-24] MEDS: MAGNESIUM OXIDE 400MG TAB (MAG-OX) PEG SCH (08:01)
[2022-11-24] MEDS: HEPARIN SOD (PORCINE) 5000UNITS/ML 1ML VIAL/SYRINGE SQ SCH ×2 (08:02→20:15)
[2022-11-24] MEDS: OMEPRAZOLE SUSPENSION 20MG 10ML ORAL SYRINGE GT SCH (08:02)
[2022-11-24] MEDS: DOXAZOSIN MESYLATE 1 MG TAB PEG SCH (08:02)
[2022-11-24] MEDS: SYMBICORT 80/4.5MCG INHALER 6GM INH SCH ×2 (08:39→20:01)
[2022-11-24] MEDS: TIOTROPIUM INHALER/CAPSULE (SPIRIVA) INH SCH (08:39)
[2022-11-24] MEDS ORDERED: VARIBAR NECTAR 40% w/v 240ML SUSP BTL As Ordered ONE (09:30)
[2022-11-24] MEDS ORDERED: VARIBAR PUDDING 40% w/v 230ML TUBE As Ordered ONE (09:30)
[2022-11-24] MEDS ORDERED: E-Z-PAQUE 96% w/w SUSP 176GM BTL As Ordered ONE (09:30)
[2022-11-24] MEDS ORDERED: BARIUM SULFATE 700 MG TABLET (E-Z-DISK) As Ordered ONE (09:30)
[2022-11-25] MEDS: LEVOTHYROXINE 25MCG TABLET (0.025MG) PEG SCH (05:53)
[2022-11-25 06:00] VITALS: BP 111/59
[2022-11-25] MEDS: SYMBICORT 80/4.5MCG INHALER 6GM INH SCH ×2 (07:23→19:42)
[2022-11-25] MEDS: TIOTROPIUM INHALER/CAPSULE (SPIRIVA) INH SCH (07:23)
[2022-11-25] MEDS: METOPROLOL TART 12.5 MG PER 1/2 TAB PEG SCH ×2 (10:02→20:57)
[2022-11-25] MEDS: MAGNESIUM OXIDE 400MG TAB (MAG-OX) PEG SCH (10:02)
[2022-11-25] MEDS: ASPIRIN 81MG CHEW TABLET PEG SCH (10:02)
[2022-11-25] MEDS: ESCITALOPRAM OXALATE 5MG TABLET (LEXAPRO) PEG SCH (10:02)
[2022-11-25] MEDS: DOXAZOSIN MESYLATE 1 MG TAB PEG SCH (10:03)
[2022-11-25] MEDS: OMEPRAZOLE SUSPENSION 20MG 10ML ORAL SYRINGE GT SCH (10:03)
[2022-11-25] MEDS: ALPRAZolam 0.25 MG TAB PEG PRN (10:03)
[2022-11-25] MEDS: HEPARIN SOD (PORCINE) 5000UNITS/ML 1ML VIAL/SYRINGE SQ SCH ×2 (10:04→20:57)
[2022-11-25] MEDS: ONDANSETRON 4MG ORAL DISINTEGRATING TAB SL PRN (17:25)
[2022-11-25] MEDS ORDERED: PROMETHAZINE 25MG SUPP PR PRN (17:50)
[2022-11-25] MEDS ORDERED: SCOPOLAMINE 1MG TRANSDERMAL PATCH TOP SCH (18:00)
[2022-11-25 19:03] LABS: BLOOD UREA NITROGEN 38 MG/DL (9-23); CALCIUM LEVEL 9.1 MG/DL (8.3-10.6); CARBON DIOXIDE LEVEL 27 MMOL/L (20-31); CHLORIDE LEVEL 104 MMOL/L (98-107); CREATININE FOR GFR 0.93 MG/DL (0.70-1.30); GLOMERULAR FILTRATION RATE > 60.0 (>35); GLUCOSE, FASTING 110 MG/DL (74-106); POTASSIUM SERUM 3.9 MMOL/L (3.5-5.1); SODIUM LEVEL 140 MMOL/L (136-145)
[2022-11-26 05:40] VITALS: BP 105/58
[2022-11-26] MEDS: LEVOTHYROXINE 25MCG TABLET (0.025MG) PEG SCH (05:41)
[2022-11-26] MEDS: TIOTROPIUM INHALER/CAPSULE (SPIRIVA) INH SCH (07:51)
[2022-11-26] MEDS: SYMBICORT 80/4.5MCG INHALER 6GM INH SCH ×2 (07:51→19:49)
[2022-11-26] MEDS: ASPIRIN 81MG CHEW TABLET PEG SCH (08:25)
[2022-11-26] MEDS: ESCITALOPRAM OXALATE 5MG TABLET (LEXAPRO) PEG SCH (08:25)
[2022-11-26] MEDS: HEPARIN SOD (PORCINE) 5000UNITS/ML 1ML VIAL/SYRINGE SQ SCH ×2 (08:25→20:07)
[2022-11-26] MEDS: OMEPRAZOLE/SODIUM BICARB 20-840MG 10ML ORAL SYRINGE GT SCH (08:25)
[2022-11-26] MEDS: MAGNESIUM OXIDE 400MG TAB (MAG-OX) PEG SCH (08:26)
[2022-11-26] MEDS: METOPROLOL TART 12.5 MG PER 1/2 TAB PEG SCH ×2 (08:26→20:08)
[2022-11-26] MEDS: DOXAZOSIN MESYLATE 1 MG TAB PEG SCH (08:27)
[2022-11-26] MEDS: ALPRAZolam 0.25 MG TAB PEG PRN (08:27)
[2022-11-26] MEDS: ONDANSETRON 4MG ORAL DISINTEGRATING TAB SL PRN (22:43)
[2022-11-27] MEDS: LEVOTHYROXINE 25MCG TABLET (0.025MG) PEG SCH (05:30)
[2022-11-27 06:19] VITALS: BP 115/49
[2022-11-27] MEDS: SYMBICORT 80/4.5MCG INHALER 6GM INH SCH ×2 (07:40→19:59)
[2022-11-27] MEDS: TIOTROPIUM INHALER/CAPSULE (SPIRIVA) INH SCH (07:40)
[2022-11-27] MEDS: ASPIRIN 81MG CHEW TABLET PEG SCH (10:08)
[2022-11-27] MEDS: ESCITALOPRAM OXALATE 5MG TABLET (LEXAPRO) PEG SCH (10:08)
[2022-11-27] MEDS: ALPRAZolam 0.25 MG TAB PEG PRN (10:08)
[2022-11-27] MEDS: MAGNESIUM OXIDE 400MG TAB (MAG-OX) PEG SCH (10:08)
[2022-11-27] MEDS: OMEPRAZOLE/SODIUM BICARB 20-840MG 10ML ORAL SYRINGE GT SCH (10:09)
[2022-11-27] MEDS: DOXAZOSIN MESYLATE 1 MG TAB PEG SCH (10:09)
[2022-11-27] MEDS: METOPROLOL TART 12.5 MG PER 1/2 TAB PEG SCH ×2 (10:10→21:00)
[2022-11-27] MEDS: HEPARIN SOD (PORCINE) 5000UNITS/ML 1ML VIAL/SYRINGE SQ SCH ×2 (10:10→21:26)
[2022-11-27] MEDS: ONDANSETRON 4MG ORAL DISINTEGRATING TAB SL PRN ×2 (10:23→21:26)
[2022-11-28 04:20] VITALS: BP 104/52
[2022-11-28] MEDS: LEVOTHYROXINE 25MCG TABLET (0.025MG) PEG SCH (05:27)
[2022-11-28] MEDS: TIOTROPIUM INHALER/CAPSULE (SPIRIVA) INH SCH (08:53)
[2022-11-28] MEDS: SYMBICORT 80/4.5MCG INHALER 6GM INH SCH (08:55)
[2022-11-28] MEDS: OMEPRAZOLE/SODIUM BICARB 20-840MG 10ML ORAL SYRINGE GT SCH (09:23)
[2022-11-28] MEDS: ONDANSETRON 4MG ORAL DISINTEGRATING TAB SL PRN (09:23)
[2022-11-28 09:25] VITALS: BP 114/68
[2022-11-28] MEDS: ESCITALOPRAM OXALATE 5MG TABLET (LEXAPRO) PEG SCH (09:25)
[2022-11-28] MEDS: DOXAZOSIN MESYLATE 1 MG TAB PEG SCH (09:25)
[2022-11-28] MEDS: ASPIRIN 81MG CHEW TABLET PEG SCH (09:25)
[2022-11-28] MEDS: METOPROLOL TART 12.5 MG PER 1/2 TAB PEG SCH (09:26)
[2022-11-28] MEDS: MAGNESIUM OXIDE 400MG TAB (MAG-OX) PEG SCH (09:26)
[2022-11-28] MEDS: HEPARIN SOD (PORCINE) 5000UNITS/ML 1ML VIAL/SYRINGE SQ SCH (09:26)
[2022-11-28] MEDS ORDERED: LEXA5TAB13 PEG (11:36)
[2022-11-28] MEDS ORDERED: METO5TAB2 PEG (11:36)
[2022-11-28] MEDS ORDERED: OMEP90SU GT (11:36)
[2022-11-28] MEDS ORDERED: ALB2.5NEB NEB (11:36)
[2022-11-28] MEDS ORDERED: MAGN400T2 PEG (11:36)
[2022-11-28] MEDS ORDERED: ASPI81CH8 PEG (11:36)
[2022-11-28] MEDS ORDERED: TRAN1DIS4 TOP (11:36)
[2022-11-28] MEDS ORDERED: METO1TAB87 PEG (11:36)
[2022-11-28] MEDS ORDERED: DOXA1TAB91 PEG (11:36)
[2022-11-28] MEDS ORDERED: TIOT18INH INH (11:36)
[2022-11-28] MEDS ORDERED: ONDA4TAB6 SL (11:36)
[2022-11-28] MEDS ORDERED: ALPR0.25 PEG (11:36)
[2022-11-28] MEDS ORDERED: SYMB80INH INH (11:36)
[2022-11-28] MEDS ORDERED: LEVO25TA5 PEG (11:36)
[2022-11-28] MEDS ORDERED: DOXY-444 PO (11:40)
[2022-11-28] MEDS ORDERED: ALBU8.5H INH (11:40)
[2022-11-28] MEDS ORDERED: PRED20TA PO (11:40)
[2022-11-28] MEDS ORDERED: PRIL20TA2 PO (12:45)
[2022-11-28] MEDS ORDERED: PREV30TA3 PEG (14:05)
[2022-11-28] MEDS ORDERED: GUAISYP5 PEG (14:08)
== END 2022-11-28 15:38 | disposition hospice, home (50) | DRG 981 ==
LOC: M ED 12:49 → M ED INP 17:37 → M MSPAV 20:04 → M ICU 09-29 03:46 → M PCU 10-13 04:30 → M MSPAV 10-18 23:03 → M PCU 10-26 03:41 → M MSPAV 10-26 16:40
PROVIDERS: ADMIT Family Medicine; ATTEND General Practice
PROC: 0DNU0ZZ Release Omentum, Open Approach (ICD-10-PCS; 2022-09-29)
PROC: 0WQF0ZZ Repair Abdominal Wall, Open Approach (ICD-10-PCS; 2022-09-29)
PROC: 30233N1 Transfusion of Nonautologous Red Blood Cells into Peripheral Vein, Percutaneous Approach (ICD-10-PCS; 2022-09-29)
PROC: 30233K1 Transfusion of Nonautologous Frozen Plasma into Peripheral Vein, Percutaneous Approach (ICD-10-PCS; 2022-09-29)
PROC: 0DB80ZZ Excision of Small Intestine, Open Approach (ICD-10-PCS; principal; 2022-09-29 05:45)
PROC: 5A1945Z Respiratory Ventilation, 24-96 Consecutive Hours (ICD-10-PCS; 2022-10-06)
PROC: 0DB80ZZ Excision of Small Intestine, Open Approach (ICD-10-PCS; 2022-10-06)
PROC: 02HV33Z Insertion of Infusion Device into Superior Vena Cava, Percutaneous Approach (ICD-10-PCS; 2022-10-12)
PROC: 0DH63UZ Insertion of Feeding Device into Stomach, Percutaneous Approach (ICD-10-PCS; 2022-10-19)
PROC: 5A1945Z Respiratory Ventilation, 24-96 Consecutive Hours (ICD-10-PCS; 2022-10-19)
DX: J70.4 Drug-induced interstitial lung disorders, unspecified (principal); K63.1 Perforation of intestine (nontraumatic); K66.1 Hemoperitoneum; R57.8 Other shock; R57.1 Hypovolemic shock; U07.1 COVID-19; J96.21 Acute and chronic respiratory failure with hypoxia; A41.9 Sepsis, unspecified organism; C34.32 Malignant neoplasm of lower lobe, left bronchus or lung; E87.20 Acidosis, unspecified; J44.1 Chronic obstructive pulmonary disease with (acute) exacerbation; I24.8 Other forms of acute ischemic heart disease; K43.0 Incisional hernia with obstruction, without gangrene; D62 Acute posthemorrhagic anemia; N17.9 Acute kidney failure, unspecified; K91.89 Other postprocedural complications and disorders of digestive system; T81.31XA Disruption of external operation (surgical) wound, not elsewhere classified, initial encounter; I10 Essential (primary) hypertension; E03.9 Hypothyroidism, unspecified; F41.9 Anxiety disorder, unspecified; F32.A Depression, unspecified; T50.905A Adverse effect of unspecified drugs, medicaments and biological substances, initial encounter; E83.39 Other disorders of phosphorus metabolism; E78.5 Hyperlipidemia, unspecified; E87.5 Hyperkalemia; E87.6 Hypokalemia; E83.42 Hypomagnesemia; R31.0 Gross hematuria; R13.10 Dysphagia, unspecified; I48.91 Unspecified atrial fibrillation; R33.9 Retention of urine, unspecified; N40.1 Benign prostatic hyperplasia with lower urinary tract symptoms; J15.6 Pneumonia due to other Gram-negative bacteria; Z92.21 Personal history of antineoplastic chemotherapy; Z92.3 Personal history of irradiation; Z91.040 Latex allergy status; Z79.899 Other long term (current) drug therapy; Z79.82 Long term (current) use of aspirin; Z79.52 Long term (current) use of systemic steroids

== ENCOUNTER → 2022-12-09 | Outpatient (CLI) | payer MEDICARE ==
[~2022-12-09] MED LIST changes: +ALB2.5NEB NEB; +ALBU8.5H INH; +ALPR0.25 PEG; +ASPI81CH8 PEG; +DOXA1TAB91 PEG; +DOXY-444 PO; +GUAISYP5 PEG; +HYDR5SYP PO; +LEVO25TA5 PEG; +LEXA5TAB13 PEG; +MAGN400T2 PEG; +METO1TAB87 PEG; +METO5TAB2 PEG; +OMEP90SU GT; +ONDA4TAB6 SL; +PREV30TA3 PEG; +PRIL20TA2 PO; +SYMB80INH INH; +TIOT18INH INH; +TRAN1DIS4 TOP
== END ==
LOC: M ONCR 12:31
PROVIDERS: ATTEND General Practice
DX: C34.32 Malignant neoplasm of lower lobe, left bronchus or lung (principal); Z87.01 Personal history of pneumonia (recurrent); Z87.19 Personal history of other diseases of the digestive system; Z87.891 Personal history of nicotine dependence; Z92.21 Personal history of antineoplastic chemotherapy; Z92.3 Personal history of irradiation; Z93.1 Gastrostomy status; R53.1 Weakness; J96.91 Respiratory failure, unspecified with hypoxia; M54.9 Dorsalgia, unspecified; Z71.2 Person consulting for explanation of examination or test findings; J44.9 Chronic obstructive pulmonary disease, unspecified; Z99.81 Dependence on supplemental oxygen; Z91.041 Radiographic dye allergy status; Z79.51 Long term (current) use of inhaled steroids; Z79.899 Other long term (current) drug therapy

== ENCOUNTER → 2022-12-23 | Outpatient (CLI) | payer MEDICARE | LOC: M RAD 10:50 | PROVIDERS: ATTEND Nurse Practitioner | DX: C34.02 Malignant neoplasm of left main bronchus (principal); Z95.828 Presence of other vascular implants and grafts; J47.9 Bronchiectasis, uncomplicated; I70.0 Atherosclerosis of aorta; R91.8 Other nonspecific abnormal finding of lung field ==

== ENCOUNTER → 2023-01-04 | Outpatient (CLI) | payer MEDICARE ==
[~2023-01-04] MED LIST changes: +BARIUM SULFATE 700 MG TABLET (E-Z-DISK) As Ordered ONE; +E-Z-PAQUE 96% w/w SUSP 176GM BTL As Ordered ONE; +VARIBAR NECTAR 40% w/v 240ML SUSP BTL As Ordered ONE; +VARIBAR PUDDING 40% w/v 230ML TUBE As Ordered ONE
== END ==
LOC: M RAD 10:46
PROVIDERS: ATTEND Internal Medicine
DX: R13.12 Dysphagia, oropharyngeal phase (principal)

== ENCOUNTER → 2023-01-10 | Outpatient (CLI) | payer MEDICARE ==
[~2023-01-10] MED LIST changes: -BARIUM SULFATE 700 MG TABLET (E-Z-DISK) As Ordered ONE; -E-Z-PAQUE 96% w/w SUSP 176GM BTL As Ordered ONE; -VARIBAR NECTAR 40% w/v 240ML SUSP BTL As Ordered ONE; -VARIBAR PUDDING 40% w/v 230ML TUBE As Ordered ONE
== END ==
LOC: M ONCR 12:48
PROVIDERS: ATTEND General Practice
DX: C34.32 Malignant neoplasm of lower lobe, left bronchus or lung (principal); Z87.891 Personal history of nicotine dependence; Z71.2 Person consulting for explanation of examination or test findings; Z79.51 Long term (current) use of inhaled steroids; Z79.82 Long term (current) use of aspirin; Z79.890 Hormone replacement therapy; Z79.899 Other long term (current) drug therapy; Z91.041 Radiographic dye allergy status; Z92.21 Personal history of antineoplastic chemotherapy; Z92.3 Personal history of irradiation; Z93.1 Gastrostomy status; Z99.81 Dependence on supplemental oxygen

== ENCOUNTER → 2023-02-10 | Outpatient (CLI) | payer MEDICARE, MEDICAID | LOC: M RAD 15:13 | PROVIDERS: ATTEND General Practice | DX: C34.32 Malignant neoplasm of lower lobe, left bronchus or lung (principal) ==

== ENCOUNTER → 2023-03-13 | Outpatient (REF) | payer MEDICARE, MEDICAID | LOC: M LAB REF 16:55 | PROVIDERS: ATTEND Internal Medicine Pulmonary Disease | DX: J47.9 Bronchiectasis, uncomplicated (principal) ==

== ENCOUNTER → 2023-03-14 | Outpatient (CLI) | payer MEDICARE | LOC: EEVIPCON 13:50 → M ONCR 13:50 | PROVIDERS: ATTEND General Practice | DX: C34.32 Malignant neoplasm of lower lobe, left bronchus or lung (principal); Z87.891 Personal history of nicotine dependence; J44.9 Chronic obstructive pulmonary disease, unspecified; Z71.2 Person consulting for explanation of examination or test findings; Z79.51 Long term (current) use of inhaled steroids; Z79.82 Long term (current) use of aspirin; Z79.891 Long term (current) use of opiate analgesic; Z79.890 Hormone replacement therapy; Z91.041 Radiographic dye allergy status; Z92.21 Personal history of antineoplastic chemotherapy; Z92.3 Personal history of irradiation; Z93.1 Gastrostomy status; Z99.81 Dependence on supplemental oxygen ==

== ENCOUNTER → 2023-03-21 | Outpatient (REF) | payer MEDICARE ==
[2023-03-21 18:14] LABS: BASOPHILS 2 % (0-1); EOSINOPHILS 6 % (0-3); LYMPHOCYTES 3 % (16-44); MONOCYTES 1 % (0-5); NEUTROPHILS 88 % (28-66)
[2023-03-21 18:15] LABS: PLATELET ESTIMATE NORMAL (NORMAL)
== END ==
LOC: M LAB REF 17:18
PROVIDERS: ATTEND Nurse Practitioner Family
DX: D72.9 Disorder of white blood cells, unspecified (principal)

== ENCOUNTER → 2023-04-26 | Outpatient (CLI) | payer MEDICARE, MEDICAID | LOC: M LAB 09:58 | PROVIDERS: ATTEND Nurse Practitioner Adult Health | DX: J47.9 Bronchiectasis, uncomplicated (principal) ==

== ENCOUNTER → 2023-05-16 | Outpatient (CLI) | payer MEDICARE ==
[~2023-05-16] MED LIST changes: +PRED10TA2 PO
== END ==
LOC: M ONCR 14:20
PROVIDERS: ATTEND General Practice
DX: C34.32 Malignant neoplasm of lower lobe, left bronchus or lung (principal); J06.9 Acute upper respiratory infection, unspecified; Z87.891 Personal history of nicotine dependence; Z71.2 Person consulting for explanation of examination or test findings; Z79.51 Long term (current) use of inhaled steroids; Z79.82 Long term (current) use of aspirin; Z79.891 Long term (current) use of opiate analgesic; Z79.890 Hormone replacement therapy; Z79.899 Other long term (current) drug therapy; Z91.041 Radiographic dye allergy status; Z92.21 Personal history of antineoplastic chemotherapy; Z92.3 Personal history of irradiation

== ENCOUNTER → 2023-06-20 | Outpatient (CLI) | payer MEDICARE, MEDICAID ==
[~2023-06-20] MED LIST changes: +HYDR1SYP7 PO; -HYDR5SYP11 PO
== END ==
LOC: M RAD 08:51
PROVIDERS: ATTEND General Practice
DX: C34.32 Malignant neoplasm of lower lobe, left bronchus or lung (principal)
CPT/HCPCS: 71046; G0463

== ENCOUNTER → 2023-06-20 | Outpatient (CLI) | payer MEDICARE, MEDICAID | LOC: M ONCR 09:35 | PROVIDERS: ATTEND General Practice | DX: J18.9 Pneumonia, unspecified organism (principal) ==

== ENCOUNTER → 2023-07-03 | Outpatient (CLI) | payer MEDICARE | LOC: M RAD 09:04 | PROVIDERS: ATTEND General Practice | DX: C34.32 Malignant neoplasm of lower lobe, left bronchus or lung (principal); R59.0 Localized enlarged lymph nodes; J47.9 Bronchiectasis, uncomplicated; I70.0 Atherosclerosis of aorta; Z93.1 Gastrostomy status; N28.1 Cyst of kidney, acquired; K80.20 Calculus of gallbladder without cholecystitis without obstruction; C79.51 Secondary malignant neoplasm of bone ==

== ENCOUNTER → 2023-07-21 | Outpatient (CLI) | payer MEDICARE ==
[~2023-07-21] MED LIST changes: +MORP1SOL5 PO
== END ==
LOC: M ONCR 13:55
PROVIDERS: ATTEND General Practice
DX: C34.32 Malignant neoplasm of lower lobe, left bronchus or lung (principal); C79.51 Secondary malignant neoplasm of bone; J44.9 Chronic obstructive pulmonary disease, unspecified; R59.0 Localized enlarged lymph nodes; S22.060A Wedge compression fracture of T7-T8 vertebra, initial encounter for closed fracture; S22.080A Wedge compression fracture of T11-T12 vertebra, initial encounter for closed fracture; Z72.0 Tobacco use; Z79.51 Long term (current) use of inhaled steroids; Z79.82 Long term (current) use of aspirin; Z79.899 Other long term (current) drug therapy; Z91.041 Radiographic dye allergy status; Z92.21 Personal history of antineoplastic chemotherapy; Z92.3 Personal history of irradiation